=== PATIENT | female | born 1955 | race Caucasian/White ===

== ENCOUNTER 2019-06-06 12:33 | Inpatient (IN) | payer MEDICARE, MEDICAID, SELFPAY ==
[2019-06-06] VITALS (9 sets, daily range): BP systolic 119–153; BP diastolic 56–79; PULSE 73–96; RESP 14–20; TEMP 36.9; O2SAT 97–100; BMI 25.0
--- NOTE | ~2019-06-06 | XR_ITS ---
EXAMINATION: XR chest 2V EXAM DATE: 06/06/2019 14:03 INDICATION: Fell this morning. COPD on oxygen. TECHNIQUE: Frontal and lateral projections of the chest obtained and reviewed. Comparison is made to prior examination from 11/06/2018. FINDINGS: Severe chronic hyperinflation. Again there are old bilateral rib fractures. No confluent c onsolidation, pneumothorax or pleural effusion suspected. Cardiomediastinal silhouette is normal. IMPRESSION: No acute cardiopulmonary findings. Reviewed, dictated and finalized at location B. GN INSERTER
--- NOTE | ~2019-06-06 | CT_ITS ---
EXAMINATION: CT shoulder LT wo con DATE: 06/06/2019 16:41 INDICATION: Left shoulder pain. TECHNIQUE: Computed tomography (CT) of the left shoulder was performed without intravenous contrast. Automated exposure control and iterative reconstruction technique were employed. The dose-length prod uct was 176.85 mGy-cm. COMPARISON: Left shoulder radiographs 06/06/2019 FINDINGS: There is mild scarring at left lung apex. There is mild emphysema. Bone alignment is normal . No fracture. There is mild osteoarthritis of glenohumeral joint and acromioclavicular joint. There are multiple old healed left rib fractures. IMPRESSION: 1. Mild polyarticular osteoarthritis. Reviewed, dictated and finalized at location A. EN PRINT OPERATOR
--- NOTE | ~2019-06-06 | CT_ITS ---
EXAMINATION: CT brain wo con, CT cervical spine wo con EXAM DATE: 06/06/2019 13:35 INDICATION: Fall, head injury. TECHNIQUE: Spiral CT of the head was performed without contrast. Axial, coronal and sagittal images were reviewed. Spiral CT of the cervical spine was performed without contrast. Axial images were rev iewed. Coronal and sagittal reformatted images were also reviewed. The dose-length product (DLP) fo r this examination was 605.33 (accession [id number]), 165.06 (accession [id number]) mGy-cm. The exposure was tailored according to patient size, and iterative reconstruction (ASIR) was used as additional dose reduction technique. There is no prior study for comparison. FINDINGS: HEAD CT: There is no acute intraparenchymal hemorrhage. No evidence of intraparenchymal brain mass l esion. No evidence of acute infarction. There is mild periventricular and subcortical hypodensity, n onspecific but probably related to small vessel ischemic disease. There is intracranial carotid art eriosclerosis. There is no mass effect or midline shift. There is no obstructive hydrocephalus susp ected. There are no extra-axial collections. There are no acute calvarial fractures. The orbits ar e unremarkable. There is left frontal scalp contusion. The visualized sinuses and mastoid air cells are well aerated. Maxillary sinus wall thickening indicating a history of chronic sinus opacity. CERVICAL CT: There is no evidence of acute cervical fracture. The odontoid process is intact. Pre- dens space is normal. Prevertebral soft tissue is normal. There are no soft tissue abnormalities id entified. There is no disc space widening or traumatic vertebral body subluxation suspected. Severe multilevel cervical facet arthropathy. Degenerative subluxations. A detailed level by level evaluat ion of spondylosis can be added as addendum if requested. Biapical scarring. IMPRESSION: 1. No acute intracranial or cervical findings. 2. Left frontal scalp contusion. 3. Advanced cervical arthritis. Reviewed, dictated and finalized at location B. ING ENFORCER IMPRESSION: 1. No acute intracranial or cervical findings. 2. Left frontal scalp contusion. 3. Advanced cervical arthritis.
--- NOTE | ~2019-06-06 | CT_ITS ---
EXAMINATION: CT knee RT wo con DATE: 06/06/2019 14:50 INDICATION: Proximal right tibia fracture. TECHNIQUE: Computed tomography (CT) of the right knee was performed without intravenous contrast. Aut omated exposure control and iterative reconstruction technique were employed. The dose-length product was 464.28 mGy-cm. COMPARISON: Right knee radiographs 06/06/2019 FINDINGS: There is a comminuted fracture of proximal right tibia including a nondisplaced impaction f racture of the tibial tubercle and a nondisplaced split fracture of lateral tibial plateau. There is a nondisplaced stellate fracture of patella. There is mild osteoarthritis of medial and lateral ashvin rtments. There is a large lipohemarthrosis. IMPRESSION: 1. Nondisplaced comminuted fracture of proximal tibia. 2. Nondisplaced stellate fracture of patella. 3. Mild right knee osteoarthritis. 4. Large lipohemarthrosis. Reviewed, dictated and finalized at location A. RVISOR ALUMINUM BOAT ASSEMBLY
--- NOTE | ~2019-06-06 | XR_ITS ---
EXAMINATION: XR shoulder LT min 2V EXAM DATE: 06/06/2019 14:05 INDICATION: Left shoulder pain. Fall. Initial encounter. TECHNIQUE: The following left shoulder projections obtained: frontal projection with internal rotatio n, frontal projection with external rotation, Grashey, and scapular Y view (4+ views). There is no p rior study for comparison. FINDINGS: Left rib fractures which appear to be old. No evidence of left shoulder rotator cuff calcif ic tendinosis. There is mild to moderate acromioclavicular joint primary osteoarthritis. There are n o acute fractures or dislocations identified. There is no subcutaneous gas. The soft tissue is unre markable. There are no radiopaque foreign bodies. IMPRESSION: Left rib fractures which appear to be old. Reviewed, dictated and finalized at location B. R HELPER
--- NOTE | ~2019-06-06 | XR_ITS ---
EXAMINATION: XR knee RT min 4V EXAM DATE: 06/06/2019 14:06 INDICATION: Initial encounter following injury, with pain of the right knee. TECHNIQUE: Right knee frontal, crosstable lateral, orthogonal oblique projections for interpretation . Comparison is made to prior examination from 11/01/2012. FINDINGS: There is acute right tibial fracture involving the metaphysis anterolaterally, and extendin g vertically into the lateral tibial plateau. There is a laceration anterior to the tibial tuberosity , fracture site, uncertain whether or not this extends to the bone potentially making it an open post traumatic fracture, clinical correlation. There is large lipohemarthrosis. IMPRESSION: 1. Right tibial metaphyseal fracture extending into lateral tibial plateau. 2. Large lipohemarthrosis. Reviewed, dictated and finalized at location B. APPLIANCE SERVICER
--- NOTE | 2019-06-06 13:15 | ED.GENADULT ---
HPI - General Adult General Chief complaint: Fall Stated complaint: FALL Time Seen by Provider: 06/06/19 12:40 Source: patient Mode of arrival: ambulatory Limitations: no limitations History of Present Illness HPI narrative: Patient is a 63-year-old female who presents to emergency department for evaluation of injuries related to tripping over her oxygen tubing this morning injuring the left shoulder elbow and knee also striking the head where she has a hematoma patient denies syncope or loss of consciousness. Patient notes moderate aching pain to the injured areas worse with any activity or movement. Patient has not taken anything for her symptoms and presents per private vehicle in acute pain. Related Data Allergies Allergy/AdvReac Type Severity Reaction Status Date / Time cephalexin Allergy Mild Verified 06/06/19 13:11 levofloxacin Allergy Mild FEET Verified 11/06/18 16:30 SWELLING Sulfa (Sulfonamide Allergy Unknown Verified 11/06/18 16:30 Antibiotics) Review of Systems Review of Systems: Narrative: CONSTITUTIONAL: Denies fever, chills, or sweats. EYES: Denies visual changes, redness, or discharge. ENT: Denies rhinorrhea, congestion, sore throat, or otalgia. CARDIOVASCULAR: Denies chest pain, or edema. RESPIRATORY: Patient notes chronic cough attributed to COPD denies any dyspnea GASTROINTESTINAL: Denies abdominal pain, nausea, vomiting, or diarrhea. GENITOURINARY: Denies dysuria or hematuria. SKIN: Contusions and skin tears MUSCULOSKELETAL: Patient with tenderness of the left shoulder and anterior right knee. No cervical thoracic or lumbar tenderness NEUROLOGIC: Denies headache, numbness, dizziness, or weakness. PMFSH Past Medical History Medical History COPD (chronic obstructive pulmonary disease) Surgical History Surgical History (Updated 06/06/19 @ 13:23 by Ba Mendoza PA-C) History of orthopedic surgery Family History Family History Other Cerebrovascular accident Diabetes mellitus Family history of arthritis Family history of cardiovascular disease Family history of mental disorder Hypertension Social History Social History Smoking status: Former smoker Alcohol intake: current Exam Narrative: Exam Narrative: GENERAL: Well-appearing, well-nourished, and in no acute distress. HEAD: Normocephalic, hematoma to the left forehead EYES: PERRLA and EOMI. ENT: Nares clear, no rhinorrhea or epistaxis. Mucous membranes moist. Oropharynx without tonsillar hypertrophy exudate or other lesions. CHEST: Clear to auscultation. No respiratory distress. Coarse breath sounds throughout HEART: Regular rate and rhythm. No murmur heard. Normal peripheral pulses. ABDOMEN: Soft, nontender, distended EXTREMITIES: . Tenderness of the left shoulder and anterior right knee. Small abrasion of the anterior right knee with contusion. Skin tear of the left lateral forearm proximally. No cervical thoracic or lumbar tenderness SKIN: Warm, dry, no rash. NEURO: No focal deficits. Alert and oriented x3. Cranial nerves II through XII grossly intact PSYCH: Normal mood and affect. Course Course Emergency Course: Patient in the room in no distress aware of case findings treatment plan and diagnosis will be placed in hospital for placement Consultations Consultation #1: Spoke with Dr. Veliz who will consult on patient in hospital while awaiting placement would like the patient in a knee immobilizer and sling and has reviewed the case Vital Signs Vital signs: Vital Signs Pulse Rate 96 06/06/19 12:41 Respiratory Rate 18 06/06/19 12:41 Blood Pressure 140/56 L 06/06/19 12:41 Pulse Oximetry 99 06/06/19 12:41 Pulse Rate 96 06/06/19 12:41 Respiratory Rate 18 06/06/19 12:41 Blood Pressure 140/56 L 06/06/19 12:41 Pulse
[2019-06-06] MEDS: SODIUM CHLORIDE 0.9% IV 1,000 ML 999 ML IV CONT (14:10)
[2019-06-06 14:24] LABS: Basophils Absolute Auto 0.1 K/mm3 (0.0-0.1); Basophils Percent Auto 0.5 % (0.2-1.2); Eosinophils Percent Auto 0.1 % (0-4.4); Hematocrit 45.3 % (37.0-47.0); Hemoglobin 13.4 g/dL (12.0-15.0); Immature Granulocyte Absolute 0.18 K/mm3 (0.00-0.031); Immature Granulocyte Percent A 1.2 % (0-0.5); Lymphocytes Percent Auto 3.4 % (18.3-44.2); Mean Corpuscular HGB Conc 29.6 g/dl (32-36); Mean Corpuscular Hemoglobin 25.3 pg (26-34); Mean Corpuscular Volume 85.5 fl (80-100); Monocytes Absolute Auto 0.3 K/mm3 (0.1-0.6); Neutrophils Absolute Auto 13.6 K/mm3 (1.3-6.7); Neutrophils Percent Auto 92.8 % (45.5-73.1); Platelet Count Result 266 k/mm3 (150-375); Red Cell Distribution Width 13.7 % (11.5-14.5); White Blood Count 14.7 K/mm3 (4.5-10.0)
[2019-06-06 14:39] LABS: Blood Urea Nitrogen 18 mg/dL (7-17); Calcium 9.5 mg/dL (8.4-10.2); Carbon Dioxide 31 mmol/L (22-30); Chloride 94 mmol/L (98-107); Estimated Glomerular Filt Rate > 60; Glucose 149 mg/dL (65-105); Potassium 4.4 mmol/L (3.4-5.0); Sodium 136 mmol/L (137-145)
[2019-06-06] MEDS: MORPHINE SULFATE 4 MG/ML INJ IV PUSH (16:03)
--- NOTE | 2019-06-06 16:54 | PCCCNOTE ---
Spoke with patient and discussed rehab placement options. List of NH and SNF facilities given to pt. Pt also stated that she has been in [facility] in the past. Pt preferred [facility] or [facility].
--- NOTE | 2019-06-06 17:56 | PCCCNOTE ---
Called [facility] at [phone] left message c/o [facility] eval on Amber Teran.
--- NOTE | 2019-06-06 18:55 | ADMGEN ---
This patient, Amber Teran, was admitted to [facility] Surg Room 332-01. Patient/family oriented to hospital policies and general routines including ID bracelet, bed and alarms, visiting hours, pain management, procedures, bathroom and other care routines, personal items, smoking policy, room service/diet, and visiting hours. Valuables list has been completed. Information on how to activate the Rapid Response Team has been discussed. Patient/Family are encouraged to report perceived risks to care and to ask questions if they do not understand what they are told or what they should do.
[2019-06-06] MEDS: LACTATED RINGERS 1,000 ML 125 ML IV CONT (19:39)
[2019-06-06] MEDS: FAMOTIDINE 20 MG/2 ML VIAL IV PUSH (21:02)
[2019-06-06] MEDS: IPRATROPIUM BR 0.02% INH SOLN 0.5 MG/2.5 ML VIAL INHALATION (21:37)
[2019-06-06] MEDS: ALBUTEROL SULFATE NEB 2.5 MG/0.5 ML INH 5 MG INHALATION (21:37)
[2019-06-07] VITALS (11 sets, daily range): BP systolic 134–139; BP diastolic 71–74; PULSE 72–100; RESP 16–20; TEMP 36.7; O2SAT 96–100
[2019-06-07] MEDS: IPRATROPIUM BR 0.02% INH SOLN 0.5 MG/2.5 ML VIAL INHALATION ×4 (02:19→20:43)
[2019-06-07] MEDS: ALBUTEROL SULFATE NEB 2.5 MG/0.5 ML INH 5 MG INHALATION ×4 (02:19→20:42)
[2019-06-07] MEDS: LACTATED RINGERS 1,000 ML 125 ML IV CONT ×2 (03:33→11:57)
[2019-06-07 06:11] LABS: Basophils Absolute Auto 0.1 K/mm3 (0.0-0.1); Basophils Percent Auto 0.8 % (0.2-1.2); Eosinophils Absolute Auto 0.1 K/mm3 (0-0.3); Eosinophils Percent Auto 1.3 % (0-4.4); Hematocrit 37.3 % (37.0-47.0); Hemoglobin 10.7 g/dL (12.0-15.0); Immature Granulocyte Absolute 0.12 K/mm3 (0.00-0.031); Immature Granulocyte Percent A 1.3 % (0-0.5); Lymphocytes Percent Auto 15.6 % (18.3-44.2); Mean Corpuscular HGB Conc 28.7 g/dl (32-36); Mean Corpuscular Hemoglobin 25.2 pg (26-34); Mean Corpuscular Volume 87.8 fl (80-100); Mean Platelet Volume 10.9 fl (7.4-10.4); Monocytes Absolute Auto 0.6 K/mm3 (0.1-0.6); Monocytes Percent Auto 7.2 % (2.6-8.5); Neutrophils Absolute Auto 6.6 K/mm3 (1.3-6.7); Neutrophils Percent Auto 73.8 % (45.5-73.1); Platelet Count Result 194 k/mm3 (150-375); Red Blood Count 4.25 M/mm3 (4.2-5.4); Red Cell Distribution Width 13.8 % (11.5-14.5)
[2019-06-07 06:31] LABS: Blood Urea Nitrogen 13 mg/dL (7-17); Calcium 8.6 mg/dL (8.4-10.2); Carbon Dioxide 28 mmol/L (22-30); Chloride 101 mmol/L (98-107); Estimated CRCL calculation 117 ml/min; Estimated Glomerular Filt Rate > 60; Glucose 134 mg/dL (65-105); Potassium 3.7 mmol/L (3.4-5.0); Sodium 135 mmol/L (137-145)
--- NOTE | 2019-06-07 06:46 | PM.PNORT ---
Progress Note: A&P Additional Plan Ortho consult dictated pt left shoulder will be treated symptomatically, sling for comfort and may ween off as tolerated. Right knee -fractures will be treated non-surg. at this point, pt is high risk for surg complications and alignment is acceptable. Will work on getting brace from [employer] Machine Operator today, pt will need rehab, will be 6-8 weeks before any WB on right leg. Will start eliquis today for DVT proph. Subjective Subjective Date/Time Seen: 06/07/19 06:46 Objective Data Vital Signs Vital Signs: Vital Signs - 24 hr 06/06/19 12:41 06/06/19 15:00 06/06/19 17:10 Temperature Pulse Rate 96 95 75 Respiratory Rate 18 18 16 Blood Pressure 140/56 L 119/66 136/79 Pulse Oximetry 99 100 100 06/06/19 18:15 06/06/19 19:00 06/06/19 21:38 Temperature Pulse Rate 75 94 73 Respiratory Rate 14 20 16 Blood Pressure 143/68 H 153/73 H Pulse Oximetry 100 99 06/06/19 21:40 06/06/19 21:48 06/06/19 22:00 Temperature 36.9 C Pulse Rate 76 83 Respiratory Rate 16 18 Blood Pressure 153/77 H Pulse Oximetry 97 98 06/07/19 02:21 06/07/19 02:31 06/07/19 06:00 Temperature 36.7 C Pulse Rate 72 77 82 Respiratory Rate 16 16 18 Blood Pressure 134/71 Pulse Oximetry 100 Intake/Output Intake/Output: Intake & Output 06/04/19 06/05/19 06/06/19 06/07/19 23:59 23:59 23:59 23:59 Intake Total 1150 2000 Output Total 400 Balance 1150 1600 Meds/Results Medications: Active Medications Generic Name Dose Route Start Last Admin Trade Name Freq PRN Reason Stop Dose Admin Hydrocodone Bitart/Acetaminophen 1 tab 06/06/19 17:30 06/07/19 03:32 Whitfield 5-325 Mg PO 1 tab Q4H PRN Administration Pain Rated 4-6 Albuterol 5 mg 06/06/19 20:00 06/07/19 02:19 Albuterol Sulf Neb 2.5mg/0.5ml INHALATION 5 mg Q6HRT CAROL Administration Albuterol 2.5 mg 06/07/19 04:59 Albuterol Sulf Neb 2.5mg/0.5ml INHALATION Q4H PRN SHORTNESS OF BREATH Baclofen 5 mg 06/07/19 09:00 Lioresal Po PO DAILY [facility] Diazepam 2 mg 06/07/19 04:47 Valium Po PO DAILY PRN Anxiety Famotidine 20 mg 06/06/19 21:00 06/06/19 21:02 Pepcid Iv IV PUSH 20 mg Q12HR CAROL Administration Hydralazine HCl 10 mg 06/07/19 09:00 Apresoline Tablet PO TID [facility] Lactated Ringer's 1,000 mls @ 125 mls/hr 06/06/19 17:30 06/07/19 03:33 Lr - Lactated Ringers Iv IV CONT 125 mls/hr .Q8H [facility] Administration Ipratropium [place]hall 0.5 mg 06/06/19 20:00 06/07/19 02:19 Atrovent Neb INHALATION 0.5 mg Q6HRT [facility] Administration Metformin HCl 500 mg 06/07/19 09:00 Glucophage PO BID [facility] Montelukast Sodium 10 mg 06/07/19 09:00 Singulair PO DAILY [facility] Ondansetron HCl 4 mg 06/06/19 17:30 Zofran Inj IV PUSH Q4H PRN Nausea Pantoprazole Sodium 40 mg 06/07/19 09:00 Protonix PO BID [facility] Pravastatin Sodium 20 mg 06/07/19 09:00 Pravastatin Sodium PO DAILY [facility] Prednisone 10 mg 06/07/19 09:00 Prednisone PO DAILY [facility] Fluticasone/Salmeterol 2 puff 06/07/19 08:00 Advair Hfa 230-21 Mcg (*Sp) Inhaler INHALATION Q12HRT [facility] Sucralfate 1 gm 06/07/19 09:00 Carafate PO BID [facility] Theophylline 300 mg 06/07/19 09:00 Kimo-Dur 12 Hr PO Q12H [facility] Tiotropium [place]hall 1 cap 06/07/19 09:00 Spiriva INHALATION DAILY [facility] Radiology Results: ITS Impressions Cervical Spine CT 06/06/19 13:39 IMPRESSION: 1. No acute intracranial or cervical findings. 2. Left frontal scalp contusion. 3. Advanced cervical arthritis. Head CT 06/06/19 13:39 IMPRESSION: 1. No acute intracranial or cervical findings. 2. Left frontal scalp contusion. 3. Advanced cervical arthritis. Chest X-Ray 06/06/19 14:07 IMPRESSION: No acute cardiopulmonary findings. Shoulder X-Ray 06/06/19 14:09 IMPRESSION: Left rib fractures which appear t
[2019-06-07 07:37] LABS: Glucose Point of Care 136 (65-105)
[2019-06-07 07:45] LABS: Vitamin D 25 Hydroxy 28.8 ng/mL
[2019-06-07] MEDS: FAMOTIDINE 20 MG/2 ML VIAL IV PUSH ×2 (09:06→20:29)
[2019-06-07] MEDS: hydrALAZINE 10 MG TABLET PO ×3 (09:07→16:36)
[2019-06-07] MEDS: PANTOPRAZOLE 40 MG TABLET PO ×2 (09:07→16:36)
[2019-06-07] MEDS: MONTELUKAST SODIUM 10 MG TABLET PO (09:07)
[2019-06-07] MEDS: metFORMIN HCL 500 MG TABLET PO (09:07)
[2019-06-07] MEDS: predniSONE 10 MG TABLET PO (09:08)
[2019-06-07] MEDS: SUCRALFATE 1 GM TABLET PO ×2 (09:08→16:37)
[2019-06-07] MEDS: APIXABAN 2.5 MG TABLET PO ×2 (10:23→20:28)
--- NOTE | 2019-06-07 12:54 | PM.IMHP ---
H&P: HPI History of Present Illness Chief complaint: closed right knee fracture left shoulder injury Narrative: Date of service is 06/07/2019 Supervising physician for this history and physical is Dr. Ardon. Amber Teran is a 63 year old female with history of COPD, chronic respiratory failure on 3L supplemental O2 at home, non insulin-dependent type 2 diabetes mellitus, hypertension, and chronic back pain who presented to the ED for evaluation after a mechanical fall at home. She reports she had been out shopping and ambulating without issues and once she returned home, she accidentally tripped over her oxygen tubing. She did strike her face on the floor when she fell. She reports her pain is worst at her right knee today. Imaging showed a right proximal tibia fracture and right patella fracture. Orthopedics has been consulted and their plan for nonsurgical management is noted. Given the fact she will be nonweightbearing on the right side for several weeks, she will need placement. She denies any chest pain, shortness of breath at rest, or calf tenderness. She explains that her wheezing and productive cough are at her baseline. She recently completed a course of steroids and antibiotics from her sander wooden pencils. She denies any nausea, vomiting, or abdominal pain. She is being admitted for evaluation and management of multiple fractures after a fall. Review of Systems Review of Systems: Narrative: At time of my exam, she reports her pain is worst at her right knee but also has left shoulder discomfort and some pain to the left side of her face or the hematoma is. No chest pain, shortness of breath beyond her baseline. No nausea or vomiting. Twelve systems were reviewed with pertinent positives and negatives as per HPI. [facility] Past Medical History Medical History Anxiety Chronic back pain Chronic respiratory failure COPD (chronic obstructive pulmonary disease) GERD (gastroesophageal reflux disease) Hyperlipidemia Hypertension Osteoarthritis Type 2 diabetes mellitus Surgical History Surgical History H/O: hysterectomy 1986 History of lung biopsy In the late . She reports she had a lung biopsy which resulted in collapsed lung , what sounds like a pneumothorax for which she had chest tube. History of orthopedic surgery Family History Family History Father Acute myocardial infarction Sibling Acute myocardial infarction Other Cerebrovascular accident Diabetes mellitus Family history of arthritis Family history of cardiovascular disease Family history of mental disorder Hypertension Social History Social History Social History: Ms. Teran lives at home alone in [place]. She reports rare alcohol use, a couple drinks in the last 1 year. She quit smoking cigarettes 10 years ago and smoked 1ppd x 30 years. Denies other substance use. Her PCP is Adriana Thompson. She designates her son, Nolan Teran, as her surrogate decision maker. Smoking packs per day: 1 Smoking cigarettes per day: 20.0 Years smoked: 30 Smoking pack-years: 30.00 Smoking status: Former smoker Tobacco type: cigarettes Alcohol intake: never Substance use: never Living arrangements: alone Gender identity (if verbalized by the patient): Female Spiritual care concerns: No Agree to blood products: Yes Meds Home Medications and Allergies Home Medications Medication Instructions Recorded Confirmed Type albuterol sulfate 2.5 mg INHALATION Q4H PRN 06/06/19 06/06/19 History albuterol sulfate [Ventolin HFA] 2 inh INHALATION Q4H PRN 06/06/19 06/06/19 History baclofen 5 mg PO DAILY 06/06/19 06/06/19 History diazepam [Valium] 2 mg PO DAILY PRN 06/06/19 06/06/19 History famotidine 20 mg P
--- NOTE | 2019-06-07 13:37 | CONS_ITS ---
DATE OF CONSULTATION: 06/07/2019 REASON FOR CONSULT: Right tibial plateau and right patellar fracture. HISTORY OF PRESENT ILLNESS: The patient is a 63-year-old female who was admitted to the ER at [facility] yesterday following a fall at home. She tripped over her oxygen tubing, fell hard right on the anterior aspect of the right knee. She also struck her left shoulder and hit her head as well. She was evaluated in the ER for the head injury. X-rays of the shoulder showed no evidence of fracture or arthritic changes in the left shoulder. CT was done of the knee, which show a nondisplaced inferior pole patellar fracture as well as a comminuted fracture of the proximal tibia. The alignment is acceptable on the CT scan of the proximal tibia fracture, this can be treated nonsurgically. The patient was recently diagnosed with osteoporosis. She has been on alendronate since she was diagnosed a month or 2 ago. She states she is also on chronic narcotics, [place] 10. She states she takes 6 a day for chronic low back pain and has done this for over 10 years. She has a COPD. She is on chronic prednisone as well as oxygen. She has also been on diclofenac, which we will stop at this point. PHYSICAL EXAMINATION: GENERAL: 63-year-old female. She is alert, pleasant. EXTREMITIES: Her left arm is in a sling. She has pain with range of motion to left shoulder. I am able to get her to active-assisted elevate it to 125. External rotation is to 80. There is no swelling or bruising noted about the shoulder. She does have relatively good strength with external rotation as well as abduction testing, but moderate pain with testing. Skin is all intact around the shoulder. She does have a skin tear at the proximal dorsal forearm, which has been bandaged. Her right leg, she is in a knee immobilizer at this point. She has [id number] swelling to the knee. She had a skin tear in the anterior aspect of the tibial eminence, which is superficial. She is able to wiggle her toes, she complains no numbness or tingling in her toes. She has a very faint dorsalis pedis pulse in her foot. There is no swelling in the foot. She complains of no symptoms of pain elsewhere in the right upper extremity and left lower extremity. Again, x-rays and CT as noted above. IMPRESSION: The patient has most likely a contusion to the left shoulder. She has relatively good strength so I think her rotator cuff is intact. There does not appear to be any fracture noted. This will be treated for comfort measures with a sling and she will gradually wean out of the sling as her comfort allows and use the arm as tolerated. With regard to her right knee, at this point she is in a knee immobilizer. We are going to work on getting [employer] to come in and fit her with a hinged knee brace locked out in extension. We will use this while the fracture is healing. The patient will be strict nonweightbearing on the right lower extremity. She will be transfers only from bed to chair with support of the foot and leg while this is going on. The patient was advised she is not to be lifting the leg up and moving it around on her own and can only be moving the leg with the foot being supported. We will start her on Eliquis twice a day for DVT prophylaxis as she is going to be immobilized and she has at increased risk of DVT due to her COPD. It is going to take about 6-8 weeks for this fracture to heal, possibly longer because of her osteoporosis before we are going to allow her to put on any weight on it. She is going to need geriatric social work professor to find a rehab facility for extended care. We will work on this process today. We will also work on getting another brace today. We will continue to follow the patient while she is here.
[2019-06-07 17:22] LABS: Glucose Point of Care 121 (65-105)
[2019-06-07] MEDS: PRAVASTATIN SODIUM 20 MG TABLET PO (20:29)
[2019-06-07] MEDS: BACLOFEN 5 MG TABLET PO (20:29)
[2019-06-07 22:09] LABS: Glucose Point of Care 199 (65-105)
[2019-06-08] VITALS (8 sets, daily range): BP systolic 124–135; BP diastolic 74–81; PULSE 92–112; RESP 16–20; TEMP 36.5–37.2; O2SAT 98–99
[2019-06-08] MEDS: IPRATROPIUM BR 0.02% INH SOLN 0.5 MG/2.5 ML VIAL INHALATION ×3 (02:24→15:19)
[2019-06-08] MEDS: ALBUTEROL SULFATE NEB 2.5 MG/0.5 ML INH 5 MG INHALATION ×3 (02:24→15:19)
[2019-06-08 07:09] LABS: Hemoglobin A1C 6.8 % (<5.7)
[2019-06-08 07:46] LABS: Glucose Point of Care 150 (65-105)
[2019-06-08] MEDS: FAMOTIDINE 20 MG/2 ML VIAL IV PUSH (08:23)
[2019-06-08] MEDS: predniSONE 10 MG TABLET PO (08:24)
[2019-06-08] MEDS: metFORMIN HCL 500 MG TABLET PO (08:24)
[2019-06-08] MEDS: SUCRALFATE 1 GM TABLET PO ×2 (08:24→17:48)
[2019-06-08] MEDS: APIXABAN 2.5 MG TABLET PO (08:24)
[2019-06-08] MEDS: MONTELUKAST SODIUM 10 MG TABLET PO (08:24)
[2019-06-08] MEDS: PANTOPRAZOLE 40 MG TABLET PO ×2 (08:24→17:48)
[2019-06-08] MEDS: hydrALAZINE 10 MG TABLET PO ×3 (08:24→17:49)
[2019-06-08] MEDS: DIAZEPAM 2 MG TABLET PO (08:31)
[2019-06-08 11:56] LABS: Glucose Point of Care 166 (65-105)
--- NOTE | 2019-06-08 16:00 | PM.PNORT ---
Progress Note: A&P Additional Plan Patient is doing well today. She has not had satisfactory pain control relative to her left leg. She has been on 5 mg [place] as. It takes 10 mg an Nessa every 4 hr. I think she should be allowed to take her home medication. Chest about increasing the dose but I would be afraid she might stops breathing. She is in no distress at this time is tearful. She has a locked hinged knee brace which fits her well. I have adjusted the bed. A purple elongated the bit for better support them remove the compression dressing she had over the proximal anterior aspect of her saba. She has about a 8 mm skin tear over the tibial tubercle and had apparently it was bleeding quite a bit and there was a lot of dried blood on the stack a 4x4s but this completely dry at this time we displaced the Band-Aid on. I reapplied the brace and she is comfortable. The CT scanner left shoulder showed no evidence of fracture which may have a rotator cuff tear. She is able to lift it up to 90? but it seems to drop down she feels is weaker she may have some tearing of the rotator cuff. She may have an occult fracture is notch well on the CT scan also I think that using the sling and moving around as her comfort allows gently would be appropriate with no weight-bearing. She has been able to transfer from bed to chair with nonweightbearing in the left leg and it without using her left arm just a standing on her right leg and the use of assistance with a gait belt. She will continue with that regimen. I will see her back and for 2 weeks in the office for x-rays of the left shoulder and left knee that time. She is going to the correction today on Eliquis 2.5 mg twice daily for DVT prophylaxis she is at somewhat higher risk because of her lung disease and immobility at this time. I Subjective Subjective Date/Time Seen: 06/08/19 16:00 Objective Data Vital Signs Vital Signs: Vital Signs - 24 hr 06/07/19 20:44 06/07/19 20:48 06/07/19 21:01 Temperature Pulse Rate 95 93 Respiratory Rate 20 20 Blood Pressure Pulse Oximetry 97 06/07/19 22:00 06/08/19 02:24 06/08/19 02:35 Temperature 36.7 C Pulse Rate 100 100 97 Respiratory Rate 20 20 20 Blood Pressure 139/74 Pulse Oximetry 97 06/08/19 06:00 06/08/19 08:49 06/08/19 08:52 Temperature 37.2 C Pulse Rate 100 98 Respiratory Rate 20 20 Blood Pressure 135/81 Pulse Oximetry 99 98 06/08/19 08:56 06/08/19 15:20 Temperature Pulse Rate 96 92 Respiratory Rate 20 20 Blood Pressure Pulse Oximetry Intake/Output Intake/Output: Intake & Output 06/05/19 06/06/19 06/07/19 06/08/19 23:59 23:59 23:59 23:59 Intake Total 1150 4440 250 Output Total 1600 Balance 1150 2840 250 Meds/Results Medications: Active Medications Generic Name Dose Route Start Last Admin Trade Name Freq PRN Reason Stop Dose Admin Hydrocodone Bitart/Acetaminophen 1 tab 06/08/19 14:52 06/08/19 15:28 [place] 10-325 Mg PO 1 tab Q6H PRN Administration Pain Rated 7-10 Albuterol 5 mg 06/06/19 20:00 06/08/19 15:19 Albuterol Sulf Neb 2.5mg/0.5ml INHALATION 5 mg Q6HRT CAROL Administration Albuterol 2.5 mg 06/07/19 04:59 Albuterol Sulf Neb 2.5mg/0.5ml INHALATION Q4H PRN SHORTNESS OF BREATH Apixaban 2.5 mg 06/07/19 09:00 06/08/19 08:24 Eliquis PO 07/19/19 09:01 2.5 mg Q12HR CAROL Administration Baclofen 5 mg 06/07/19 21:00 06/07/19 20:29 Lioresal Po PO 5 mg HS CAROL Administration Dextrose 12.5 gm 06/07/19 13:23 Dextrose 50% Syringe IV PUSH PRN PRN Hypoglycemia Protocol Diazepam 2 mg 06/07/19 04:47 06/08/19 08:31 Valium Po PO 2 mg DAILY PRN Administration Anxiety Famotidine 20 mg 06/06/19 21:00 06/08/19 08:23 Pepcid Iv IV PUSH 20 mg Q12HR CAROL Administration Glucagon 1 mg 06/07/19 13:23 Glucagon For Inj IM PRN PRN Hypoglycemia Protocol Gluco
[2019-06-08 16:47] LABS: Glucose Point of Care 165 (65-105)
--- NOTE | 2019-06-08 21:38 | PM.DS ---
DS: Diagnosis Admitting Diagnosis Admitting Diagnosis: Unspecified fracture of upper end of right tibia, initial encounter for closed fracture Discharge Diagnosis (1) Fracture of proximal end of tibia: Qualifiers: Encounter type: initial encounter Fracture type: closed Fracture morphology: unspecified fracture morphology Laterality: right Qualified Code(s): S82.101A - Unspecified fracture of upper end of right tibia, initial encounter for closed fracture Code(s): S82.109A - Unspecified fracture of upper end of unspecified tibia, initial encounter for closed fracture Status: Acute Assessment and Plan: Date of Service 06/08/19: Ms. Teran is a 63yo F with history of COPD, on 3 L supplemental O2 at home, non insulin-dependent type 2 diabetes mellitus, hypertension, and chronic back pain who presented to the ED for evaluation after a mechanical fall at home. Imaging showed a nondisplaced comminuted fracture of the right proximal tibia, nondisplaced stellate fracture of the right patella. She also complains of left shoulder pain and CT showed mild polyarticular osteoarthritis. Orthopedic surgery was consulted and she was seen and evaluated by Dr. Morocho, who opted for nonsurgical management of the fractures. She was fitted for a custom right knee brace from [facility] and instructed strict nonweightbearing on the right leg. Left arm was placed in a sling and she was also instructed nonweightbearing with the left arm. She was started on Eliquis for DVT prophylaxis and will be maintained on her home [place] for pain control. She will follow-up with Dr. Morocho's office in 2 weeks for repeat imaging at that time. She was hemodynamically stable for discharge to SNF 06/08 with plans to be seen by the facility doctor and follow-up with Dr. Morocho. (2) Head injury: Qualifiers: Encounter type: initial encounter Qualified Code(s): S09.90XA - Unspecified injury of head, initial encounter Code(s): S09.90XA - Unspecified injury of head, initial encounter Status: Acute Assessment and Plan: No open laceration. Periorbital ecchymosis. (3) Injury of left shoulder: Qualifiers: Encounter type: initial encounter Qualified Code(s): S49.92XA - Unspecified injury of left shoulder and upper arm, initial encounter Code(s): S49.92XA - Unspecified injury of left shoulder and upper arm, initial encounter Status: Acute Assessment and Plan: In a sling, see above. (4) COPD (chronic obstructive pulmonary disease): Qualifiers: COPD type: unspecified COPD Qualified Code(s): J44.9 - Chronic obstructive pulmonary disease, unspecified Code(s): J44.9 - Chronic obstructive pulmonary disease, unspecified Status: Acute Assessment and Plan: Tolerating her home oxygen requirement. Continue home respiratory regimen. No acute respiratory distress. (5) Type 2 diabetes mellitus: Qualifiers: Diabetes mellitus terminal operations manager insulin use: without terminal operations manager use Diabetes mellitus complication status: without complication Qualified Code(s): E11.9 - Type 2 diabetes mellitus without complications Code(s): E11.9 - Type 2 diabetes mellitus without complications Status: Acute Assessment and Plan: Continue home metformin. (6) Hypertension: Qualifiers: Hypertension type: essential hypertension Qualified Code(s): I10 - Essential (primary) hypertension Code(s): I10 - Essential (primary) hypertension Status: Acute Assessment and Plan: Stable maintained on her home hydralazine. (7) Chronic back pain: Qualifiers: Back pain location: low back pain Back pain laterality: unspecified Sciatica presence: unspecified w
== END 2019-06-08 19:40 | DRG 563 ==
LOC: ANHED 17:29 → ANH3MEDSUR 18:32
PROVIDERS: Emergency Medicine Emergency Medical Services; Physician Assistant; Physician Assistant Surgical; Admitting Provider Internal Medicine; Emergency Provider Emergency Medicine; PCP Physician Assistant; Visit Provider Family Medicine
DX: S82.101A Unspecified fracture of upper end of right tibia, initial encounter for closed fracture (principal); J96.10 Chronic respiratory failure, unspecified whether with hypoxia or hypercapnia; J44.9 Chronic obstructive pulmonary disease, unspecified; E11.9 Type 2 diabetes mellitus without complications; I10 Essential (primary) hypertension; M54.9 Dorsalgia, unspecified; G89.29 Other chronic pain; F41.9 Anxiety disorder, unspecified; K21.9 Gastro-esophageal reflux disease without esophagitis; E78.5 Hyperlipidemia, unspecified; M19.90 Unspecified osteoarthritis, unspecified site; S09.90XA Unspecified injury of head, initial encounter; S40.012A Contusion of left shoulder, initial encounter; W01.198A Fall on same level from slipping, tripping and stumbling with subsequent striking against other object, initial encounter; M81.0 Age-related osteoporosis without current pathological fracture; Z99.81 Dependence on supplemental oxygen; Z87.891 Personal history of nicotine dependence; Z90.710 Acquired absence of both cervix and uterus
CPT/HCPCS: 36415; 70450; 71046; 72125; 73030; 73200; 73564; 73700; 80048; 82306; 83036; 85025; 87081; 94640; 96361; 96365; 96375; 96376; 97110; 97161; 97166; 97530; 97535; 99285; A4565; A9270; G0378; J0131; J2270; J7030; J7120; J7512

== ENCOUNTER → 2020-05-09 10:33 | Outpatient (CLI) | payer MEDICARE, MEDICAID, SELFPAY ==
--- NOTE | ~2020-05-09 | XR_ITS ---
XR thoracic spine 2V DATE: 05/09/2020 10:56 INDICATION: Chronic back pain TECHNIQUE: AP, lateral, swimmer views COMPARISON: None FINDINGS: There is approximately 6 mm anterolisthesis at C3-4. There is moderate loss of interspace h eight at the C3-4 interspace. There is approximately 2.5 mm anterolisthesis and severe degenerative disc disease at C5-6. Diffuse osteopenia. There is mild biconcavity of T6 and mild cupping of the superior vertebral endplate T11. Otherwise no fracture or bone destruction is evident. No bone destruction is evident. The thoracic pedicles are intact. No paraspinal soft tissue thickenin g is evident. IMPRESSION: Diffuse osteopenia Mild compression deformities of undetermined age of T6 and T11 6 mm anterolisthesis and moderate degenerative disc disease at C3-4 2.5 mm anterolisthesis and severe degenerative disc disease at C5-6 Reviewed, dictated and finalized at location A. S PERSON
--- NOTE | ~2020-05-09 | XR_ITS ---
XR lumbar spine 2-3V DATE: 05/09/2020 10:56 INDICATION: Chronic back pain TECHNIQUE: AP, lateral, coned lateral lumbosacral views COMPARISON: 03/09/2009 lumbar spine FINDINGS: There is diffuse osteopenia. There is minimal dextroscoliosis of the lumbar spine. No fracture or bone destruction or spondylolisthesis is detected. The lumbar pedicles are intact. Lumbar and lumbosacral interspaces are relatively preserved. The sacroiliac joints are normal. There is a prominent amount of fecal material in the colon and rectum suggesting constipation. IMPRESSION: Osteopenia Reviewed, dictated and finalized at location A. KDOWN WORKER IMPRESSION: Osteopenia
== END ==
PROVIDERS: PCP Family Medicine; Visit Provider Family Medicine
DX: M85.88 Other specified disorders of bone density and structure, other site (principal); M50.322 Other cervical disc degeneration at C5-C6 level
CPT/HCPCS: 72070; 72100

== ENCOUNTER 2021-02-12 05:40 | Emergency (ER) | payer MEDICARE, MEDICAID, SELFPAY ==
--- NOTE | ~2021-02-12 | CT_ITS ---
EXAMINATION: CT brain wo con DATE: 02/12/2021 06:13 INDICATION: Head trauma. Nasal bone fracture. TECHNIQUE: Computed tomography (CT) of the head was performed without intravenous contrast. The mA wa s adjusted according to patient size. Iterative reconstruction technique was employed. Exam dose: 60 5.33 mGy-cm total exam DLP. COMPARISON: 06/06/2019 CT brain FINDINGS: There is motion artifact, mildly limiting the examination. No intracranial mass lesion or hemorrhage, midline shift or mass effect. Normal ventricular size. There is mildly diminished attenuation of the cerebral white matter, likely due to chronic small vess el ischemic changes. Mild internal carotid artery calcifications are noted. No subdural or epidural hematoma. No fracture or bone destruction of the cranial vault. The mastoid air cells and included paranasal sinuses are normally developed and aerated. IMPRESSION: Mild cerebral atherosclerosis and chronic small vessel ischemic changes of cerebral whit e matter No skull fracture or acute intracranial abnormality Reviewed, dictated and finalized at Location [facility]. Reviewed, dictated and finalized at location A. IMPRESSION: Mild cerebral atherosclerosis and chronic small vessel ischemic ch anges of cerebral white matter No skull fracture or acute intracranial abnormality
--- NOTE | ~2021-02-12 | CT_ITS ---
EXAMINATION: CT facial & cervical spine wo DATE: 02/12/2021 06:13 INDICATION: Head trauma. Nasal bone fracture. TECHNIQUE: Computed tomography (CT) of the facial bones and maxillofacial region an cervical spine wa s performed without intravenous contrast. Automated exposure control and iterative reconstruction ayah hnique were employed. Exam dose: 214.10 mGy-cm total exam DLP. COMPARISON: 06/06/2019 CT cervical spine FINDINGS: The orbital rims and calvillo, frontozygomatic sutures, zygomatic bones and remainder of the f acial bones are intact. Degenerative changes at the temporomandibular joints. No dislocation at the temporal mandibular joint s were mandibular fracture. The nasal bones are intact. There is 7 mm anterolisthesis at C3-4, compared to 5.6 mm on 06/06/2019. There is approximately 2 mm anterolisthesis at C4-5 and C5-6. There is moderately severe degenerative disc disease at C3-4, moderate degenerative disc disease at C 4-5, severe degenerative disc disease at C5-6. There is severe bilateral hypertrophic osteoarthritic change at the apophyseal joints. There is promi nent spurring at the right C5-6 uncovertebral joint. C1 and C2 are normally aligned and the odontoid process is intact. No fracture or dislocation, locked facet or prevertebral soft tissue swelling is detected. IMPRESSION: No facial fracture 7 mm anterolisthesis at C3-4, increased from 5.6 mm on 06/06/2019 2 mm anterolisthesis at C4-5 and C5-6 Multilevel degenerative disc disease, most pronounced at C5-6 Severe hypertrophic osteoarthritic change at the apophyseal joints Prominent hypertrophic degenerative spurring at the right C5-6 uncovertebral joint Reviewed, dictated and finalized at [facility]. Reviewed, dictated and finalized at location A. IMPRESSION: No facial fracture 7 mm anterolisthesis at C3-4, increased from 5.6 mm on 06/06/2019 2 mm anterolisthesis at C4-5 and C5-6 Multilevel degenerative disc disease, most pronounced at C5-6 Severe hypertrophic osteoarthritic change at the apophyseal joints Prominent hypertrophic degenerative spurring at the right C5-6 uncovertebral negrita int
--- NOTE | 2021-02-12 05:49 | ED.FALL ---
HPI - Fall General Chief Complaint: Fall Stated Complaint: Fall, hit head Time Seen by Provider: 02/12/21 05:48 Source: patient and family Mode of arrival: ambulatory Limitations: no limitations History of Present Illness HPI Narrative: Patient is a 65-year-old female with a history of chronic respiratory failure, hypertension, COPD who presents for evaluation following a ground-level fall. Patient states that she woke up to go to the bathroom when she tripped, landing into the back of her couch. Patient reports full face trauma. She denies loss of consciousness. She reports mild neck pain. She reports swelling of the nasal bridge and mild bleeding from the left nostril. She denies severe headache pain. No nausea, vomiting or vision changes. No chest pain or shortness of breath. No hip pain. No extremity weakness. She does report some bruising and right-sided knee pain. No difficulty with movement. She is ambulatory in room. Patient takes a daily aspirin, denies other anticoagulation. Related Data Home Medications Medication Instructions Recorded Confirmed Spiriva with HandiHaler 1 cap INHALATION DAILY 06/06/19 06/06/19 albuterol sulfate 2.5 mg INHALATION Q4H PRN 06/06/19 06/06/19 albuterol sulfate [Ventolin HFA] 2 inh INHALATION Q4H PRN 06/06/19 06/06/19 baclofen 5 mg PO DAILY 06/06/19 06/06/19 diazepam [Valium] 2 mg PO DAILY PRN 06/06/19 06/06/19 famotidine 20 mg PO BID 06/06/19 06/06/19 fluticasone propion-salmeterol 1 inh INHALATION BID 06/06/19 06/06/19 [Advair Diskus] hydralazine 10 mg PO TID 06/06/19 06/06/19 montelukast 10 mg PO DAILY 06/06/19 06/06/19 omeprazole magnesium [Acid Network Announcer 20 mg PO BID 06/06/19 06/06/19 (omeprazole)] pravastatin 20 mg PO DAILY 06/06/19 06/06/19 prednisone 10 mg PO DAILY 06/06/19 06/06/19 sucralfate 1 g PO BID 06/06/19 06/06/19 Allergies Allergy/AdvReac Type Severity Reaction Status Date / Time cephalexin Allergy Mild Hives Verified 02/12/21 05:57 levofloxacin Allergy Mild FEET Verified 11/06/18 16:30 SWELLING Sulfa (Sulfonamide Allergy Unknown Hives Verified 02/12/21 05:57 Antibiotics) Review of Systems Review of Systems: CONSTITUTIONAL: Denies fever HEENT: Bruising of the nasal bridge, denies vision changes, bleeding from the left naris CARDIOVASCULAR: Denies chest pain RESPIRATORY: Denies cough or dyspnea. GASTROINTESTINAL: Denies abdominal pain SKIN: Denies rash, bruising of the right knee MUSCULOSKELETAL: Denies back pain NEUROLOGIC: Denies headache [facility] Past Medical History Medical History (Updated 02/12/21 @ 07:22 by Bonita Grissom MD) Anxiety Chronic back pain Chronic respiratory failure COPD (chronic obstructive pulmonary disease) GERD (gastroesophageal reflux disease) Hyperlipidemia Hypertension Osteoarthritis Type 2 diabetes mellitus Surgical History Surgical History H/O: hysterectomy 1985 History of lung biopsy In the late . She reports she had a lung biopsy which resulted in collapsed lung , what sounds like a pneumothorax for which she had chest tube. History of orthopedic surgery Family History Family History Father Acute myocardial infarction Sibling Acute myocardial infarction Other Cerebrovascular accident Diabetes mellitus Family history of arthritis Family history of cardiovascular disease Family history of mental disorder Hypertension Social History Social History Social History: Ms. Teran lives at home alone in [place]. She reports rare alcohol use, a couple drinks in the last 1 year. She quit smoking cigarettes 10 years ago and smoked 1ppd x 30 years. Denies other substance use. Her PCP is Adriana Thompson. She designates her son, Nolan Teran, as her surrogate decision maker. Smoking packs per day: 1 Smoking cigarettes p
[2021-02-12 05:52] VITALS: BP 177/74; PULSE 89; RESP 16; TEMP 36.7; O2SAT 99
[2021-02-12] MEDS: oxyCODONE/ACETAMINOPHEN (*CRX) 5-325 MG TABLET 1 TABLET PO (06:31)
[2021-02-12 06:32] VITALS: BP 167/92; PULSE 67; RESP 18; O2SAT 100
[2021-02-12 07:33] VITALS: BP 149/75; PULSE 78; RESP 18; O2SAT 100
== END 2021-02-12 07:35 | disposition home or self-care (01) ==
PROVIDERS: Emergency Provider Emergency Medicine; PCP Physician Assistant
DX: S09.90XA Unspecified injury of head, initial encounter (principal); S00.33XA Contusion of nose, initial encounter; I12.9 Hypertensive chronic kidney disease with stage 1 through stage 4 chronic kidney disease, or unspecified chronic kidney disease; E11.22 Type 2 diabetes mellitus with diabetic chronic kidney disease; N18.9 Chronic kidney disease, unspecified; Z87.891 Personal history of nicotine dependence; W18.30XA Fall on same level, unspecified, initial encounter
CPT/HCPCS: 70450; 70486; 72125; 99284; A9270

== ENCOUNTER 2021-04-08 10:09 | Inpatient (IN) | payer MEDICARE, MEDICAID, SELFPAY ==
[2021-04-08] VITALS (7 sets, daily range): BP systolic 134–160; BP diastolic 73–95; PULSE 80–115; RESP 19–29; TEMP 36.6–36.9; O2SAT 95–100; BMI 21.7
--- NOTE | ~2021-04-08 | US_ITS ---
EXAMINATION: US renal BI EXAM DATE: 04/10/2021 14:37 INDICATION: Pyelonephritis. TECHNIQUE: Multiple grayscale and Doppler images of the kidneys were obtained (by a technologist who performed the scan) and subsequently reviewed. There is no prior study for comparison. FINDINGS: Right kidney: There is normal contour and echogenicity. It measures 11.0 x 4.6 x 5.9 centimeters. T here are no focal renal lesions identified. There is no hydronephrosis. Left kidney: There is normal contour and echogenicity. It measures 10.1 x 5.1 x 5.0 centimeters. Th ere are no focal renal lesions identified. There is no hydronephrosis. Bladder unremarkable. IMPRESSION: No renal abscess or hydronephrosis. Reviewed, dictated and finalized at location A. CUTTER
--- NOTE | ~2021-04-08 | XR_ITS ---
EXAMINATION: XR chest 1V portable EXAM DATE: 04/08/2021 14:10 INDICATION: Left lower ribs pain. TECHNIQUE: Frontal of the chest obtained and reviewed. Comparison is made to prior examination from . FINDINGS: The lungs are hyperinflated which can be seen with chronic obstructive pulmonary disease ( a clinical diagnosis of functional impairment), but is not diagnostic of it. Biapical scarring unchan ged. No confluent consolidation, pneumothorax or pleural effusion suspected. Cardiomediastinal silhou ette is normal. The bones are osteopenic. There are bony degenerative changes. There are old bilater al rib fractures. IMPRESSION: 1. Hyperinflation. 2. Biapical scarring. 3. Multiple old rib fractures. Reviewed, dictated and finalized at location A. ICES TECH
--- NOTE | ~2021-04-08 | CT_ITS ---
EXAMINATION: CT abdomen pelvis w con EXAM DATE: 04/08/2021 14:32 INDICATION: Left upper quadrant pain. TECHNIQUE: Spiral CT of the abdomen and pelvis was performed following intravenous injection of 100 m L Omnipaque 350. Axial, coronal and sagittal images of the abdomen and pelvis were reviewed. The do se-length product (DLP) for this examination was 450.68 mGy-cm. The exposure was tailored according to patient size (auto mA exposure control), and iterative reconstruction (ASIR) was used as additiona l dose reduction technique. Comparison is made to prior examination from 07/30/2011. FINDINGS: The liver, spleen, adrenal glands and pancreas are unremarkable. The gallbladder is disten ded but otherwise unremarkable. There is no biliary duct dilation. Portal and splenic veins are pat ent. Small regions of bilateral renal cortical scarring. There are some subtle regions of left great er than right heterogeneous renal cortical enhancement which could be acute pyelonephritis. Please co rrelate with urinalysis. This is new compared to previous examination. No hydronephrosis. The uterus is not identified and has likely been surgically resected. The bladder is unremarkable. There is no retroperitoneal or pelvic lymphadenopathy. There is mild to moderate scattered arteriosclerotic di sease. The appendix is normal. There is small sliding gastroesophageal hiatal hernia. There is mild to mode rate colonic diverticulosis. There is no adjacent inflammatory change to suggest diverticulitis. N o free intraperitoneal gas. The heart is normal in size. There are no pericardial or pleural effus ions. The lung bases are unremarkable. There are no osteoblastic or osteolytic lesions identified. IMPRESSION: Regions of bilateral renal cortical subtle heterogeneous enhancement, suspicious for pyel onephritis. Correlate with urinalysis. Reviewed, dictated and finalized at location A. OPERATIONS TECHNICAL DIRECTOR IMPRESSION: Regions of bilateral renal cortical subtle heterogeneous enhancemen t, suspicious for pyelonephritis. Correlate with urinalysis.
--- NOTE | 2021-04-08 10:21 | ECG_ITS ---
Measurements Intervals [place] Rate: 101 P: 78 NH: 150 QRS: 82 QRSD: 89 T: 67 QT: 336 QTc: 435 Interpretive Statements SINUS TACHYCARDIA BASELINE WANDER- V1-V3, V6 BORDERLINE ECG Electronically Signed On 04-08-2021 10:42:30 HYDROMETER TESTER by Jere Lee D.O.
--- NOTE | 2021-04-08 13:36 | ED.FEMALEGU ---
HPI - Female Genitourinary General Chief complaint: Urogenital-Female Stated complaint: SOB, left flank pain. Time Seen by Provider: 04/08/21 13:34 Source: patient and family Mode of arrival: ambulatory Limitations: no limitations History of Present Illness HPI Narrative: Patient presented to the ED complaining of intermittent left flank pain for the last 2 days associated with intermittent shaking and hot feeling. Patient also noted that she have to push hard to urinate lately but denies any fever or dysuria. Patient denies having similar history. Patient had a grandchild 5 months old requires a lot of lifting and the plane. Patient on 3 L oxygen all the time Related Data Home Medications Medication Instructions Recorded Confirmed Spiriva with HandiHaler 1 cap INHALATION DAILY 06/06/19 06/06/19 albuterol sulfate 2.5 mg INHALATION Q4H PRN 06/06/19 06/06/19 albuterol sulfate [Ventolin HFA] 2 inh INHALATION Q4H PRN 06/06/19 06/06/19 baclofen 5 mg PO DAILY 06/06/19 06/06/19 diazepam [Valium] 2 mg PO DAILY PRN 06/06/19 06/06/19 famotidine 20 mg PO BID 06/06/19 06/06/19 fluticasone propion-salmeterol 1 inh INHALATION BID 06/06/19 06/06/19 [Advair Diskus] hydralazine 10 mg PO TID 06/06/19 06/06/19 montelukast 10 mg PO DAILY 06/06/19 06/06/19 omeprazole magnesium [Acid Contact Lens Inspector 20 mg PO BID 06/06/19 06/06/19 (omeprazole)] pravastatin 20 mg PO DAILY 06/06/19 06/06/19 prednisone 10 mg PO DAILY 06/06/19 06/06/19 sucralfate 1 g PO BID 06/06/19 06/06/19 Allergies Allergy/AdvReac Type Severity Reaction Status Date / Time cephalexin Allergy Mild Hives Verified 02/12/21 05:57 levofloxacin Allergy Mild FEET Verified 11/06/18 16:30 SWELLING Sulfa (Sulfonamide Allergy Unknown Hives Verified 02/12/21 05:57 Antibiotics) Review of Systems Review of Systems: CONSTITUTIONAL: Denies fever, chills, or sweats. EYES: Denies visual changes, redness, or discharge. ENT: Denies rhinorrhea, congestion, sore throat, or otalgia. CARDIOVASCULAR: Denies chest pain, palpitations, or edema. RESPIRATORY: Denies cough or dyspnea. GASTROINTESTINAL: Denies abdominal pain, nausea, vomiting, or diarrhea. GENITOURINARY: Denies dysuria or hematuria. SKIN: Denies rash or itching. MUSCULOSKELETAL: Denies back pain, joint pain, or myalgia. NEUROLOGIC: Denies headache, numbness, or weakness. PSYCHIATRIC: Denies anxiety or depression. [facility] Past Medical History Medical History (Updated 04/08/21 @ 15:41 by Yonny Harper MD) Anxiety Chronic back pain Chronic respiratory failure COPD (chronic obstructive pulmonary disease) GERD (gastroesophageal reflux disease) Hyperlipidemia Hypertension Osteoarthritis Type 2 diabetes mellitus Surgical History Surgical History H/O: hysterectomy 1986 History of lung biopsy In the late . She reports she had a lung biopsy which resulted in collapsed lung , what sounds like a pneumothorax for which she had chest tube. History of orthopedic surgery Family History Family History Father Acute myocardial infarction Sibling Acute myocardial infarction Other Cerebrovascular accident Diabetes mellitus Family history of arthritis Family history of cardiovascular disease Family history of mental disorder Hypertension Social History Social History Social History: Ms. Teran lives at home alone in [place]. She reports rare alcohol use, a couple drinks in the last 1 year. She quit smoking cigarettes 10 years ago and smoked 1ppd x 30 years. Denies other substance use. Her PCP is Adriana Thompson. She designates her son, Nolan Teran, as her surrogate decision maker. Smoking packs per day: 1 Smoking cigarettes per day: 20.0 Years smoked: 30 Smoking pack-years: 30.00 Smoking status: Former smoker Tobacco type: cigarettes Alcohol intak
[2021-04-08 13:47] LABS: Basophils Absolute Auto 0.1 K/mm3 (0.0-0.1); Basophils Percent Auto 0.4 % (0.2-1.2); Eosinophils Percent Auto 0.2 % (0-4.4); Hematocrit 43.2 % (37.0-47.0); Hemoglobin 12.7 g/dL (12.0-15.0); Immature Granulocyte Absolute 0.23 K/mm3 (0.00-0.031); Lymphocytes Absolute Auto 0.67 K/mm3 (0.9-3.2); Lymphocytes Percent Auto 2.8 % (18.3-44.2); Mean Corpuscular HGB Conc 29.4 g/dl (32-36); Mean Platelet Volume 10.8 fl (7.4-10.4); Monocytes Absolute Auto 0.9 K/mm3 (0.1-0.6); Monocytes Percent Auto 3.7 % (2.6-8.5); Neutrophils Percent Auto 91.9 % (45.5-73.1); Platelet Count Result 227 k/mm3 (150-375); Red Blood Count 5.08 M/mm3 (4.2-5.4); White Blood Count 23.9 K/mm3 (4.5-10.0)
[2021-04-08 14:02] LABS: Alanine Aminotransferase 14 U/L (4-35); Albumin Level 4.2 g/dL (3.5-5.1); Alkaline Phosphatase 64 U/L (38-126); Anion Gap 7 mmol/L (8-16); Aspartate Amino Transferase 18 U/L (14-36); Bilirubin,Total 0.4 mg/dL (0.2-1.3); Blood Urea Nitrogen 21 mg/dL (7-17); Calcium 9.6 mg/dL (8.4-10.2); Carbon Dioxide 28 mmol/L (22-30); Chloride 98 mmol/L (98-107); Estimated CRCL calculation 69 ml/min; Estimated Glomerular Filt Rate > 60; Glucose 217 mg/dL (65-110); Potassium 4.5 mmol/L (3.4-5.0); Sodium 133 mmol/L (137-145)
[2021-04-08 14:14] LABS: Add Urine Microscopic? YES; Appearance Urine Cloudy (Clear); Bacteria Urine 4+ /hpf; Bilirubin Urine Negative (Negative); Blood Urine 1+ (Negative); Color Urine Yellow (Yellow); Glucose Urine UA Negative (Negative); Ketones Urine Negative (Negative); Leukocyte Esterase Ur 2+ LEU/UL (Negative); Mucus Urine Rare /lpf; Nitrate Urine Positive (Negative); Protein Urine Negative (Negative); Specific Grav Ur 1.013 (1.001-1.035); Squamous Epithelial Cell Urine Rare /hpf (Few); Urobilinogen Urine Negative mg/dL (<2.0); WBC Clumps Urine Present /HPF; WBC Urine >75 /hpf
[2021-04-08] MEDS: SODIUM CHLORIDE 0.9% IV 1,000 ML 999 ML IV CONT (14:15)
[2021-04-08] MEDS: ONDANSETRON INJ 4 MG/2 ML VIAL IV PUSH (14:16)
[2021-04-08] MEDS: MORPHINE SULFATE (*CRX) 4 MG/ML INJ IV PUSH ×2 (14:16→18:33)
[2021-04-08 14:36] LABS: Hypochromasia 1+ (NORMAL); Platelet Estimate Adequate (Adequate)
[2021-04-08] MEDS: ERTAPENEM 1 GM/NS 50 ML 1 GM/50 ML BAG IVPB (15:16)
[2021-04-08 16:34] LABS: Lactic Acid Reflex 1.3 mmol/L (0.7-2.1)
--- NOTE | 2021-04-08 16:45 | PM.IMHP ---
H&P: HPI History of Present Illness Date/Time: 04/08/21 16:45 Chief Complaint: Left flank pain. Narrative: This is a 65-year-old female with chronic respiratory failure on home oxygen, steroid dependent COPD, diabetes, hypertension, and hyperlipidemia who presented to the emergency department earlier today from home for evaluation of left flank pain. Two days ago she noticed an aching discomfort in the left mid back/flank region which she initially attributed to possible pulled muscle. Later that evening however the aching became more severe and she felt as though she had a fever with intermittent chills and sweats. She has also had nausea and within the last day she has developed urinary urgency and hesitancy. Urinalysis was positive for urinary tract infection and a CT of the abdomen and pelvis showed findings suspicious for pyelonephritis and she is being admitted in this setting. She has not had a documented fever. She denies overt dysuria and hematuria. No vomiting. Review of Systems Review of Systems: Twelve systems were reviewed. She denies sinus congestion, rhinorrhea, otalgia, or odynophagia. She has chronic dyspnea on minimal exertion and that is unchanged. She is at her baseline oxygen requirement and reports being prednisone dependent. No blurry vision, polydipsia, or polyuria. She has not had chest pain. Except as documented, all other systems were reviewed and are negative. FOR[facility]LY [facility] Past Medical History Medical History (Updated 04/08/21 @ 21:53 by Alix Blake PA-C) Anxiety Chronic back pain Chronic respiratory failure with hypoxia, on home oxygen therapy Gastric ulcer Gastroesophageal reflux disease History of MRSA infection Hyperlipidemia Hypertension Osteoarthritis Steroid-dependent chronic obstructive pulmonary disease Type 2 diabetes mellitus Surgical History Surgical History (Updated 04/08/21 @ 21:50 by Alix Blake PA-C) History of arthroscopy of right knee History of hysterectomy (1985) Total abdominal hysterectomy with unilateral salpingo-oophorectomy for benign reasons. History of lung biopsy In the late . She reports she had a lung biopsy which resulted in collapsed lung , what sounds like a pneumothorax for which she had chest tube. History of orthopedic surgery Family History Family History Father Acute myocardial infarction Sibling Acute myocardial infarction Other Cerebrovascular accident Diabetes mellitus Family history of arthritis Family history of cardiovascular disease Family history of mental disorder Hypertension Social History Social History (Updated 04/08/21 @ 21:51 by Alix Blake PA-C) Social History: Surrogate decision maker: Ajay Gomes, significant other. Code status: Full code. Smoking packs per day: 1 Smoking cigarettes per day: 20.0 Years smoked: 30 Smoking pack-years: 30.00 Smoking status: Former smoker Tobacco type: cigarettes Alcohol intake: never Substance use: never Additional living arrangements comments: The patient lives in [place] with her significant other. Additional occupation/education comments: Disabled. Meds Home Medications and Allergies Home Medications Medication Instructions Recorded Confirmed Type albuterol sulfate 0.63 mg CONTINUOUS NEBULIZATION 04/08/21 04/08/21 History TID PRN albuterol sulfate [Ventolin HFA] 2 puff INHALATION Q4-5H PRN 04/08/21 04/08/21 History alendronate 70 mg PO WEEKLY 04/08/21 04/08/21 History aspirin [Adult Low Dose Aspirin] 81 mg PO HS 04/08/21 04/08/21 History baclofen 5 mg PO HS 04/08/21 04/08/21 History diazepam 2 mg PO HS PRN 04/08/21 04/08/21 History diclofenac sodium 100 mg PO DAILY 04/08/21 04/08/21 History fluticasone propion-salmeterol 1 inh INHALATION BID 04/08/21 04/08/21 History [Advair Diskus] hydralazine 10 mg PO TID 04/08/21 04/08/21 History hydrocodone-acetaminoph
--- NOTE | 2021-04-08 20:15 | ADMGEN ---
This patient, Amber Teran, was admitted to Medical Room 346-01. Patient/family oriented to hospital policies and general routines including ID bracelet, bed and alarms, visiting hours, pain management, procedures, bathroom and other care routines, personal items, smoking policy, room service/diet, and visiting hours. Information on how to activate the Rapid Response Team has been discussed. Patient/Family are encouraged to report perceived risks to care and to ask questions if they do not understand what they are told or what they should do.
[2021-04-08 20:27] LABS: Glucose Point of Care 107 mg/dl (65-105)
[2021-04-08] MEDS: SODIUM CHLORIDE 0.9% IV 1,000 ML 125 ML IV CONT (20:29)
[2021-04-08 22:20] LABS: Hemoglobin A1C 6.5 % (<5.7)
[2021-04-08] MEDS: BACLOFEN 5 MG TABLET PO (23:30)
[2021-04-08] MEDS: ASPIRIN 81 MG ENTERIC TABLET PO (23:31)
[2021-04-08] MEDS: HYDROcodone/acetaminophen (*CRX) 10-325 MG TABLET 1 TAB PO (23:31)
[2021-04-08] MEDS: PRAVASTATIN SODIUM 20 MG TABLET 40 MG PO (23:31)
[2021-04-09] VITALS (7 sets, daily range): BP systolic 112–134; BP diastolic 45–56; PULSE 79–120; RESP 17–20; TEMP 36.4–36.7; O2SAT 94–100
[2021-04-09] MEDS: HYDROcodone/acetaminophen (*CRX) 10-325 MG TABLET 1 TAB PO ×5 (03:31→22:29)
[2021-04-09] MEDS: ALBUTEROL SULFATE (*SP) AEROSOL 1 PUFF 2 PUFF INHALATION (06:10)
[2021-04-09 06:17] LABS: Hematocrit 37.3 % (37.0-47.0); Hemoglobin 10.7 g/dL (12.0-15.0); Mean Corpuscular HGB Conc 28.7 g/dl (32-36); Mean Corpuscular Hemoglobin 24.9 pg (26-34); Mean Corpuscular Volume 86.7 fl (80-100); Mean Platelet Volume 10.9 fl (7.4-10.4); Platelet Count Result 197 k/mm3 (150-375); Red Cell Distribution Width 14.1 % (11.5-14.5); White Blood Count 12.7 K/mm3 (4.5-10.0)
[2021-04-09 06:38] LABS: Anion Gap 8 mmol/L (8-16); Blood Urea Nitrogen 12 mg/dL (7-17); Calcium 8.4 mg/dL (8.4-10.2); Carbon Dioxide 27 mmol/L (22-30); Chloride 102 mmol/L (98-107); Estimated CRCL calculation 79 ml/min; Estimated Glomerular Filt Rate > 60; Glucose 108 mg/dL (65-110); Magnesium 1.7 mg/dL (1.6-2.3); Potassium 3.5 mmol/L (3.4-5.0); Sodium 137 mmol/L (137-145)
[2021-04-09 07:48] LABS: Glucose Point of Care 87 mg/dl (65-105)
[2021-04-09] MEDS: ENOXAPARIN 40 MG/0.4 ML SYRINGE SUB-Q (08:11)
[2021-04-09] MEDS: METOPROLOL SUCCINATE EXT REL 12.5 MG TABCR PO (08:11)
[2021-04-09] MEDS: DICLOFENAC SOD 25 MG TABLET.EC 100 MG PO (08:11)
[2021-04-09] MEDS: hydrALAZINE 10 MG TABLET PO ×3 (08:12→18:04)
[2021-04-09] MEDS: predniSONE 10 MG TABLET PO (08:12)
[2021-04-09] MEDS: MONTELUKAST SODIUM 10 MG TABLET PO (08:12)
[2021-04-09] MEDS: PANTOPRAZOLE 40 MG TABLET PO ×2 (08:12→18:04)
[2021-04-09] MEDS: UMECLIDINIUM BROMIDE 62.5 MCG ELLIPTA 1 PUFF INHALATION (11:28)
[2021-04-09] MEDS: FLUTICASONE/SALMETEROL 115-21 MCG INHALER 1 PUFF 2 PUFF INHALATION ×2 (11:28→20:27)
[2021-04-09] MEDS: SUCRALFATE 1 GM TABLET PO (11:34)
[2021-04-09 11:39] LABS: Glucose Point of Care 152 mg/dl (65-105)
--- NOTE | 2021-04-09 14:31 | PM.IMPN ---
Progress Note: A&P Assessment and Plan (1) Sepsis: Code(s): A41.9 - Sepsis, unspecified organism Status: Acute Assessment and Plan: Present on admission with tachycardia, tachypnea, and leukocytosis in the setting of UTI and pyelonephritis. Lactic acid level is within normal limits. Blood pressures have been stable. Preliminary blood cultures negative to date. Leukocytosis and tachycardia improving. Tachypnea resolved. Remains afebrile. (2) Urinary tract infection: Code(s): N39.0 - Urinary tract infection, site not specified Status: Acute Assessment and Plan: Continue IV ertapenem. Urine cultures are pending. (3) Pyelonephritis of left kidney: Code(s): N12 - Tubulo-interstitial nephritis, not specified as acute or chronic Status: Acute Assessment and Plan: CT abdomen/pelvis showed finding suspicious for pyelonephritis. She is symptomatic with left flank pain and CVA tenderness. Plan is as detailed above. (4) Type 2 diabetes mellitus: Qualifiers: Diabetes mellitus skilled nursing insulin use: without skilled nursing use Diabetes mellitus complication status: without complication Qualified Code(s): E11.9 - Type 2 diabetes mellitus without complications Code(s): E11.9 - Type 2 diabetes mellitus without complications Status: Acute Assessment and Plan: A1c is 6.5. Blood sugars have been well controlled. Continue Accu-Cheks, sliding scale insulin, hypoglycemic protocol. Metformin is on hold as she did receive IV contrast. (5) Hypertension: Qualifiers: Hypertension type: essential hypertension Qualified Code(s): I10 - Essential (primary) hypertension Code(s): I10 - Essential (primary) hypertension Status: Acute Assessment and Plan: Blood pressures were reviewed and they have been stable. Continue antihypertensives and monitor BP trends closely. (6) Chronic respiratory failure with hypoxia, on home oxygen therapy: Code(s): J96.11 - Chronic respiratory failure with hypoxia; Z99.81 - Dependence on supplemental oxygen Status: Acute Assessment and Plan: She is maintaining adequate oxygen saturations on her baseline O2 requirement, 3 L per nasal cannula (7) Steroid-dependent chronic obstructive pulmonary disease: Code(s): J44.9 - Chronic obstructive pulmonary disease, unspecified Status: Acute Assessment and Plan: No acute issues. Continue home respiratory regimen including 10 mg prednisone daily. Albuterol rescue inhaler as needed. Subjective Date/time seen: 04/09/21 14:31 Interval history: Date of service: 04/09/2021 Amber Teran is a 65-year-old female with a history of chronic respiratory failure secondary to steroid dependent COPD on 3 L supplemental O2 hypertension, hyperlipidemia, type 2 diabetes mellitus, GERD, and anxiety who is seen in follow-up for pyelonephritis. She is doing a little bit better today but still having quite a bit of pain. She endorses 8/10 pain in her left flank spreading around to her back. She has been having persistent chills but denies fever. This morning she had some nausea but has not had any episodes of vomiting. Denies dizziness or lightheadedness. She is able to keep down food and is tolerating her diet. She endorses a right side headache but notes that this is improving. She endorses chronic dyspnea on exertion and orthopnea, as well as chronic wheezing. States this is no worse than normal today. She denies burning with urination or blood in her urine. She has no additional concerns at this time. Review of Systems Review of Systems: All systems reviewed & are unremarkable except as noted in HPI and below Exam Narrative: Ms. Teran is a well-nourished, chronically ill-appearing 65-year-old female who is lying supine in bed. She appears comfortable and is in NARD. Neuro: awake, alert and oriented x4, speech
[2021-04-09] MEDS: ERTAPENEM 1 GM/NS 50 ML 1 GM/50 ML BAG IVPB (15:56)
[2021-04-09 17:00] LABS: Glucose Point of Care 180 mg/dl (65-105)
[2021-04-09 20:00] LABS: Glucose Point of Care 157 mg/dl (65-105)
[2021-04-09] MEDS: BACLOFEN 5 MG TABLET PO (20:37)
[2021-04-09] MEDS: PRAVASTATIN SODIUM 20 MG TABLET 40 MG PO (20:37)
[2021-04-09] MEDS: ASPIRIN 81 MG ENTERIC TABLET PO (20:37)
[2021-04-10] VITALS (8 sets, daily range): BP systolic 125–139; BP diastolic 66–73; PULSE 47–98; RESP 18–20; TEMP 36.4–37.1; O2SAT 96–100
[2021-04-10] MEDS: HYDROcodone/acetaminophen (*CRX) 10-325 MG TABLET 1 TAB PO ×5 (05:23→22:15)
[2021-04-10] MEDS: SUCRALFATE 1 GM TABLET PO (05:33)
[2021-04-10 05:59] LABS: Hematocrit 37.4 % (37.0-47.0); Hemoglobin 10.7 g/dL (12.0-15.0); Mean Corpuscular HGB Conc 28.6 g/dl (32-36); Mean Corpuscular Hemoglobin 24.7 pg (26-34); Mean Corpuscular Volume 86.2 fl (80-100); Platelet Count Result 213 k/mm3 (150-375); Red Blood Count 4.34 M/mm3 (4.2-5.4); Red Cell Distribution Width 13.8 % (11.5-14.5); White Blood Count 8.6 K/mm3 (4.5-10.0)
[2021-04-10 06:13] LABS: Anion Gap 6 mmol/L (8-16); Blood Urea Nitrogen 15 mg/dL (7-17); Calcium 8.1 mg/dL (8.4-10.2); Carbon Dioxide 30 mmol/L (22-30); Chloride 101 mmol/L (98-107); Estimated CRCL calculation 93 ml/min; Estimated Glomerular Filt Rate > 60; Glucose 121 mg/dL (65-110); Potassium 3.6 mmol/L (3.4-5.0); Sodium 137 mmol/L (137-145)
[2021-04-10 07:56] LABS: Glucose Point of Care 139 mg/dl (65-105)
[2021-04-10] MEDS: FLUTICASONE/SALMETEROL 115-21 MCG INHALER 1 PUFF 2 PUFF INHALATION ×2 (08:07→20:30)
[2021-04-10] MEDS: UMECLIDINIUM BROMIDE 62.5 MCG ELLIPTA 1 PUFF INHALATION (08:07)
[2021-04-10] MEDS: hydrALAZINE 10 MG TABLET PO ×3 (09:35→18:10)
[2021-04-10] MEDS: PANTOPRAZOLE 40 MG TABLET PO ×2 (09:35→18:09)
[2021-04-10] MEDS: MONTELUKAST SODIUM 10 MG TABLET PO (09:35)
[2021-04-10] MEDS: DICLOFENAC SOD 25 MG TABLET.EC 100 MG PO (09:35)
[2021-04-10] MEDS: METOPROLOL SUCCINATE EXT REL 12.5 MG TABCR PO (09:35)
[2021-04-10] MEDS: predniSONE 10 MG TABLET PO (09:36)
[2021-04-10] MEDS: ENOXAPARIN 40 MG/0.4 ML SYRINGE SUB-Q (09:36)
--- NOTE | 2021-04-10 11:40 | PM.IMPN ---
Progress Note: A&P Assessment and Plan (1) Urinary tract infection: Code(s): N39.0 - Urinary tract infection, site not specified Status: Acute Assessment and Plan: Continue IV ertapenem Urine cultures grew E.Coli Susceptibilities show ertapenem Will probably need IV antibiotics as oral antibiotics are not appropriate (2) Sepsis: Code(s): A41.9 - Sepsis, unspecified organism Status: Acute Assessment and Plan: Present on admission with tachycardia, tachypnea, and leukocytosis in the setting of UTI and pyelonephritis Lactic acid level is within normal limits Blood pressures have been stable Preliminary blood cultures negative to date Leukocytosis and tachycardia improving Tachypnea resolved Remains afebrile started on Ertapenem 1L of NS in ed NS at 125ml/hr changed to D5 at 100ml/hr, probably be DC'd at this time (3) Pyelonephritis of left kidney: Code(s): N12 - Tubulo-interstitial nephritis, not specified as acute or chronic Status: Acute Assessment and Plan: CT abdomen/pelvis showed finding suspicious for pyelonephritis symptomatic with left flank pain and CVA tenderness Plan is as detailed above (4) Type 2 diabetes mellitus: Qualifiers: Diabetes mellitus complication status: without complication Diabetes mellitus termite exterminator helper insulin use: without termite exterminator helper use Qualified Code(s): E11.9 - Type 2 diabetes mellitus without complications Code(s): E11.9 - Type 2 diabetes mellitus without complications Status: Acute Assessment and Plan: Current glucose 121 A1c is 6.5 Blood sugars have been well controlled Continue Accu-Cheks sliding scale insulin hypoglycemic protocol Metformin is on hold as she did receive IV contrast. (5) Hypertension: Qualifiers: Hypertension type: essential hypertension Qualified Code(s): I10 - Essential (primary) hypertension Code(s): I10 - Essential (primary) hypertension Status: Acute Assessment and Plan: Current BP is 139/67 Blood pressures have been stable Continue antihypertensives hydralazine, metoprolol monitor BP trends closely Adjust therapy as needed (6) Chronic respiratory failure with hypoxia, on home oxygen therapy: Code(s): J96.11 - Chronic respiratory failure with hypoxia; Z99.81 - Dependence on supplemental oxygen Status: Acute Assessment and Plan: Maintaining adequate oxygen saturations on her baseline O2 requirement 3 L per nasal cannula at home Seems to be stable at this time (7) Steroid-dependent chronic obstructive pulmonary disease: Code(s): J44.9 - Chronic obstructive pulmonary disease, unspecified Status: Acute Assessment and Plan: No acute issues Continue home respiratory regimen including 10 mg prednisone daily Albuterol rescue inhaler as needed. Time Spent With Patient Time with patient: 25 - 35 minutes Subjective Date/time seen: 04/10/21 11:40 Interval history: Date/Time: 04/08/21 16:45 Narrative: This is a 65-year-old female with chronic respiratory failure on home oxygen, steroid dependent COPD, diabetes, hypertension, and hyperlipidemia who presented to the emergency department earlier today from home for evaluation of left flank pain. Two days ago she noticed an aching discomfort in the left mid back/flank region which she initially attributed to possible pulled muscle. Later that evening however the aching became more severe and she felt as though she had a fever with intermittent chills and sweats. She has also had nausea and within the last day she has developed urinary urgency and hesitancy. Urinalysis was positive for urinary tract infection and a CT of the abdomen and pelvis showed findings suspicious for pyelonephritis and she is being admitted in this setting. She has not had a documented fever. She denies overt dysuria and hematuria. N
--- NOTE | 2021-04-10 11:40 | P.PNIM_ITS ---
Progress Note: A&P Assessment and Plan (1) Urinary tract infection: Code(s): N39.0 - Urinary tract infection, site not specified Status: Acute Assessment and Plan: * Continue IV ertapenem * Urine cultures grew E.Coli * Susceptibilities show ertapenem * Will probably need IV antibiotics as oral antibiotics are not appropriate (2) Sepsis: Code(s): A41.9 - Sepsis, unspecified organism Status: Acute Assessment and Plan: * Present on admission with tachycardia, tachypnea, and leukocytosis in the setting of UTI and pyelonephritis * Lactic acid level is within normal limits * Blood pressures have been stable * Preliminary blood cultures negative to date * Leukocytosis and tachycardia improving * Tachypnea resolved * Remains afebrile * started on Ertapenem * 1L of NS in ed * NS at 125ml/hr changed to D5 at 100ml/hr, probably be DC'd at this time (3) Pyelonephritis of left kidney: Code(s): N12 - Tubulo-interstitial nephritis, not specified as acute or chronic Status: Acute Assessment and Plan: * CT abdomen/pelvis showed finding suspicious for pyelonephritis * symptomatic with left flank pain and CVA tenderness * Plan is as detailed above (4) Type 2 diabetes mellitus: Qualifiers: Diabetes mellitus complication status: without complication Diabetes mellitus [facility] insulin use: without [facility] use Qualified Code(s): E11.9 - Type 2 diabetes mellitus without complications Code(s): E11.9 - Type 2 diabetes mellitus without complications Status: Acute Assessment and Plan: * Current glucose 121 * A1c is 6.5 * Blood sugars have been well controlled * Continue Accu-Cheks * sliding scale insulin * hypoglycemic protocol * Metformin is on hold as she did receive IV contrast. (5) Hypertension: Qualifiers: Hypertension type: essential hypertension Qualified Code(s): I10 - Essential (primary) hypertension Code(s): I10 - Essential (primary) hypertension Status: Acute Assessment and Plan: * Current BP is 139/67 * Blood pressures have been stable * Continue antihypertensives hydralazine, metoprolol * monitor BP trends closely * Adjust therapy as needed (6) Chronic respiratory failure with hypoxia, on home oxygen therapy: Code(s): J96.11 - Chronic respiratory failure with hypoxia; Z99.81 - Dependence on supplemental oxygen Status: Acute Assessment and Plan: * Maintaining adequate oxygen saturations on her baseline O2 requirement * 3 L per nasal cannula at home * Seems to be stable at this time (7) Steroid-dependent chronic obstructive pulmonary disease: Code(s): J44.9 - Chronic obstructive pulmonary disease, unspecified Status: Acute Assessment and Plan: * No acute issues * Continue home respiratory regimen including 10 mg prednisone daily * Albuterol rescue inhaler as needed. Time Spent With Patient Time with patient: 25 - 35 minutes Subjective Date/time seen: 04/10/21 11:40 Interval history: Date/Time: 04/08/21 16:45 Narrative: This is a 65-year-old female with chronic respiratory failure on home oxygen, steroid dependent COPD, diabetes, hypertension, and hyperlipidemia who presented to the emergency department earlier today from home for evaluation of left flank pain. Two days ago she noticed an aching discomfort in the left mid back/flank region which she initially attributed to possible pulled muscle. L
[2021-04-10 11:41] LABS: Glucose Point of Care 201 mg/dl (65-105)
[2021-04-10] MEDS: INSULIN ASPART (*BKC) 100 UNITS/ML SUB-Q (13:41)
[2021-04-10] MEDS: ERTAPENEM 1 GM/NS 50 ML 1 GM/50 ML BAG IVPB (18:08)
[2021-04-10 18:31] LABS: Glucose Point of Care 193 mg/dl (65-105)
[2021-04-10] MEDS: BACLOFEN 5 MG TABLET PO (20:47)
[2021-04-10] MEDS: PRAVASTATIN SODIUM 20 MG TABLET 40 MG PO (20:47)
[2021-04-10] MEDS: ASPIRIN 81 MG ENTERIC TABLET PO (20:47)
[2021-04-10 20:52] LABS: Glucose Point of Care 143 mg/dl (65-105)
[2021-04-11] MEDS: HYDROcodone/acetaminophen (*CRX) 10-325 MG TABLET 1 TAB PO ×4 (02:52→15:09)
[2021-04-11 05:07] VITALS: BP 114/50; PULSE 57; RESP 16; TEMP 35.9; O2SAT 100
[2021-04-11] MEDS: SUCRALFATE 1 GM TABLET PO (06:07)
[2021-04-11 06:28] LABS: Basophils Absolute Auto 0.1 K/mm3 (0.0-0.1); Basophils Percent Auto 0.8 % (0.2-1.2); Eosinophils Absolute Auto 0.1 K/mm3 (0-0.3); Eosinophils Percent Auto 1.2 % (0-4.4); Hematocrit 35.2 % (37.0-47.0); Hemoglobin 10.1 g/dL (12.0-15.0); Immature Granulocyte Percent A 1.4 % (0-0.5); Lymphocytes Absolute Auto 0.95 K/mm3 (0.9-3.2); Lymphocytes Percent Auto 13.2 % (18.3-44.2); Mean Corpuscular HGB Conc 28.7 g/dl (32-36); Mean Corpuscular Hemoglobin 24.5 pg (26-34); Mean Corpuscular Volume 85.2 fl (80-100); Monocytes Absolute Auto 0.7 K/mm3 (0.1-0.6); Neutrophils Absolute Auto 5.4 K/mm3 (1.3-6.7); Neutrophils Percent Auto 74.4 % (45.5-73.1); Platelet Count Result 238 k/mm3 (150-375); Red Blood Count 4.13 M/mm3 (4.2-5.4); Red Cell Distribution Width 13.8 % (11.5-14.5); White Blood Count 7.2 K/mm3 (4.5-10.0)
[2021-04-11 06:54] LABS: Alanine Aminotransferase 10 U/L (4-35); Albumin Level 3.5 g/dL (3.5-5.1); Alkaline Phosphatase 50 U/L (38-126); Anion Gap 5 mmol/L (8-16); Aspartate Amino Transferase 13 U/L (14-36); Bilirubin,Total 0.2 mg/dL (0.2-1.3); Blood Urea Nitrogen 11 mg/dL (7-17); Calcium 8.4 mg/dL (8.4-10.2); Carbon Dioxide 29 mmol/L (22-30); Chloride 102 mmol/L (98-107); Estimated CRCL calculation 79 ml/min; Estimated Glomerular Filt Rate > 60; Glucose 153 mg/dL (65-110); Potassium 3.5 mmol/L (3.4-5.0); Sodium 136 mmol/L (137-145)
[2021-04-11 07:37] LABS: Glucose Point of Care 133 mg/dl (65-105)
[2021-04-11] MEDS: DICLOFENAC SOD 25 MG TABLET.EC 100 MG PO (09:10)
[2021-04-11] MEDS: predniSONE 10 MG TABLET PO (09:10)
[2021-04-11 09:11] VITALS: PULSE 78
[2021-04-11] MEDS: hydrALAZINE 10 MG TABLET PO ×2 (09:11→13:55)
[2021-04-11] MEDS: METOPROLOL SUCCINATE EXT REL 12.5 MG TABCR PO (09:11)
[2021-04-11] MEDS: ENOXAPARIN 40 MG/0.4 ML SYRINGE SUB-Q (09:12)
[2021-04-11] MEDS: PANTOPRAZOLE 40 MG TABLET PO (09:12)
[2021-04-11] MEDS: MONTELUKAST SODIUM 10 MG TABLET PO (09:13)
[2021-04-11] MEDS: UMECLIDINIUM BROMIDE 62.5 MCG ELLIPTA 1 PUFF INHALATION (10:43)
[2021-04-11] MEDS: FLUTICASONE/SALMETEROL 115-21 MCG INHALER 1 PUFF 2 PUFF INHALATION (10:43)
[2021-04-11 10:44] VITALS: O2SAT 93
[2021-04-11] MEDS: LIDOCAINE HCL 1% LOCAL INJ 2 ML AMPUL 5 ML INFILTRATE (11:15)
[2021-04-11 12:02] LABS: Glucose Point of Care 178 mg/dl (65-105)
--- NOTE | 2021-04-11 12:53 | PM.DS ---
DS: Admitting Diagnosis Discharge Date 04/11/2021 Admitting Diagnosis Pyelonephritis DS: Discharge Diagnosis Discharge Diagnosis (1) Sepsis: Code(s): A41.9 - Sepsis, unspecified organism Status: Acute Assessment and Plan: Resolved. Present on admission with tachycardia, tachypnea, and leukocytosis in the setting of UTI and pyelonephritis. Lactic acid level within normal limits. Blood pressures remained stable. Blood cultures negative to date. Leukocytosis resolved. She remained afebrile. Treated with IV antibiotics as described below. (2) Urinary tract infection: Code(s): N39.0 - Urinary tract infection, site not specified Status: Acute Assessment and Plan: UA abnormal on presentation and she was started on ertapenem given her antibiotic allergies. Urine culture with growth of >100k E coli susceptible to ertapenem but with multiple antibiotics resistant. No appropriate oral options available given her allergies, therefore she was discharged with IV ertapenem. She will continue with 10 days of ertapenem as an outpatient. Home infusions were arranged. She will follow-up with her primary care provider, whom I called and spoke with to provide updates on the patient's course. (3) Pyelonephritis of left kidney: Code(s): N12 - Tubulo-interstitial nephritis, not specified as acute or chronic Status: Acute Assessment and Plan: CT abdomen/pelvis showed finding suspicious for pyelonephritis. She was symptomatic with left flank pain and CVA tenderness which resolved. Continue IV ertapenem times 10 days as described above. (4) Type 2 diabetes mellitus: Qualifiers: Diabetes mellitus intermediate card tender insulin use: without intermediate card tender use Diabetes mellitus complication status: without complication Qualified Code(s): E11.9 - Type 2 diabetes mellitus without complications Code(s): E11.9 - Type 2 diabetes mellitus without complications Status: Acute Assessment and Plan: A1c is 6.5. Blood sugars well controlled during admission with Accu-Cheks, sliding scale insulin, hypoglycemic protocol. Home metformin was held as she received IV contrast on admission. Metformin resumed on discharge. (5) Hypertension: Qualifiers: Hypertension type: essential hypertension Qualified Code(s): I10 - Essential (primary) hypertension Code(s): I10 - Essential (primary) hypertension Status: Acute Assessment and Plan: Blood pressures reviewed and remained stable. Continue home antihypertensive regimen including hydralazine and metoprolol (6) Chronic respiratory failure with hypoxia, on home oxygen therapy: Code(s): J96.11 - Chronic respiratory failure with hypoxia; Z99.81 - Dependence on supplemental oxygen Status: Acute Assessment and Plan: She maintained adequate oxygen saturations on her baseline O2 requirement, 3 L per nasal cannula. No acute issues. (7) Steroid-dependent chronic obstructive pulmonary disease: Code(s): J44.9 - Chronic obstructive pulmonary disease, unspecified Status: Acute Assessment and Plan: No acute issues, not in acute exacerbation. Continue home respiratory regimen including 10 mg prednisone daily. Albuterol rescue inhaler as needed DS: Summary Hospital Course Hospital Course: Date of admission: 04/08/2021 Date of discharge: 04/11/2021 Amber Teran is a 65-year-old female with a history of chronic respiratory failure secondary to steroid dependent COPD on 3 L supplemental O2 hypertension, hyperlipidemia, type 2 diabetes mellitus, GERD, and anxiety who presented to the emergency department on 04/08/2021 with complaints of left flank pain ongoing for 2 days with fevers and chills. On presentation to the emergency department, her vital signs were stable, she was afebrile, white blood cell count [id number], additional CBC and BMP unremarkable, lactic acid 1.3, CXR sh
[2021-04-11] MEDS: SALINE LOCK FLUSH 10 ML IV PUSH (13:55)
[2021-04-11 14:00] VITALS: BP 130/75; PULSE 69; RESP 18; TEMP 36.6; O2SAT 97
[2021-04-11] MEDS: ERTAPENEM 1 GM/NS 50 ML 1 GM/50 ML BAG IVPB (14:32)
== END 2021-04-11 15:20 | disposition home health service (06) | DRG 872 ==
LOC: ANHED 15:41 → ANH3MED 19:44
PROVIDERS: Nurse Practitioner; Physician Assistant; Admitting Provider Family Medicine; Emergency Provider Emergency Medicine; PCP Physician Assistant; Visit Provider Internal Medicine
DX: A41.9 Sepsis, unspecified organism (principal); N39.0 Urinary tract infection, site not specified; N12 Tubulo-interstitial nephritis, not specified as acute or chronic; J96.11 Chronic respiratory failure with hypoxia; B96.20 Unspecified Escherichia coli [E. coli] as the cause of diseases classified elsewhere; J44.9 Chronic obstructive pulmonary disease, unspecified; E11.9 Type 2 diabetes mellitus without complications; K21.9 Gastro-esophageal reflux disease without esophagitis; I10 Essential (primary) hypertension; E78.5 Hyperlipidemia, unspecified; Z79.51 Long term (current) use of inhaled steroids; Z79.52 Long term (current) use of systemic steroids; Z79.82 Long term (current) use of aspirin; Z79.84 Long term (current) use of oral hypoglycemic drugs; Z79.899 Other long term (current) drug therapy; Z87.891 Personal history of nicotine dependence; Z99.81 Dependence on supplemental oxygen
CPT/HCPCS: 36415; 36569; 71045; 74177; 76775; 80048; 80053; 81001; 82948; 83036; 83605; 83735; 85025; 85027; 85055; 87040; 87077; 87086; 87088; 87186; 93005; 94640; 96361; 96365; 96372; 96375; 96376; 99285; A9270; C1751; G0378; J0131; J1335; J1650; J1815; J2270; J2405; J7030; J7512; Q9967

== ENCOUNTER 2021-05-19 08:48 | Inpatient (IN) | payer MEDICARE, MEDICAID, SELFPAY ==
[2021-05-19] VITALS (33 sets, daily range): BP systolic 139–167; BP diastolic 68–98; PULSE 89–159; RESP 22–36; TEMP 36.2–37.2; O2SAT 92–100
--- NOTE | ~2021-05-19 | XR_ITS ---
XR chest 1V portable 05/19/2021 09:07 Indication: Dyspnea. Shortness of breath. COPD. Patient on oxygen. Procedure: AP portable chest Comparison: Comparison to multiple prior studies sequentially, with oldest reviewed study dated 09/24. Findings: Heart size normal. There are bilateral interstitial infiltrates with more focal areas of co nsolidation in the lower lungs, compatible with pneumonia versus edema. No pneumothorax. There is api sly pleural thickening/scarring. Possible small effusions versus pleural thickening. Impression: 1: Bilateral mixed interstitial and airspace infiltrates which may represent edema or pneumonia. Reviewed, dictated and finalized at location A. PERSON Impression: 1: Bilateral mixed interstitial and airspace infiltrates which may represent ed regino or pneumonia.
--- NOTE | ~2021-05-19 | XR_ITS ---
EXAMINATION: XR chest 1V portable EXAM DATE: 05/25/2021 05:49 INDICATION: COVID TECHNIQUE: Portable AP frontal chest x-ray was obtained. Comparison is made to prior examination from 05/22/2021, 05/19. FINDINGS: The lungs are hyperinflated which can be seen with chronic obstructive pulmonary disease (a clinical diagnosis of functional impairment), but is not diagnostic of it. Small to moderate amount of ill-defined bilateral airspace disease probably pneumonia and atelectasis, does not appear signifi cantly changed compared to 05/22, but with some improvement compared to 05/19. Biapical scarring unchang ed. The bones are osteopenic. There are bony degenerative changes. No pneumothorax or pleural effusion. Cardiomediastinal silhouette is normal. Old rib fractures. Left-sided venous line, tip in the axilla. IMPRESSION: 1. Small to moderate bilateral pneumonia and atelectasis unchanged. 2. Left venous line tip in the axilla, probably intentional mid line. 3. Chronic hyperinflation. Reviewed, dictated and finalized at location G. OR MECHANICAL PROJECT ENGINEER
--- NOTE | ~2021-05-19 | XR_ITS ---
EXAMINATION: XR chest 1V portable DATE: 05/22/2021 08:48 INDICATION: Follow-up COVID pneumonia TECHNIQUE: frontal view of the chest was obtained. COMPARISON: Chest radiograph and CT dated 05/19/2021 FINDINGS: Emphysema with biapical pleural-parenchymal scarring. There is been interval decrease in the no pleur al effusion or pneumothorax. Prior bronchial wall thickening and airspace opacities in the bilateral lower lung zones consistent with improving pneumonia. The cardiomediastinal silhouette is normal. Sev eral old bilateral rib fractures. IMPRESSION: 1. Decreasing bronchial wall thickening and opacities in the lower lung zones consistent with improvi ng pneumonia. 2. Emphysema with biapical pleural-parenchymal scarring. Reviewed, dictated and finalized at location A. TOR TECHNICIAN IMPRESSION: 1. Decreasing bronchial wall thickening and opacities in the lower lung zones c onsistent with improving pneumonia. 2. Emphysema with biapical pleural-parenchymal scarring.
--- NOTE | ~2021-05-19 | CT_ITS ---
EXAMINATION: CTA chest PE protocol DATE: 05/19/2021 13:41 ELECTRONICS PROCESSOR INDICATION: Shortness of breath. Covid. TECHNIQUE: Computed tomographic angiography (CTA) of the chest was performed with 100 mL Omnipaque-35 0 intravenous contrast. The dose-length product was 326.01 mGy-cm. Maximum intensity projection 3D-re constructions of the aorta and other arteries were constructed by the technologist on a separate work station. Automated exposure control and iterative reconstruction technique were employed. COMPARISON: CT dated 11/06/2018. FINDINGS: Heart size is normal. No significant pleural or pericardial effusion. Study is technically adequate without evidence for pulmonary embolism. Moderate size hiatal hernia. Mediastinal lymphadeno melquiades, likely reactive. There is emphysema. There is patchy bilateral airspace consolidation, groundg lass opacities and focal reticular nodularity, consistent with pneumonia. Findings most advanced in t he right lower lobe. There is a 9 mm pleural-based left lower lobe nodule posteriorly which is likely related to bilateral airspace consolidation/inflammation, although attention to this on follow-up CT at 2-3 months recommended. Mild chronic superior endplate compression deformity of T11. No acute oss eous abnormality. IMPRESSION: 1. Patchy bilateral airspace disease, compatible with pneumonia. Nodular density in the left lower lo be measures 9 mm. Follow-up CT chest in 2-3 months recommended to assess for resolution. 2: Emphysema. Reviewed, dictated and finalized at location A. TRONICS PROCESSOR IMPRESSION: 1. Patchy bilateral airspace disease, compatible with pneumonia. Nodular densit y in the left lower lobe measures 9 mm. Follow-up CT chest in 2-3 months recomm ended to assess for resolution. 2: Emphysema.
--- NOTE | 2021-05-19 08:52 | ED.SOB ---
HPI - SOB/Dyspnea General Chief Complaint: Shortness of Breath/Dyspnea Stated Complaint: SOB,COUGH Time Seen by Provider: 05/19/21 08:52 Source: patient Mode of arrival: EMS Limitations: no limitations History of Present Illness HPI Narrative: The patient is a 65-year-old female with a history of COPD, chronic respiratory failure on L home O2, hyperlipidemia, type 2 diabetes mellitus, GERD, presenting via EMS for evaluation of shortness of breath. Patient states she has felt increasingly unwell over the past 24 hours with increased work of breathing, cough and shortness of breath despite using her 3 L of home oxygen. Patient states she has tried inhaled DuoNeb therapies without any improvement in her symptoms. She denies fever, she does report productive cough. She denies any chest or abdominal pain. No lower extremity swelling. Patient denies recent sick contacts. Patient called an ambulance this morning due to her increasing shortness of breath. Patient was given 2 DuoNeb treatments in route without any improvement in her symptoms. Patient presents in acute respiratory distress with abdominal retractions, mildly diaphoretic. She is awake, alert and oriented, her is present at bedside. Related Data Home Medications Medication Instructions Recorded Confirmed Spiriva with HandiHaler 18 cap INHALATION DAILY 04/08/21 04/08/21 albuterol sulfate 0.63 mg CONTINUOUS NEBULIZATION 04/08/21 04/08/21 TID PRN albuterol sulfate [Ventolin HFA] 2 puff INHALATION Q4-5H PRN 04/08/21 04/08/21 alendronate 70 mg PO WEEKLY 04/08/21 04/08/21 aspirin 81 mg PO HS 04/08/21 04/08/21 baclofen 5 mg PO HS 04/08/21 04/08/21 diazepam 2 mg PO HS PRN 04/08/21 04/08/21 diclofenac sodium 100 mg PO DAILY 04/08/21 04/08/21 fluticasone propion-salmeterol 1 inh INHALATION BID 04/08/21 04/08/21 [Advair Diskus] hydralazine 10 mg PO TID 04/08/21 04/08/21 hydrocodone-acetaminophen 1 tablet PO Q4-5H PRN 04/08/21 04/08/21 metformin 500 mg PO BID 04/08/21 04/08/21 metoprolol succinate 12.5 mg PO DAILY 04/08/21 04/08/21 montelukast 10 mg PO DAILY 04/08/21 04/08/21 omeprazole 20 mg PO BID 04/08/21 04/08/21 pravastatin 40 mg PO HS 04/08/21 04/08/21 prednisone 10 mg PO DAILY 04/08/21 04/08/21 sucralfate 1 g PO DAILY 04/08/21 04/08/21 theophylline 300 mg PO DAILY 04/08/21 04/08/21 Allergies Allergy/AdvReac Type Severity Reaction Status Date / Time cephalexin Allergy Mild Hives Verified 04/08/21 20:47 levofloxacin Allergy Mild FEET Verified 04/08/21 20:47 SWELLING Sulfa (Sulfonamide Allergy Unknown Hives Verified 04/08/21 20:47 Antibiotics) Review of Systems Review of Systems: CONSTITUTIONAL: Denies fever CARDIOVASCULAR: Denies chest pain RESPIRATORY: Reports cough, shortness of breath GASTROINTESTINAL: Denies abdominal pain SKIN: Denies rash MUSCULOSKELETAL: Denies back pain NEUROLOGIC: Denies headache PMFSH Past Medical History Medical History Anxiety Chronic back pain Chronic respiratory failure with hypoxia, on home oxygen therapy Gastric ulcer Gastroesophageal reflux disease History of MRSA infection Hyperlipidemia Hypertension Osteoarthritis Steroid-dependent chronic obstructive pulmonary disease Type 2 diabetes mellitus Surgical History Surgical History History of arthroscopy of right knee History of hysterectomy (1985) Total abdominal hysterectomy with unilateral salpingo-oophorectomy for benign reasons. History of lung biopsy In the late . She reports she had a lung biopsy which resulted in collapsed lung , what sounds like a pneumothorax for which she had chest tube. History of orthopedic surgery Family History Family History Father Acute myocardial infarction Sibling Acute myocardial infarction Other Cerebrovascular accident Diabetes mellitus
--- NOTE | 2021-05-19 08:53 | ECG_ITS ---
Measurements Intervals [place] Rate: 155 P: 78 CT: 114 QRS: 82 QRSD: 78 T: 79 QT: 309 QTc: 496 Interpretive Statements SINUS TACHYCARDIA WITH SHORT CT INTERVAL ATRIAL COUPLET AND ATRIAL AND VENTRICULAR PREMATURE COMPLEXES BORDERLINE ST-T WAVE ABNORMALITY- INF/LAT LEADS BASELINE ARTIFACT- I, II, III, AVR, AVL, AVF, V1-V6 ABNORMAL ECG Electronically Signed On 05-19-2021 15:59:28 STORE STOCK ASSOCIATE by Jere Lee D.O.
[2021-05-19] MEDS: methylPREDNISolone SOD SUCC 125 MG VIAL IV PUSH (09:14)
[2021-05-19] MEDS: MAGNESIUM SULF 2 GM/WATER 50ML 2 GM/50 ML BAG IVPB (09:14)
[2021-05-19] MEDS: SODIUM CHLORIDE 0.9% IV 500 ML 999 ML IV CONT (09:16)
[2021-05-19] MEDS: ALBUTEROL SULFATE NEB 2.5 MG/0.5 ML INH 20 MG INHALATION (09:20)
[2021-05-19] MEDS: IPRATROPIUM BR 0.02% INH SOLN 0.5 MG/2.5 ML VIAL 2 MG INHALATION (09:20)
[2021-05-19 09:27] LABS: Alveolar/Arterial O2 Gradient 107.7 mmHg; Base Excess ABG -0.9 mEq/l (+/-2.0); Carboxyhemoglobin 0.7 % THb (0-2.0); Fractional Inspired Oxygen 32 %; HCO3 ABG 23.6 mEq/l (22.0-26.0); Methemoglobin ABG 0.3 %THb (0-1.5); Oxygen Content ABG 17.1 %vol (16.0-22.0); Oxygen Saturation ABG 95.3 % (95.0-100.0); Oxyhemoglobin 93.3 % THb (90.0-100.0); PCO2 ABG 38.3 mmHg (35.0-45.0); PO2 ABG 75.7 mmHg (80.0-100.0); PO2 FiO2 Ratio Arterial Blood 2.37 %; Reduced Hemoglobin 5.7 %THb (0-5.0); pH ABG 7.407 (7.350-7.450)
[2021-05-19 09:28] LABS: Device NASAL CANNULA; Modified Allen's Test Pass; Site Drawn RIGHT RADIAL
[2021-05-19 10:00] LABS: Basophils Absolute Auto 0.1 K/mm3 (0.0-0.1); Basophils Percent Auto 0.7 % (0.2-1.2); Eosinophils Percent Auto 0.1 % (0-4.4); Hematocrit 41.9 % (37.0-47.0); Hemoglobin 12.3 g/dL (12.0-15.0); Immature Granulocyte Absolute 0.59 K/mm3 (0.00-0.031); Immature Granulocyte Percent A 3.7 % (0-0.5); Lymphocytes Absolute Auto 1.09 K/mm3 (0.9-3.2); Lymphocytes Percent Auto 6.9 % (18.3-44.2); Mean Corpuscular HGB Conc 29.4 g/dl (32-36); Mean Corpuscular Hemoglobin 24.6 pg (26-34); Mean Corpuscular Volume 83.6 fl (80-100); Mean Platelet Volume 10.1 fl (7.4-10.4); Monocytes Absolute Auto 0.6 K/mm3 (0.1-0.6); Monocytes Percent Auto 3.5 % (2.6-8.5); Neutrophils Absolute Auto 13.4 K/mm3 (1.3-6.7); Neutrophils Percent Auto 85.1 % (45.5-73.1); Platelet Count Result 290 k/mm3 (150-375); Red Blood Count 5.01 M/mm3 (4.2-5.4); Red Cell Distribution Width 14.9 % (11.5-14.5); White Blood Count 15.8 K/mm3 (4.5-10.0)
[2021-05-19 10:11] LABS: Lactic Acid Reflex 1.3 mmol/L (0.7-2.1)
[2021-05-19 10:12] LABS: Alanine Aminotransferase 11 U/L (4-35); Albumin Level 3.6 g/dL (3.5-5.1); Alkaline Phosphatase 80 U/L (38-126); Anion Gap 14 mmol/L (8-16); Aspartate Amino Transferase 20 U/L (14-36); Bilirubin,Total 0.5 mg/dL (0.2-1.3); Blood Urea Nitrogen 18 mg/dL (7-17); Calcium 8.8 mg/dL (8.4-10.2); Carbon Dioxide 25 mmol/L (22-30); Chloride 99 mmol/L (98-107); Estimated CRCL calculation 61 ml/min; Estimated Glomerular Filt Rate > 60; Glucose 138 mg/dL (65-110); INR 1.1; Potassium 3.4 mmol/L (3.4-5.0); Sodium 138 mmol/L (137-145)
[2021-05-19 10:14] LABS: Partial Thromboplastin Time 42.1 SECONDS (22.3-36.8)
[2021-05-19 10:16] LABS: SARS-CoV-2 RNA PCR Positive
--- NOTE | 2021-05-19 10:22 | PC.NURSE ---
Patient stuck multiple times by different RNs for IV and blood draw. Ultrasound was used for IV placement and was able to draw blood cultures with ultrasound guidance at separate sites.
[2021-05-19 10:24] LABS: NT Pro B Type Natriuretic Pept 310 pg/mL (5-100); Troponin I < 0.012 ng/mL (0.000-0.034)
--- NOTE | 2021-05-19 13:00 | PM.IMHP ---
H&P: HPI History of Present Illness Date/Time: 05/19/21 13:00 <Alix Blake PA-C - Last Filed: 05/20/21 00:34> Chief Complaint: Shortness of breath. <Alix Blake PA-C - Last Filed: 05/20/21 00:34> Narrative: This is a 65-year-old female with chronic respiratory failure on home oxygen, steroid dependent COPD, diabetes, hypertension, and hyperlipidemia who presented to the emergency department earlier today from home for evaluation of shortness of breath. She has been feeling unwell for several days with sweats, sore throat, and generalized malaise. She endorses chronic dyspnea on exertion related to her COPD however she has felt increasingly short of breath on lesser and lesser exertion over the past 24 hours or so. Unfortunately her DuoNebs have not provided her with much benefit and today she was using accessory muscles to help her breathe and thus she came in for evaluation. She was tachycardic and tachypneic on arrival and was placed on BiPAP with some improvement in her symptoms. CTA of the chest showed no evidence of pulmonary embolism but did note bilateral pneumonia and she subsequently tested positive for SARS-CoV-2 by PCR. Event show lay patient was noted to be retaining a large amount of urine and after she was catheterized, her work of breathing and tachycardia improved drastically. She is now back on her home oxygen requirement and she is feeling better. She has not had a fever to her knowledge and she denies significant sinus congestion, headache, neck ache, vomiting, and diarrhea. She also denies chest pain and pleuritic pain. <Alix Blake PA-C - Last Filed: 05/20/21 00:34> Review of Systems Review of Systems: Twelve systems were reviewed and are negative except for as per HPI. <Alix Blake PA-C - Last Filed: 05/20/21 00:34> [facility] Past Medical History Medical History: Medical History Anxiety Chronic back pain Chronic respiratory failure with hypoxia, on home oxygen therapy E. coli urinary tract infection (03/2021) Multi-drug resistant, not ESBL. Gastric ulcer Gastroesophageal reflux disease History of MRSA infection Hyperlipidemia Hypertension Osteoarthritis Steroid-dependent chronic obstructive pulmonary disease Type 2 diabetes mellitus <Alix Blake PA-C - Last Filed: 05/20/21 00:34> Surgical History Surgical History: Surgical History History of arthroscopy of right knee History of hysterectomy (1985) Total abdominal hysterectomy with unilateral salpingo-oophorectomy for benign reasons. History of lung biopsy In the late . She reports she had a lung biopsy which resulted in collapsed lung , what sounds like a pneumothorax for which she had chest tube. History of orthopedic surgery <Alix Blake PA-C - Last Filed: 05/20/21 00:34> Family History Family History: Family History Father Acute myocardial infarction Sibling Acute myocardial infarction Other Cerebrovascular accident Diabetes mellitus Family history of arthritis Family history of cardiovascular disease Family history of mental disorder Hypertension <Alix Blake PA-C - Last Filed: 05/20/21 00:34> Social History Social History: Social History Social History: Surrogate decision maker: Ajay Gomes, significant other. Code status: Full code. Smoking packs per day: 1 Smoking cigarettes per day: 20.0 Years smoked: 30 Smoking pack-years: 30.00 Smoking status: Former smoker Tobacco type: cigarettes Alcohol intake: never Substance use: never Additional living arrangements comments: The patient lives in [place] with her significant other. Additional occupation/education comments: Disable
--- NOTE | 2021-05-19 13:22 | ADMGEN ---
This patient, Amber Teran, was admitted to IMU Room 202-. Patient/family oriented to hospital policies and general routines including ID bracelet, bed and alarms, visiting hours, pain management, procedures, bathroom and other care routines, personal items, smoking policy, room service/diet, and visiting hours. Information on how to activate the Rapid Response Team has been discussed. Patient/Family are encouraged to report perceived risks to care and to ask questions if they do not understand what they are told or what they should do.
[2021-05-19] MEDS: methylPREDNISolone SOD SUCC 125 MG VIAL 60 MG IV PUSH ×2 (13:52→17:14)
[2021-05-19] MEDS: hydrALAZINE 10 MG TABLET PO (17:14)
[2021-05-19] MEDS: HYDROcodone/acetaminophen (*CRX) 10-325 MG TABLET 1 TAB PO ×2 (17:14→22:14)
[2021-05-19] MEDS: INSULIN ASPART (*BKC) 100 UNITS/ML SUB-Q (17:33)
[2021-05-19 17:36] LABS: Glucose Point of Care 265 mg/dl (65-105)
[2021-05-19] MEDS: PANTOPRAZOLE 40 MG TABLET PO (20:34)
[2021-05-19] MEDS: ASPIRIN 81 MG CHEWABLE TABLET PO (20:34)
[2021-05-19] MEDS: PRAVASTATIN SODIUM 20 MG TABLET 40 MG PO (20:34)
[2021-05-19 21:05] LABS: Glucose Point of Care 204 mg/dl (65-105)
[2021-05-19] MEDS: ALBUTEROL SULFATE NEB 2.5 MG/0.5 ML INH 5 MG INHALATION (21:20)
[2021-05-19] MEDS: IPRATROPIUM BR 0.02% INH SOLN 0.5 MG/2.5 ML VIAL INHALATION (21:21)
[2021-05-19] MEDS: FLUTICASONE/SALMETEROL 115-21 MCG INHALER 1 PUFF 2 PUFF INHALATION (21:21)
[2021-05-20] VITALS (16 sets, daily range): BP systolic 107–146; BP diastolic 49–88; PULSE 75–98; RESP 18–22; TEMP 36.4–36.7; O2SAT 94–100
[2021-05-20] MEDS: methylPREDNISolone SOD SUCC 125 MG VIAL 60 MG IV PUSH ×4 (00:06→18:44)
[2021-05-20] MEDS: IPRATROPIUM BR 0.02% INH SOLN 0.5 MG/2.5 ML VIAL INHALATION ×2 (02:34→09:27)
[2021-05-20] MEDS: ALBUTEROL SULFATE NEB 2.5 MG/0.5 ML INH 5 MG INHALATION ×2 (02:34→09:26)
[2021-05-20] MEDS: HYDROcodone/acetaminophen (*CRX) 10-325 MG TABLET 1 TAB PO ×3 (03:00→21:14)
[2021-05-20 05:18] LABS: Hematocrit 36.8 % (37.0-47.0); Hemoglobin 11.1 g/dL (12.0-15.0); Mean Corpuscular HGB Conc 30.2 g/dl (32-36); Mean Corpuscular Volume 79.7 fl (80-100); Mean Platelet Volume 9.9 fl (7.4-10.4); Platelet Count Result 292 k/mm3 (150-375); Red Blood Count 4.62 M/mm3 (4.2-5.4); Red Cell Distribution Width 14.6 % (11.5-14.5); White Blood Count 15.9 K/mm3 (4.5-10.0)
[2021-05-20 06:22] LABS: Alanine Aminotransferase 10 U/L (4-35); Albumin Level 3.6 g/dL (3.5-5.1); Alkaline Phosphatase 71 U/L (38-126); Anion Gap 13 mmol/L (8-16); Aspartate Amino Transferase 17 U/L (14-36); Bilirubin,Total 0.3 mg/dL (0.2-1.3); Blood Urea Nitrogen 15 mg/dL (7-17); CRP 33.5 mg/dL (<1.0); Calcium 8.5 mg/dL (8.4-10.2); Carbon Dioxide 24 mmol/L (22-30); Chloride 101 mmol/L (98-107); Estimated CRCL calculation 93 ml/min; Estimated Glomerular Filt Rate > 60; Glucose 273 mg/dL (65-110); Lactate Dehydrogenase 449 U/L (313-618); Magnesium 2.2 mg/dL (1.6-2.3); Potassium 4.2 mmol/L (3.4-5.0); Sodium 138 mmol/L (137-145)
[2021-05-20 08:57] LABS: Glucose Point of Care 214 mg/dl (65-105)
[2021-05-20] MEDS: SUCRALFATE 1 GM TABLET PO (09:01)
[2021-05-20] MEDS: THEOPHYLLINE ANHYDROUS 100 MG CAP.ER.24H 300 MG PO (09:01)
[2021-05-20] MEDS: PANTOPRAZOLE 40 MG TABLET PO ×2 (09:02→21:14)
[2021-05-20] MEDS: MONTELUKAST SODIUM 10 MG TABLET PO (09:02)
[2021-05-20] MEDS: METOPROLOL SUCCINATE EXT REL 12.5 MG TABCR PO (09:02)
[2021-05-20] MEDS: hydrALAZINE 10 MG TABLET PO ×3 (09:02→18:43)
[2021-05-20] MEDS: INSULIN ASPART (*BKC) 100 UNITS/ML SUB-Q ×3 (09:18→18:43)
[2021-05-20] MEDS: FLUTICASONE/SALMETEROL 115-21 MCG INHALER 1 PUFF 2 PUFF INHALATION ×2 (09:26→20:49)
[2021-05-20] MEDS: UMECLIDINIUM BROMIDE 62.5 MCG ELLIPTA 1 PUFF INHALATION (09:27)
[2021-05-20] MEDS: ENOXAPARIN 40 MG/0.4 ML SYRINGE SUB-Q ×2 (11:53→21:16)
[2021-05-20] MEDS: ASCORBIC ACID 500 MG TABLET PO (11:53)
[2021-05-20] MEDS: REMDESIVIR 200 MG/NS 250 ML 200 MG/250 ML BAG 250 MG IVPB (11:53)
[2021-05-20] MEDS: ZINC SULFATE 220 MG CAPSULE PO (11:54)
[2021-05-20] MEDS: CHOLECALCIFEROL 1,000 UNITS TABLET 1000 UNITS PO (11:54)
[2021-05-20 13:05] LABS: Glucose Point of Care 251 mg/dl (65-105)
[2021-05-20] MEDS: MORPHINE SULFATE (*CRX) 4 MG/ML INJ IV PUSH ×2 (13:21→18:42)
[2021-05-20] MEDS: ALBUTEROL SULFATE (*SP) AEROSOL 1 PUFF 2 PUFF INHALATION ×2 (14:04→20:49)
[2021-05-20] MEDS: ALBUTEROL SULFATE (*SP) INHALER 1 PUFF (14:04)
[2021-05-20] MEDS: LIDOCAINE HCL 1% LOCAL INJ 2 ML AMPUL 5 ML INFILTRATE (14:30)
--- NOTE | 2021-05-20 17:07 | PM.IMPN ---
Progress Note: A&P Assessment and Plan (1) Sepsis: Code(s): A41.9 - Sepsis, unspecified organism Status: Acute Assessment and Plan: Present on admission and supported by tachycardia, tachypnea, and leukocytosis in the setting of infection. Lactic acid level was within normal limits. Blood cultures have been obtained and are pending. 05/20/2021 Interval history: patient with history of COPD presented with shortness of breath most likely exacerbation and been positive COVID-19, patient is being treated with methylprednisone, albuterol inhaler, and remdesivir, chest x-ray is suspicious pneumonia patient being treated with Zosyn, sputum culture and procalcitonin pending, patient states feeling little better compared to when she arrived not a short of breath denies fever or chills (2) COVID-19: Code(s): U07.1 - COVID-19 Status: Acute Assessment and Plan: She was started on Solu-Medrol in the emergency department and we will continue with that. She has also been started on remdesivir per protocol. Trend inflammatory markers. (3) Pneumonia: Code(s): J18.9 - Pneumonia, unspecified organism Status: Acute Assessment and Plan: She received a dose of Zosyn in the emergency department. Pneumonia is most likely related to COVID-19 though given elevated white blood cell count will check sputum culture as well as a procalcitonin level. Continue azithromycin for now. (4) Lung nodule: Code(s): R91.1 - Solitary pulmonary nodule Status: Acute Assessment and Plan: Radiologist recommends follow-up chest CT in 2 to 3 months. (5) Steroid-dependent chronic obstructive pulmonary disease: Code(s): J44.9 - Chronic obstructive pulmonary disease, unspecified Status: Acute Assessment and Plan: Prednisone on hold as she is currently on Solu-Medrol as detailed above. (6) Type 2 diabetes mellitus: Qualifiers: Diabetes mellitus director long term care insulin use: without director long term care use Diabetes mellitus complication status: without complication Qualified Code(s): E11.9 - Type 2 diabetes mellitus without complications Code(s): E11.9 - Type 2 diabetes mellitus without complications Status: Acute Assessment and Plan: Hold metformin as she received IV contrast. Initiate sliding scale insulin, Accu-Cheks, and hypoglycemic protocol. (7) Hypertension: Qualifiers: Hypertension type: essential hypertension Qualified Code(s): I10 - Essential (primary) hypertension Code(s): I10 - Essential (primary) hypertension Status: Acute Assessment and Plan: Blood pressures were reviewed and they are reasonable. Her antihypertensives will be reviewed and resumed as appropriate. (8) Chronic respiratory failure with hypoxia, on home oxygen therapy: Code(s): J96.11 - Chronic respiratory failure with hypoxia; Z99.81 - Dependence on supplemental oxygen Status: Acute Assessment and Plan: She is currently at her baseline oxygen requirement. (9) Acute urinary retention: Code(s): R33.8 - Other retention of urine Status: Acute Assessment and Plan: Continue Bowen catheter. She will need a voiding trial prior to discharge. Baclofen on hold. Subjective Date/time seen: 05/20/21 17:07 HPI This is a 65-year-old female with chronic respiratory failure on home oxygen, steroid dependent COPD, diabetes, hypertension, and hyperlipidemia who presented to the emergency department earlier today from home for evaluation of shortness of breath. She has been feeling unwell for several days with sweats, sore throat, and generalized malaise. She endorses chronic dyspnea on exertion related to her COPD however she has felt increasingly short of breath on lesser and lesser exertion over the past 24 hours or so. Unfortunately her DuoNebs have not provided her with much benefit and today she was using acces
[2021-05-20 17:25] LABS: Glucose Point of Care 207 mg/dl (65-105)
[2021-05-20] MEDS: metFORMIN HCL 500 MG TABLET PO (18:44)
[2021-05-20 20:31] LABS: Glucose Point of Care 181 mg/dl (65-105)
[2021-05-20] MEDS: PRAVASTATIN SODIUM 20 MG TABLET 40 MG PO (21:14)
[2021-05-20] MEDS: ASPIRIN 81 MG CHEWABLE TABLET PO (21:14)
[2021-05-20] MEDS: SALINE LOCK FLUSH 10 ML IV PUSH (21:16)
[2021-05-21] VITALS (9 sets, daily range): BP systolic 132–159; BP diastolic 65–86; PULSE 66–118; RESP 20–30; TEMP 36–36.5; O2SAT 91–100
[2021-05-21] MEDS: methylPREDNISolone SOD SUCC 125 MG VIAL 60 MG IV PUSH ×2 (01:29→05:47)
[2021-05-21] MEDS: HYDROcodone/acetaminophen (*CRX) 10-325 MG TABLET 1 TAB PO ×5 (01:29→18:32)
[2021-05-21] MEDS: ALBUTEROL SULFATE (*SP) AEROSOL 1 PUFF 2 PUFF INHALATION ×2 (02:29→08:10)
[2021-05-21] MEDS: SALINE LOCK FLUSH 10 ML IV PUSH ×2 (05:47→14:57)
[2021-05-21 06:22] LABS: Basophils Percent Auto 0.2 % (0.2-1.2); Hematocrit 34.9 % (37.0-47.0); Hemoglobin 10.7 g/dL (12.0-15.0); Immature Granulocyte Absolute 0.24 K/mm3 (0.00-0.031); Immature Granulocyte Percent A 1.9 % (0-0.5); Lymphocytes Absolute Auto 0.24 K/mm3 (0.9-3.2); Lymphocytes Percent Auto 1.9 % (18.3-44.2); Mean Corpuscular HGB Conc 30.7 g/dl (32-36); Mean Corpuscular Hemoglobin 24.5 pg (26-34); Mean Platelet Volume 9.7 fl (7.4-10.4); Monocytes Absolute Auto 0.2 K/mm3 (0.1-0.6); Monocytes Percent Auto 1.8 % (2.6-8.5); Neutrophils Percent Auto 94.2 % (45.5-73.1); Platelet Count Result 293 k/mm3 (150-375); Red Blood Count 4.36 M/mm3 (4.2-5.4); Red Cell Distribution Width 14.3 % (11.5-14.5); White Blood Count 12.8 K/mm3 (4.5-10.0)
[2021-05-21 06:40] LABS: Alanine Aminotransferase 13 U/L (4-35); Albumin Level 3.3 g/dL (3.5-5.1); Alkaline Phosphatase 66 U/L (38-126); Anion Gap 9 mmol/L (8-16); Aspartate Amino Transferase 19 U/L (14-36); Bilirubin,Total 0.3 mg/dL (0.2-1.3); Blood Urea Nitrogen 20 mg/dL (7-17); Calcium 7.9 mg/dL (8.4-10.2); Carbon Dioxide 27 mmol/L (22-30); Chloride 100 mmol/L (98-107); Estimated CRCL calculation 69 ml/min; Estimated Glomerular Filt Rate > 60; Glucose 213 mg/dL (65-110); Sodium 136 mmol/L (137-145)
[2021-05-21 06:48] LABS: CRP 12.6 mg/dL (<1.0)
[2021-05-21 06:55] LABS: INR 1.1; Prothrombin Time 14.3 Seconds (11.1-14.7)
[2021-05-21] MEDS: FLUTICASONE/SALMETEROL 115-21 MCG INHALER 1 PUFF 2 PUFF INHALATION (08:10)
[2021-05-21] MEDS: UMECLIDINIUM BROMIDE 62.5 MCG ELLIPTA 1 PUFF INHALATION (08:11)
[2021-05-21 08:36] LABS: Glucose Point of Care 248 mg/dl (65-105)
--- NOTE | 2021-05-21 09:30 | PM.IMPN ---
Progress Note: A&P Assessment and Plan (1) Sepsis: Code(s): A41.9 - Sepsis, unspecified organism Status: Acute (2) COVID-19: Code(s): U07.1 - COVID-19 Status: Acute (3) Pneumonia: Code(s): J18.9 - Pneumonia, unspecified organism Status: Acute (4) Lung nodule: Code(s): R91.1 - Solitary pulmonary nodule Status: Acute (5) Steroid-dependent chronic obstructive pulmonary disease: Code(s): J44.9 - Chronic obstructive pulmonary disease, unspecified Status: Acute (6) Type 2 diabetes mellitus: Qualifiers: Diabetes mellitus skilled nursing insulin use: without skilled nursing use Diabetes mellitus complication status: without complication Qualified Code(s): E11.9 - Type 2 diabetes mellitus without complications Code(s): E11.9 - Type 2 diabetes mellitus without complications Status: Acute (7) Hypertension: Qualifiers: Hypertension type: essential hypertension Qualified Code(s): I10 - Essential (primary) hypertension Code(s): I10 - Essential (primary) hypertension Status: Acute (8) Chronic respiratory failure with hypoxia, on home oxygen therapy: Code(s): J96.11 - Chronic respiratory failure with hypoxia; Z99.81 - Dependence on supplemental oxygen Status: Acute (9) Acute urinary retention: Code(s): R33.8 - Other retention of urine Status: Acute Additional Plan 05/20/2021 Interval history: patient with history of COPD presented with shortness of breath most likely exacerbation and been positive COVID-19, patient is being treated with methylprednisone, albuterol inhaler, and remdesivir, chest x-ray is suspicious pneumonia patient being treated with Zosyn, sputum culture and procalcitonin pending, patient states feeling little better compared to when she arrived not a short of breath denies fever or chills Radiologist recommends follow-up chest CT in 2 to 3 months. for lung nodule steroid dependent COPD Prednisone on hold as she is currently on Solu-Medrol as detailed above. 05/21/21 She is currently at her baseline oxygen requirement. but pt w increased work of breathing ABG lasix on COPD exacerbation tx and receiving remdesivir Rocephin for copd azithro for covid inflammatory markers are reassuring but still high risk for decompensation d/t underlying lung disease c/s pulm Continue Bowen catheter. She will need a voiding trial prior to discharge. Baclofen on hold. adjust insulin PRN Subjective Date/time seen: 05/21/21 09:30 pt on her home 3L O2 but is notably working hard to breathe. Normally feels like this only if exerting herself. She states that she must sit straight up because becomes breathless lying down. unvaccinated. denies h/o CHF Exam Narrative: GEN increased work of breathing HEENT: eyes are clear and none icteric EOMI LUNGS: increased respiratory effort, wheezing and crackles diffuse ABD: not distended, soft Lower extremities: no edema normal inspection SKIN: nonjaundiced Neuro: no focal motor deficits, CN intact AAOx3 Objective Data Vital Signs Vital Signs: Vital Signs - 24 hr 05/20/21 09:40 05/20/21 10:00 05/20/21 12:00 Temperature 97.5 F L Pulse Rate 94 96 Respiratory Rate 18 Blood Pressure 136/49 L Pulse Oximetry 95 96 05/20/21 16:00 05/20/21 20:00 05/20/21 23:43 Temperature 97.6 F 97.7 F Pulse Rate 96 86 75 Respiratory Rate 20 20 Blood Pressure 107/77 142/88 H Pulse Oximetry 94 95 05/20/21 23:56 05/21/21 04:00 05/21/21 08:00 Temperature 98.0 F 97.4 F L 96.8 F L Pulse Rate 89 73 98 Respiratory Rate 20 20 24 H Blood Pressure 137/55 L 137/65 145/69 H Pulse Oximetry 96 97 100 05/21/21 08:11 Temperature Pulse Rate Respiratory Rate Blood Pressure Pulse Oximetry 95 Intake/Output Intake/Output: Intake & Output 05/18/21 05/19/21 05/20/21 05/21/21 23:59 23:59 23:59 23:59 Intake Total 1340 2020 250 Output Total 1400 650
[2021-05-21] MEDS: SUCRALFATE 1 GM TABLET PO (09:34)
[2021-05-21] MEDS: ENOXAPARIN 40 MG/0.4 ML SYRINGE SUB-Q ×2 (09:36→20:40)
[2021-05-21] MEDS: THEOPHYLLINE ANHYDROUS 100 MG CAP.ER.24H 300 MG PO (09:37)
[2021-05-21] MEDS: METOPROLOL SUCCINATE EXT REL 12.5 MG TABCR PO (09:37)
[2021-05-21] MEDS: ZINC SULFATE 220 MG CAPSULE PO (09:37)
[2021-05-21] MEDS: metFORMIN HCL 500 MG TABLET PO ×2 (09:37→18:28)
[2021-05-21] MEDS: ASCORBIC ACID 500 MG TABLET PO (09:37)
[2021-05-21] MEDS: CHOLECALCIFEROL 1,000 UNITS TABLET 1000 UNITS PO (09:37)
[2021-05-21] MEDS: hydrALAZINE 10 MG TABLET PO ×3 (09:37→18:28)
[2021-05-21] MEDS: MONTELUKAST SODIUM 10 MG TABLET PO (09:37)
[2021-05-21] MEDS: PANTOPRAZOLE 40 MG TABLET PO ×2 (09:38→20:41)
[2021-05-21 09:40] LABS: Alveolar/Arterial O2 Gradient 129.4 mmHg; Base Excess ABG 1.6 mEq/l (+/-2.0); Device NASAL CANNULA; Fractional Inspired Oxygen 32 %; HCO3 ABG 25.4 mEq/l (22.0-26.0); Modified Allen's Test Pass; Oxygen Content ABG 15.3 %vol (16.0-22.0); Oxygen Saturation ABG 90.4 % (95.0-100.0); Oxyhemoglobin 89.1 % THb (90.0-100.0); PCO2 ABG 37.1 mmHg (35.0-45.0); PO2 ABG 55.4 mmHg (80.0-100.0); PO2 FiO2 Ratio Arterial Blood 1.73 %; Site Drawn LEFT RADIAL; Total Hemoglobin 12.2 g/dL (12.0-18.0); pH ABG 7.453 (7.350-7.450)
[2021-05-21] MEDS: FUROSEMIDE INJ 40 MG/4 ML VIAL IV PUSH (09:44)
[2021-05-21] MEDS: INSULIN ASPART (*BKC) 100 UNITS/ML SUB-Q ×2 (09:44→12:40)
[2021-05-21 09:56] LABS: NT Pro B Type Natriuretic Pept 639 pg/mL (5-100)
--- NOTE | 2021-05-21 10:12 | PM.CNPUL ---
Assessment and Plan Assessment and plan (1) Pneumonia due to COVID-19 virus: Code(s): U07.1 - COVID-19; J12.82 - Pneumonia due to coronavirus disease 2019 Status: Acute Assessment and Plan: Patient tested positive for COVID-19 on 05/19 and started on remdesivi 05/20, solumedrol on 05/19. Emperically started on vancomycin, azithromycin and Zosyn on 05/19 for possible healthcare associated pneumonia she has recently been hospitalized with pyelonephritis. She was on BiPAP earlier during the hospitalization but is now off and currently is on 3 L nasal cannula which is her baseline with saturations 98%. - Remdesivir for 5 days as she is currently on her home dose of oxygen. If her oxygen requirements increased she may require 10 days of treatment. - She is currently on Solu-Medrol 60 mg IV Q 6 hours for COPD exacerbation and I will decrease this to 40 mg q.6 hours today, she will need 10 days of steroids - Continuous pulse oximetry - Prone positioning as tolerated. - Avoid any fluid overload. - I will continue Advair 115/21 at 2 puffs b.i.d. and Umeclidinium 62.5 at 1 puff qD for now. - Will check influenza swab. Keep saturations are 90-94% with nasal cannula up to 15 L, if fails then Airvo high flow nasal cannula, if fails then BiPAP. I discussed code status with patient and she does not wish to be intubated and does wish for noninvasive ventilation and CPR up until the point of intubation if needed. discussed with Day Whalen will follow with you (2) Respiratory failure with hypoxia: Code(s): J96.91 - Respiratory failure, unspecified with hypoxia Status: Acute Assessment and Plan: Etiology of hypoxic respiratory failure is likely COVID pneumonia. Also may have a COPD exacerbation at the same time. At baseline she is on 3 L nasal cannula 24-7. Patient states she checks her pulse oximetry at home and it normally runs 97-98% at rest on 3 L nasal cannula 05/19 20:00 3 L NC sats 95% 05/20 08:00 3 L NC sats 95% 05/20 20:00 3 L NC sats 95% 05/21 08:00 3 L NC sats 95% Keep saturations are 90-94% with nasal cannula up to 15 L, if fails then Airvo high flow nasal cannula and add tocilizumab or baricitinib, if fails then BiPAP. I discussed code status with patient and she does not wish to be intubated. (3) COPD (chronic obstructive pulmonary disease): Qualifiers: COPD type: unspecified COPD Qualified Code(s): J44.9 - Chronic obstructive pulmonary disease, unspecified Code(s): J44.9 - Chronic obstructive pulmonary disease, unspecified Status: Acute Assessment and Plan: Patient with a history of COPD for 10 years on 3 L nasal cannula at home, her CT angiogram of the chest shows apical predominant mild to moderate centrilobular emphysema. I have no PFTs but the patient tells me her pulmonary doctor has told her her lung function is at 27% predicted. She had an ABG on admission 7.41/38/76 on 5 L nasal cannula and 7.45/37/55 today on 3 L so there is no evidence of hypercarbic respiratory failure. She has no wheezing currently and I will continue Solu-Medrol 40 mg IV q.6, Advair and incruse for now. she is also on broad-spectrum antibiotics for possible pneumonia. History of Present Illness History of Present Illness Consult date: 05/21/21 Chief complaint: Respiratory failure, COVID+, Sepsis Narrative: 05/21/2021: This is a new pulmonary consult for COPD with hypoxic respiratory failure and COVID pneumonia. 65-year-old woman with a history of COPD on 3 L nasal cannula 24-7, prednisone 10 mg a day, and her erecting crane operator, Dr. Stephens, has told her that her lung function as a 27% predicted few years ago by PFTsdiabetes, hypertension, hyperlipidemia who presented to the emergency department on 05/19/2021 with 1 week of fatigue, shortness of breath and 3-4 days of cough with increased phlegm production. Patient denies fever or hemoptysis. In the emergency department patient had
[2021-05-21 12:25] LABS: Glucose Point of Care 393 mg/dl (65-105)
[2021-05-21] MEDS: MORPHINE SULFATE (*CRX) 4 MG/ML INJ IV PUSH (12:40)
[2021-05-21] MEDS: REMDESIVIR 100 MG/NS 250 ML 100 MG/250 ML BAG 250 MG IVPB (12:41)
[2021-05-21] MEDS: methylPREDNISolone SOD SUCC 40 MG VIAL IV PUSH ×2 (12:43→18:28)
[2021-05-21 16:25] LABS: Glucose Point of Care 145 mg/dl (65-105)
[2021-05-21 19:45] LABS: Vancomycin Trough 12.7 ug/mL (10.0-20.0)
[2021-05-21 20:29] LABS: Glucose Point of Care 271 mg/dl (65-105)
[2021-05-21] MEDS: PRAVASTATIN SODIUM 20 MG TABLET 40 MG PO (20:40)
[2021-05-21] MEDS: ASPIRIN 81 MG CHEWABLE TABLET PO (20:41)
[2021-05-21] MEDS: FLUTICASONE/SALMETEROL 115-21 MCG (*SP) INHALER 2 PUFF INHALATION (22:48)
[2021-05-22] VITALS (8 sets, daily range): BP systolic 131–138; BP diastolic 73–85; PULSE 78–103; RESP 20–24; TEMP 36.4–37.1; O2SAT 92–97
[2021-05-22] MEDS: HYDROcodone/acetaminophen (*CRX) 10-325 MG TABLET 1 TAB PO ×4 (00:31→17:43)
[2021-05-22] MEDS: SALINE LOCK FLUSH 10 ML IV PUSH ×4 (00:31→20:27)
[2021-05-22] MEDS: methylPREDNISolone SOD SUCC 40 MG VIAL IV PUSH ×2 (00:31→06:25)
[2021-05-22 05:39] LABS: Basophils Percent Auto 0.2 % (0.2-1.2); Hematocrit 38.1 % (37.0-47.0); Hemoglobin 11.5 g/dL (12.0-15.0); Immature Granulocyte Absolute 0.16 K/mm3 (0.00-0.031); Immature Granulocyte Percent A 1.3 % (0-0.5); Lymphocytes Absolute Auto 0.26 K/mm3 (0.9-3.2); Lymphocytes Percent Auto 2.1 % (18.3-44.2); Mean Corpuscular HGB Conc 30.2 g/dl (32-36); Mean Corpuscular Hemoglobin 24.3 pg (26-34); Mean Corpuscular Volume 80.4 fl (80-100); Mean Platelet Volume 10.3 fl (7.4-10.4); Monocytes Absolute Auto 0.3 K/mm3 (0.1-0.6); Monocytes Percent Auto 2.6 % (2.6-8.5); Neutrophils Absolute Auto 11.7 K/mm3 (1.3-6.7); Neutrophils Percent Auto 93.8 % (45.5-73.1); Platelet Count Result 335 k/mm3 (150-375); Red Blood Count 4.74 M/mm3 (4.2-5.4); Red Cell Distribution Width 14.3 % (11.5-14.5); White Blood Count 12.5 K/mm3 (4.5-10.0)
[2021-05-22 05:48] LABS: Alanine Aminotransferase 10 U/L (4-35); Albumin Level 3.5 g/dL (3.5-5.1); Alkaline Phosphatase 64 U/L (38-126); Anion Gap 9 mmol/L (8-16); Aspartate Amino Transferase 15 U/L (14-36); Bilirubin,Total 0.4 mg/dL (0.2-1.3); Blood Urea Nitrogen 24 mg/dL (7-17); CRP 4.7 mg/dL (<1.0); Calcium 7.7 mg/dL (8.4-10.2); Carbon Dioxide 28 mmol/L (22-30); Chloride 100 mmol/L (98-107); Estimated CRCL calculation 79 ml/min; Estimated Glomerular Filt Rate > 60; Glucose 226 mg/dL (65-110); Potassium 3.5 mmol/L (3.4-5.0); Sodium 137 mmol/L (137-145)
[2021-05-22 05:52] LABS: INR 1.2; Prothrombin Time 15.1 Seconds (11.1-14.7)
--- NOTE | 2021-05-22 08:19 | PM.PNPUL ---
Progress Note: A&P Assessment and Plan (1) Pneumonia due to COVID-19 virus: Code(s): U07.1 - COVID-19; J12.82 - Pneumonia due to coronavirus disease 2019 Status: Acute Assessment and Plan: 05/21 Patient tested positive for COVID-19 on 05/19 and started on remdesivir 05/20, solumedrol on 05/19. Emperically started on vancomycin, azithromycin and Zosyn on 05/19 for possible healthcare associated pneumonia she has recently been hospitalized with pyelonephritis. She was on BiPAP earlier during the hospitalization but is now off and currently is on 3 L nasal cannula which is her baseline with saturations 98%. - Remdesivir for 5 days as she is currently on her home dose of oxygen. If her oxygen requirements increased she may require 10 days of treatment. - She is currently on Solu-Medrol 60 mg IV Q 6 hours for COPD exacerbation and I will decrease this to 40 mg q.6 hours today, she will need 10 days of steroids - Continuous pulse oximetry - Prone positioning as tolerated. - Avoid any fluid overload. - I will continue Advair 115/21 at 2 puffs b.i.d. and Umeclidinium 62.5 at 1 puff qD for now. - Will check influenza swab. Keep saturations are 90-94% with nasal cannula up to 15 L, if fails then Airvo high flow nasal cannula, if fails then BiPAP. I discussed code status with patient and she does not wish to be intubated and does wish for noninvasive ventilation and CPR up until the point of intubation if needed. 05/22 patient tells me that she has a little bit better than yesterday. She still has a cough and is now able to expectorate more clear yellow sputum. She is afebrile. WBC 12.8. She is on 3 L nasal cannula saturations 95%. Coarse expiratory crackles but no wheezes heard. will decrease to Solu-Medrol 20 mg IV q.6 will follow with you (2) Respiratory failure with hypoxia: Code(s): J96.91 - Respiratory failure, unspecified with hypoxia Status: Acute Assessment and Plan: Etiology of hypoxic respiratory failure is likely COVID pneumonia. Also may have a COPD exacerbation at the same time. At baseline she is on 3 L nasal cannula 01/12. Patient states she checks her pulse oximetry at home and it normally runs 97-98% at rest on 3 L nasal cannula 05/19 20:00 3 L NC sats 95% 05/20 08:00 3 L NC sats 95% 05/20 20:00 3 L NC sats 95% 05/21 08:00 3 L NC sats 95% 05/22 07:30 3 L NC sats 95% Keep saturations are 90-94% with nasal cannula up to 15 L, if fails then Airvo high flow nasal cannula and add tocilizumab or baricitinib, if fails then BiPAP. I discussed code status with patient and she does not wish to be intubated. (3) COPD (chronic obstructive pulmonary disease): Qualifiers: COPD type: unspecified COPD Qualified Code(s): J44.9 - Chronic obstructive pulmonary disease, unspecified Code(s): J44.9 - Chronic obstructive pulmonary disease, unspecified Status: Acute Assessment and Plan: 05/21 Patient with a history of COPD for 10 years on 3 L nasal cannula at home, her CT angiogram of the chest shows apical predominant mild to moderate centrilobular emphysema. I have no PFTs but the patient tells me her pulmonary doctor has told her her lung function is at 27% predicted. She had an ABG on admission 7.41/38/76 on 5 L nasal cannula and 7.45/37/55 today on 3 L so there is no evidence of hypercarbic respiratory failure. She has no wheezing currently and I will continue Solu-Medrol 40 mg IV q.6, Advair and incruse for now. she is also on broad-spectrum antibiotics for possible pneumonia. 05/22 Will change to Solu-Medrol 20 mg IV q.6, continue Advair and incruse. continue the awful in, montelukast. I will check a theophylline level. Blood cultures from 05/19 are negative and will discontinue vancomycin today. We will continue azithromycin. Subjective Date/time seen: 05/22/21 08:19 Interval history: 05/21/2021: This is a new pulmonary consult for COPD with hypoxic respir
[2021-05-22] MEDS: FLUTICASONE/SALMETEROL 115-21 MCG (*SP) INHALER 2 PUFF INHALATION ×2 (08:53→21:20)
[2021-05-22] MEDS: UMECLIDINIUM BROMIDE 62.5 MCG ELLIPTA 1 PUFF INHALATION (08:53)
[2021-05-22 09:16] LABS: Glucose Point of Care 254 mg/dl (65-105)
[2021-05-22] MEDS: INSULIN ASPART (*BKC) 100 UNITS/ML SUB-Q ×2 (10:13→12:15)
[2021-05-22] MEDS: REMDESIVIR 100 MG/NS 250 ML 100 MG/250 ML BAG 250 MG IVPB (10:14)
[2021-05-22] MEDS: ENOXAPARIN 40 MG/0.4 ML SYRINGE SUB-Q ×2 (10:21→20:27)
[2021-05-22] MEDS: MONTELUKAST SODIUM 10 MG TABLET PO (10:22)
[2021-05-22] MEDS: SUCRALFATE 1 GM TABLET PO (10:22)
[2021-05-22] MEDS: metFORMIN HCL 500 MG TABLET PO ×2 (10:22→17:43)
[2021-05-22] MEDS: THEOPHYLLINE ANHYDROUS 100 MG CAP.ER.24H 300 MG PO (10:22)
[2021-05-22] MEDS: ASCORBIC ACID 500 MG TABLET PO (10:23)
[2021-05-22] MEDS: CHOLECALCIFEROL 1,000 UNITS TABLET 1000 UNITS PO (10:23)
[2021-05-22] MEDS: ZINC SULFATE 220 MG CAPSULE PO (10:23)
[2021-05-22] MEDS: METOPROLOL SUCCINATE EXT REL 12.5 MG TABCR PO (10:23)
[2021-05-22] MEDS: hydrALAZINE 10 MG TABLET PO ×3 (10:23→17:43)
[2021-05-22] MEDS: PANTOPRAZOLE 40 MG TABLET PO ×2 (10:23→20:27)
[2021-05-22] MEDS: MORPHINE SULFATE (*CRX) 4 MG/ML INJ IV PUSH ×2 (10:55→15:34)
[2021-05-22 11:02] LABS: Influenza Control Positive
--- NOTE | 2021-05-22 12:00 | PM.IMPN ---
Progress Note: A&P Assessment and Plan (1) Sepsis: Code(s): A41.9 - Sepsis, unspecified organism Status: Acute Assessment and Plan: Present on admission and supported by tachycardia, tachypnea, and leukocytosis in the setting of infection. Lactic acid level was within normal limits. Blood cultures have been obtained and are pending. 05/20/2021 Interval history: patient with history of COPD presented with shortness of breath most likely exacerbation and been positive COVID-19, patient is being treated with methylprednisone, albuterol inhaler, and remdesivir, chest x-ray is suspicious pneumonia patient being treated with Zosyn, sputum culture and procalcitonin pending, patient states feeling little better compared to when she arrived not a short of breath denies fever or chills (2) COVID-19: Code(s): U07.1 - COVID-19 Status: Acute Assessment and Plan: She was started on Solu-Medrol in the emergency department and we will continue with that. She has also been started on remdesivir per protocol. Trend inflammatory markers. (3) Pneumonia: Code(s): J18.9 - Pneumonia, unspecified organism Status: Acute Assessment and Plan: She received a dose of Zosyn in the emergency department. Pneumonia is most likely related to COVID-19 though given elevated white blood cell count will check sputum culture as well as a procalcitonin level. Continue azithromycin for now. (4) Lung nodule: Code(s): R91.1 - Solitary pulmonary nodule Status: Acute Assessment and Plan: Radiologist recommends follow-up chest CT in 2 to 3 months. (5) Steroid-dependent chronic obstructive pulmonary disease: Code(s): J44.9 - Chronic obstructive pulmonary disease, unspecified Status: Acute Assessment and Plan: Prednisone on hold as she is currently on Solu-Medrol as detailed above. (6) Type 2 diabetes mellitus: Qualifiers: Diabetes mellitus intermediate manager insulin use: without intermediate manager use Diabetes mellitus complication status: without complication Qualified Code(s): E11.9 - Type 2 diabetes mellitus without complications Code(s): E11.9 - Type 2 diabetes mellitus without complications Status: Acute Assessment and Plan: Hold metformin as she received IV contrast. Initiate sliding scale insulin, Accu-Cheks, and hypoglycemic protocol. (7) Hypertension: Qualifiers: Hypertension type: essential hypertension Qualified Code(s): I10 - Essential (primary) hypertension Code(s): I10 - Essential (primary) hypertension Status: Acute Assessment and Plan: Blood pressures were reviewed and they are reasonable. Her antihypertensives will be reviewed and resumed as appropriate. (8) Chronic respiratory failure with hypoxia, on home oxygen therapy: Code(s): J96.11 - Chronic respiratory failure with hypoxia; Z99.81 - Dependence on supplemental oxygen Status: Acute Assessment and Plan: She is currently at her baseline oxygen requirement. (9) Acute urinary retention: Code(s): R33.8 - Other retention of urine Status: Acute Assessment and Plan: Continue Bowen catheter. She will need a voiding trial prior to discharge. Baclofen on hold. Additional Plan 05/20/2021 Interval history: patient with history of COPD presented with shortness of breath most likely exacerbation and been positive COVID-19, patient is being treated with methylprednisone, albuterol inhaler, and remdesivir, chest x-ray is suspicious pneumonia patient being treated with Zosyn, sputum culture and procalcitonin pending, patient states feeling little better compared to when she arrived not a short of breath denies fever or chills Radiologist recommends follow-up chest CT in 2 to 3 months. for lung nodule steroid dependent COPD Prednisone on hold as she is currently on Solu-Medrol as detailed above. 05/21/21 She
[2021-05-22 13:05] LABS: Glucose Point of Care 344 mg/dl (65-105)
[2021-05-22] MEDS: methylPREDNISolone SOD SUCC 40 MG VIAL 20 MG IV PUSH ×2 (14:14→17:43)
[2021-05-22 16:35] LABS: Glucose Point of Care 174 mg/dl (65-105)
[2021-05-22 20:18] LABS: Glucose Point of Care 267 mg/dl (65-105)
[2021-05-22] MEDS: PRAVASTATIN SODIUM 20 MG TABLET 40 MG PO (20:26)
[2021-05-22] MEDS: ASPIRIN 81 MG CHEWABLE TABLET PO (20:26)
[2021-05-23] VITALS (9 sets, daily range): BP systolic 139–164; BP diastolic 68–79; PULSE 76–101; RESP 14–26; TEMP 36.6–36.8; O2SAT 93–99
[2021-05-23] MEDS: HYDROcodone/acetaminophen (*CRX) 10-325 MG TABLET 1 TAB PO ×4 (00:32→18:37)
[2021-05-23] MEDS: methylPREDNISolone SOD SUCC 40 MG VIAL 20 MG IV PUSH ×2 (00:32→06:12)
[2021-05-23 05:10] LABS: Basophils Percent Auto 0.3 % (0.2-1.2); Hematocrit 38.8 % (37.0-47.0); Hemoglobin 11.7 g/dL (12.0-15.0); Immature Granulocyte Absolute 0.14 K/mm3 (0.00-0.031); Immature Granulocyte Percent A 1.4 % (0-0.5); Lymphocytes Absolute Auto 0.26 K/mm3 (0.9-3.2); Lymphocytes Percent Auto 2.7 % (18.3-44.2); Mean Corpuscular HGB Conc 30.2 g/dl (32-36); Mean Corpuscular Volume 79.5 fl (80-100); Mean Platelet Volume 10.4 fl (7.4-10.4); Monocytes Absolute Auto 0.3 K/mm3 (0.1-0.6); Monocytes Percent Auto 2.9 % (2.6-8.5); Neutrophils Percent Auto 92.7 % (45.5-73.1); Platelet Count Result 340 k/mm3 (150-375); Red Blood Count 4.88 M/mm3 (4.2-5.4); White Blood Count 9.7 K/mm3 (4.5-10.0)
[2021-05-23 05:17] LABS: INR 1.2; Prothrombin Time 14.8 Seconds (11.1-14.7)
[2021-05-23 05:31] LABS: Alanine Aminotransferase 11 U/L (4-35); Albumin Level 3.3 g/dL (3.5-5.1); Alkaline Phosphatase 57 U/L (38-126); Anion Gap 10 mmol/L (8-16); Aspartate Amino Transferase 16 U/L (14-36); Bilirubin,Total 0.4 mg/dL (0.2-1.3); Blood Urea Nitrogen 26 mg/dL (7-17); CRP 3.1 mg/dL (<1.0); Calcium 7.6 mg/dL (8.4-10.2); Carbon Dioxide 27 mmol/L (22-30); Chloride 101 mmol/L (98-107); Estimated CRCL calculation 93 ml/min; Estimated Glomerular Filt Rate > 60; Glucose 251 mg/dL (65-110); Potassium 4.2 mmol/L (3.4-5.0); Sodium 138 mmol/L (137-145)
[2021-05-23] MEDS: SALINE LOCK FLUSH 10 ML IV PUSH ×3 (06:13→20:57)
[2021-05-23 08:46] LABS: Glucose Point of Care 269 mg/dl (65-105)
[2021-05-23] MEDS: FLUTICASONE/SALMETEROL 115-21 MCG (*SP) INHALER 2 PUFF INHALATION ×2 (09:16→21:36)
[2021-05-23] MEDS: UMECLIDINIUM BROMIDE 62.5 MCG ELLIPTA 1 PUFF INHALATION (09:17)
[2021-05-23] MEDS: REMDESIVIR 100 MG/NS 250 ML 100 MG/250 ML BAG 250 MG IVPB (09:19)
[2021-05-23] MEDS: INSULIN ASPART (*BKC) 100 UNITS/ML SUB-Q ×3 (09:21→17:48)
[2021-05-23] MEDS: ENOXAPARIN 40 MG/0.4 ML SYRINGE SUB-Q ×2 (09:24→20:56)
[2021-05-23] MEDS: THEOPHYLLINE ANHYDROUS 100 MG CAP.ER.24H 300 MG PO (09:24)
[2021-05-23] MEDS: MONTELUKAST SODIUM 10 MG TABLET PO (09:25)
[2021-05-23] MEDS: SUCRALFATE 1 GM TABLET PO (09:25)
[2021-05-23] MEDS: PANTOPRAZOLE 40 MG TABLET PO ×2 (09:25→20:56)
[2021-05-23] MEDS: CHOLECALCIFEROL 1,000 UNITS TABLET 1000 UNITS PO (09:25)
[2021-05-23] MEDS: METOPROLOL SUCCINATE EXT REL 12.5 MG TABCR PO (09:25)
[2021-05-23] MEDS: ASCORBIC ACID 500 MG TABLET PO (09:26)
[2021-05-23] MEDS: hydrALAZINE 10 MG TABLET PO ×3 (09:26→17:45)
[2021-05-23] MEDS: metFORMIN HCL 500 MG TABLET PO ×2 (09:26→17:45)
[2021-05-23] MEDS: ZINC SULFATE 220 MG CAPSULE PO (09:26)
--- NOTE | 2021-05-23 09:48 | PM.PNPUL ---
Progress Note: A&P Assessment and Plan (1) Pneumonia due to COVID-19 virus: Code(s): U07.1 - COVID-19; J12.82 - Pneumonia due to coronavirus disease 2019 Status: Acute Assessment and Plan: 05/21 Patient tested positive for COVID-19 on 05/19 and started on remdesivir 05/20, solumedrol on 05/19. Emperically started on vancomycin, azithromycin and Zosyn on 05/19 for possible healthcare associated pneumonia she has recently been hospitalized with pyelonephritis. She was on BiPAP earlier during the hospitalization but is now off and currently is on 3 L nasal cannula which is her baseline with saturations 98%. - Remdesivir for 5 days as she is currently on her home dose of oxygen. If her oxygen requirements increased she may require 10 days of treatment. - She is currently on Solu-Medrol 60 mg IV Q 6 hours for COPD exacerbation and I will decrease this to 40 mg q.6 hours today, she will need 10 days of steroids - Continuous pulse oximetry - Prone positioning as tolerated. - Avoid any fluid overload. - I will continue Advair 115/21 at 2 puffs b.i.d. and Umeclidinium 62.5 at 1 puff qD for now. - Will check influenza swab. Keep saturations are 90-94% with nasal cannula up to 15 L, if fails then Airvo high flow nasal cannula, if fails then BiPAP. I discussed code status with patient and she does not wish to be intubated and does wish for noninvasive ventilation and CPR up until the point of intubation if needed. 05/22 patient tells me that she has a little bit better than yesterday. She still has a cough and is now able to expectorate more clear yellow sputum. She is afebrile. WBC 12.8. She is on 3 L nasal cannula saturations 95%. Coarse expiratory crackles but no wheezes heard. will decrease to Solu-Medrol 20 mg IV q.6. 05/23 Patient continues to slowly improve and says she is a little bit better again today. She still has a cough and is still producing clear to yellow phlegm. She is afebrile. She is on 3 L nasal cannula with saturations 93%. Patient is slowly improving but is high risk for progression to severe disease and I would continue IV Remdesivir for maximum of 10 days while she remains in the hospital. Change to dexamethasone 6 mg IV q.day for total [address] Whalen, will sign off, call with questions. (2) Respiratory failure with hypoxia: Code(s): J96.91 - Respiratory failure, unspecified with hypoxia Status: Acute Assessment and Plan: Etiology of hypoxic respiratory failure is likely COVID pneumonia. Also may have a COPD exacerbation at the same time. At baseline she is on 3 L nasal cannula 01/12. Patient states she checks her pulse oximetry at home and it normally runs 97-98% at rest on 3 L nasal cannula 05/19 20:00 3 L NC sats 95% 05/20 08:00 3 L NC sats 95% 05/20 20:00 3 L NC sats 95% 05/21 08:00 3 L NC sats 95% 05/22 07:30 3 L NC sats 95% 05/23 09:15 3 L NC sats 93% Keep saturations are 90-94% with nasal cannula up to 15 L, if fails then Airvo high flow nasal cannula and add tocilizumab or baricitinib, if fails then BiPAP. I discussed code status with patient and she does not wish to be intubated. Prior to discharge patient should have a home O2 assessment and an overnight oximetry on 3 L to assess oxygenation. (3) COPD (chronic obstructive pulmonary disease): Qualifiers: COPD type: unspecified COPD Qualified Code(s): J44.9 - Chronic obstructive pulmonary disease, unspecified Code(s): J44.9 - Chronic obstructive pulmonary disease, unspecified Status: Acute Assessment and Plan: 05/21 Patient with a history of COPD for 10 years on 3 L nasal cannula at home, her CT angiogram of the chest shows apical predominant mild to moderate centrilobular emphysema. I have no PFTs but the patient tells me her pulmonary doctor has told her her lung function is at 27% predicted. She had an ABG on admission 7.41/38/76 on 5 L nasal cannula and 7.45/37
[2021-05-23 12:44] LABS: Glucose Point of Care 281 mg/dl (65-105)
--- NOTE | 2021-05-23 17:05 | PM.IMPN ---
Progress Note: A&P Assessment and Plan (1) Sepsis: Code(s): A41.9 - Sepsis, unspecified organism Status: Acute Assessment and Plan: Present on admission and supported by tachycardia, tachypnea, and leukocytosis in the setting of infection. Lactic acid level was within normal limits. Blood cultures have been obtained and are pending. 05/20/2021 Interval history: patient with history of COPD presented with shortness of breath most likely exacerbation and been positive COVID-19, patient is being treated with methylprednisone, albuterol inhaler, and remdesivir, chest x-ray is suspicious pneumonia patient being treated with Zosyn, sputum culture and procalcitonin pending, patient states feeling little better compared to when she arrived not a short of breath denies fever or chills (2) COVID-19: Code(s): U07.1 - COVID-19 Status: Acute Assessment and Plan: She was started on Solu-Medrol in the emergency department and we will continue with that. She has also been started on remdesivir per protocol. Trend inflammatory markers. (3) Pneumonia: Code(s): J18.9 - Pneumonia, unspecified organism Status: Acute Assessment and Plan: She received a dose of Zosyn in the emergency department. Pneumonia is most likely related to COVID-19 though given elevated white blood cell count will check sputum culture as well as a procalcitonin level. Continue azithromycin for now. (4) Lung nodule: Code(s): R91.1 - Solitary pulmonary nodule Status: Acute Assessment and Plan: Radiologist recommends follow-up chest CT in 2 to 3 months. (5) Steroid-dependent chronic obstructive pulmonary disease: Code(s): J44.9 - Chronic obstructive pulmonary disease, unspecified Status: Acute Assessment and Plan: Prednisone on hold as she is currently on Solu-Medrol as detailed above. (6) Type 2 diabetes mellitus: Qualifiers: Diabetes mellitus complication status: without complication Diabetes mellitus exterminator helper insulin use: without halfway use Qualified Code(s): E11.9 - Type 2 diabetes mellitus without complications Code(s): E11.9 - Type 2 diabetes mellitus without complications Status: Acute Assessment and Plan: Hold metformin as she received IV contrast. Initiate sliding scale insulin, Accu-Cheks, and hypoglycemic protocol. (7) Hypertension: Qualifiers: Hypertension type: essential hypertension Qualified Code(s): I10 - Essential (primary) hypertension Code(s): I10 - Essential (primary) hypertension Status: Acute Assessment and Plan: Blood pressures were reviewed and they are reasonable. Her antihypertensives will be reviewed and resumed as appropriate. (8) Chronic respiratory failure with hypoxia, on home oxygen therapy: Code(s): J96.11 - Chronic respiratory failure with hypoxia; Z99.81 - Dependence on supplemental oxygen Status: Acute Assessment and Plan: She is currently at her baseline oxygen requirement. (9) Acute urinary retention: Code(s): R33.8 - Other retention of urine Status: Acute Assessment and Plan: Continue Bowen catheter. She will need a voiding trial prior to discharge. Baclofen on hold. Additional Plan 05/20/2021 Interval history: patient with history of COPD presented with shortness of breath most likely exacerbation and been positive COVID-19, patient is being treated with methylprednisone, albuterol inhaler, and remdesivir, chest x-ray is suspicious pneumonia patient being treated with Zosyn, sputum culture and procalcitonin pending, patient states feeling little better compared to when she arrived not a short of breath denies fever or chills Radiologist recommends follow-up chest CT in 2 to 3 months. for lung nodule steroid dependent COPD Prednisone on hold as she is currently on Solu-Medrol as detailed above. 05/21/21 She
[2021-05-23 18:00] LABS: Glucose Point of Care 248 mg/dl (65-105)
--- NOTE | 2021-05-23 18:20 | PC.NURSE ---
This patient, Amber Teran, was transferred to [facility] on 05/23/21 at 1815. Personal belongings sent with patient. Report given to Nette VÁSQUEZ. Appropriate documentation sent with patient.
--- NOTE | 2021-05-23 18:21 | PC.NURSE ---
This patient, Amber Teran, was received from IMU on 05/23/21 at 1820. Report received from FAHAD Bingham. Patient/family oriented to unit policies and routines
[2021-05-23 19:47] LABS: D Dimer 0.46 ug/mL (<0.48)
[2021-05-23] MEDS: PRAVASTATIN SODIUM 20 MG TABLET 40 MG PO (20:56)
[2021-05-23] MEDS: ASPIRIN 81 MG CHEWABLE TABLET PO (20:56)
[2021-05-23] MEDS: BACLOFEN 5 MG TABLET PO (20:56)
[2021-05-23 21:22] LABS: Glucose Point of Care 139 mg/dl (65-105)
[2021-05-24] VITALS (14 sets, daily range): BP systolic 133–155; BP diastolic 64–88; PULSE 52–111; RESP 16–21; TEMP 35.7–36.5; O2SAT 93–99
[2021-05-24] MEDS: HYDROcodone/acetaminophen (*CRX) 10-325 MG TABLET 1 TAB PO ×4 (01:20→22:26)
[2021-05-24] MEDS: ALBUTEROL SULFATE (*SP) INHALER 2 PUFF INHALATION (04:50)
[2021-05-24] MEDS: SALINE LOCK FLUSH 10 ML IV PUSH ×3 (04:51→21:13)
[2021-05-24 05:03] LABS: Basophils Absolute Auto 0.1 K/mm3 (0.0-0.1); Basophils Percent Auto 0.3 % (0.2-1.2); Eosinophils Percent Auto 0.1 % (0-4.4); Hematocrit 37.9 % (37.0-47.0); Hemoglobin 11.5 g/dL (12.0-15.0); Immature Granulocyte Absolute 0.31 K/mm3 (0.00-0.031); Immature Granulocyte Percent A 1.8 % (0-0.5); Lymphocytes Absolute Auto 0.94 K/mm3 (0.9-3.2); Lymphocytes Percent Auto 5.6 % (18.3-44.2); Mean Corpuscular HGB Conc 30.3 g/dl (32-36); Mean Corpuscular Hemoglobin 23.9 pg (26-34); Mean Corpuscular Volume 78.8 fl (80-100); Mean Platelet Volume 10.3 fl (7.4-10.4); Monocytes Absolute Auto 1.2 K/mm3 (0.1-0.6); Neutrophils Absolute Auto 14.4 K/mm3 (1.3-6.7); Neutrophils Percent Auto 85.2 % (45.5-73.1); Platelet Count Result 390 k/mm3 (150-375); Red Blood Count 4.81 M/mm3 (4.2-5.4); White Blood Count 16.9 K/mm3 (4.5-10.0)
[2021-05-24 05:16] LABS: Alanine Aminotransferase 13 U/L (4-35); Albumin Level 3.3 g/dL (3.5-5.1); Alkaline Phosphatase 56 U/L (38-126); Anion Gap 5 mmol/L (8-16); Aspartate Amino Transferase 20 U/L (14-36); Bilirubin,Total 0.3 mg/dL (0.2-1.3); Blood Urea Nitrogen 23 mg/dL (7-17); CRP 1.9 mg/dL (<1.0); Calcium 8.2 mg/dL (8.4-10.2); Carbon Dioxide 30 mmol/L (22-30); Chloride 104 mmol/L (98-107); Estimated CRCL calculation 79 ml/min; Estimated Glomerular Filt Rate > 60; Glucose 134 mg/dL (65-110); Potassium 3.1 mmol/L (3.4-5.0); Sodium 139 mmol/L (137-145)
[2021-05-24 05:17] LABS: Prothrombin Time 13.2 Seconds (11.1-14.7)
[2021-05-24] MEDS: UMECLIDINIUM BROMIDE 62.5 MCG ELLIPTA 1 PUFF INHALATION (08:00)
[2021-05-24] MEDS: FLUTICASONE/SALMETEROL 115-21 MCG (*SP) INHALER 2 PUFF INHALATION ×2 (08:00→20:34)
[2021-05-24] MEDS: ENOXAPARIN 40 MG/0.4 ML SYRINGE SUB-Q ×2 (08:17→21:13)
[2021-05-24] MEDS: THEOPHYLLINE ANHYDROUS 100 MG CAP.ER.24H 300 MG PO (08:17)
[2021-05-24] MEDS: hydrALAZINE 10 MG TABLET PO ×3 (08:18→16:16)
[2021-05-24] MEDS: ASCORBIC ACID 500 MG TABLET PO (08:18)
[2021-05-24] MEDS: MONTELUKAST SODIUM 10 MG TABLET PO (08:18)
[2021-05-24] MEDS: METOPROLOL SUCCINATE EXT REL 12.5 MG TABCR PO (08:18)
[2021-05-24] MEDS: SUCRALFATE 1 GM TABLET PO (08:18)
[2021-05-24] MEDS: ZINC SULFATE 220 MG CAPSULE PO (08:18)
[2021-05-24] MEDS: CHOLECALCIFEROL 1,000 UNITS TABLET 1000 UNITS PO (08:18)
[2021-05-24] MEDS: metFORMIN HCL 500 MG TABLET PO ×2 (08:18→16:16)
[2021-05-24] MEDS: PANTOPRAZOLE 40 MG TABLET PO ×2 (08:18→21:13)
[2021-05-24 08:48] LABS: Glucose Point of Care 174 mg/dl (65-105)
[2021-05-24] MEDS: REMDESIVIR 100 MG/NS 250 ML 100 MG/250 ML BAG 250 MG IVPB (11:06)
[2021-05-24 12:04] LABS: Glucose Point of Care 313 mg/dl (65-105)
[2021-05-24] MEDS: INSULIN ASPART (*BKC) 100 UNITS/ML SUB-Q ×2 (12:14→16:34)
[2021-05-24 15:30] LABS: Alveolar/Arterial O2 Gradient 126.1 mmHg; Base Excess ABG 1.8 mEq/l (+/-2.0); Fractional Inspired Oxygen 36 %; HCO3 ABG 25.1 mEq/l (22.0-26.0); Oxygen Saturation ABG 97.3 % (95.0-100.0); PCO2 ABG 35.3 mmHg (35.0-45.0); PO2 ABG 89.6 mmHg (80.0-100.0); PO2 FiO2 Ratio Arterial Blood 2.49 %; Site Drawn RIGHT RADIAL; pH ABG 7.469 (7.350-7.450)
[2021-05-24 15:31] LABS: Device NASAL CANNULA; Modified Allen's Test Pass
--- NOTE | 2021-05-24 16:08 | P.PNIM_ITS ---
Progress Note: A&P Assessment and Plan (1) Sepsis: Code(s): A41.9 - Sepsis, unspecified organism Status: Acute Assessment and Plan: Present on admission and supported by tachycardia, tachypnea, and leukocytosis in the setting of infection. Lactic acid level was within normal limits. Blood cultures have been obtained and are pending. 05/20/2021 Interval history: patient with history of COPD presented with shortness of breath most likely exacerbation and been positive COVID-19, patient is being treated with methylprednisone, albuterol inhaler, and remdesivir, chest x-ray is suspicious pneumonia patient being treated with Zosyn, sputum culture and procalcitonin pending, patient states feeling little better compared to when she arrived not a short of breath denies fever or chills (2) COVID-19: Code(s): U07.1 - COVID-19 Status: Acute Assessment and Plan: She was started on Solu-Medrol in the emergency department and we will continue with that. She has also been started on remdesivir per protocol. Trend inflammatory markers. (3) Pneumonia: Code(s): J18.9 - Pneumonia, unspecified organism Status: Acute Assessment and Plan: She received a dose of Zosyn in the emergency department. Pneumonia is most likely related to COVID-19 though given elevated white blood cell count will check sputum culture as well as a procalcitonin level. Continue azithromycin for now. (4) Lung nodule: Code(s): R91.1 - Solitary pulmonary nodule Status: Acute Assessment and Plan: Radiologist recommends follow-up chest CT in 2 to 3 months. (5) Steroid-dependent chronic obstructive pulmonary disease: Code(s): J44.9 - Chronic obstructive pulmonary disease, unspecified Status: Acute Assessment and Plan: Prednisone on hold as she is currently on Solu-Medrol as detailed above. (6) Type 2 diabetes mellitus: Qualifiers: Diabetes mellitus complication status: without complication Diabetes mellitus watermelon inspector insulin use: without penitentiary use Qualified Code(s): E11.9 - Type 2 diabetes mellitus without complications Code(s): E11.9 - Type 2 diabetes mellitus without complications Status: Acute Assessment and Plan: Hold metformin as she received IV contrast. Initiate sliding scale insulin, Accu-Cheks, and hypoglycemic protocol. (7) Hypertension: Qualifiers: Hypertension type: essential hypertension Qualified Code(s): I10 - Essential (primary) hypertension Code(s): I10 - Essential (primary) hypertension Status: Acute Assessment and Plan: Blood pressures were reviewed and they are reasonable. Her antihypertensives will be reviewed and resumed as appropriate. (8) Chronic respiratory failure with hypoxia, on home oxygen therapy: Code(s): J96.11 - Chronic respiratory failure with hypoxia; Z99.81 - Dependence on supplemental oxygen Status: Acute Assessment and Plan: She is currently at her baseline oxygen requirement. (9) Acute urinary retention: Code(s): R33.8 - Other retention of urine Status: Acute Assessment and Plan: Continue Bowen catheter. She will need a voiding trial prior to discharge. Baclofen on hold. Additional Plan 05/20/2021 Interval history: patient with history of COPD presented with shortness of breath most likely exacerbation and been positive COVID-19, patient is being treated with methylprednisone, albuterol inhaler, and remdesivir, ches
[2021-05-24 16:25] LABS: Glucose Point of Care 224 mg/dl (65-105)
[2021-05-24 17:37] LABS: D Dimer 0.46 ug/mL (<0.48)
[2021-05-24] MEDS: IPRATROPIUM BR 0.02% INH SOLN 0.5 MG/2.5 ML VIAL INHALATION (20:33)
[2021-05-24] MEDS: ALBUTEROL SULFATE NEB 2.5 MG/0.5 ML INH 5 MG INHALATION (20:34)
[2021-05-24] MEDS: ASPIRIN 81 MG CHEWABLE TABLET PO (21:13)
[2021-05-24] MEDS: PRAVASTATIN SODIUM 20 MG TABLET 40 MG PO (21:13)
[2021-05-24] MEDS: BACLOFEN 5 MG TABLET PO (21:13)
[2021-05-24 22:36] LABS: Glucose Point of Care 136 mg/dl (65-105)
[2021-05-25] VITALS (18 sets, daily range): BP systolic 117–147; BP diastolic 64–84; PULSE 81–113; RESP 17–22; TEMP 36.4–36.9; O2SAT 94–100
[2021-05-25] MEDS: IPRATROPIUM BR 0.02% INH SOLN 0.5 MG/2.5 ML VIAL INHALATION ×6 (01:55→19:56)
[2021-05-25] MEDS: ALBUTEROL SULFATE NEB 2.5 MG/0.5 ML INH 5 MG INHALATION ×4 (01:55→19:56)
[2021-05-25] MEDS: SALINE LOCK FLUSH 10 ML IV PUSH ×3 (05:18→20:28)
[2021-05-25 05:35] LABS: Lactic Acid Reflex 0.6 mmol/L (0.7-2.1)
[2021-05-25 05:35] LABS: Basophils Percent Auto 0.2 % (0.2-1.2); Eosinophils Absolute Auto 0.1 K/mm3 (0-0.3); Eosinophils Percent Auto 0.5 % (0-4.4); Hematocrit 36.5 % (37.0-47.0); Hemoglobin 10.9 g/dL (12.0-15.0); Immature Granulocyte Absolute 0.31 K/mm3 (0.00-0.031); Immature Granulocyte Percent A 2.5 % (0-0.5); Lymphocytes Absolute Auto 0.87 K/mm3 (0.9-3.2); Lymphocytes Percent Auto 6.9 % (18.3-44.2); Mean Corpuscular HGB Conc 29.9 g/dl (32-36); Mean Corpuscular Hemoglobin 24.2 pg (26-34); Mean Corpuscular Volume 80.9 fl (80-100); Mean Platelet Volume 10.9 fl (7.4-10.4); Monocytes Absolute Auto 0.9 K/mm3 (0.1-0.6); Monocytes Percent Auto 6.7 % (2.6-8.5); Neutrophils Absolute Auto 10.5 K/mm3 (1.3-6.7); Neutrophils Percent Auto 83.2 % (45.5-73.1); Platelet Count Result 322 k/mm3 (150-375); Red Blood Count 4.51 M/mm3 (4.2-5.4); Red Cell Distribution Width 14.2 % (11.5-14.5); White Blood Count 12.6 K/mm3 (4.5-10.0)
[2021-05-25 05:37] LABS: Alanine Aminotransferase 13 U/L (4-35); Albumin Level 3.1 g/dL (3.5-5.1); Alkaline Phosphatase 49 U/L (38-126); Anion Gap 7 mmol/L (8-16); Aspartate Amino Transferase 19 U/L (14-36); Bilirubin,Total 0.3 mg/dL (0.2-1.3); Blood Urea Nitrogen 16 mg/dL (7-17); CRP 2.3 mg/dL (<1.0); Calcium 7.9 mg/dL (8.4-10.2); Carbon Dioxide 28 mmol/L (22-30); Chloride 103 mmol/L (98-107); Estimated CRCL calculation 75 ml/min; Estimated Glomerular Filt Rate > 60; Glucose 122 mg/dL (65-110); Magnesium 2.1 mg/dL (1.6-2.3); Phosphorus 2.6 mg/dL (2.5-4.5); Sodium 138 mmol/L (137-145)
[2021-05-25] MEDS: HYDROcodone/acetaminophen (*CRX) 10-325 MG TABLET 1 TAB PO ×4 (05:37→22:00)
[2021-05-25 05:44] LABS: Alveolar/Arterial O2 Gradient 102.9 mmHg; Base Excess ABG 1.2 mEq/l (+/-2.0); Carboxyhemoglobin 0.5 % THb (0-2.0); Device NASAL CANNULA; Fractional Inspired Oxygen 36 %; HCO3 ABG 26.9 mEq/l (22.0-26.0); Methemoglobin ABG 0.3 %THb (0-1.5); Modified Allen's Test Pass; Oxygen Content ABG 20.4 %vol (16.0-22.0); Oxygen Saturation ABG 97.4 % (95.0-100.0); Oxyhemoglobin 96.2 % THb (90.0-100.0); PCO2 ABG 46.8 mmHg (35.0-45.0); PO2 ABG 99.5 mmHg (80.0-100.0); PO2 FiO2 Ratio Arterial Blood 2.76 %; Site Drawn RIGHT RADIAL; pH ABG 7.378 (7.350-7.450)
[2021-05-25 06:29] LABS: Vancomycin Trough < 5.0 ug/mL (10.0-20.0)
[2021-05-25 08:15] LABS: Glucose Point of Care 147 mg/dl (65-105)
[2021-05-25] MEDS: FLUTICASONE/SALMETEROL 115-21 MCG (*SP) INHALER 2 PUFF INHALATION ×2 (08:18→19:56)
[2021-05-25] MEDS: UMECLIDINIUM BROMIDE 62.5 MCG ELLIPTA 1 PUFF INHALATION (08:18)
[2021-05-25] MEDS: ENOXAPARIN 40 MG/0.4 ML SYRINGE SUB-Q ×2 (08:36→20:27)
[2021-05-25] MEDS: ASCORBIC ACID 500 MG TABLET PO (08:36)
[2021-05-25] MEDS: PANTOPRAZOLE 40 MG TABLET PO ×2 (08:36→20:28)
[2021-05-25] MEDS: ZINC SULFATE 220 MG CAPSULE PO (08:36)
[2021-05-25] MEDS: CHOLECALCIFEROL 1,000 UNITS TABLET 1000 UNITS PO (08:36)
[2021-05-25] MEDS: SUCRALFATE 1 GM TABLET PO (08:37)
[2021-05-25] MEDS: THEOPHYLLINE ANHYDROUS 100 MG CAP.ER.24H 300 MG PO (08:37)
[2021-05-25] MEDS: metFORMIN HCL 500 MG TABLET PO ×2 (08:37→17:03)
[2021-05-25] MEDS: hydrALAZINE 10 MG TABLET PO ×3 (08:37→17:03)
[2021-05-25] MEDS: METOPROLOL SUCCINATE EXT REL 12.5 MG TABCR PO (08:37)
[2021-05-25] MEDS: MONTELUKAST SODIUM 10 MG TABLET PO (08:37)
[2021-05-25] MEDS: REMDESIVIR 100 MG/NS 250 ML 100 MG/250 ML BAG 250 MG IVPB (09:39)
[2021-05-25] MEDS: POTASSIUM CHLORIDE 20 MEQ TABLET 40 MEQ PO (09:39)
[2021-05-25 11:44] LABS: Glucose Point of Care 343 mg/dl (65-105)
[2021-05-25] MEDS: INSULIN ASPART (*BKC) 100 UNITS/ML SUB-Q ×2 (11:49→17:07)
[2021-05-25 12:26] LABS: Theophylline 3.9 mg/L (10.0-20.0)
[2021-05-25] MEDS: hydrOXYzine HCL 25 MG TABLET PO (17:02)
[2021-05-25 17:28] LABS: D Dimer 0.63 ug/mL (<0.48)
[2021-05-25 17:50] LABS: Glucose Point of Care 216 mg/dl (65-105)
[2021-05-25] MEDS: PRAVASTATIN SODIUM 20 MG TABLET 40 MG PO (20:27)
[2021-05-25] MEDS: ASPIRIN 81 MG CHEWABLE TABLET PO (20:27)
[2021-05-25] MEDS: BACLOFEN 5 MG TABLET PO (20:28)
[2021-05-25 22:05] LABS: Glucose Point of Care 134 mg/dl (65-105)
[2021-05-26] VITALS (15 sets, daily range): BP systolic 118–145; BP diastolic 69–84; PULSE 74–109; RESP 12–18; TEMP 36.3–36.6; O2SAT 95–100
[2021-05-26] MEDS: ALBUTEROL SULFATE NEB 2.5 MG/0.5 ML INH 5 MG INHALATION ×4 (02:40→20:28)
[2021-05-26] MEDS: IPRATROPIUM BR 0.02% INH SOLN 0.5 MG/2.5 ML VIAL INHALATION ×4 (02:40→20:28)
[2021-05-26] MEDS: HYDROcodone/acetaminophen (*CRX) 10-325 MG TABLET 1 TAB PO ×4 (04:00→22:22)
[2021-05-26] MEDS: SALINE LOCK FLUSH 10 ML IV PUSH ×3 (06:04→20:07)
[2021-05-26 08:19] LABS: Glucose Point of Care 141 mg/dl (65-105)
[2021-05-26] MEDS: MONTELUKAST SODIUM 10 MG TABLET PO (08:42)
[2021-05-26] MEDS: ASCORBIC ACID 500 MG TABLET PO (08:42)
[2021-05-26] MEDS: THEOPHYLLINE ANHYDROUS 100 MG CAP.ER.24H 300 MG PO (08:42)
[2021-05-26] MEDS: SUCRALFATE 1 GM TABLET PO (08:42)
[2021-05-26] MEDS: hydrALAZINE 10 MG TABLET PO ×3 (08:42→16:39)
[2021-05-26] MEDS: PANTOPRAZOLE 40 MG TABLET PO ×2 (08:42→20:07)
[2021-05-26] MEDS: METOPROLOL SUCCINATE EXT REL 12.5 MG TABCR PO (08:43)
[2021-05-26] MEDS: ENOXAPARIN 40 MG/0.4 ML SYRINGE SUB-Q ×2 (08:43→20:06)
[2021-05-26] MEDS: ZINC SULFATE 220 MG CAPSULE PO (08:43)
[2021-05-26] MEDS: metFORMIN HCL 500 MG TABLET PO ×2 (08:43→16:40)
[2021-05-26] MEDS: CHOLECALCIFEROL 1,000 UNITS TABLET 1000 UNITS PO (08:43)
[2021-05-26] MEDS: UMECLIDINIUM BROMIDE 62.5 MCG ELLIPTA 1 PUFF INHALATION (09:00)
[2021-05-26] MEDS: FLUTICASONE/SALMETEROL 115-21 MCG (*SP) INHALER 2 PUFF INHALATION ×2 (09:00→20:28)
[2021-05-26 09:33] LABS: Basophils Absolute Auto 0.1 K/mm3 (0.0-0.1); Basophils Percent Auto 0.4 % (0.2-1.2); Eosinophils Absolute Auto 0.2 K/mm3 (0-0.3); Eosinophils Percent Auto 1.2 % (0-4.4); Hematocrit 36.9 % (37.0-47.0); Hemoglobin 11.1 g/dL (12.0-15.0); Immature Granulocyte Percent A 2.9 % (0-0.5); Lymphocytes Absolute Auto 1.08 K/mm3 (0.9-3.2); Lymphocytes Percent Auto 7.8 % (18.3-44.2); Mean Corpuscular HGB Conc 30.1 g/dl (32-36); Mean Corpuscular Volume 79.7 fl (80-100); Mean Platelet Volume 11.3 fl (7.4-10.4); Monocytes Absolute Auto 0.9 K/mm3 (0.1-0.6); Monocytes Percent Auto 6.3 % (2.6-8.5); Neutrophils Absolute Auto 11.3 K/mm3 (1.3-6.7); Neutrophils Percent Auto 81.4 % (45.5-73.1); Platelet Count Result 346 k/mm3 (150-375); Red Blood Count 4.63 M/mm3 (4.2-5.4); Red Cell Distribution Width 14.4 % (11.5-14.5); White Blood Count 13.9 K/mm3 (4.5-10.0)
[2021-05-26 09:43] LABS: Prothrombin Time 13.4 Seconds (11.1-14.7)
[2021-05-26 09:49] LABS: Alanine Aminotransferase 14 U/L (4-35); Alkaline Phosphatase 52 U/L (38-126); Anion Gap 6 mmol/L (8-16); Aspartate Amino Transferase 17 U/L (14-36); Bilirubin,Total 0.3 mg/dL (0.2-1.3); Blood Urea Nitrogen 16 mg/dL (7-17); CRP 2.3 mg/dL (<1.0); Calcium 8.5 mg/dL (8.4-10.2); Carbon Dioxide 26 mmol/L (22-30); Chloride 102 mmol/L (98-107); Estimated CRCL calculation 75 ml/min; Estimated Glomerular Filt Rate > 60; Glucose 259 mg/dL (65-110); Potassium 3.5 mmol/L (3.4-5.0); Sodium 134 mmol/L (137-145)
[2021-05-26] MEDS: REMDESIVIR 100 MG/NS 250 ML 100 MG/250 ML BAG 250 MG IVPB (10:51)
[2021-05-26] MEDS: INSULIN ASPART (*BKC) 100 UNITS/ML SUB-Q ×2 (11:59→16:40)
[2021-05-26 12:01] LABS: Glucose Point of Care 289 mg/dl (65-105)
[2021-05-26 16:37] LABS: Glucose Point of Care 263 mg/dl (65-105)
[2021-05-26] MEDS: BACLOFEN 5 MG TABLET PO (20:06)
[2021-05-26] MEDS: PRAVASTATIN SODIUM 20 MG TABLET 40 MG PO (20:06)
[2021-05-26] MEDS: ASPIRIN 81 MG CHEWABLE TABLET PO (20:06)
[2021-05-26 21:34] LABS: Glucose Point of Care 146 mg/dl (65-105)
[2021-05-27] VITALS (19 sets, daily range): BP systolic 100–140; BP diastolic 58–83; PULSE 54–112; RESP 18–20; TEMP 36.3–36.8; O2SAT 94–98
[2021-05-27] MEDS: ALBUTEROL SULFATE NEB 2.5 MG/0.5 ML INH 5 MG INHALATION ×4 (02:01→20:59)
[2021-05-27] MEDS: IPRATROPIUM BR 0.02% INH SOLN 0.5 MG/2.5 ML VIAL INHALATION ×4 (02:02→20:59)
[2021-05-27] MEDS: HYDROcodone/acetaminophen (*CRX) 10-325 MG TABLET 1 TAB PO ×4 (04:07→21:28)
[2021-05-27] MEDS: SALINE LOCK FLUSH 10 ML IV PUSH ×3 (04:07→20:15)
[2021-05-27 06:59] LABS: Basophils Absolute Auto 0.1 K/mm3 (0.0-0.1); Basophils Percent Auto 0.4 % (0.2-1.2); Eosinophils Absolute Auto 0.2 K/mm3 (0-0.3); Eosinophils Percent Auto 1.1 % (0-4.4); Hematocrit 37.1 % (37.0-47.0); Hemoglobin 11.5 g/dL (12.0-15.0); Immature Granulocyte Absolute 0.48 K/mm3 (0.00-0.031); Immature Granulocyte Percent A 3.5 % (0-0.5); Lymphocytes Absolute Auto 1.17 K/mm3 (0.9-3.2); Lymphocytes Percent Auto 8.5 % (18.3-44.2); Mean Corpuscular Hemoglobin 24.6 pg (26-34); Mean Corpuscular Volume 79.4 fl (80-100); Monocytes Percent Auto 7.2 % (2.6-8.5); Neutrophils Absolute Auto 10.9 K/mm3 (1.3-6.7); Neutrophils Percent Auto 79.3 % (45.5-73.1); Platelet Count Result 321 k/mm3 (150-375); Red Blood Count 4.67 M/mm3 (4.2-5.4); Red Cell Distribution Width 14.5 % (11.5-14.5); White Blood Count 13.7 K/mm3 (4.5-10.0)
[2021-05-27 07:08] LABS: Alanine Aminotransferase 14 U/L (4-35); Alkaline Phosphatase 39 U/L (38-126); Anion Gap 9 mmol/L (8-16); Aspartate Amino Transferase 16 U/L (14-36); Bilirubin,Total 0.4 mg/dL (0.2-1.3); Blood Urea Nitrogen 14 mg/dL (7-17); CRP 2.4 mg/dL (<1.0); Calcium 8.4 mg/dL (8.4-10.2); Carbon Dioxide 22 mmol/L (22-30); Chloride 104 mmol/L (98-107); Estimated CRCL calculation 89 ml/min; Estimated Glomerular Filt Rate > 60; Glucose 206 mg/dL (65-110); Potassium 3.5 mmol/L (3.4-5.0); Sodium 135 mmol/L (137-145)
[2021-05-27 07:20] LABS: INR 1.1; Prothrombin Time 13.6 Seconds (11.1-14.7)
[2021-05-27 07:24] LABS: D Dimer 1.45 ug/mL (<0.48)
[2021-05-27] MEDS: FLUTICASONE/SALMETEROL 115-21 MCG (*SP) INHALER 2 PUFF INHALATION ×2 (08:11→20:59)
[2021-05-27 08:18] LABS: Glucose Point of Care 156 mg/dl (65-105)
[2021-05-27] MEDS: ENOXAPARIN 40 MG/0.4 ML SYRINGE SUB-Q ×2 (10:01→20:14)
[2021-05-27] MEDS: ZINC SULFATE 220 MG CAPSULE PO (10:03)
[2021-05-27] MEDS: SUCRALFATE 1 GM TABLET PO (10:03)
[2021-05-27] MEDS: CHOLECALCIFEROL 1,000 UNITS TABLET 1000 UNITS PO (10:04)
[2021-05-27] MEDS: METOPROLOL SUCCINATE EXT REL 12.5 MG TABCR PO (10:04)
[2021-05-27] MEDS: MONTELUKAST SODIUM 10 MG TABLET PO (10:04)
[2021-05-27] MEDS: ASCORBIC ACID 500 MG TABLET PO (10:04)
[2021-05-27] MEDS: hydrALAZINE 10 MG TABLET PO ×3 (10:04→16:06)
[2021-05-27] MEDS: metFORMIN HCL 500 MG TABLET PO ×2 (10:04→16:06)
[2021-05-27] MEDS: PANTOPRAZOLE 40 MG TABLET PO ×2 (10:04→20:14)
--- NOTE | 2021-05-27 11:06 | PCNWS ---
Weekly nutritional screen. Patient screened in for 7 day length of stay. Patient is tolerating current diet with adequate intake. No weight loss reported. No nutritional needs at this time.
[2021-05-27] MEDS: THEOPHYLLINE ANHYDROUS 100 MG CAP.ER.24H 300 MG PO (11:33)
[2021-05-27] MEDS: REMDESIVIR 100 MG/NS 250 ML 100 MG/250 ML BAG 250 MG IVPB (11:33)
[2021-05-27 11:41] LABS: Glucose Point of Care 277 mg/dl (65-105)
[2021-05-27] MEDS: INSULIN ASPART (*BKC) 100 UNITS/ML SUB-Q ×2 (12:21→17:50)
[2021-05-27 16:22] LABS: Glucose Point of Care 215 mg/dl (65-105)
--- NOTE | 2021-05-27 17:47 | P.PNIM_ITS ---
Progress Note: A&P Assessment and Plan (1) Sepsis: Code(s): A41.9 - Sepsis, unspecified organism Status: Acute Assessment and Plan: Present on admission and supported by tachycardia, tachypnea, and leukocytosis in the setting of infection. Lactic acid level was within normal limits. Blood cultures have been obtained and are pending. 05/20/2021 Interval history: patient with history of COPD presented with shortness of breath most likely exacerbation and been positive COVID-19, patient is being treated with methylprednisone, albuterol inhaler, and remdesivir, chest x-ray is suspicious pneumonia patient being treated with Zosyn, sputum culture and procalcitonin pending, patient states feeling little better compared to when she arrived not a short of breath denies fever or chills (2) COVID-19: Code(s): U07.1 - COVID-19 Status: Acute Assessment and Plan: She was started on Solu-Medrol in the emergency department and we will continue with that. She has also been started on remdesivir per protocol. Trend inflammatory markers. (3) Pneumonia: Code(s): J18.9 - Pneumonia, unspecified organism Status: Acute Assessment and Plan: She received a dose of Zosyn in the emergency department. Pneumonia is most likely related to COVID-19 though given elevated white blood cell count will check sputum culture as well as a procalcitonin level. Continue azithromycin for now. (4) Lung nodule: Code(s): R91.1 - Solitary pulmonary nodule Status: Acute Assessment and Plan: Radiologist recommends follow-up chest CT in 2 to 3 months. (5) Steroid-dependent chronic obstructive pulmonary disease: Code(s): J44.9 - Chronic obstructive pulmonary disease, unspecified Status: Acute Assessment and Plan: Prednisone on hold as she is currently on Solu-Medrol as detailed above. 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 Initiate sliding scale insulin, Accu-Cheks, and hypoglycemic protocol. (7) Hypertension: Qualifiers: Hypertension type: essential hypertension Qualified Code(s): I10 - Essential (primary) hypertension Code(s): I10 - Essential (primary) hypertension Status: Acute Assessment and Plan: Blood pressures were reviewed and they are reasonable. Her antihypertensives will be reviewed and resumed as appropriate. (8) Chronic respiratory failure with hypoxia, on home oxygen therapy: Code(s): J96.11 - Chronic respiratory failure with hypoxia; Z99.81 - Dependence on supplemental oxygen Status: Acute Assessment and Plan: She is currently at her baseline oxygen requirement. (9) Acute urinary retention: Code(s): R33.8 - Other retention of urine Status: Acute Assessment and Plan: Continue Bowen catheter. She will need a voiding trial prior to discharge. Baclofen on hold. Additional Plan 05/20/2021 Interval history: patient with history of COPD presented with shortness of breath most likely exacerbation and been positive COVID-19, patient is being treated with methylprednisone, albuterol inhaler, and remdesivir, chest
[2021-05-27] MEDS: ASPIRIN 81 MG CHEWABLE TABLET PO (20:15)
[2021-05-27] MEDS: PRAVASTATIN SODIUM 20 MG TABLET 40 MG PO (20:15)
[2021-05-27] MEDS: BACLOFEN 5 MG TABLET PO (20:15)
[2021-05-27 21:27] LABS: Glucose Point of Care 123 mg/dl (65-105)
[2021-05-28] VITALS (15 sets, daily range): BP systolic 126–142; BP diastolic 52–109; PULSE 52–130; RESP 17–19; TEMP 36.3–36.6; O2SAT 93–98
[2021-05-28] MEDS: IPRATROPIUM BR 0.02% INH SOLN 0.5 MG/2.5 ML VIAL INHALATION ×4 (01:28→20:54)
[2021-05-28] MEDS: ALBUTEROL SULFATE NEB 2.5 MG/0.5 ML INH 5 MG INHALATION ×4 (01:28→20:54)
[2021-05-28] MEDS: HYDROcodone/acetaminophen (*CRX) 10-325 MG TABLET 1 TAB PO ×4 (03:36→22:53)
[2021-05-28] MEDS: SALINE LOCK FLUSH 10 ML IV PUSH ×3 (05:47→21:53)
[2021-05-28 06:44] LABS: Basophils Absolute Auto 0.1 K/mm3 (0.0-0.1); Basophils Percent Auto 0.4 % (0.2-1.2); Eosinophils Absolute Auto 0.1 K/mm3 (0-0.3); Eosinophils Percent Auto 1.1 % (0-4.4); Hematocrit 36.8 % (37.0-47.0); Immature Granulocyte Absolute 0.35 K/mm3 (0.00-0.031); Lymphocytes Absolute Auto 1.02 K/mm3 (0.9-3.2); Lymphocytes Percent Auto 8.7 % (18.3-44.2); Mean Corpuscular HGB Conc 29.9 g/dl (32-36); Mean Corpuscular Volume 80.2 fl (80-100); Mean Platelet Volume 12.4 fl (7.4-10.4); Monocytes Percent Auto 8.3 % (2.6-8.5); Neutrophils Absolute Auto 9.3 K/mm3 (1.3-6.7); Neutrophils Percent Auto 78.5 % (45.5-73.1); Platelet Count Result 349 k/mm3 (150-375); Red Blood Count 4.59 M/mm3 (4.2-5.4); Red Cell Distribution Width 14.6 % (11.5-14.5); White Blood Count 11.8 K/mm3 (4.5-10.0)
[2021-05-28 06:52] LABS: INR 1.1; Prothrombin Time 13.6 Seconds (11.1-14.7)
[2021-05-28 06:57] LABS: Alanine Aminotransferase 14 U/L (4-35); Albumin Level 3.2 g/dL (3.5-5.1); Alkaline Phosphatase 45 U/L (38-126); Anion Gap 9 mmol/L (8-16); Aspartate Amino Transferase 15 U/L (14-36); Bilirubin,Total 0.3 mg/dL (0.2-1.3); Blood Urea Nitrogen 14 mg/dL (7-17); CRP 2.5 mg/dL (<1.0); Calcium 8.7 mg/dL (8.4-10.2); Carbon Dioxide 25 mmol/L (22-30); Chloride 102 mmol/L (98-107); Estimated CRCL calculation 89 ml/min; Estimated Glomerular Filt Rate > 60; Glucose 128 mg/dL (65-110); Potassium 3.5 mmol/L (3.4-5.0); Sodium 136 mmol/L (137-145)
[2021-05-28 07:10] LABS: D Dimer 0.64 ug/mL (<0.48)
[2021-05-28 08:16] LABS: Glucose Point of Care 151 mg/dl (65-105)
[2021-05-28] MEDS: FLUTICASONE/SALMETEROL 115-21 MCG (*SP) INHALER 2 PUFF INHALATION ×2 (08:23→20:55)
[2021-05-28] MEDS: UMECLIDINIUM BROMIDE 62.5 MCG ELLIPTA 1 PUFF INHALATION (08:24)
[2021-05-28] MEDS: ZINC SULFATE 220 MG CAPSULE PO (09:25)
[2021-05-28] MEDS: THEOPHYLLINE ANHYDROUS 100 MG CAP.ER.24H 300 MG PO (09:26)
[2021-05-28] MEDS: MONTELUKAST SODIUM 10 MG TABLET PO (09:26)
[2021-05-28] MEDS: METOPROLOL SUCCINATE EXT REL 12.5 MG TABCR PO (09:26)
[2021-05-28] MEDS: SUCRALFATE 1 GM TABLET PO (09:26)
[2021-05-28] MEDS: metFORMIN HCL 500 MG TABLET PO ×2 (09:27→16:08)
[2021-05-28] MEDS: CHOLECALCIFEROL 1,000 UNITS TABLET 1000 UNITS PO (09:27)
[2021-05-28] MEDS: hydrALAZINE 10 MG TABLET PO ×3 (09:27→16:08)
[2021-05-28] MEDS: PANTOPRAZOLE 40 MG TABLET PO ×2 (09:27→21:52)
[2021-05-28] MEDS: ASCORBIC ACID 500 MG TABLET PO (09:27)
[2021-05-28] MEDS: ENOXAPARIN 40 MG/0.4 ML SYRINGE SUB-Q ×2 (09:28→21:53)
[2021-05-28] MEDS: REMDESIVIR 100 MG/NS 250 ML 100 MG/250 ML BAG 250 MG IVPB (10:47)
[2021-05-28 11:56] LABS: Glucose Point of Care 268 mg/dl (65-105)
[2021-05-28] MEDS: INSULIN ASPART (*BKC) 100 UNITS/ML SUB-Q ×2 (12:05→16:08)
--- NOTE | 2021-05-28 14:44 | PCOTNOTE ---
Attempted to see patient this pm, however patient declined stating, No, I don't feel like it. I'm too tired. It's been a bad afternoon, but thank you.
[2021-05-28 16:07] LABS: Glucose Point of Care 281 mg/dl (65-105)
--- NOTE | 2021-05-28 16:22 | PM.IMPN ---
Progress Note: A&P Assessment and Plan (1) Sepsis: Code(s): A41.9 - Sepsis, unspecified organism Status: Acute Assessment and Plan: patient with history of COPD presented with shortness of breath most likely exacerbation and been positive COVID-19, patient is being treated with methylprednisone, albuterol inhaler, and remdesivir, chest x-ray is suspicious pneumonia patient being treated with Zosyn, sputum culture and procalcitonin pending, patient states feeling little better compared to when she arrived not a short of breath denies fever or chills. Blood cultures are remain at [facility] of sputum culture with Haemophilus influenzae. (2) COVID-19: Code(s): U07.1 - COVID-19 Status: Acute Assessment and Plan: She was started on Solu-Medrol in the emergency department and we will continue with that. She has also been started on remdesivir per protocol. Trend inflammatory markers. (3) Pneumonia: Code(s): J18.9 - Pneumonia, unspecified organism Status: Acute Assessment and Plan: She received a dose of Zosyn in the emergency department. Pneumonia is most likely related to COVID-19 though given elevated white blood cell count will check sputum culture as well as a procalcitonin level. Continue azithromycin for now. (4) Lung nodule: Code(s): R91.1 - Solitary pulmonary nodule Status: Acute Assessment and Plan: Radiologist recommends follow-up chest CT in 2 to 3 months. (5) Steroid-dependent chronic obstructive pulmonary disease: Code(s): J44.9 - Chronic obstructive pulmonary disease, unspecified Status: Acute Assessment and Plan: Prednisone on hold as she is currently on Solu-Medrol as detailed above. 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 Continue sliding scale insulin, Accu-Cheks, and hypoglycemic protocol. (7) Hypertension: Qualifiers: Hypertension type: essential hypertension Qualified Code(s): I10 - Essential (primary) hypertension Code(s): I10 - Essential (primary) hypertension Status: Acute Assessment and Plan: Blood pressures were reviewed some micro are in the 126/52 the of 142/62 range to the. Continue same antihypertensive regimen. (8) Chronic respiratory failure with hypoxia, on home oxygen therapy: Code(s): J96.11 - Chronic respiratory failure with hypoxia; Z99.81 - Dependence on supplemental oxygen Status: Acute Assessment and Plan: She is currently at her baseline oxygen requirement. (9) Acute urinary retention: Code(s): R33.8 - Other retention of urine Status: Acute Assessment and Plan: Continue Bowen catheter. She will need a voiding trial prior to discharge. Baclofen on hold. Additional Plan 05/20/2021 Interval history: patient with history of COPD presented with shortness of breath most likely exacerbation and been positive COVID-19, patient is being treated with methylprednisone, albuterol inhaler, and remdesivir, chest x-ray is suspicious pneumonia patient being treated with Zosyn, sputum culture and procalcitonin pending, patient states feeling little better compared to when she arrived not a short of breath denies fever or chills Radiologist recommends follow-up chest CT in 2 to 3 months. for lung nodule steroid dependent COPD Prednisone on hold as she is currently on Solu-Medrol as detailed above. 05/21/21 She is currently at her baseline oxygen requirement. but pt w increased work of breathing ABG lasix on COPD exacerbation tx and
[2021-05-28] MEDS: BENZONATATE 100 MG CAPSULE 200 MG PO (19:00)
[2021-05-28] MEDS: LIDOCAINE 5% PATCH 1 PATCH TRANSDERM (19:00)
[2021-05-28] MEDS: ASPIRIN 81 MG CHEWABLE TABLET PO (21:52)
[2021-05-28] MEDS: BACLOFEN 5 MG TABLET PO (21:52)
[2021-05-28] MEDS: PRAVASTATIN SODIUM 20 MG TABLET 40 MG PO (21:52)
[2021-05-28 22:25] LABS: Glucose Point of Care 144 mg/dl (65-105)
[2021-05-29] VITALS (12 sets, daily range): BP systolic 121–138; BP diastolic 51–60; PULSE 55–113; RESP 18–20; TEMP 36.5–37.1; O2SAT 93–99
[2021-05-29] MEDS: ALBUTEROL SULFATE NEB 2.5 MG/0.5 ML INH 5 MG INHALATION ×3 (03:00→14:51)
[2021-05-29] MEDS: IPRATROPIUM BR 0.02% INH SOLN 0.5 MG/2.5 ML VIAL INHALATION ×3 (03:01→14:51)
[2021-05-29] MEDS: HYDROcodone/acetaminophen (*CRX) 10-325 MG TABLET 1 TAB PO ×2 (05:20→11:18)
[2021-05-29] MEDS: SALINE LOCK FLUSH 10 ML IV PUSH (05:21)
[2021-05-29 07:33] LABS: Glucose Point of Care 131 mg/dl (65-105)
[2021-05-29] MEDS: BENZONATATE 100 MG CAPSULE 200 MG PO ×2 (08:06→12:29)
[2021-05-29] MEDS: ASCORBIC ACID 500 MG TABLET PO (08:07)
[2021-05-29] MEDS: THEOPHYLLINE ANHYDROUS 100 MG CAP.ER.24H 300 MG PO (08:07)
[2021-05-29] MEDS: SUCRALFATE 1 GM TABLET PO (08:08)
[2021-05-29] MEDS: hydrALAZINE 10 MG TABLET PO ×2 (08:08→12:29)
[2021-05-29] MEDS: CHOLECALCIFEROL 1,000 UNITS TABLET 1000 UNITS PO (08:08)
[2021-05-29] MEDS: ENOXAPARIN 40 MG/0.4 ML SYRINGE SUB-Q (08:09)
[2021-05-29] MEDS: metFORMIN HCL 500 MG TABLET PO (08:09)
[2021-05-29] MEDS: PANTOPRAZOLE 40 MG TABLET PO (08:09)
[2021-05-29] MEDS: ZINC SULFATE 220 MG CAPSULE PO (08:09)
[2021-05-29] MEDS: MONTELUKAST SODIUM 10 MG TABLET PO (08:10)
[2021-05-29] MEDS: LIDOCAINE 5% PATCH 1 PATCH TRANSDERM (08:10)
[2021-05-29] MEDS: UMECLIDINIUM BROMIDE 62.5 MCG ELLIPTA 1 PUFF INHALATION (09:10)
[2021-05-29] MEDS: FLUTICASONE/SALMETEROL 115-21 MCG (*SP) INHALER 2 PUFF INHALATION (09:24)
[2021-05-29] MEDS: METOPROLOL SUCCINATE EXT REL 12.5 MG TABCR PO (10:23)
[2021-05-29 10:40] LABS: Alanine Aminotransferase 16 U/L (4-35); Estimated CRCL calculation 75 ml/min; Estimated Glomerular Filt Rate > 60
[2021-05-29 11:01] LABS: Prothrombin Time 12.9 Seconds (11.1-14.7)
[2021-05-29] MEDS: REMDESIVIR 100 MG/NS 250 ML 100 MG/250 ML BAG 250 MG IVPB (11:18)
--- NOTE | 2021-05-29 11:24 | P.CDI_ITS ---
CDI Query Clarification Request -05/25 Sputum culture grew Haemophilus Influenzae -Pt is on Zithromax IV q 24 hrs. Please clarify if there is any clinical significance for above finding: * Colonization * Possible cause of pneumonia * Other * Unable to determine <Cecily Natarajan RN - Last Filed: 05/29/21 11:29> Clarified Diagnosis (1) Pneumonia: Code(s): J18.9 - Pneumonia, unspecified organism <Cecily Natarajan RN - Last Filed: 05/29/21 11:29> Status: Acute <Cecily Natarajan RN - Last Filed: 05/29/21 11:29> Assessment and Plan: Likely sedondary to COVID19, and hemophilus influenzae. <Debra Manuel MD - Last Filed: 05/31/21 13:30>
[2021-05-29 12:19] LABS: Glucose Point of Care 168 mg/dl (65-105)
--- NOTE | 2021-05-29 13:34 | PM.DS ---
DS: Admitting Diagnosis Discharge Date 05/29/2021 Admitting Diagnosis 1) Sepsis (2) COVID-19 (3) Pneumonia: (4) Lung nodule (5) Steroid-dependent chronic obstructive pulmonary disease: (6) Type 2 diabetes mellitus: (7) Hypertension: (8) Chronic respiratory failure with hypoxia, on home oxygen therapy: (9) Acute urinary retention: DS: Discharge Diagnosis Discharge Diagnosis (1) Sepsis: Code(s): A41.9 - Sepsis, unspecified organism Status: Acute Assessment and Plan: patient with history of COPD presented with shortness of breath most likely exacerbation and been positive COVID-19, patient is being treated with methylprednisone, albuterol inhaler, and remdesivir, chest x-ray is suspicious pneumonia patient being treated with Zosyn, sputum culture and procalcitonin pending, patient states feeling little better compared to when she arrived not a short of breath denies fever or chills. Blood cultures are remain at [facility] of sputum culture with Haemophilus influenzae. (2) COVID-19: Code(s): U07.1 - COVID-19 Status: Acute Assessment and Plan: She was started on Solu-Medrol in the emergency department and we will continue with that. She has also been started on remdesivir per protocol. Trend inflammatory markers. (3) Pneumonia: Code(s): J18.9 - Pneumonia, unspecified organism Status: Acute Assessment and Plan: She received a dose of Zosyn in the emergency department. Pneumonia is most likely related to COVID-19 though given elevated white blood cell count will check sputum culture as well as a procalcitonin level. Continue azithromycin for now. (4) Lung nodule: Code(s): R91.1 - Solitary pulmonary nodule Status: Acute Assessment and Plan: Radiologist recommends follow-up chest CT in 2 to 3 months. (5) Steroid-dependent chronic obstructive pulmonary disease: Code(s): J44.9 - Chronic obstructive pulmonary disease, unspecified Status: Acute Assessment and Plan: Prednisone on hold as she is currently on Solu-Medrol as detailed above. 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 Continue sliding scale insulin, Accu-Cheks, and hypoglycemic protocol. (7) Hypertension: Qualifiers: Hypertension type: essential hypertension Qualified Code(s): I10 - Essential (primary) hypertension Code(s): I10 - Essential (primary) hypertension Status: Acute Assessment and Plan: Blood pressures were reviewed some micro are in the 126/52 the of 142/62 range to the. Continue same antihypertensive regimen. (8) Chronic respiratory failure with hypoxia, on home oxygen therapy: Code(s): J96.11 - Chronic respiratory failure with hypoxia; Z99.81 - Dependence on supplemental oxygen Status: Acute Assessment and Plan: She is currently at her baseline oxygen requirement. (9) Acute urinary retention: Code(s): R33.8 - Other retention of urine Status: Acute Assessment and Plan: Continue Bowen catheter. She will need a voiding trial prior to discharge. Baclofen on hold. DS: Summary Hospital Course Reason for hospitalization: Shortness of breath. Hospital Course: Please refer to admission H& P. Briefly, this is a 65-year-old female with chronic respiratory failure on home oxygen, steroid dependent COPD, diabetes, hypertension, and hyperlipidemia who presented to the emergency department for evaluation of shortness of breath. She endorses chronic dyspnea on exertion related to her COPD however she martin
[2021-05-29] MEDS: NEOMYCIN/POLYMYXIN/BACITRACIN OINTMENT PACKET 1 PACKET (14:10)
== END 2021-05-29 16:04 | disposition home health service (06) | DRG 871 ==
LOC: ANHED 09:33 → ANHIMU 13:24 → ANH3MEDSUR 05-24 13:34 → ANHIMU 05-30 11:30
PROVIDERS: Internal Medicine Pulmonary Disease; Physician Assistant; Admitting Provider Family Medicine; Emergency Provider Emergency Medicine; PCP Physician Assistant; Visit Provider Hospitalist
DX: A41.89 Other specified sepsis (principal); U07.1 COVID-19; J12.82 Pneumonia due to coronavirus disease 2019; J14 Pneumonia due to Hemophilus influenzae; J96.21 Acute and chronic respiratory failure with hypoxia; J44.1 Chronic obstructive pulmonary disease with (acute) exacerbation; J44.0 Chronic obstructive pulmonary disease with (acute) lower respiratory infection; E78.5 Hyperlipidemia, unspecified; E11.9 Type 2 diabetes mellitus without complications; K21.9 Gastro-esophageal reflux disease without esophagitis; R91.1 Solitary pulmonary nodule; R33.8 Other retention of urine; I10 Essential (primary) hypertension; M19.90 Unspecified osteoarthritis, unspecified site; F41.9 Anxiety disorder, unspecified; Z99.81 Dependence on supplemental oxygen; Z90.710 Acquired absence of both cervix and uterus; Z87.891 Personal history of nicotine dependence; Z79.84 Long term (current) use of oral hypoglycemic drugs; Z79.82 Long term (current) use of aspirin; Z79.52 Long term (current) use of systemic steroids
CPT/HCPCS: 36415; 36569; 36600; 71045; 71275; 80053; 80198; 80202; 82375; 82565; 82728; 82805; 82948; 83050; 83605; 83615; 83735; 83880; 84100; 84145; 84460; 84484; 85025; 85027; 85380; 85610; 85730; 86140; 87040; 87070; 87077; 87185; 87205; 87804; 93005; 94640; 94660; 96361; 96365; 96367; 96375; 97110; 97116; 97161; 97165; 97530; 97535; 99285; A9270; C1751; C9803; J0456; J1100; J1650; J1815; J1940; J2270; J2543; J2920; J2930; J3370; J3475; J7040; Q9967; U0003; U0005

== ENCOUNTER 2021-06-13 04:57 | Inpatient (IN) | payer MEDICARE, MEDICAID, SELFPAY ==
[2021-06-13] VITALS (29 sets, daily range): BP systolic 102–136; BP diastolic 61–93; PULSE 66–192; RESP 18–36; TEMP 35.2–37.5; O2SAT 94–100
--- NOTE | 2021-06-13 | ECHO_ITS ---
Patient Info Name: Amber Teran Age: 65 years : 1955 Gender: Female Ht: 67 in Wt: 137 lbs BSA: 1.71 m2 HR: 114 bpm BP: 112 / 76 mmHg Heart Rhythm: Sinus Rhythm, Tachycardia Technical Quality: Good Exam Date: 06/13/2021 1:41 PM Exam Location: [facility] Pulmonary Exam Room: 209 Patient Status: Inpatient Admit Date: 06/13/2021 Staff Ordering Physician: Louise Haskins MD Corrugated Sheet Material Sheeter: Christina Abad RDCS Attending Provider: Vidal Lawler MD Referring Physician: Jozef CHAPARRO; Exam Type: CA echo doppler color flow Study Info Indications - elevated troponins sob crf Complete two-dimensional, color flow and Doppler transthoracic echocardiogram is performed. Summary 1. Complete two-dimensional, color flow and Doppler transthoracic echocardiogram is performed. 2. Mild left ventricular enlargement with normal wall thickness. Severe left ventricular dysfunction with a calculated ejection fraction of 17%, visual EF of 20-125%. The global longitudinal strain was severely diminished at -5%. There is preservation of the basal myocardial segments, but the mid and distal anterior, septal, inferior and lateral calvillo are severely hypokinetic to akinetic. Interestingly there appears to be some preservation of apical contractility. Consider reverse Takotsubo cardiomyopathy. 3. Left atrial chamber dimension is mildly enlarged. 4. There is mild mitral valve regurgitation. 5. Sinus tachycardia. Left Ventricle Left ventricular chamber dimension is mildly enlarged. Left ventricular systolic function is severely reduced, estimated at 20-25%. There is no increased left ventricular wall thickness. Left ventricular septal wall motion is normal. The left ventricular diastolic function is grade II diastolic dysfunction. Global longitudinal strain is severely elevated at -6 %. Right Ventricle Right ventricular chamber dimension is normal. Right ventricular systolic function is normal. Left Atria Left atrial chamber dimension is mildly enlarged. Right Atria Right atrial chamber dimension is normal. Aortic Valve The aortic valve is trileaflet. There is no aortic valve sclerosis. There is no aortic valve stenosis. There is no aortic valve regurgitation. Pulmonic Valve The pulmonic valve is normal. There is no pulmonic valve stenosis. There is no pulmonic regurgitation. Mitral Valve The mitral valve has normal leaflets. There is no mitral valve stenosis. There is mild mitral valve regurgitation. Tricuspid Valve The tricuspid valve leaflets are normal. There is no significant tricuspid valve stenosis. There is trace tricuspid valve regurgitation. No pulmonary hypertension, estimated pulmonary arterial systolic pressure is unmeasurable.. Pericardium/Pleural The pericardium appears normal. There is no pericardial effusion. Inferior Vena Cava Dilated inferior vena cava with <50% collapse upon inspiration consistent with Empty right atrial pressure, Empty. Aorta The aortic root size at the sinus of Valsalva is normal. The prox ascending aorta size is normal. Left Ventricular Outflow Tract Name Value Normal LVOT 2D LVOT Diameter 2.0 cm LVOT Doppler
--- NOTE | ~2021-06-13 | XR_ITS ---
EXAMINATION: XR chest 2V EXAM DATE: 06/15/2021 15:36 INDICATION: Pneumonia TECHNIQUE: Frontal and lateral projections of the chest obtained and reviewed. Comparison is made to prior examination from 06/13/2021. FINDINGS: Improvement in previously seen abnormal reticulation, pneumonia and/or edema. Still some p resent mostly in lower lung zones. Some chronic right upper lobe scarring. The lungs are hyperinflate d which can be seen with chronic obstructive pulmonary disease (a clinical diagnosis of functional im pairment), but is not diagnostic of it. Old rib fractures. Cardiomediastinal silhouette is normal. Th ere is no pneumothorax suspected. Chronic pleural blunting. There are no osseous abnormalities identi fied. IMPRESSION: Bibasilar edema or pneumonia with interval improvement. Chronic hyperinflation. Reviewed, dictated and finalized at location G. NSED VOCATIONAL NURSE IMPRESSION: Bibasilar edema or pneumonia with interval improvement. Chronic hy perinflation.
--- NOTE | ~2021-06-13 | XR_ITS ---
EXAMINATION: XR chest 1V portable DATE: 06/13/2021 06:16 INDICATION: Chest pain. Shortness of breath. TECHNIQUE: A single frontal view of the chest was obtained. COMPARISON: Chest single view 05/25/2021, chest CT 05/19/2021 FINDINGS: There is mild scarring at the lung apices. There is a diffuse reticulonodular pattern in th e lungs. There are mild airspace opacities in right midlung zone and at the lung bases. No pleural ef fusion or pneumothorax. The heart size is normal. There are old healed bilateral rib fractures. A cat heter tip overlies left axilla. There is an old healed fracture of proximal right humerus. IMPRESSION: 1. Stable diffuse lung disease, consistent with pneumonia. Reviewed, dictated and finalized at location E. EAR ENGINEER
--- NOTE | 2021-06-13 05:08 | ED.SOB ---
HPI - SOB/Dyspnea General Chief Complaint: Chest Pain Stated Complaint: chest pain Time Seen by Provider: 06/13/21 05:05 Source: patient Mode of arrival: EMS Limitations: no limitations History of Present Illness HPI Narrative: Patient is a 62-year-old female complain of shortness of breath accompanied by cough and chest tightness that started last night. Patient states that she has a history of COPD and on continuous 3 L of oxygen at home. Patient states that her cough is productive, clear yellowish sputum. Patient denies any abdominal pain, diaphoresis, fever or chills. Related Data Home Medications Medication Instructions Recorded Confirmed Spiriva with HandiHaler 18 cap INHALATION DAILY 04/08/21 05/19/21 albuterol sulfate 0.63 mg CONTINUOUS NEBULIZATION 04/08/21 05/19/21 TID PRN albuterol sulfate [Ventolin HFA] 2 puff INHALATION Q4-5H PRN 04/08/21 05/19/21 alendronate 70 mg PO WEEKLY 04/08/21 05/19/21 aspirin 81 mg PO HS 04/08/21 05/19/21 baclofen 5 mg PO HS 04/08/21 05/19/21 diazepam 2 mg PO HS PRN 04/08/21 05/19/21 diclofenac sodium 100 mg PO DAILY 04/08/21 05/19/21 fluticasone propion-salmeterol 1 inh INHALATION BID 04/08/21 05/19/21 [Advair Diskus] hydralazine 10 mg PO TID 04/08/21 05/19/21 hydrocodone-acetaminophen 1 tablet PO Q4-5H 04/08/21 05/19/21 metformin 500 mg PO BID 04/08/21 05/19/21 metoprolol succinate 12.5 mg PO DAILY 04/08/21 05/19/21 montelukast 10 mg PO DAILY 04/08/21 05/19/21 omeprazole 20 mg PO BID 04/08/21 05/19/21 pravastatin 40 mg PO HS 04/08/21 05/19/21 prednisone 10 mg PO DAILY 04/08/21 05/19/21 sucralfate 1 g PO DAILY 04/08/21 05/19/21 theophylline 300 mg PO DAILY 04/08/21 05/19/21 Allergies Allergy/AdvReac Type Severity Reaction Status Date / Time cephalexin Allergy Mild Hives Verified 04/08/21 20:47 levofloxacin Allergy Mild FEET Verified 04/08/21 20:47 SWELLING Sulfa (Sulfonamide Allergy Unknown Hives Verified 04/08/21 20:47 Antibiotics) Review of Systems Review of Systems: All systems reviewed & are unremarkable except as noted in HPI and below Constitutional: Constitutional: Denies body ache(s), Denies chills, Denies excessive sweating, Denies fatigue, Denies fever(s), Denies headache(s), Denies lethargy, Denies malaise, Denies weakness and Denies weight loss Eyes: Eyes: Denies blurry vision, Denies change in vision and Denies loss of vision ENT: Denies dizziness, Denies ear discharge, Denies headache(s), Denies lip swelling, Denies epistaxis, Denies nasal congestion, Denies neck pain, Denies throat swelling and Denies tongue swelling Cardiovascular: Cardiovascular: Denies diaphoresis, Denies rapid heart rate, Denies edema, Denies irregular heart rhythm, Denies lightheadedness and Denies palpitations Respiratory: Respiratory: Denies chest congestion and Denies hemoptysis Gastrointestinal: Gastrointestinal: Denies abdominal pain, Denies melena, Denies hematochezia, Denies diarrhea, Denies nausea, Denies vomiting and Denies hematemesis Musculoskeletal: Musculoskeletal: Denies abnormal gait, Denies deformity, Denies joint swelling, Denies limited range of motion, Denies neck pain and Denies numbness Neurologic: Denies Abnormal speech present, Denies abnormal gait, Denies confusion, Denies dizziness, Denies headache(s), Denies focal weakness, Denies loss of vision, Denies numbness, Denies Other visual disturbances, Denies Sensory deficit (Neuro) and Denies weakness Psychiatric: Psychiatric: Denies confusion, Denies depression, Denies auditory hallucinations, Denies homicidal ideation and Denies suicidal ideation Endocrine: Endocrine: Denies cold intolerance, Denies excessive sweating, Denies fatigue, Denies heat intolerance and Denies palpitations Hematologic/Lymphatic: Hematologic/Lymphatic: Denies easy bleeding and Denies easy bruising Allergic/Immunologic: Allergic/Immunologic: Denies lip swelling, Denies throat swelling and Denies tongue swelling PMFSH Past Medical Hi
--- NOTE | 2021-06-13 05:23 | ECG_ITS ---
Measurements Intervals [place] Rate: 147 P: [place]: 0 QRS: 11 QRSD: 82 T: 103 QT: 285 QTc: 446 Interpretive Statements SINUS OR ECTOPIC ATRIAL TACHYCARDIA ANTEROSEPTAL INFARCT, AGE INDETERMINATE ST-T WAVE ABNORMALITY IN LATERAL LEADS- CONSIDER ISCHEMIA BASELINE WANDER- I, II, AVR, AVL, AVF, V2, V6 ABNORMAL ECG Electronically Signed On 06-13-2021 9:33:23 PATIENT TRANSPORTER by Jere Lee D.O.
[2021-06-13] MEDS: methylPREDNISolone SOD SUCC 125 MG VIAL IV PUSH (05:26)
[2021-06-13 05:31] LABS: Basophils Absolute Auto 0.2 K/mm3 (0.0-0.1); Basophils Percent Auto 0.7 % (0.2-1.2); Eosinophils Absolute Auto 0.1 K/mm3 (0-0.3); Eosinophils Percent Auto 0.3 % (0-4.4); Hematocrit 37.3 % (37.0-47.0); Hemoglobin 10.9 g/dL (12.0-15.0); Immature Granulocyte Absolute 0.47 K/mm3 (0.00-0.031); Immature Granulocyte Percent A 1.8 % (0-0.5); Lymphocytes Percent Auto 4.5 % (18.3-44.2); Mean Corpuscular HGB Conc 29.2 g/dl (32-36); Mean Corpuscular Hemoglobin 24.8 pg (26-34); Mean Corpuscular Volume 84.8 fl (80-100); Mean Platelet Volume 11.8 fl (7.4-10.4); Monocytes Absolute Auto 1.2 K/mm3 (0.1-0.6); Monocytes Percent Auto 4.5 % (2.6-8.5); Neutrophils Absolute Auto 23.5 K/mm3 (1.3-6.7); Neutrophils Percent Auto 88.2 % (45.5-73.1); Platelet Count Result 322 k/mm3 (150-375); Red Cell Distribution Width 14.9 % (11.5-14.5); White Blood Count 26.6 K/mm3 (4.5-10.0)
[2021-06-13 05:31] LABS: Alveolar/Arterial O2 Gradient 13.9 mmHg; Base Excess ABG 1.1 mEq/l (+/-2.0); Carboxyhemoglobin 0.2 % THb (0-2.0); Fractional Inspired Oxygen 40 %; Methemoglobin ABG 0.1 %THb (0-1.5); Oxygen Content ABG 16.6 %vol (16.0-22.0); Oxygen Saturation ABG 99.5 % (95.0-100.0); Oxyhemoglobin 98.4 % THb (90.0-100.0); PCO2 ABG 42.9 mmHg (35.0-45.0); PO2 FiO2 Ratio Arterial Blood 5.55 %; Reduced Hemoglobin 1.3 %THb (0-5.0); Total Hemoglobin 11.6 g/dL (12.0-18.0); pH ABG 7.401 (7.350-7.450)
[2021-06-13 05:32] LABS: Device NASAL CANNULA; Modified Allen's Test Pass; Site Drawn RIGHT RADIAL
[2021-06-13] MEDS: IPRATROPIUM BR 0.02% INH SOLN 0.5 MG/2.5 ML VIAL INHALATION ×3 (05:37→20:47)
[2021-06-13] MEDS: ALBUTEROL SULFATE NEB 2.5 MG/0.5 ML INH 5 MG INHALATION ×2 (05:37→14:07)
[2021-06-13 05:40] LABS: Lactic Acid Reflex 1.6 mmol/L (0.7-2.1)
[2021-06-13 05:41] LABS: INR 0.9
[2021-06-13 05:42] LABS: Partial Thromboplastin Time 31.9 SECONDS (22.3-36.8)
[2021-06-13 05:43] LABS: Alanine Aminotransferase 11 U/L (4-35); Albumin Level 3.6 g/dL (3.5-5.1); Alkaline Phosphatase 62 U/L (38-126); Anion Gap 4 mmol/L (8-16); Aspartate Amino Transferase 27 U/L (14-36); Bilirubin,Total 0.6 mg/dL (0.2-1.3); Blood Urea Nitrogen 19 mg/dL (7-17); Carbon Dioxide 27 mmol/L (22-30); Chloride 104 mmol/L (98-107); Estimated CRCL calculation 79 ml/min; Estimated Glomerular Filt Rate > 60; Glucose 231 mg/dL (65-110); Potassium 3.8 mmol/L (3.4-5.0); Sodium 135 mmol/L (137-145)
[2021-06-13 05:50] LABS: NT Pro B Type Natriuretic Pept 498 pg/mL (5-100)
[2021-06-13] MEDS: HYDROcodone/acetaminophen (*CRX) 10-325 MG TABLET 1 TAB PO ×4 (06:37→23:24)
[2021-06-13] MEDS: dilTIAZem HCl INJ 25 MG/5 ML VIAL 10 MG IV PUSH (07:09)
[2021-06-13] MEDS: ENOXAPARIN 1 MG/KG 65 MG SUB-Q (07:09)
[2021-06-13] MEDS: LACTATED RINGERS 1,000 ML 125 ML IV CONT (07:23)
[2021-06-13 07:52] LABS: Lactic Acid Reflex 1.1 mmol/L (0.7-2.1)
[2021-06-13 07:54] LABS: SARS-CoV-2 RNA PCR Negative
--- NOTE | 2021-06-13 08:02 | PC.NURSE ---
This nurse was instructed that the nurse had not reviewed the SBAR and would call back in approx 10 minutes. This nurse will call back at that time if no call is received.
--- NOTE | 2021-06-13 08:17 | PC.NURSE ---
This nurse attempted to call to give report to IMU, was notified by medical assistant secretary that the nurse was not available for report. This nurse then asked to speak to the hot metal charger for report, was transfered to Otilia VÁSQUEZ and was told she would not take report because she had her own team in ICU. This nurse notified Mandie RN, charge nurse in ED, and was notified to call back in 5 minutes to IMU for report and transfer pt upstairs.
--- NOTE | 2021-06-13 08:46 | PM.CNCAR ---
Assessment and Plan Additional Plan - elevated troponins. - possible pneumonia. - chronic respiratory failure on home O2, COPD. on chronic steroids - recent COVID infection in May 2021 - urinary tract infection - this 65-year-old female with chronic respiratory failure on home O2 and steroids with recent COVID infection May 2021 who presents to the hospital with chills, increasing urinary frequency, dysuria, increasing shortness of breath along with central chest tightness. EKG shows sinus tachycardia at heart rate 150 beats per minute on admission with some ST depression in V4 and V5. troponin was 3.79. and 2nd troponin was 3.86 workup shows white cell count 26 K. she is on chronic steroids however when she was discharged from the hospital on May 28 the white cell count was 11.8. urinalysis suggestive of UTI and chest x-ray suggestive of diffuse pneumonia. patient states that she has been sleeping on the chair for the last 10 years and cannot lay flat because of worsening shortness of breath. Obviously that is very limiting. We cannot do cardiac catheterization if she cannot lay flat on the bed. respiratory status is very fragile and administering heavier dosage of anesthetics or sedation might require her to get intubated and mechanical ventilation. at this time and had long discussion with the patient and we agree at this time to obtain echocardiogram to assess cardiac structure and function. will administer aspirin and Lovenox for now. she is pain-free at this time and no chest tightness. Will administer diltiazem 30 mg b.i.d. to slow down the heart rate a little bit. no beta-roel due to underlying severe COPD. History of Present Illness History of Present Illness Consult date/time: 06/13/21 08:46 Requesting physician: Ajay Avalos MD Consult reason: Other ( elevated troponins) Reason For Visit: ACUTE RESPIRATORY FAILURE ON CHRONIC,NON-STEMI Narrative: this 65-year-old female with past medical history of chronic respiratory failure, COPD on 3 L nasal cannula at home and on chronic steroids,hypertension, diabetes. patient was COVID positive on May 19, 2021 however Was retested during this admission was negative. she states that she comes to the hospital because of increasing urine frequency, feeling chills, fever, increasing shortness of breath, and central chest tightness. She states the tightness in her chest is something new. Denies any limb edema, palpitations dizziness or syncope. She states that she thought that she is having recurrent urinary tract infection. She sleeps on the chair upright for the last 10 years. She states that she cannot lay flat in the bed due to shortness of breath. She was recently admitted from May 19, 2021 through May 29 2021 for acute respiratory failure was secondary to COVID-19 pneumonia. He was discharged home on her baseline oxygen at 3 L per minute. White cell count 26.6 K. troponins 3.8 chest x-ray reviewed and analyzed myself shows COPD, diffuse lung disease consistent with pneumonia. EKG reviewed and analyzed muscle shows sinus tachycardia At heart rate 150 beats per minute, septal Q-waves, some ST depression the 5 and V6. Review of Systems Constitutional: Constitutional: Reports chills, Reports fatigue, Denies fever(s), Reports lethargy, Denies poor appetite and Reports weakness Eyes: Eyes: Denies eye discharge, Denies loss of vision, Denies eye pain and Denies photophobia ENT: Denies dizziness, Denies epistaxis, Denies nasal congestion and Denies sore throat Cardiovascular: Cardiovascular: Reports chest pain, Denies syncope, Denies pedal edema, Denies leg edema, Denies palpitations, Denies dyspnea, Denies dyspnea on exertion and Denies orthopnea Comments: chest tightness Respiratory: Respiratory: Denies cough, Reports dyspnea, Reports dyspnea on exertion and Denies wheezing Gastrointestinal: Gastrointestinal: Denies abdominal pain, Denies diarrhea
--- NOTE | 2021-06-13 09:37 | PM.IMHP ---
H&P: HPI History of Present Illness Date/Time: 06/13/21 09:37 cc: Shortness of breath. History of present illness: Please refer to admission H& P. Briefly, this is a 65-year-old female with chronic respiratory failure on home oxygen, steroid dependent COPD, diabetes, hypertension, and hyperlipidemia who presented to the emergency department for evaluation of shortness of breath. She was recently admitted from May 19, 2021 through May 29 2021 for acute respiratory failure was secondary to COVID-19 pneumonia. He was discharged home on her baseline oxygen at 3 L per minute. At that time she was also diagnosed with a pulmonary nodule. Last night she presented with complaints of shortness of breath accompanied by cough and chest tightness that started last night. Patient states that she has a history of COPD and on continuous 3 L of oxygen at home. Patient states that her cough is productive, clear yellowish sputum. Patient denies any abdominal pain, diaphoresis, fever or chills. On arrival to the emergency department patient was unstable with a temperature of 37.5?, pulse rate 120-153, respiration 20 3-36, blood pressure 127/84 and a pulse ox of 99% on 3 L. She was placed on BiPAP upon arrival and improved. Basic labs were drawn. The patient troponin was noted to be elevated at 3.7 and she was started on high-dose aspirin 324 mg and a therapeutic dose of Lovenox. EKG did not show any ST elevation; there was sinus tachycardia. Her CBC showed a WBC of 26.6, hemoglobin 10.9, hematocrit 37.3, and a platelet count of 3 to 2. Her chemistry shows a sodium of 135, potassium 3.8, chloride 104, bicarb 27, BUN 19 and creatinine of 0.6. Blood glucose was 231. Chest x-ray shows stable diffuse lung disease, consistent with pneumonia. COVID PCR was negative. Patient was started on IV antibiotic and steroids. Due to elevated troponin a cardiology consult was requested. Patient is admitted under inpatient service. Chief Complaint: Chest pain, shortness of breath, dysuria Review of Systems Review of Systems: All systems reviewed & are unremarkable except as noted in HPI and below Constitutional: Constitutional: Denies body ache(s), Reports chills, Denies excessive sweating, Reports fatigue, Denies fever(s), Denies headache(s), Reports lethargy, Denies malaise, Denies poor appetite, Reports weakness and Denies weight loss Eyes: Eyes: Denies blurry vision, Denies change in vision, Denies eye discharge, Denies loss of vision, Denies eye pain and Denies photophobia ENT: Denies dizziness, Denies ear discharge, Denies headache(s), Denies lip swelling, Denies epistaxis, Denies nasal congestion, Denies neck pain, Denies sore throat, Denies throat swelling and Denies tongue swelling Cardiovascular: Cardiovascular: Reports chest pain, Denies diaphoresis, Denies syncope, Denies rapid heart rate, Denies pedal edema, Denies edema, Denies irregular heart rhythm, Denies leg edema, Denies lightheadedness, Denies palpitations, Reports dyspnea, Reports dyspnea on exertion and Denies orthopnea Respiratory: Respiratory: Denies chest congestion, Denies cough, Denies hemoptysis, Reports dyspnea, Reports dyspnea on exertion and Denies wheezing Gastrointestinal: Gastrointestinal: Denies abdominal pain, Denies melena, Denies hematochezia, Denies diarrhea, Denies nausea, Denies vomiting and Denies hematemesis Genitourinary: Genitourinary: Denies hematuria, Reports nocturia, Denies genital lesions and Reports dysuria Musculoskeletal: Musculoskeletal: Denies abnormal gait, Denies deformity, Denies arthralgias, Denies joint swelling, Denies limited range of motion, Denies neck pain and Denies numbness Integumentary/Breasts: Skin/Breast: Denies pruritus and Denies rash Neurologic: Denies Abnormal speech present, Denies abnormal gait, Denies confusion, Denies dizziness, Denies syncope, Denies headache(s), Denies focal weakness, Denies loss of vision, Denies numbness, Denies Other visual distu
--- NOTE | 2021-06-13 10:29 | ADMGEN ---
This patient, Amber Teran, was admitted to IMU Room 209-01 at 0845. Patient/family oriented to hospital policies and general routines including ID bracelet, bed and alarms, visiting hours, pain management, procedures, bathroom and other care routines, personal items, smoking policy, room service/diet, and visiting hours. Information on how to activate the Rapid Response Team has been discussed. Patient/Family are encouraged to report perceived risks to care and to ask questions if they do not understand what they are told or what they should do.
[2021-06-13] MEDS: ALPRAZolam (*CRX) 0.5 MG TABLET PO (15:51)
[2021-06-13] MEDS: dilTIAZem HCL 30 MG TABLET PO (15:52)
[2021-06-13] MEDS: NITROGLYCERIN SL 0.4 MG TABLET SUBLINGUAL (16:09)
[2021-06-13] MEDS: MORPHINE SULFATE (*CRX) 2 MG/ML INJ 1 MG IV PUSH (16:18)
--- NOTE | 2021-06-13 16:39 | ECG_ITS ---
Measurements Intervals [place] Rate: 109 P: 71 VA: 162 QRS: 73 QRSD: 92 T: 86 QT: 353 QTc: 476 Interpretive Statements SINUS TACHYCARDIA VENTRICULAR PREMATURE COMPLEX BORDERLINE T WAVE ABNORMALITY- HIGH LATERAL LEADS BASELINE ARTIFACT- V4-V6 ABNORMAL ECG Electronically Signed On 06-13-2021 20:23:28 TRUCK JUMPER by Jere Lee D.O.
[2021-06-13] MEDS: hydrALAZINE 10 MG TABLET PO (17:41)
[2021-06-13] MEDS: metFORMIN HCL 500 MG TABLET PO (17:42)
[2021-06-13] MEDS: ENOXAPARIN 60 MG/0.6 ML SYRINGE SUB-Q (17:43)
[2021-06-13] MEDS: PANTOPRAZOLE 40 MG TABLET PO (17:43)
[2021-06-13] MEDS: ASPIRIN 81 MG ENTERIC TABLET PO (17:44)
--- NOTE | 2021-06-13 19:11 | ECG_ITS ---
Measurements Intervals [place] Rate: 182 P: [place]: 0 QRS: 81 QRSD: 178 T: 0 QT: 261 QTc: 455 Interpretive Statements SUPRAVENTRICULAR TACHYCARDIA ANTEROSEPTAL INFARCT, AGE INDETERMINATE ST-T WAVE ABNORMALITY IN INFERIOR LEADS- CONSIDER ISCHEMIA OR RATE RELATED BASELINE ARTIFACT- I, II, AVL, AVF, V1-V6 ABNORMAL ECG Electronically Signed On 06-14-2021 9:42:04 TESTING AND REGULATING TECHNICIAN by Jere Lee D.O.
[2021-06-13] MEDS: AMIODARONE 150 MG/D5W 100 ML 150 MG/100 ML BAG 600 MG IV CONT (19:19)
[2021-06-13] MEDS: AMIODARONE 360 MG/D5W 200 ML 360 MG/200 ML BAG 33.33 MG IV CONT (19:20)
[2021-06-13] MEDS: BACLOFEN 5 MG TABLET PO (20:01)
[2021-06-13] MEDS: PRAVASTATIN SODIUM 20 MG TABLET 40 MG PO (20:01)
[2021-06-13] MEDS: ASPIRIN 81 MG CHEWABLE TABLET PO ×2 (20:01→21:05)
[2021-06-13] MEDS: LEVALBUTEROL NEB 1.25 MG/3 ML 0.63 MG INHALATION (20:47)
--- NOTE | 2021-06-13 21:01 | PCRCNOTE ---
pt. on 3 L NC and refused BIPAP for the night
[2021-06-13] MEDS: FLUTICASONE/SALMETEROL 115-21 MCG INHALER 1 PUFF 2 PUFF INHALATION (22:43)
[2021-06-14] VITALS (28 sets, daily range): BP systolic 90–109; BP diastolic 49–68; PULSE 89–109; RESP 18–26; TEMP 36.4–37.2; O2SAT 99–100
[2021-06-14] MEDS: AMIODARONE 360 MG/D5W 200 ML 360 MG/200 ML BAG 16.67 MG IV CONT (00:58)
[2021-06-14] MEDS: SALINE 0.65% NAS SOLN 44 ML BTL 1 SPRAY NASAL (01:06)
[2021-06-14] MEDS: IPRATROPIUM BR 0.02% INH SOLN 0.5 MG/2.5 ML VIAL INHALATION ×4 (01:42→21:40)
[2021-06-14] MEDS: LEVALBUTEROL NEB 1.25 MG/3 ML 0.63 MG INHALATION ×4 (01:43→21:40)
[2021-06-14] MEDS: HYDROcodone/acetaminophen (*CRX) 10-325 MG TABLET 1 TAB PO ×5 (04:24→20:46)
[2021-06-14] MEDS: ENOXAPARIN 60 MG/0.6 ML SYRINGE SUB-Q ×2 (06:09→17:06)
[2021-06-14] MEDS: LACTATED RINGERS 1,000 ML 125 ML IV CONT (08:10)
[2021-06-14] MEDS: hydrALAZINE 10 MG TABLET PO ×2 (08:11→13:52)
[2021-06-14] MEDS: METOPROLOL SUCCINATE EXT REL 12.5 MG TABCR PO (08:12)
--- NOTE | 2021-06-14 08:28 | PM.IMPN ---
Progress Note: A&P Assessment and Plan (1) Non-ST elevated myocardial infarction (non-STEMI): Code(s): I21.4 - Non-ST elevation (NSTEMI) myocardial infarction Status: Acute Assessment and Plan: Patient was symptomatic with chest pain; troponin elevated at presentation. Due to her poor respiratory status, she is not a candidate for any intervention. given her complicated history of chronic respiratory failure, recent COVID infection in May 2021, new onset chest pain, associated with frequency and dysuria, she was started on broad-spectrum antibiotic with Zosyn. Due to persistent tachycardia overnight with heart rate in the 150s, cardiology recommended starting amiodarone drip per with improvement of the heart rate in the 90s. Troponin was elevated at 3.79-> 3.86. Continue therapeutic dose of Lovenox and aspirin. At the time of initial evaluation she was chest pain-free. Later during the day she developed intermittent chest pain, treated with nitroglycerin without improvement. She was given morphine. Was tachycardic on admission with heart rate of 150s. EKG reveals atrial tracking cardia, ST depression in V4 V5. (2) Acute on chronic respiratory failure with hypoxia: Code(s): J96.21 - Acute and chronic respiratory failure with hypoxia Status: Acute Assessment and Plan: At baseline patient is on chronic home oxygen 3 L due to COPD. Recently tested COVID positive on May 19, 2021, status post full treatment she was discharged home on her baseline oxygen requirement. Patient present with shortness of breath chest tightness. The chest x-ray suggests diffuse pneumonia. She was started on Zosyn. (3) Sepsis: Code(s): A41.9 - Sepsis, unspecified organism Status: Acute Assessment and Plan: Patient met sepsis criteria with tachycardia elevated white count. Leukocytosis may be related to steroid chronic steroid use. However given urinalysis suggestive of UTI and chest x-ray suggestive of diffuse pneumonia she was started appropriately on Zosyn. (4) GERD (gastroesophageal reflux disease): Code(s): K21.9 - Gastro-esophageal reflux disease without esophagitis Status: Acute Assessment and Plan: Continue Carafate and pantoprazole. (5) Anxiety: Code(s): F41.9 - Anxiety disorder, unspecified Status: Acute Assessment and Plan: Give alprazolam p.r.n.. (6) Chronic back pain: Qualifiers: Back pain location: low back pain Back pain laterality: unspecified Sciatica presence: unspecified whether sciatica present Qualified Code(s): M54.5 - Low back pain; G89.29 - Other chronic pain Code(s): M54.9 - Dorsalgia, unspecified; G89.29 - Other chronic pain Status: Acute Assessment and Plan: Pain management as needed. (7) Hyperlipidemia: Code(s): E78.5 - Hyperlipidemia, unspecified Status: Acute Assessment and Plan: Resume home medication. Previously on pravastatin. (8) Hypertension: Qualifiers: Hypertension type: essential hypertension Qualified Code(s): I10 - Essential (primary) hypertension Code(s): I10 - Essential (primary) hypertension Status: Acute Assessment and Plan: Currently on hydralazine 10 mg p.o. t.i.d. (9) COVID-19: Code(s): U07.1 - COVID-19 Status: Acute Assessment and Plan: Recently treated for COVID; currently tested negative. Subjective Date/time seen: 06/14/21 08:28 S: Patient was seen examined at the bedside. He she is chest pain-free. Shortness of breath is improved. Review of Systems Review of Systems: All systems reviewed & are unremarkable except as noted in HPI and below Constitutional: Constitutional: Denies body ache(s), Reports chills, Denies excessive sweating, Reports fatigue, Denies fever(s), Denies headache(s), Reports lethargy, Denies malaise, Denies poor appetite, Reports weakness and Denies weight loss Eyes:
--- NOTE | 2021-06-14 08:57 | PM.PNCARD ---
Progress Note: A&P Additional Plan 65-year-old lady with newly diagnosed severe dilated cardiomyopathy. Will start medical therapy today with low doses of carvedilol, Entresto and spironolactone. Will convert her amiodarone to oral. Patient needs a Life Vest referral in this setting. When her symptoms are improved and she is on a reasonable heart failure regimen she should undergo coronary angiography also. I do not consider this to be an urgent matter that needs to happen today. Leroy Jean MD [facility] Subjective Date/time seen: Date of service: 06/14/21 08:57 Interval history: Follow-up visit in this 65-year-old lady with: Severe dilated cardiomyopathy, newly diagnosed. In this setting 1 would have to presume this is most likely postviral given recent infection with coronavirus. Patient had no cardiac problems prior to this. Has a severe global dilated cardiomyopathy by echo. This was discussed with the patient in detail this morning. Troponin levels were elevated on admission yesterday but flat. Certainly has risk factors for coronary disease as outlined in the consultation. No further chest pain this morning. Last evening the patient had a very rapid narrow QRS tachycardia heart rate was over 180. She says she was asymptomatic at the time. She was placed on intravenous amiodarone back in sinus rhythm following that. Echocardiogram yesterday once again showed severe global LV systolic dysfunction. Exam Const: General: comfortable and no acute distress Other: Thin chronically ill-appearing lady appears a bit older than her stated age HENMT: Mouth: Yes moist mucous membranes Eyes: Sclera: sclerae normal Pupils: Equal, round and reactive pupils present Neck: Neck: supple and no JVD Resp: Effort & Inspection: normal respiratory effort Auscultation: diminished lung sounds Other: Breath sounds diminished bilaterally with some very mild central expiratory rhonchi. Cardio: Rate: regular rate Rhythm: regular rhythm Other: PMI is enlarged and laterally displaced. No audible cardiac murmur at this time GI: GI Palp: Yes Soft to palpation Auscultation: normal bowel sounds Skin: General skin exam: normal color Neuro: Cognition (Neuro): normal cognition Extrem: General: normal to inspection Objective Data Vital Signs Vital Signs: Vital Signs - 24 hr 06/13/21 09:01 06/13/21 09:05 06/13/21 09:14 Temperature 35.2 C L Pulse Rate 123 H 123 H Respiratory Rate 32 H 24 H Blood Pressure 112/76 Pulse Oximetry 100 98 99 06/13/21 09:38 06/13/21 10:00 06/13/21 12:00 Temperature 36.2 C L Pulse Rate 123 H 115 H 116 H Respiratory Rate 22 H Blood Pressure 119/72 Pulse Oximetry 100 06/13/21 14:00 06/13/21 14:07 06/13/21 14:20 Temperature Pulse Rate 112 H 112 H 119 H Respiratory Rate 22 H 22 H Blood Pressure Pulse Oximetry 06/13/21 15:20 06/13/21 16:00 06/13/21 19:19 Temperature 36.8 C Pulse Rate 66 118 H 190 H Respiratory Rate 18 20 Blood Pressure 131/85 126/83 136/93 H Pulse Oximetry 94 100 06/13/21 19:20 06/13/21 19:45 06/13/21 20:00 Temperature 36.8 C Pulse Rate 192 H 101 H 108 H Respiratory Rate 20 Blood Pressure 136/93 H 125/79 Pulse Oximetry 100 06/13/21 20:47 06/13/21 20:48 06/13/21 20:59 Temperature Pulse Rate 112 H 112 H Respiratory Rate 21 H 22 H Blood Pressure Pulse Oximetry 100 06/13/21 22:00 06/14/21 00:00 06/14/21 00:05 Temperature 36.6 C Pulse Rate 98 89 99 Respiratory Rate 20 Blood Pressure 90/58 L Pulse Oximetry 99 06/14/21 00:58 06/14/21 01:43 06/14/21 01:52 Temperature Pulse Rate 95 107 H 92 Respiratory Rate 22 H 22 H Blood Pressure 92/58 L Pulse Oximetry 06/14/21 04:00 06/14/21 08:12 Temperature 37.2 C Pulse Rate 99 103 H Respiratory Rate 20 Blood Pressure 99/68 L Pulse Oximetry 100 Intake/Output Intake/Output: Intake & Output 06/11/21 06/12/21 06/13/21
[2021-06-14] MEDS: FLUTICASONE/SALMETEROL 115-21 MCG INHALER 1 PUFF 2 PUFF INHALATION ×2 (09:00→21:41)
[2021-06-14] MEDS: AMIODARONE HCL 200 MG TABLET PO ×2 (10:11→17:03)
[2021-06-14] MEDS: carvediloL 3.125 MG TABLET PO ×2 (10:12→20:47)
[2021-06-14] MEDS: SPIRONOLACTONE 25 MG TABLET PO (10:12)
[2021-06-14] MEDS: SACUBITRIL/VALSARTAN 24-26 MG TABLET 1 TAB PO ×2 (10:13→20:48)
[2021-06-14] MEDS: SUCRALFATE 1 GM TABLET PO (10:15)
[2021-06-14] MEDS: MONTELUKAST SODIUM 10 MG TABLET PO (13:50)
[2021-06-14] MEDS: THEOPHYLLINE 300 MG ER 12 HR TABLET PO (13:51)
[2021-06-14] MEDS: PANTOPRAZOLE 40 MG TABLET PO ×2 (13:51→17:06)
[2021-06-14] MEDS: predniSONE 10 MG TABLET PO (13:51)
[2021-06-14 16:26] LABS: Glucose Point of Care 162 mg/dl (65-105)
[2021-06-14] MEDS: metFORMIN HCL 500 MG TABLET PO (17:04)
[2021-06-14] MEDS: BACLOFEN 5 MG TABLET PO (20:47)
[2021-06-14] MEDS: ASPIRIN 81 MG CHEWABLE TABLET PO (20:47)
[2021-06-14] MEDS: PRAVASTATIN SODIUM 20 MG TABLET 40 MG PO (20:48)
[2021-06-14 21:27] LABS: Glucose Point of Care 178 mg/dl (65-105)
[2021-06-14] MEDS: INSULIN GLARGINE (*BKC) 100 UNITS/ML 12 UNITS SUB-Q (21:43)
[2021-06-15] VITALS (25 sets, daily range): BP systolic 90–111; BP diastolic 50–66; PULSE 75–109; RESP 16–20; TEMP 36.2–36.6; O2SAT 96–100
[2021-06-15] MEDS: HYDROcodone/acetaminophen (*CRX) 10-325 MG TABLET 1 TAB PO ×6 (00:22→21:03)
[2021-06-15] MEDS: IPRATROPIUM BR 0.02% INH SOLN 0.5 MG/2.5 ML VIAL INHALATION ×3 (02:54→21:01)
[2021-06-15] MEDS: LEVALBUTEROL NEB 1.25 MG/3 ML 0.63 MG INHALATION ×3 (02:54→21:00)
[2021-06-15] MEDS: ENOXAPARIN 60 MG/0.6 ML SYRINGE SUB-Q ×2 (05:44→18:32)
[2021-06-15] MEDS: carvediloL 3.125 MG TABLET PO ×2 (08:20→21:04)
[2021-06-15] MEDS: AMIODARONE HCL 200 MG TABLET PO ×2 (08:20→17:26)
[2021-06-15] MEDS: MONTELUKAST SODIUM 10 MG TABLET PO (08:21)
[2021-06-15] MEDS: hydrALAZINE 10 MG TABLET PO (08:21)
[2021-06-15] MEDS: metFORMIN HCL 500 MG TABLET PO ×2 (08:21→17:26)
[2021-06-15] MEDS: PANTOPRAZOLE 40 MG TABLET PO ×2 (08:22→17:26)
[2021-06-15] MEDS: predniSONE 10 MG TABLET PO (08:22)
[2021-06-15] MEDS: SPIRONOLACTONE 25 MG TABLET PO (08:23)
[2021-06-15] MEDS: THEOPHYLLINE 300 MG ER 12 HR TABLET PO (08:24)
[2021-06-15] MEDS: SACUBITRIL/VALSARTAN 24-26 MG TABLET 1 TAB PO ×2 (08:24→21:05)
[2021-06-15] MEDS: SUCRALFATE 1 GM TABLET PO (08:24)
[2021-06-15 08:42] LABS: Glucose Point of Care 181 mg/dl (65-105)
[2021-06-15] MEDS: ONDANSETRON HCL ODT 4 MG TABLET PO (09:39)
--- NOTE | 2021-06-15 11:05 | PCRCNOTE ---
Window of time for administration has passed. See next scheduled administration.
--- NOTE | 2021-06-15 12:16 | PM.PNCARD ---
Progress Note: A&P Assessment and Plan (1) Acute systolic CHF (congestive heart failure): Code(s): I50.21 - Acute systolic (congestive) heart failure Status: Acute Assessment and Plan: Patient with newly diagnosed CHF with severely reduced ejection fraction with dilated LV. Volume status has improved. Optimal, tolerable medical treatment for CHF with reduced ejection fraction. Continue carvedilol, sacubitril/valsartan, spironolactone. Consider adding SGLT2 as an outpatient. Patient's blood pressure is on the lower side. Will discontinue hydralazine to leave room to optimize other standard CHF medications. Add low-dose furosemide 20 mg p.o. daily, which she will need as maintenance diuresis as an outpatient. Patient is being fitted with LifeVest. Patient will go ischemic evaluation as an outpatient. She will follow-up with Dr Haskins in the cardiology clinic. Anticipated discharge tomorrow. Subjective Date/time seen: 06/15/21 12:16 Interval history: Severe dilated cardiomyopathy, newly diagnosed. In this setting 1 would have to presume this is most likely postviral given recent infection with coronavirus. Patient had no cardiac problems prior to this. Has a severe global dilated cardiomyopathy by echo. This was discussed with the patient in detail this morning. Troponin levels were elevated on admission yesterday but flat. Certainly has risk factors for coronary disease as outlined in the consultation. No further chest pain this morning. Last evening the patient had a very rapid narrow QRS tachycardia heart rate was over 180. She says she was asymptomatic at the time. She was placed on intravenous amiodarone back in sinus rhythm following that. Echocardiogram yesterday once again showed severe global LV systolic dysfunction. Date of service 06/15/2021-patient reported improvement in shortness of breath she denied any chest pain. No palpitation no dizziness or syncope. On telemetry, she has been in sinus rhythm. She was being fitted with LifeVest at the time of evaluation. Exam Narrative: PHYSICAL EXAMINATION: GENERAL: Alert, oriented, no acute distress MENTAL STATUS: affect appropriate to mood EYES: Extraocular movements intact, no pallor EARS: External ears appear normal, hearing grossly normal NOSE: Normal and patent, no discharge MOUTH: Mucous membranes moist, tongue normal NECK: Supple, no JVD CHEST: Decreased breath sounds HEART: Normal rate, regular rhythm ABDOMEN: Soft, nontender NEUROLOGICAL: Alert, oriented, normal speech, no gross motor deficits MUSCULOSKELETAL: No major deformity, no amputation EXTREMITIES: No pedal edema, no clubbing, no cyanosis SKIN: no rash on the exposed area, no cyanosis PSYCHIATRIC: Normal mood, appropriate affect Objective Data Vital Signs Vital Signs: Vital Signs - 24 hr 06/14/21 14:00 06/14/21 14:56 06/14/21 15:08 Temperature Pulse Rate 92 93 96 Respiratory Rate 22 H 22 H Blood Pressure Pulse Oximetry 06/14/21 16:00 06/14/21 17:03 06/14/21 18:00 Temperature 36.7 C Pulse Rate 94 107 H 108 H Respiratory Rate 22 H Blood Pressure 95/55 L Pulse Oximetry 99 06/14/21 20:00 06/14/21 20:47 06/14/21 21:42 Temperature 36.4 C Pulse Rate 105 H 104 H 99 Respiratory Rate 18 20 Blood Pressure 109/66 Pulse Oximetry 99 06/14/21 21:43 06/14/21 21:54 06/14/21 22:00 Temperature Pulse Rate 100 100 Respiratory Rate 20 Blood Pressure Pulse Oximetry 99 06/15/21 00:00 06/15/21 02:00 06/15/21 02:56 Temperature 36.6 C Pulse Rate 92 80 82 Respiratory Rate 16 18 Blood Pressure 104/61 Pulse Oximetry 100 06/15/21 03:05 06/15/21 04:00 06/15/21 06:00 Temperature 36.5 C Pulse Rate 85 80 89 Respiratory Rate 18 16 Blood Pressure 97/55 L Pulse Oximetry 98 06/15/21 08:00 06/15/21 08:20 06/15/21 10:00 Temperature 36.4 C Pulse Rate 93 93 101 H Respiratory Rate 16 Blood Pr
[2021-06-15 12:36] LABS: Glucose Point of Care 147 mg/dl (65-105)
--- NOTE | 2021-06-15 15:10 | PM.IMPN ---
Progress Note: A&P Assessment and Plan (1) Non-ST elevated myocardial infarction (non-STEMI): Code(s): I21.4 - Non-ST elevation (NSTEMI) myocardial infarction Status: Acute Assessment and Plan: Patient was symptomatic with chest pain; troponin elevated at presentation. Due to her poor respiratory status, she is not a candidate for any intervention. given her complicated history of chronic respiratory failure, recent COVID infection in May 2021, new onset chest pain, associated with frequency and dysuria, she was started on broad-spectrum antibiotic with Zosyn. Due to persistent tachycardia overnight with heart rate in the 150s, cardiology recommended starting amiodarone drip per with improvement of the heart rate in the 90s. Troponin was elevated at 3.79-> 3.86. Continue therapeutic dose of Lovenox and aspirin. At the time of initial evaluation she was chest pain-free. Later during the day she developed intermittent chest pain, treated with nitroglycerin without improvement. She was given morphine. Was tachycardic on admission with heart rate of 150s. EKG reveals atrial tracking cardia, ST depression in V4 V5. (2) Acute on chronic respiratory failure with hypoxia: Code(s): J96.21 - Acute and chronic respiratory failure with hypoxia Status: Acute Assessment and Plan: At baseline patient is on chronic home oxygen 3 L due to COPD. Recently tested COVID positive on May 19, 2021, status post full treatment she was discharged home on her baseline oxygen requirement. Patient present with shortness of breath chest tightness. The chest x-ray suggests diffuse pneumonia. She was started on Zosyn. (3) Sepsis: Code(s): A41.9 - Sepsis, unspecified organism Status: Acute Assessment and Plan: Patient met sepsis criteria with tachycardia elevated white count. Leukocytosis may be related to steroid chronic steroid use. However given urinalysis suggestive of UTI and chest x-ray suggestive of diffuse pneumonia she was started appropriately on Zosyn. (4) GERD (gastroesophageal reflux disease): Code(s): K21.9 - Gastro-esophageal reflux disease without esophagitis Status: Acute Assessment and Plan: Continue Carafate and pantoprazole. (5) Anxiety: Code(s): F41.9 - Anxiety disorder, unspecified Status: Acute Assessment and Plan: Give alprazolam p.r.n.. (6) Chronic back pain: Qualifiers: Back pain location: low back pain Back pain laterality: unspecified Sciatica presence: unspecified whether sciatica present Qualified Code(s): M54.5 - Low back pain; G89.29 - Other chronic pain Code(s): M54.9 - Dorsalgia, unspecified; G89.29 - Other chronic pain Status: Acute Assessment and Plan: Pain management as needed. (7) Hyperlipidemia: Code(s): E78.5 - Hyperlipidemia, unspecified Status: Acute Assessment and Plan: Resume home medication. Previously on pravastatin. (8) Hypertension: Qualifiers: Hypertension type: essential hypertension Qualified Code(s): I10 - Essential (primary) hypertension Code(s): I10 - Essential (primary) hypertension Status: Acute Assessment and Plan: Currently on hydralazine 10 mg p.o. t.i.d. (9) COVID-19: Code(s): U07.1 - COVID-19 Status: Acute Assessment and Plan: Recently treated for COVID; currently tested negative. Additional Plan 06/15/2021 Patient WBC count is high most likely secondary to steroids. Will continue with IV antibiotics. Repeat CBC in the morning. Repeat chest x-ray to see resolution of pneumonia. Patient is in the process of getting life vest. Possible discharge in next couple of days. Subjective Date/time seen: 06/15/21 15:10 Patient was seen during the morning rounds today. Mild shortness of breath, no chest pain. Mood stable. Review of Systems Review of Systems: All systems reviewed & are unr
[2021-06-15 17:14] LABS: Glucose Point of Care 151 mg/dl (65-105)
[2021-06-15 20:36] LABS: Glucose Point of Care 136 mg/dl (65-105)
[2021-06-15] MEDS: FLUTICASONE/SALMETEROL 115-21 MCG INHALER 1 PUFF 2 PUFF INHALATION (21:02)
[2021-06-15] MEDS: ASPIRIN 81 MG CHEWABLE TABLET PO (21:03)
[2021-06-15] MEDS: BACLOFEN 5 MG TABLET PO (21:04)
[2021-06-15] MEDS: INSULIN GLARGINE (*BKC) 100 UNITS/ML 12 UNITS SUB-Q (21:04)
[2021-06-15] MEDS: PRAVASTATIN SODIUM 20 MG TABLET 40 MG PO (21:05)
[2021-06-16] VITALS (26 sets, daily range): BP systolic 95–143; BP diastolic 50–99; PULSE 62–106; RESP 14–20; TEMP 36.1–36.6; O2SAT 95–100
[2021-06-16] MEDS: HYDROcodone/acetaminophen (*CRX) 10-325 MG TABLET 1 TAB PO ×6 (00:32→21:54)
[2021-06-16] MEDS: IPRATROPIUM BR 0.02% INH SOLN 0.5 MG/2.5 ML VIAL INHALATION ×4 (02:56→22:22)
[2021-06-16] MEDS: LEVALBUTEROL NEB 1.25 MG/3 ML 0.63 MG INHALATION ×4 (02:57→22:22)
[2021-06-16 04:53] LABS: Hematocrit 37.9 % (37.0-47.0); Hemoglobin 10.8 g/dL (12.0-15.0); Mean Corpuscular HGB Conc 28.5 g/dl (32-36); Mean Corpuscular Hemoglobin 24.3 pg (26-34); Mean Corpuscular Volume 85.4 fl (80-100); Mean Platelet Volume 11.3 fl (7.4-10.4); Platelet Count Result 324 k/mm3 (150-375); Red Blood Count 4.44 M/mm3 (4.2-5.4); Red Cell Distribution Width 14.6 % (11.5-14.5); White Blood Count 8.3 K/mm3 (4.5-10.0)
[2021-06-16] MEDS: ENOXAPARIN 60 MG/0.6 ML SYRINGE SUB-Q ×2 (05:52→18:42)
[2021-06-16] MEDS: ONDANSETRON HCL ODT 4 MG TABLET PO ×3 (05:59→23:13)
[2021-06-16] MEDS: FUROSEMIDE 20 MG TABLET PO (08:42)
[2021-06-16] MEDS: SUCRALFATE 1 GM TABLET PO (08:42)
[2021-06-16] MEDS: SACUBITRIL/VALSARTAN 24-26 MG TABLET 1 TAB PO ×2 (08:42→21:55)
[2021-06-16] MEDS: AMIODARONE HCL 200 MG TABLET PO ×2 (08:43→17:27)
[2021-06-16] MEDS: MONTELUKAST SODIUM 10 MG TABLET PO (08:43)
[2021-06-16] MEDS: THEOPHYLLINE 300 MG ER 12 HR TABLET PO (08:43)
[2021-06-16] MEDS: SPIRONOLACTONE 25 MG TABLET PO (08:44)
[2021-06-16] MEDS: carvediloL 3.125 MG TABLET PO ×2 (08:44→21:55)
[2021-06-16] MEDS: predniSONE 10 MG TABLET PO (08:44)
[2021-06-16] MEDS: PANTOPRAZOLE 40 MG TABLET PO ×2 (08:44→17:28)
[2021-06-16] MEDS: metFORMIN HCL 500 MG TABLET PO ×2 (08:44→17:27)
[2021-06-16] MEDS: FLUTICASONE/SALMETEROL 115-21 MCG INHALER 1 PUFF 2 PUFF INHALATION ×2 (09:20→22:22)
--- NOTE | 2021-06-16 10:20 | PM.IMPN ---
Progress Note: A&P Assessment and Plan (1) Non-ST elevated myocardial infarction (non-STEMI): Code(s): I21.4 - Non-ST elevation (NSTEMI) myocardial infarction Status: Acute Assessment and Plan: Patient was symptomatic with chest pain; troponin elevated at presentation. Due to her poor respiratory status, she is not a candidate for any intervention. given her complicated history of chronic respiratory failure, recent COVID infection in May 2021, new onset chest pain, associated with frequency and dysuria, she was started on broad-spectrum antibiotic with Zosyn. Due to persistent tachycardia overnight with heart rate in the 150s, cardiology recommended starting amiodarone drip per with improvement of the heart rate in the 90s. Troponin was elevated at 3.79-> 3.86. Continue therapeutic dose of Lovenox and aspirin. At the time of initial evaluation she was chest pain-free. Later during the day she developed intermittent chest pain, treated with nitroglycerin without improvement. She was given morphine. Was tachycardic on admission with heart rate of 150s. EKG reveals atrial tracking cardia, ST depression in V4 V5. (2) Acute on chronic respiratory failure with hypoxia: Code(s): J96.21 - Acute and chronic respiratory failure with hypoxia Status: Acute Assessment and Plan: At baseline patient is on chronic home oxygen 3 L due to COPD. Recently tested COVID positive on May 19, 2021, status post full treatment she was discharged home on her baseline oxygen requirement. Patient present with shortness of breath chest tightness. The chest x-ray suggests diffuse pneumonia. She was started on Zosyn. (3) Sepsis: Code(s): A41.9 - Sepsis, unspecified organism Status: Acute Assessment and Plan: Patient met sepsis criteria with tachycardia elevated white count. Leukocytosis may be related to steroid chronic steroid use. However given urinalysis suggestive of UTI and chest x-ray suggestive of diffuse pneumonia she was started appropriately on Zosyn. (4) GERD (gastroesophageal reflux disease): Code(s): K21.9 - Gastro-esophageal reflux disease without esophagitis Status: Acute Assessment and Plan: Continue Carafate and pantoprazole. (5) Anxiety: Code(s): F41.9 - Anxiety disorder, unspecified Status: Acute Assessment and Plan: Give alprazolam p.r.n.. (6) Chronic back pain: Qualifiers: Back pain location: low back pain Back pain laterality: unspecified Sciatica presence: unspecified whether sciatica present Qualified Code(s): M54.5 - Low back pain; G89.29 - Other chronic pain Code(s): M54.9 - Dorsalgia, unspecified; G89.29 - Other chronic pain Status: Acute Assessment and Plan: Pain management as needed. (7) Hyperlipidemia: Code(s): E78.5 - Hyperlipidemia, unspecified Status: Acute Assessment and Plan: Resume home medication. Previously on pravastatin. (8) Hypertension: Qualifiers: Hypertension type: essential hypertension Qualified Code(s): I10 - Essential (primary) hypertension Code(s): I10 - Essential (primary) hypertension Status: Acute Assessment and Plan: Currently on hydralazine 10 mg p.o. t.i.d. (9) COVID-19: Code(s): U07.1 - COVID-19 Status: Acute Assessment and Plan: Recently treated for COVID; currently tested negative. Additional Plan 06/15/2021 Patient WBC count is high most likely secondary to steroids. Will continue with IV antibiotics. Repeat CBC in the morning. Repeat chest x-ray to see resolution of pneumonia. Patient is in the process of getting life vest. Possible discharge in next couple of days. 06/16/2021 Plan is to continue current treatment. Chest x-ray shows Improvement in pneumonia. If stays okay to discharge home in the morning. Subjective Date/time seen: 06/16/21 10:20 Patient was seen during the [facility]
[2021-06-16 10:40] LABS: Glucose Point of Care 94 mg/dl (65-105)
--- NOTE | 2021-06-16 11:19 | PM.PNCARD ---
Progress Note: A&P Assessment and Plan (1) Acute systolic CHF (congestive heart failure): Code(s): I50.21 - Acute systolic (congestive) heart failure Status: Acute Assessment and Plan: Patient with newly diagnosed CHF with severely reduced ejection fraction with dilated LV. Volume status has improved. Chest x-ray from 06/15/2021 which I personally evaluated showed bibasilar infiltrates with interval improvement, hyperinflated lung vasquez. Optimal, tolerable medical treatment for CHF with reduced ejection fraction. Continue carvedilol, sacubitril/valsartan, spironolactone. Consider adding SGLT2 as an outpatient. Patient's blood pressure has been on the lower side. Hydralazine was discontinued yesterday to leave room to optimize other standard CHF medications. Continue low-dose furosemide 20 mg p.o. daily, which she will need as maintenance diuresis as an outpatient. Patient has been fitted with LifeVest. Patient will go ischemic evaluation as an outpatient. She will follow-up with Dr Haskins in the cardiology clinic. Other management as per primary team. Anticipated discharge tomorrow. Subjective Date/time seen: 06/16/21 11:19 Interval history: Severe dilated cardiomyopathy, newly diagnosed. In this setting 1 would have to presume this is most likely postviral given recent infection with coronavirus. Patient had no cardiac problems prior to this. Has a severe global dilated cardiomyopathy by echo. This was discussed with the patient in detail this morning. Troponin levels were elevated on admission yesterday but flat. Certainly has risk factors for coronary disease as outlined in the consultation. No further chest pain this morning. Last evening the patient had a very rapid narrow QRS tachycardia heart rate was over 180. She says she was asymptomatic at the time. She was placed on intravenous amiodarone back in sinus rhythm following that. Echocardiogram yesterday once again showed severe global LV systolic dysfunction. Date of service 06/15/2021-patient reported improvement in shortness of breath she denied any chest pain. No palpitation no dizziness or syncope. On telemetry, she has been in sinus rhythm. She was being fitted with LifeVest at the time of evaluation. 06/16/2021-patient continues to have dyspnea on mild exertion. Denies chest pain. No palpitation, dizziness or syncope. She was fitted with LifeVest yesterday. Exam Narrative: PHYSICAL EXAMINATION: GENERAL: Alert, oriented, no acute distress MENTAL STATUS: affect appropriate to mood EYES: Extraocular movements intact, no pallor EARS: External ears appear normal, hearing grossly normal NOSE: Normal and patent, no discharge MOUTH: Mucous membranes moist, tongue normal NECK: Supple, no JVD CHEST: Diffuse rhonchi; LifeVest is in place HEART: Normal rate, regular rhythm ABDOMEN: Soft, nontender NEUROLOGICAL: Alert, oriented, normal speech, no gross motor deficits MUSCULOSKELETAL: No major deformity, no amputation EXTREMITIES: No pedal edema, no clubbing, no cyanosis SKIN: Ecchymosis in the arms PSYCHIATRIC: Normal mood, appropriate affect Objective Data Vital Signs Vital Signs: Vital Signs - 24 hr 06/15/21 12:00 06/15/21 14:00 06/15/21 14:08 Temperature 36.4 C Pulse Rate 97 96 75 Respiratory Rate 16 18 Blood Pressure 111/66 Pulse Oximetry 97 06/15/21 14:19 06/15/21 14:20 06/15/21 16:00 Temperature 36.6 C Pulse Rate 99 103 H Respiratory Rate 20 18 Blood Pressure 98/61 L Pulse Oximetry 96 97 06/15/21 17:26 06/15/21 18:00 06/15/21 19:17 Temperature 36.6 C Pulse Rate 104 H 109 H 108 H Respiratory Rate 18 Blood Pressure 106/62 Pulse Oximetry 99 06/15/21 20:00 06/15/21 21:02 06/15/21 21:03 Temperature Pulse Rate 93 96 Respiratory Rate 20 Blood Pressure Pulse Oximetry 99 96 06/15/21 21:04 06/15/21 21:15 06/15/21 22:00 Temperature Pulse Rate 94 92 76
[2021-06-16 13:05] LABS: Glucose Point of Care 150 mg/dl (65-105)
[2021-06-16 17:38] LABS: Glucose Point of Care 156 mg/dl (65-105)
[2021-06-16 20:22] LABS: Glucose Point of Care 158 mg/dl (65-105)
[2021-06-16] MEDS: ASPIRIN 81 MG CHEWABLE TABLET PO (21:55)
[2021-06-16] MEDS: BACLOFEN 5 MG TABLET PO (21:55)
[2021-06-16] MEDS: PRAVASTATIN SODIUM 20 MG TABLET 40 MG PO (21:55)
[2021-06-16] MEDS: INSULIN GLARGINE (*BKC) 100 UNITS/ML 12 UNITS SUB-Q (21:57)
[2021-06-17] VITALS (13 sets, daily range): BP systolic 100–112; BP diastolic 52–58; PULSE 67–98; RESP 18–24; TEMP 36.2–36.7; O2SAT 96–100
[2021-06-17] MEDS: HYDROcodone/acetaminophen (*CRX) 10-325 MG TABLET 1 TAB PO ×3 (01:45→10:30)
[2021-06-17] MEDS: IPRATROPIUM BR 0.02% INH SOLN 0.5 MG/2.5 ML VIAL INHALATION ×2 (03:01→10:22)
[2021-06-17] MEDS: LEVALBUTEROL NEB 1.25 MG/3 ML 0.63 MG INHALATION ×2 (03:01→10:23)
[2021-06-17] MEDS: ENOXAPARIN 60 MG/0.6 ML SYRINGE SUB-Q (06:02)
[2021-06-17] MEDS: ONDANSETRON HCL ODT 4 MG TABLET PO (06:05)
[2021-06-17] MEDS: SACUBITRIL/VALSARTAN 24-26 MG TABLET 1 TAB PO (08:22)
[2021-06-17] MEDS: predniSONE 10 MG TABLET PO (08:22)
[2021-06-17] MEDS: MONTELUKAST SODIUM 10 MG TABLET PO (08:22)
[2021-06-17] MEDS: THEOPHYLLINE 300 MG ER 12 HR TABLET PO (08:22)
[2021-06-17] MEDS: metFORMIN HCL 500 MG TABLET PO (08:22)
[2021-06-17] MEDS: SPIRONOLACTONE 25 MG TABLET PO (08:23)
[2021-06-17] MEDS: carvediloL 3.125 MG TABLET PO (08:23)
[2021-06-17] MEDS: FUROSEMIDE 20 MG TABLET PO (08:23)
[2021-06-17] MEDS: PANTOPRAZOLE 40 MG TABLET PO (08:23)
[2021-06-17] MEDS: AMIODARONE HCL 200 MG TABLET PO (08:24)
[2021-06-17] MEDS: SUCRALFATE 1 GM TABLET PO (08:24)
[2021-06-17 08:27] LABS: Glucose Point of Care 72 mg/dl (65-105)
[2021-06-17] MEDS: FLUTICASONE/SALMETEROL 115-21 MCG INHALER 1 PUFF 2 PUFF INHALATION (10:24)
--- NOTE | 2021-06-17 11:23 | PM.IMPN ---
Progress Note: A&P Assessment and Plan (1) Non-ST elevated myocardial infarction (non-STEMI): Code(s): I21.4 - Non-ST elevation (NSTEMI) myocardial infarction Status: Acute Assessment and Plan: Patient was symptomatic with chest pain; troponin elevated at presentation. Due to her poor respiratory status, she is not a candidate for any intervention. given her complicated history of chronic respiratory failure, recent COVID infection in May 2021, new onset chest pain, associated with frequency and dysuria, she was started on broad-spectrum antibiotic with Zosyn. Due to persistent tachycardia overnight with heart rate in the 150s, cardiology recommended starting amiodarone drip per with improvement of the heart rate in the 90s. Troponin was elevated at 3.79-> 3.86. Continue therapeutic dose of Lovenox and aspirin. At the time of initial evaluation she was chest pain-free. Later during the day she developed intermittent chest pain, treated with nitroglycerin without improvement. She was given morphine. Was tachycardic on admission with heart rate of 150s. EKG reveals atrial tracking cardia, ST depression in V4 V5. Echo 06/13/2021 with ejection fraction 20-25% severely hypokinetic to akinetic mid and distal anterior, septal, inferior and lateral calvillo. Preservation of apical contractility. (2) Acute on chronic respiratory failure with hypoxia: Code(s): J96.21 - Acute and chronic respiratory failure with hypoxia Status: Acute Assessment and Plan: At baseline patient is on chronic home oxygen 3 L due to COPD. Recently tested COVID positive on May 19, 2021, status post full treatment she was discharged home on her baseline oxygen requirement. Patient present with shortness of breath chest tightness. The chest x-ray suggests diffuse pneumonia. She was started on Zosyn. (3) Sepsis: Code(s): A41.9 - Sepsis, unspecified organism Status: Acute Assessment and Plan: Patient met sepsis criteria with tachycardia elevated white count. Leukocytosis may be related to steroid chronic steroid use. However given urinalysis suggestive of UTI and chest x-ray suggestive of diffuse pneumonia she was started appropriately on Zosyn. WBC count has normalized Will switch to Augmentin at discharge effective day 4 (4) GERD (gastroesophageal reflux disease): Code(s): K21.9 - Gastro-esophageal reflux disease without esophagitis Status: Acute Assessment and Plan: Continue Carafate and pantoprazole. (5) Anxiety: Code(s): F41.9 - Anxiety disorder, unspecified Status: Acute Assessment and Plan: Give alprazolam p.r.n.. (6) Chronic back pain: Qualifiers: Back pain laterality: unspecified Back pain location: low back pain Sciatica presence: unspecified whether sciatica present Qualified Code(s): M54.5 - Low back pain; G89.29 - Other chronic pain Code(s): M54.9 - Dorsalgia, unspecified; G89.29 - Other chronic pain Status: Acute Assessment and Plan: Pain management as needed. (7) Hyperlipidemia: Code(s): E78.5 - Hyperlipidemia, unspecified Status: Acute Assessment and Plan: Resume home medication. Previously on pravastatin. (8) Hypertension: Qualifiers: Hypertension type: essential hypertension Qualified Code(s): I10 - Essential (primary) hypertension Code(s): I10 - Essential (primary) hypertension Status: Acute Assessment and Plan: Currently on hydralazine 10 mg p.o. t.i.d. (9) COVID-19: Code(s): U07.1 - COVID-19 Status: Acute Assessment and Plan: Recently treated for COVID in May of 2021; currently tested negative. (10) Acute systolic CHF (congestive heart failure): Code(s): I50.21 - Acute systolic (congestive) heart failure Status: Acute Assessment and Plan: Newly diagnosed with severely reduced ejection fraction. EF 20-25%. On Lasi
--- NOTE | 2021-06-17 11:37 | PM.PNCARD ---
Progress Note: A&P Assessment and Plan (1) Acute systolic CHF (congestive heart failure): Code(s): I50.21 - Acute systolic (congestive) heart failure Status: Acute Assessment and Plan: Patient with newly diagnosed CHF with severely reduced ejection fraction with dilated LV. Volume status has improved. Chest x-ray from 06/15/2021 which I personally evaluated showed bibasilar infiltrates with interval improvement, hyperinflated lung vasquez. Optimal, tolerable medical treatment for CHF with reduced ejection fraction. Continue carvedilol, sacubitril/valsartan, spironolactone. Consider adding SGLT2 as an outpatient. Patient's blood pressure has been on the lower side. Hydralazine was discontinued yesterday to leave room to optimize other standard CHF medications. Continue low-dose furosemide 20 mg p.o. daily, which she will need as maintenance diuresis as an outpatient. Life vest is on Patient will go ischemic evaluation as an outpatient. She will follow-up with Dr Haskins in the cardiology clinic. Other management as per primary team. Subjective Date/time seen: 06/17/21 11:37 Interval history: Severe dilated cardiomyopathy, newly diagnosed. In this setting 1 would have to presume this is most likely postviral given recent infection with coronavirus. Patient had no cardiac problems prior to this. Has a severe global dilated cardiomyopathy by echo. This was discussed with the patient in detail this morning. Troponin levels were elevated on admission yesterday but flat. Certainly has risk factors for coronary disease as outlined in the consultation. No further chest pain this morning. Last evening the patient had a very rapid narrow QRS tachycardia heart rate was over 180. She says she was asymptomatic at the time. She was placed on intravenous amiodarone back in sinus rhythm following that. Echocardiogram yesterday once again showed severe global LV systolic dysfunction. Date of service 06/15/2021-patient reported improvement in shortness of breath she denied any chest pain. No palpitation no dizziness or syncope. On telemetry, she has been in sinus rhythm. She was being fitted with LifeVest at the time of evaluation. 06/16/2021-patient continues to have dyspnea on mild exertion. Denies chest pain. No palpitation, dizziness or syncope. She was fitted with LifeVest yesterday. Date of service 06/17/2021: Has some baseline shortness of breath but not worse than usual. No chest pain. LifeVest is on. Supposed to go home yesterday and Anxious to go home. Review of Systems Constitutional: Constitutional: Reports chills, Reports fatigue, Denies fever(s), Reports lethargy, Denies poor appetite and Reports weakness Eyes: Eyes: Denies eye discharge, Denies loss of vision, Denies eye pain and Denies photophobia ENT: Denies dizziness, Denies epistaxis, Denies nasal congestion and Denies sore throat Cardiovascular: Cardiovascular: Reports chest pain, Denies syncope, Denies pedal edema, Denies leg edema, Denies palpitations, Reports dyspnea, Reports dyspnea on exertion and Denies orthopnea Respiratory: Respiratory: Denies cough, Reports dyspnea, Reports dyspnea on exertion and Denies wheezing Gastrointestinal: Gastrointestinal: Denies abdominal pain, Denies diarrhea, Denies nausea and Denies vomiting Genitourinary: Genitourinary: Denies hematuria, Reports nocturia, Denies genital lesions and Reports dysuria Musculoskeletal: Musculoskeletal: Denies arthralgias, Denies joint swelling and Denies numbness Integumentary/Breasts: Skin/Breast: Denies pruritus and Denies rash Neurologic: Denies dizziness, Denies syncope, Denies loss of vision, Denies numbness and Reports weakness Psychiatric: Psychiatric: Denies anxiety and Denies depression Endocrine: Endocrine: Denies cold intolerance, Reports fatigue, Denies heat intolerance and Denies palpitations Hematologic/Lymphatic: Hematologic/Lymphatic: Reports easy bruising
--- NOTE | 2021-06-17 12:01 | PM.DS ---
DS: Admitting Diagnosis Discharge Date 06/17/2021 Admitting Diagnosis chest pain, sob DS: Discharge Diagnosis Discharge Diagnosis (1) Non-ST elevated myocardial infarction (non-STEMI): Code(s): I21.4 - Non-ST elevation (NSTEMI) myocardial infarction Status: Acute Assessment and Plan: Patient was symptomatic with chest pain; troponin elevated at presentation. Due to her poor respiratory status, she is not a candidate for any intervention. given her complicated history of chronic respiratory failure, recent COVID infection in May 2021, new onset chest pain, associated with frequency and dysuria, she was started on broad-spectrum antibiotic with Zosyn. Due to persistent tachycardia overnight with heart rate in the 150s, cardiology recommended starting amiodarone drip per with improvement of the heart rate in the 90s. Troponin was elevated at 3.79-> 3.86. Continue therapeutic dose of Lovenox and aspirin. At the time of initial evaluation she was chest pain-free. Later during the day she developed intermittent chest pain, treated with nitroglycerin without improvement. She was given morphine. Was tachycardic on admission with heart rate of 150s. EKG reveals atrial tracking cardia, ST depression in V4 V5. Echo 06/13/2021 with ejection fraction 20-25% severely hypokinetic to akinetic mid and distal anterior, septal, inferior and lateral calvillo. Preservation of apical contractility. life vest fitted. ischemic evaluation planned as op basis. (2) Acute on chronic respiratory failure with hypoxia: Code(s): J96.21 - Acute and chronic respiratory failure with hypoxia Status: Acute Assessment and Plan: At baseline patient is on chronic home oxygen 3 L due to COPD. Recently tested COVID positive on May 19, 2021, status post full treatment she was discharged home on her baseline oxygen requirement. Patient present with shortness of breath chest tightness. The chest x-ray suggests diffuse pneumonia. She was started on Zosyn. switch to augmentin at discahrge to complete the course. cxr repeated with improveement in her pneumonia (3) Sepsis: Code(s): A41.9 - Sepsis, unspecified organism Status: Acute Assessment and Plan: Patient met sepsis criteria with tachycardia elevated white count. Leukocytosis may be related to steroid chronic steroid use. However given urinalysis suggestive of UTI and chest x-ray suggestive of diffuse pneumonia she was started appropriately on Zosyn. WBC count has normalized Will switch to Augmentin at discharge effective day 4 at the day of discharge. (4) GERD (gastroesophageal reflux disease): Code(s): K21.9 - Gastro-esophageal reflux disease without esophagitis Status: Acute Assessment and Plan: Continue Carafate and pantoprazole. (5) Anxiety: Code(s): F41.9 - Anxiety disorder, unspecified Status: Acute Assessment and Plan: Give alprazolam p.r.n.. (6) Chronic back pain: Qualifiers: Back pain location: low back pain Back pain laterality: unspecified Sciatica presence: unspecified whether sciatica present Qualified Code(s): M54.5 - Low back pain; G89.29 - Other chronic pain Code(s): M54.9 - Dorsalgia, unspecified; G89.29 - Other chronic pain Status: Acute Assessment and Plan: Pain management as needed. (7) Hyperlipidemia: Code(s): E78.5 - Hyperlipidemia, unspecified Status: Acute Assessment and Plan: Resume home medication. Previously on pravastatin. (8) Hypertension: Qualifiers: Hypertension type: essential hypertension Qualified Code(s): I10 - Essential (primary) hypertension Code(s): I10 - Essential (primary) hypertension Status: Acute Assessment and Plan: Currently on hydralazine 10 mg p.o. t.i.d. (9) COVID-19: Code(s): U07.1 - COVID-19 Status: Acute Assessment and Plan: Recently treated for COVID in
== END 2021-06-17 13:20 | disposition home health service (06) | DRG 871 ==
LOC: ANHED 06:34 → ANHIMU 06-14 13:40
PROVIDERS: Internal Medicine; Admitting Provider Internal Medicine; Emergency Provider Emergency Medicine; PCP Physician Assistant; Visit Provider Internal Medicine
DX: A41.9 Sepsis, unspecified organism (principal); J96.21 Acute and chronic respiratory failure with hypoxia; J18.9 Pneumonia, unspecified organism; I50.21 Acute systolic (congestive) heart failure; I21.4 Non-ST elevation (NSTEMI) myocardial infarction; N39.0 Urinary tract infection, site not specified; I42.0 Dilated cardiomyopathy; U09.9 Post COVID-19 condition, unspecified; Z20.822 Contact with and (suspected) exposure to COVID-19; J44.9 Chronic obstructive pulmonary disease, unspecified; K21.9 Gastro-esophageal reflux disease without esophagitis; F41.9 Anxiety disorder, unspecified; M54.50 Low back pain, unspecified; G89.29 Other chronic pain; Z99.81 Dependence on supplemental oxygen; E78.5 Hyperlipidemia, unspecified; I10 Essential (primary) hypertension; M19.90 Unspecified osteoarthritis, unspecified site; E11.9 Type 2 diabetes mellitus without complications; Z90.710 Acquired absence of both cervix and uterus; Z87.891 Personal history of nicotine dependence
CPT/HCPCS: 36415; 36600; 71045; 71046; 80053; 82375; 82805; 82948; 83050; 83605; 83880; 84484; 85025; 85027; 85610; 85730; 87040; 93005; 93306; 94002; 94640; 96365; 96374; 97161; A9270; C9803; J0282; J1650; J1815; J2270; J2543; J2930; J7120; J7512; U0003; U0005

== ENCOUNTER 2021-06-26 16:01 | Outpatient (CLI) | payer MEDICARE, MEDICAID, SELFPAY ==
[2021-06-26 16:40] LABS: Basophils Absolute Auto 0.2 K/mm3 (0.0-0.1); Basophils Percent Auto 0.8 % (0.2-1.2); Eosinophils Percent Auto 0.1 % (0-4.4); Hematocrit 43.3 % (37.0-47.0); Hemoglobin 12.5 g/dL (12.0-15.0); Immature Granulocyte Absolute 0.43 K/mm3 (0.00-0.031); Immature Granulocyte Percent A 2.3 % (0-0.5); Lymphocytes Absolute Auto 1.18 K/mm3 (0.9-3.2); Lymphocytes Percent Auto 6.3 % (18.3-44.2); Mean Corpuscular HGB Conc 28.9 g/dl (32-36); Mean Corpuscular Hemoglobin 24.5 pg (26-34); Mean Corpuscular Volume 84.9 fl (80-100); Mean Platelet Volume 11.7 fl (7.4-10.4); Monocytes Absolute Auto 0.5 K/mm3 (0.1-0.6); Monocytes Percent Auto 2.5 % (2.6-8.5); Neutrophils Absolute Auto 16.6 K/mm3 (1.3-6.7); Platelet Count Result 481 k/mm3 (150-375); Red Cell Distribution Width 14.7 % (11.5-14.5); White Blood Count 18.9 K/mm3 (4.5-10.0)
[2021-06-26 17:04] LABS: Free T4 Free Thyroxine 1.99 ng/mL (0.78-2.19)
[2021-06-26 17:18] LABS: Hypochromasia 1+ (NORMAL); Platelet Estimate Increased (Adequate)
[2021-06-26 17:19] LABS: Ovalocytes 1+ (NORMAL)
== END 2021-06-26 16:02 | disposition home or self-care (01) ==
LOC: ANHLAB 16:05
PROVIDERS: PCP Physician Assistant; Visit Provider Nurse Practitioner
DX: I42.0 Dilated cardiomyopathy (principal); R63.4 Abnormal weight loss
CPT/HCPCS: 36415; 84439; 84443; 85025

== ENCOUNTER 2022-07-20 09:43 | Inpatient (IN) | payer MEDICARE, MEDICAID, SELFPAY ==
[2022-07-20] VITALS (24 sets, daily range): BP systolic 75–103; BP diastolic 44–67; PULSE 78–104; RESP 16–32; TEMP 36.4–36.7; O2SAT 95–100
--- NOTE | ~2022-07-20 | XR_ITS ---
EXAMINATION: XR chest PICC line Exam Date/Time: 07/22/2022 20:40 CDT HISTORY: picc line placement Comparison: 06/15/2021. RESULT: Lines, tubes, and devices: Right upper extremity PICC terminating in the mid SVC. Lungs and pleura: Emphysematous and senescent changes. Cardiomediastinal silhouette: Stable. Other: No acute osseous or upper abdominal finding. IMPRESSION: Right upper extremity PICC, in good position. Reviewed, dictated and finalized at location K.
--- NOTE | ~2022-07-20 | XR_ITS ---
EXAMINATION: XR chest 1V portable DATE: 07/24/2022 09:33 INDICATION: Pneumonia. TECHNIQUE: A single frontal view of the chest was obtained. COMPARISON: Chest single view 07/22/2022, chest CT 07/20/2022 FINDINGS: The lungs are hyperexpanded with lucencies, consistent with emphysema. There is mild scarri ng at the lung apices. There is mild atelectasis versus scarring in the lower lung zones. No pleural effusion or pneumothorax. The heart size is normal. There are old healed bilateral rib fractures. A r ight upper extremity peripherally inserted central venous catheter (PICC) is seen with tip in the sup erior margin of the radiograph in the right neck. IMPRESSION: 1. Emphysema. 2. Mild scarring at the lung apices and mild atelectasis versus scarring in the lower lung zones. 3. PICC tip in the right neck. Reviewed, dictated and finalized at location A.
--- NOTE | ~2022-07-20 | CT_ITS ---
EXAMINATION: CTA chest PE protocol DATE: 07/20/2022 11:18 INDICATION: Shortness of breath and fever. Chest pain, back pain. Rib fracture. TECHNIQUE: Computed tomography (CT) pulmonary angiogram of the chest was performed with 100 mL Omnipa que-350 intravenous contrast. Additional 3D reconstructions utilizing coronal maximum intensity proje ction (MIP) were performed. Automated exposure control and iterative reconstruction technique were em ployed. The dose-length product was 223.90 mGy-cm. COMPARISON: 05/29/2021 FINDINGS: Excellent contrast opacification of the pulmonary arteries. There is mild streak artifact from dense contrast in the superior vena cava and right atrium. Mild scattered respiratory motion artifact most prominent in the left lower lung zone where it decreases sensitivity in some of the smaller subsegmen viv pulmonary arteries. No pulmonary embolism. Mild emphysema. Postoperative changes likely prior pul monary wedge resection at the superior segment right lower lobe where there is a suture line and some linear scarring. Diffuse mild bronchial wall thickening with mild mucous plugging the bilateral lowe r lobes. There are scattered regions of tree-in-bud opacity with small centrilobular nodules consiste nt with endobronchial spread of disease/pneumonia in the right upper and bilateral lower lobes. There are a few scattered calcified pulmonary nodules along with calcified right hilar lymph nodes consist ent with old granulomatous disease. No pleural effusion. Heart size is normal. Atherosclerotic [place] artery calcification. No pericardial effusion. Thoracic aorta is normal in caliber with no dissect ion. No pathologically enlarged thoracic lymphadenopathy. Small sliding-type hiatal hernia. Small reg ion of cortical scarring at the upper poles of both kidneys likely sequela of prior infection or infa rction. Chronic superior endplate compression fracture at T11. IMPRESSION: 1. No pulmonary embolism. 2. Bronchitis and scattered regions of tree-in-bud opacity consistent with endobronchial spread of di sease/pneumonia. 3. Mild emphysema. 4. Small sliding-type hiatal hernia. Reviewed, dictated and finalized at location A. IMPRESSION: 1. No pulmonary embolism. 2. Bronchitis and scattered regions of tree-in-bud opacity consistent with endo bronchial spread of disease/pneumonia. 3. Mild emphysema. 4. Small sliding-type hiatal hernia.
--- NOTE | 2022-07-20 09:57 | ECG_ITS ---
Measurements Intervals [place] Rate: 99 P: 82 ID: [id number] QRS: 91 QRSD: 90 T: 68 QT: 335 QTc: 432 Interpretive Statements SINUS RHYTHM RIGHT AXIS DEVIATION BASELINE ARTIFACT- I, II, III, AVR, AVL, AVF, V1-V2, V4-V6 BORDERLINE ECG COMPARED TO ECG 06/13/2021 19:17:36 SINUS RHYTHM NOW PRESENT Electronically Signed On 07-20-2022 13:18:44 CDT by Jere Lee D.O.
--- NOTE | 2022-07-20 09:57 | ED.GENADULT ---
HPI - General Adult General Chief complaint: Shortness of Breath/Dyspnea Stated complaint: dyspnea Time Seen by Provider: 07/20/22 09:47 History of Present Illness HPI narrative: 67-year-old female with history of COPD normally on 3 liters of oxygen by nasal cannula at all times presented the emergency department for evaluation of fever at home and increased shortness of breath and back pain. Patient reports approximate 4 weeks ago she had a ground-level fall resulting in 6 broken ribs on the right. Patient states that her rib pain is unchanged but that this morning when she woke up she had onset of stabbing back pain. Patient does have a prior history of CT and states this felt similar to her previous CT. Patient denies any associated chest pain or shortness of breath at this time. Patient was having some shortness of breath and was treated with a DuoNeb in route and states that this helped with her symptoms. Patient states that she did have some fever prior to arrival. Patient was afebrile upon arrival to the emergency department. Related Data Home Medications Medication Instructions Recorded Confirmed alendronate 70 mg tablet 70 mg PO WEEKLY 04/08/21 07/20/22 aspirin 81 mg tablet 81 mg PO HS 04/08/21 07/20/22 baclofen 10 mg tablet 10 mg PO HS 04/08/21 07/20/22 diazepam 2 mg tablet 2 mg PO HS PRN Anxiety 04/08/21 07/20/22 fluticasone 250 mcg-salmeterol 50 1 inh inhalation BID 04/08/21 07/20/22 mcg/dose blistr powdr for inhalation (Advair Diskus) hydrocodone 10 mg-acetaminophen 1 tablet PO Q6H PRN Pain 04/08/21 07/20/22 325 mg tablet metformin 500 mg tablet 500 mg PO BID 04/08/21 07/20/22 montelukast 10 mg tablet 10 mg PO HS 04/08/21 07/20/22 omeprazole 20 mg capsule,delayed 20 mg PO BID 04/08/21 07/20/22 release pravastatin 40 mg tablet 40 mg PO HS 04/08/21 07/20/22 prednisone 10 mg tablet 10 mg PO DAILY 04/08/21 07/20/22 sucralfate 1 gram tablet 1 g PO DAILY 04/08/21 07/20/22 theophylline 300 mg 300 mg PO DAILY 04/08/21 07/20/22 tablet,extended release,12 hr tiotropium bromide 18 mcg capsule 18 cap inhalation DAILY 04/08/21 07/20/22 with inhalation device (Spiriva with HandiHaler) albuterol sulfate 90 mcg/actuation 2 puff inhalation Q4H PRN 07/20/22 07/20/22 aerosol inhaler (Ventolin HFA) Shortness Of Breath ferrous sulfate 325 mg (65 mg 325 mg PO DAILY 07/20/22 07/20/22 iron) tablet,delayed release mirtazapine 15 mg tablet 15 mg PO DAILY 07/20/22 07/20/22 ondansetron 4 mg disintegrating 4 mg PO TID PRN Nausea And Vomiting 07/20/22 07/20/22 tablet spironolactone 25 mg tablet 12.5 mg PO QAM 07/20/22 07/20/22 Allergies Allergy/AdvReac Type Severity Reaction Status Date / Time cephalexin Allergy Mild Hives Verified 07/20/22 09:57 levofloxacin Allergy Mild FEET Verified 07/20/22 09:57 SWELLING Sulfa (Sulfonamide Allergy Unknown Hives Verified 07/20/22 09:57 Antibiotics) Review of Systems Review of Systems: All systems reviewed & are unremarkable except as noted in HPI and below PMFSH Past Medical History Medical History (Updated 07/20/22 @ 18:09 by Cristobal Whitten MD) Anxiety Chronic back pain Chronic respiratory failure with hypoxia, on home oxygen therapy E. coli urinary tract infection (03/2021) Multi-drug resistant, not ESBL. Gastric ulcer Gastroesophageal reflux disease History of MRSA infection Hyperlipidemia Hypertension Osteoarthritis Osteoporosis Rib fractures Sciatica Steroid-dependent chronic obstructive pulmonary disease Type 2 diabetes mellitus Surgical History Surgical History (Updated 07/20/22 @ 15:31 by Odessa Schaefer NP) H/O tubal ligation History of appendectomy History of arthroscopy of right knee History of hysterectomy (1985) Total abdominal hysterectomy with unilateral salpingo-oophorectomy for benign reasons. History of lung biopsy In the late . She reports she had a lung biopsy which resulted in collapsed lung , what sounds like a p
[2022-07-20 10:11] LABS: Basophils Absolute Auto 0.1 K/mm3 (0.0-0.1); Eosinophils Absolute Auto 0.1 K/mm3 (0-0.3); Eosinophils Percent Auto 0.9 % (0-4.4); Hematocrit 38.6 % (37.0-47.0); Hemoglobin 11.5 g/dL (12.0-15.0); Immature Granulocyte Absolute 0.25 K/mm3 (0.00-0.031); Immature Granulocyte Percent A 1.9 % (0-0.5); Lymphocytes Absolute Auto 2.47 K/mm3 (0.9-3.2); Lymphocytes Percent Auto 18.3 % (18.3-44.2); Mean Corpuscular HGB Conc 29.8 g/dl (32-36); Mean Corpuscular Hemoglobin 24.3 pg (26-34); Mean Corpuscular Volume 81.4 fl (80-100); Mean Platelet Volume 10.8 fl (7.4-10.4); Monocytes Absolute Auto 0.9 K/mm3 (0.1-0.6); Monocytes Percent Auto 6.9 % (2.6-8.5); Neutrophils Absolute Auto 9.6 K/mm3 (1.3-6.7); Platelet Count Result 256 k/mm3 (150-375); Red Blood Count 4.74 M/mm3 (4.2-5.4); Red Cell Distribution Width 14.1 % (11.5-14.5); White Blood Count 13.5 K/mm3 (4.5-10.0)
[2022-07-20 10:22] LABS: Alanine Aminotransferase 15 U/L (6-35); Alkaline Phosphatase 112 U/L (38-126); Anion Gap 5 mmol/L (8-16); Aspartate Amino Transferase 20 U/L (14-36); Bilirubin,Total 0.6 mg/dL (0.2-1.3); Blood Urea Nitrogen 17 mg/dL (7-17); Calcium 9.1 mg/dL (8.4-10.2); Carbon Dioxide 32 mmol/L (22-30); Chloride 94 mmol/L (98-107); Estimated CRCL calculation 69 ml/min; Estimated Glomerular Filt Rate > 60; Glucose 139 mg/dL (65-110); Potassium 4.2 mmol/L (3.4-5.0); Sodium 131 mmol/L (137-145)
[2022-07-20 10:23] LABS: Partial Thromboplastin Time 31.6 SECONDS (22.3-36.8)
[2022-07-20 10:32] LABS: Troponin I < 0.012 ng/mL (0.000-0.034)
--- NOTE | 2022-07-20 13:19 | PM.IMHP ---
H&P: HPI History of Present Illness Date/Time: 07/20/22 13:19 Chief Complaint: Shortness of breath Narrative: This is a 67-year-old female patient who has a history of COPD and is chronically on oxygen at 3 L per nasal cannula. The patient has had multiple falls due to her oxygen tubing. The patient has a hematoma to her right side of her face and right lower and left lower extremities. The patient has been having multiple falls. The patient reported that she has been having pain to the right side of her chest for approximately 4 weeks since she had a ground level fall resulting in 6 broken ribs on the right side. The patient stated she still continues to have discomfort and today when she woke up she had stabbing back pain. As per the patient she stated she has had a previous [facility] however she has not had any procedures performed. The patient stated that this pain felt like a previous [facility]. the patient has been using inhalers and DuoNebs without any relief. The patient stated that she is chronically on steroids. Her white count is 13.5. Her sodium is 131. Troponins are nonreactive x2. Chest CTA was read as the following1. No pulmonary embolism. 2. Bronchitis and scattered regions of tree-in-bud opacity consistent with endobronchial spread of disease/pneumonia. 3. Mild emphysema. 4. Small sliding-type hiatal hernia. The patient was given morphine, IV Tylenol, Dilaudid, azithromycin, vancomycin and albuterol in the emergency room. The patient is being admitted to inpatient status on the date of service of 07/20/2022 Review of Systems Review of Systems: See HPI All systems reviewed & are unremarkable except as noted in HPI and below Constitutional: Constitutional: Reports as per HPI and Reports no additional constitutional complaints Eyes: Eyes: Reports as per HPI and Reports no additional eye complaints ENT: Reports system reviewed and no additional complaints, except as documented and Reports Normal hearing present Cardiovascular: Cardiovascular: Reports no additional cardiovascular complaints Respiratory: Respiratory: Reports no additional respiratory complaints and Reports no additional respiratory complaints Gastrointestinal: Gastrointestinal: Reports as per HPI and Reports no additional gastrointestinal complaints Musculoskeletal: Musculoskeletal: Reports no additional musculoskeletal complaints Integumentary/Breasts: Skin/Breast: Reports system reviewed and no additional complaints, except as docu and Reports as per HPI Neurologic: Reports system reviewed and no additional complaints, except as documented, Reports as per HPI and Reports Normal hearing present Psychiatric: Psychiatric: Reports no additional psychiatric complaints and Reports as per HPI Endocrine: Endocrine: Reports no additional endocrine complaints Hematologic/Lymphatic: Hematologic/Lymphatic: Reports no additional hematologic/lymphatic complaints Allergic/Immunologic: Allergic/Immunologic: Reports no additional allergic/immunologic complaints FOR[facility]LY [facility] Past Medical History Medical History Anxiety Chronic back pain Chronic respiratory failure with hypoxia, on home oxygen therapy E. coli urinary tract infection (03/2021) Multi-drug resistant, not ESBL. Gastric ulcer Gastroesophageal reflux disease History of MRSA infection Hyperlipidemia Hypertension Osteoarthritis Osteoporosis Rib fractures Sciatica Steroid-dependent chronic obstructive pulmonary disease Type 2 diabetes mellitus Surgical History Surgical History (Updated 07/20/22 @ 15:31 by Odessa Schaefer NP) H/O tubal ligation History of appendectomy History of arthroscopy of right knee History of hysterectomy (1985) Total abdominal hysterectomy with unilateral salpingo-oophorectomy for benign reasons. History of lung biopsy In the late . She reports she had a lung biopsy which resulted in collapsed lung , what sounds like a pne
[2022-07-20] MEDS: HYDROmorphone HCL INJ (*CRX) 1 MG/ML SYR 0.5 MG IV PUSH (13:28)
[2022-07-20] MEDS: ALBUTEROL SULFATE NEB 2.5 MG/3 ML INH INHALATION ×2 (13:33→21:20)
[2022-07-20 13:36] LABS: Troponin I < 0.012 ng/mL (0.000-0.034)
--- NOTE | 2022-07-20 14:57 | ADMGEN ---
This patient, Amber Teran, was admitted to IMU Room 204-01 at 1456. Patient/family oriented to hospital policies and general routines including ID bracelet, bed and alarms, visiting hours, pain management, procedures, bathroom and other care routines, personal items, smoking policy, room service/diet, and visiting hours. Information on how to activate the Rapid Response Team has been discussed. Patient/Family are encouraged to report perceived risks to care and to ask questions if they do not understand what they are told or what they should do.
--- NOTE | 2022-07-20 15:17 | PC.NURSE ---
This patient, Amber Teran, was admitted to IMU Room 204-01. Patient/family oriented to hospital policies and general routines including ID bracelet, bed and alarms, visiting hours, pain management, procedures, bathroom and other care routines, personal items, smoking policy, room service/diet, and visiting hours. Information on how to activate the Rapid Response Team has been discussed. Patient/Family are encouraged to report perceived risks to care and to ask questions if they do not understand what they are told or what they should do.
[2022-07-20 17:30] LABS: Glucose Point of Care 222 mg/dl (65-105)
[2022-07-20] MEDS: HYDROcodone/acetaminophen (*CRX) 10-325 MG TABLET 1 TAB PO (17:43)
[2022-07-20] MEDS: PANTOPRAZOLE 40 MG TABLET PO (17:43)
[2022-07-20] MEDS: INSULIN ASPART (*BKC) 100 UNITS/ML SUB-Q (17:44)
[2022-07-20 18:41] LABS: Influenza A QL RT-PCR Negative (Negative); Influenza B QL RT-PCR Negative (Negative); RSV RNA, RT-PCR Negative (Negative); SARS-CoV-2 RNA PCR Negative
[2022-07-20 19:56] LABS: Glucose Point of Care 85 mg/dl (65-105)
[2022-07-20] MEDS: ASPIRIN 81 MG CHEWABLE TABLET PO (20:09)
[2022-07-20] MEDS: PRAVASTATIN SODIUM 20 MG TABLET 40 MG PO (20:09)
[2022-07-20] MEDS: carvediloL 3.125 MG TABLET PO (20:09)
[2022-07-20] MEDS: SACUBITRIL/VALSARTAN 24-26 MG TABLET 1 TAB PO (20:09)
[2022-07-20] MEDS: MONTELUKAST SODIUM 10 MG TABLET PO (20:09)
[2022-07-20] MEDS: BACLOFEN 10 MG TABLET PO (20:09)
[2022-07-20] MEDS: FLUTICASONE/SALMETEROL 115-21 MCG INHALER 1 PUFF 2 PUFF INHALATION (21:21)
[2022-07-21] VITALS (24 sets, daily range): BP systolic 90–96; BP diastolic 40–68; PULSE 68–116; RESP 16–416; TEMP 36.5–36.9; O2SAT 95–100
[2022-07-21] MEDS: HYDROcodone/acetaminophen (*CRX) 10-325 MG TABLET 1 TAB PO ×4 (01:52→23:43)
[2022-07-21] MEDS: ALBUTEROL SULFATE NEB 2.5 MG/3 ML INH INHALATION ×4 (03:00→19:35)
[2022-07-21 05:00] LABS: Basophils Absolute Auto 0.1 K/mm3 (0.0-0.1); Eosinophils Absolute Auto 0.1 K/mm3 (0-0.3); Eosinophils Percent Auto 1.3 % (0-4.4); Hematocrit 37.4 % (37.0-47.0); Hemoglobin 11.1 g/dL (12.0-15.0); Immature Granulocyte Absolute 0.24 K/mm3 (0.00-0.031); Immature Granulocyte Percent A 2.3 % (0-0.5); Lymphocytes Absolute Auto 1.17 K/mm3 (0.9-3.2); Lymphocytes Percent Auto 11.4 % (18.3-44.2); Mean Corpuscular HGB Conc 29.7 g/dl (32-36); Mean Corpuscular Hemoglobin 24.4 pg (26-34); Mean Corpuscular Volume 82.4 fl (80-100); Mean Platelet Volume 10.9 fl (7.4-10.4); Monocytes Absolute Auto 0.6 K/mm3 (0.1-0.6); Monocytes Percent Auto 6.2 % (2.6-8.5); Neutrophils Percent Auto 77.8 % (45.5-73.1); Platelet Count Result 226 k/mm3 (150-375); Red Blood Count 4.54 M/mm3 (4.2-5.4); Red Cell Distribution Width 14.4 % (11.5-14.5); White Blood Count 10.3 K/mm3 (4.5-10.0)
[2022-07-21 05:10] LABS: Alanine Aminotransferase 13 U/L (6-35); Albumin Level 3.6 g/dL (3.5-5.1); Alkaline Phosphatase 99 U/L (38-126); Anion Gap 3 mmol/L (8-16); Aspartate Amino Transferase 16 U/L (14-36); Bilirubin,Total 0.6 mg/dL (0.2-1.3); Blood Urea Nitrogen 16 mg/dL (7-17); Calcium 8.7 mg/dL (8.4-10.2); Carbon Dioxide 34 mmol/L (22-30); Chloride 96 mmol/L (98-107); Estimated CRCL calculation 73 ml/min; Estimated Glomerular Filt Rate > 60; Glucose 147 mg/dL (65-110); Magnesium 1.9 mg/dL (1.6-2.3); Potassium 3.6 mmol/L (3.4-5.0); Sodium 133 mmol/L (137-145)
[2022-07-21 05:11] LABS: Lactic Acid Reflex 0.6 mmol/L (0.7-2.0)
[2022-07-21 05:41] LABS: Hemoglobin A1C 7.3 % (<5.7)
[2022-07-21 07:48] LABS: Glucose Point of Care 180 mg/dl (65-105)
[2022-07-21] MEDS: PANTOPRAZOLE 40 MG TABLET PO ×2 (08:34→17:32)
[2022-07-21] MEDS: FUROSEMIDE 20 MG TABLET PO (08:34)
[2022-07-21] MEDS: carvediloL 3.125 MG TABLET PO ×2 (08:34→20:19)
[2022-07-21] MEDS: MIRTAZAPINE 15 MG TABLET PO (08:34)
[2022-07-21] MEDS: SUCRALFATE 1 GM TABLET PO (08:35)
[2022-07-21] MEDS: SACUBITRIL/VALSARTAN 24-26 MG TABLET 1 TAB PO ×2 (08:35→20:20)
[2022-07-21] MEDS: predniSONE 10 MG TABLET PO (08:35)
[2022-07-21] MEDS: SPIRONOLACTONE 12.5 MG TABLET PO (08:35)
[2022-07-21] MEDS: FERROUS SULFATE 324 MG TABLET PO (08:36)
[2022-07-21] MEDS: THEOPHYLLINE 300 MG ER 12 HR TABLET PO (08:37)
[2022-07-21] MEDS: FLUTICASONE/SALMETEROL 115-21 MCG INHALER 1 PUFF 2 PUFF INHALATION ×2 (09:31→19:36)
[2022-07-21 12:06] LABS: Glucose Point of Care 262 mg/dl (65-105)
[2022-07-21] MEDS: INSULIN ASPART (*BKC) 100 UNITS/ML SUB-Q (12:40)
[2022-07-21 16:23] LABS: Glucose Point of Care 161 mg/dl (65-105)
--- NOTE | 2022-07-21 17:21 | PM.IMPN ---
Progress Note: A&P Assessment and Plan (1) Pneumonia: Qualifiers: Pneumonia type: due to unspecified organism Code(s): J18.9 - Pneumonia, unspecified organism Status: Acute Assessment and Plan: The patient has several antibiotic allergies therefore the patient was placed on azithromycin and vancomycin. Sputum and blood cultures are pending Tailor antibiotics to cultures and sensitivities Continue with her home oxygen at 3 L per nasal cannula Continue with nebulizer treatments 07/21/2022 interval history: patient with pneumonia patient stats pain b/l ribs continue but not as short of breath, did offer lidoderm patches, patient refused it, will continue iv abx, will monitor, (2) Rib fractures: Code(s): S22.49XA - Multiple fractures of ribs, unspecified side, initial encounter for closed fracture Status: Acute Assessment and Plan: Continue with analgesics Incentive spirometer (3) Acute on chronic respiratory failure with hypoxia: Code(s): J96.21 - Acute and chronic respiratory failure with hypoxia Status: Acute Assessment and Plan: The patient chronically wears oxygen 3 L at home (4) Steroid-dependent chronic obstructive pulmonary disease: Code(s): J44.9 - Chronic obstructive pulmonary disease, unspecified Status: Acute Assessment and Plan: Continue with patient's home prednisone Continue with nebulizer treatments Continue with Singulair Continue with theophylline (5) GERD (gastroesophageal reflux disease): Code(s): K21.9 - Gastro-esophageal reflux disease without esophagitis Status: Acute Assessment and Plan: Continue with omeprazole (6) Anxiety: Code(s): F41.9 - Anxiety disorder, unspecified Status: Acute Assessment and Plan: Continue with Valium home dose (7) Hyperlipidemia: Code(s): E78.5 - Hyperlipidemia, unspecified Status: Acute Assessment and Plan: Continue with pravastatin (8) Hypertension: Qualifiers: Hypertension type: essential hypertension Qualified Code(s): I10 - Essential (primary) hypertension Code(s): I10 - Essential (primary) hypertension Status: Acute Assessment and Plan: Continue with Coreg Continue with Aldactone (9) Type 2 diabetes mellitus: Qualifiers: Diabetes mellitus ambulance mechanic insulin use: without half-way use Diabetes mellitus complication status: without complication Qualified Code(s): E11.9 - Type 2 diabetes mellitus without complications Code(s): E11.9 - Type 2 diabetes mellitus without complications Status: Acute Assessment and Plan: Accu-Cheks AC and HS with sliding scale insulin and hypoglycemic protocol Holding metformin Subjective Date/time seen: 07/21/22 17:21 Shortness of breath HPI-Narrative: This is a 67-year-old female patient who has a history of COPD and is chronically on oxygen at 3 L per nasal cannula.? The patient has had multiple falls due to her oxygen tubing.? The patient has a hematoma to her right side of her face and right lower and left lower extremities.? The patient has been having multiple falls.? The patient reported that she has been having pain to the right side of her chest for approximately 4 weeks since she had a ground level fall resulting in 6 broken ribs on the right side.? The patient stated she still continues to have discomfort and today when she woke up she had stabbing back pain.? As per the patient she stated she has had a previous [place] however she has not had any procedures performed.? The patient stated that this pain felt like a previous [place]. the patient has been using inhalers and DuoNebs without any relief.? The patient stated that she is chronically on steroids.? Her white count is 13.5.? Her sodium is 131.? Troponins are nonreactive x2.? Chest CTA was read as the following1. No pulmonary embolism. 2. Bronchitis and scattered regions of tree
[2022-07-21 20:04] LABS: Glucose Point of Care 293 mg/dl (65-105)
[2022-07-21] MEDS: MONTELUKAST SODIUM 10 MG TABLET PO (20:19)
[2022-07-21] MEDS: ASPIRIN 81 MG CHEWABLE TABLET PO (20:19)
[2022-07-21] MEDS: PRAVASTATIN SODIUM 20 MG TABLET 40 MG PO (20:19)
[2022-07-21] MEDS: BACLOFEN 10 MG TABLET PO (20:20)
[2022-07-22] VITALS (24 sets, daily range): BP systolic 88–123; BP diastolic 44–69; PULSE 70–110; RESP 16–20; TEMP 36.1–36.7; O2SAT 97–100
[2022-07-22 01:55] LABS: Vancomycin Trough 9.4 ug/mL (10.0-20.0)
[2022-07-22] MEDS: ALBUTEROL SULFATE NEB 2.5 MG/3 ML INH INHALATION ×4 (02:08→21:14)
[2022-07-22 05:41] LABS: Hematocrit 33.9 % (37.0-47.0); Hemoglobin 10.3 g/dL (12.0-15.0); Mean Corpuscular HGB Conc 30.4 g/dl (32-36); Mean Corpuscular Hemoglobin 24.8 pg (26-34); Mean Corpuscular Volume 81.5 fl (80-100); Mean Platelet Volume 10.7 fl (7.4-10.4); Platelet Count Result 216 k/mm3 (150-375); Red Blood Count 4.16 M/mm3 (4.2-5.4); Red Cell Distribution Width 14.2 % (11.5-14.5); White Blood Count 5.8 K/mm3 (4.5-10.0)
[2022-07-22] MEDS: HYDROcodone/acetaminophen (*CRX) 10-325 MG TABLET 1 TAB PO ×3 (06:06→18:32)
[2022-07-22] MEDS: ALENDRONATE SODIUM 70 MG TABLET PO (06:06)
[2022-07-22 06:07] LABS: Anion Gap 2 mmol/L (8-16); Blood Urea Nitrogen 15 mg/dL (7-17); Calcium 8.4 mg/dL (8.4-10.2); Carbon Dioxide 36 mmol/L (22-30); Chloride 91 mmol/L (98-107); Estimated CRCL calculation 73 ml/min; Estimated Glomerular Filt Rate > 60; Glucose 184 mg/dL (65-110); Magnesium 1.9 mg/dL (1.6-2.3); Potassium 3.6 mmol/L (3.4-5.0); Sodium 129 mmol/L (137-145)
[2022-07-22 07:51] LABS: Glucose Point of Care 149 mg/dl (65-105)
--- NOTE | 2022-07-22 08:45 | PC.NURSE ---
Addendum entered by Kailey Diallo RN 07/22/22 08:46: Advised to hold am BP medication and diuretics. Will reassess at noon. Original Note: BP 88/52. Asymptomatic. Dr. Agudelo aware. Advised to hold BP medications and diuretics.
--- NOTE | 2022-07-22 09:41 | WPDNEURCNPN ---
Assessment and Plan Assessment and plan (1) Tremulousness: Code(s): R25.1 - Tremor, unspecified Status: Acute Plan Ambre Teran is a 67 year old female with a history of anxiety, hyperlipidemia, diabetes, hypertension presenting due to fall. Patient has expressed concern regarding tremulousness of her body, especially with activity for the past few months. I think this is more due to deconditioning rather than an organic neurologic process. She was able to drink and eat while I evaluated her today, without any difficulty. I do not think any medication is indicated at this time. Consult date: 07/22/22 Reason for consult: Tremor HPI: Amber Teran is a 67 year old female with a history of anxiety, hyperlipidemia, diabetes, hypertension presenting due to fall. Patient at baseline is on O2 of 3L via nasal cannula. She has had multiple falls due to her oxygen tubing. Patient presented with hematoma to the right face and both lower extremities. She presented due to pain on the right chest for the past month after a fall resulted in broken ribs on the right side.She is currently being treated for pneumonia. Neurology was consulted due to tremor. Patient had TSH checked last year that was normal, but none checked recently. Patient reports a history of full body tremulousness that started a few months ago. She reports symmetric involvement in both arms and legs. Her hands shake when she tries to eat or drink. She denies head tremor. She does not drink alcohol. Mother had Parkinson's disease. Patient is pretty sedentary and uses a walker/cane to get around. Review of Systems Constitutional: Constitutional: Reports no additional constitutional complaints Eyes: Eyes: Reports no additional eye complaints ENT: Reports system reviewed and no additional complaints, except as documented Cardiovascular: Cardiovascular: Reports chest pain Respiratory: Respiratory: Reports dyspnea Gastrointestinal: Gastrointestinal: Reports nausea Genitourinary: Genitourinary: Reports no additional female genitourinary complaints Musculoskeletal: Musculoskeletal: Reports arthralgias Integumentary/Breasts: Skin/Breast: Reports system reviewed and no additional complaints, except as docu Neurologic: Reports as per HPI Psychiatric: Psychiatric: Reports anxiety PMFSH Past Medical History Medical History Anxiety Chronic back pain Chronic respiratory failure with hypoxia, on home oxygen therapy E. coli urinary tract infection (03/2021) Multi-drug resistant, not ESBL. Gastric ulcer Gastroesophageal reflux disease History of MRSA infection Hyperlipidemia Hypertension Osteoarthritis Osteoporosis Rib fractures Sciatica Steroid-dependent chronic obstructive pulmonary disease Type 2 diabetes mellitus Surgical History Surgical History H/O tubal ligation History of appendectomy History of arthroscopy of right knee History of hysterectomy (1985) Total abdominal hysterectomy with unilateral salpingo-oophorectomy for benign reasons. History of lung biopsy In the late . She reports she had a lung biopsy which resulted in collapsed lung , what sounds like a pneumothorax for which she had chest tube. History of orthopedic surgery knee Family History Family History Father Acute myocardial infarction Family history of cardiovascular disease Hypertension Sibling Acute myocardial infarction Diabetes mellitus Family history of cardiovascular disease Breast cancer Mother Cerebrovascular accident Hypertension Social History Social History Social History: Surrogate decision maker: Ajay Gomes, significant other and has 3 children . She is disabled. She chronically wears o2 at 3 liters/per nasal cannula Code status:
[2022-07-22] MEDS: THEOPHYLLINE 300 MG ER 12 HR TABLET PO (09:48)
[2022-07-22] MEDS: SUCRALFATE 1 GM TABLET PO (09:49)
[2022-07-22] MEDS: FERROUS SULFATE 324 MG TABLET PO (09:50)
[2022-07-22] MEDS: PANTOPRAZOLE 40 MG TABLET PO ×2 (09:50→17:08)
[2022-07-22] MEDS: FLUTICASONE/SALMETEROL 115-21 MCG INHALER 1 PUFF 2 PUFF INHALATION ×2 (09:50→21:14)
[2022-07-22] MEDS: MIRTAZAPINE 15 MG TABLET PO (09:50)
[2022-07-22] MEDS: predniSONE 10 MG TABLET PO (09:50)
[2022-07-22 12:05] LABS: Glucose Point of Care 171 mg/dl (65-105)
[2022-07-22 16:51] LABS: Glucose Point of Care 266 mg/dl (65-105)
[2022-07-22] MEDS: INSULIN ASPART (*BKC) 100 UNITS/ML SUB-Q (17:03)
--- NOTE | 2022-07-22 17:19 | PM.IMPN ---
Progress Note: A&P Assessment and Plan (1) Pneumonia: Qualifiers: Pneumonia type: due to unspecified organism Code(s): J18.9 - Pneumonia, unspecified organism Status: Acute Assessment and Plan: The patient has several antibiotic allergies therefore the patient was placed on azithromycin and vancomycin. Sputum and blood cultures are pending Tailor antibiotics to cultures and sensitivities Continue with her home oxygen at 3 L per nasal cannula Continue with nebulizer treatments 07/22/2022 interval history: patient with pneumonia patient stats pain b/l ribs continue but not as short of breath, did offer lidoderm patches, patient refused it, blood culture and nasal swab appendix, will continue iv abx, repeat chest x-ray in the morning, will monitor to monitor and further recommendation to follow (2) Rib fractures: Code(s): S22.49XA - Multiple fractures of ribs, unspecified side, initial encounter for closed fracture Status: Acute Assessment and Plan: Continue with analgesics Incentive spirometer (3) Acute on chronic respiratory failure with hypoxia: Code(s): J96.21 - Acute and chronic respiratory failure with hypoxia Status: Acute Assessment and Plan: The patient chronically wears oxygen 3 L at home (4) Steroid-dependent chronic obstructive pulmonary disease: Code(s): J44.9 - Chronic obstructive pulmonary disease, unspecified Status: Acute Assessment and Plan: Continue with patient's home prednisone Continue with nebulizer treatments Continue with Singulair Continue with theophylline (5) GERD (gastroesophageal reflux disease): Code(s): K21.9 - Gastro-esophageal reflux disease without esophagitis Status: Acute Assessment and Plan: Continue with omeprazole (6) Anxiety: Code(s): F41.9 - Anxiety disorder, unspecified Status: Acute Assessment and Plan: Continue with Valium home dose (7) Hyperlipidemia: Code(s): E78.5 - Hyperlipidemia, unspecified Status: Acute Assessment and Plan: Continue with pravastatin (8) Hypertension: Qualifiers: Hypertension type: essential hypertension Qualified Code(s): I10 - Essential (primary) hypertension Code(s): I10 - Essential (primary) hypertension Status: Acute Assessment and Plan: Continue with Coreg Continue with Aldactone (9) Type 2 diabetes mellitus: Qualifiers: Diabetes mellitus mcfp insulin use: without computer terminal operator use Diabetes mellitus complication status: without complication Qualified Code(s): E11.9 - Type 2 diabetes mellitus without complications Code(s): E11.9 - Type 2 diabetes mellitus without complications Status: Acute Assessment and Plan: Accu-Cheks AC and HS with sliding scale insulin and hypoglycemic protocol Holding metformin Subjective Date/time seen: 07/22/22 17:19 07/22/2022 interval history: patient with pneumonia patient stats pain b/l ribs continue but not as short of breath, did offer lidoderm patches, patient refused it, blood culture and nasal swab appendix, will continue iv abx, repeat chest x-ray in the morning, will monitor to monitor and further recommendation to follow Review of Systems Review of Systems: All systems reviewed & are unremarkable except as noted in HPI and below Exam Narrative: Patient is comfortable, NAD HEENT: eyes are clear and none icteric LUNGS: normal respiratory effort HEART: RR S1S2 ABD: BS+, Soft and nontender Lower extremities: no edema SKIN: nonjaundiced Neuro: grossly intact. Objective Data Vital Signs Vital Signs: Vital Signs - 24 hr 07/21/22 18:00 07/21/22 19:36 07/21/22 19:44 Temperature Pulse Rate 112 H 105 H 102 H Respiratory Rate 18 18 Blood Pressure Pulse Oximetry Oxygen Delivery Oxygen Flow Rate 07/21/22 20:00 07/21/22 20:19 07/21/22 23:53 Temperatur
[2022-07-22 20:05] LABS: Glucose Point of Care 152 mg/dl (65-105)
[2022-07-22] MEDS: ASPIRIN 81 MG CHEWABLE TABLET PO (20:59)
[2022-07-22] MEDS: PRAVASTATIN SODIUM 20 MG TABLET 40 MG PO (21:00)
[2022-07-22] MEDS: carvediloL 3.125 MG TABLET PO (21:00)
[2022-07-22] MEDS: SACUBITRIL/VALSARTAN 24-26 MG TABLET 1 TAB PO (21:00)
[2022-07-22] MEDS: MONTELUKAST SODIUM 10 MG TABLET PO (21:01)
[2022-07-22] MEDS: BACLOFEN 10 MG TABLET PO (21:02)
[2022-07-23] VITALS (23 sets, daily range): BP systolic 83–119; BP diastolic 43–53; PULSE 68–105; RESP 16–22; TEMP 36.4–37.2; O2SAT 96–100
[2022-07-23] MEDS: HYDROcodone/acetaminophen (*CRX) 10-325 MG TABLET 1 TAB PO ×4 (01:01→21:19)
[2022-07-23] MEDS: SALINE LOCK FLUSH 2 ML IV PUSH (02:58)
[2022-07-23] MEDS: ALBUTEROL SULFATE NEB 2.5 MG/3 ML INH INHALATION ×4 (03:00→20:15)
[2022-07-23 05:00] LABS: Hematocrit 30.9 % (37.0-47.0); Hemoglobin 9.4 g/dL (12.0-15.0); Mean Corpuscular HGB Conc 30.4 g/dl (32-36); Mean Corpuscular Hemoglobin 24.7 pg (26-34); Mean Corpuscular Volume 81.3 fl (80-100); Platelet Count Result 193 k/mm3 (150-375); Red Cell Distribution Width 14.1 % (11.5-14.5)
[2022-07-23 05:09] LABS: Anion Gap 0 mmol/L (8-16); Blood Urea Nitrogen 10 mg/dL (7-17); Calcium 7.7 mg/dL (8.4-10.2); Carbon Dioxide 33 mmol/L (22-30); Chloride 99 mmol/L (98-107); Estimated CRCL calculation 104 ml/min; Estimated Glomerular Filt Rate > 60; Glucose 176 mg/dL (65-110); Sodium 132 mmol/L (137-145)
[2022-07-23 08:21] LABS: Glucose Point of Care 142 mg/dl (65-105)
[2022-07-23] MEDS: FLUTICASONE/SALMETEROL 115-21 MCG INHALER 1 PUFF 2 PUFF INHALATION ×2 (08:29→20:15)
[2022-07-23] MEDS: SUCRALFATE 1 GM TABLET PO (08:53)
[2022-07-23] MEDS: THEOPHYLLINE 300 MG ER 12 HR TABLET PO (08:53)
[2022-07-23] MEDS: carvediloL 3.125 MG TABLET PO ×2 (08:53→21:19)
[2022-07-23] MEDS: FERROUS SULFATE 324 MG TABLET PO (08:53)
[2022-07-23] MEDS: FUROSEMIDE 20 MG TABLET PO (08:54)
[2022-07-23] MEDS: PANTOPRAZOLE 40 MG TABLET PO ×2 (08:54→18:08)
[2022-07-23] MEDS: SPIRONOLACTONE 12.5 MG TABLET PO (08:54)
[2022-07-23] MEDS: predniSONE 10 MG TABLET PO (08:54)
[2022-07-23] MEDS: SACUBITRIL/VALSARTAN 24-26 MG TABLET 1 TAB PO ×2 (08:54→21:19)
[2022-07-23] MEDS: MIRTAZAPINE 15 MG TABLET PO (08:54)
[2022-07-23] MEDS: MUPIROCIN 2% OINT 22 GM TUBE 1 APPLIC EACH NARE ×2 (08:55→21:20)
[2022-07-23 13:02] LABS: Glucose Point of Care 169 mg/dl (65-105)
[2022-07-23] MEDS: CENTRAL LINE FLUSH 10 ML IV PUSH ×2 (13:26→21:21)
[2022-07-23] MEDS: POTASSIUM CHLORIDE 20 MEQ TABLET 40 MEQ PO (13:26)
[2022-07-23] MEDS: ALTEPLASE 2 MG VIAL (CATHFLO) IV PUSH (15:49)
--- NOTE | 2022-07-23 17:11 | PM.IMPN ---
Progress Note: A&P Assessment and Plan (1) Pneumonia: Qualifiers: Pneumonia type: due to unspecified organism Code(s): J18.9 - Pneumonia, unspecified organism Status: Acute Assessment and Plan: The patient has several antibiotic allergies therefore the patient was placed on azithromycin and vancomycin. Sputum and blood cultures are pending Tailor antibiotics to cultures and sensitivities Continue with her home oxygen at 3 L per nasal cannula Continue with nebulizer treatments 07/23/2022 interval history: patient with pneumonia patient stats pain b/l ribs continue but not as short of breath, did offer lidoderm patches, patient refused it, nasal swabs is growing MRSA blood culture no growth so far, patient is being treated with levofloxacin and vancomycin will continue iv abx, repeat chest x-ray in the morning, will monitor to monitor and further recommendation to follow (2) Rib fractures: Code(s): S22.49XA - Multiple fractures of ribs, unspecified side, initial encounter for closed fracture Status: Acute Assessment and Plan: Continue with analgesics Incentive spirometer (3) Acute on chronic respiratory failure with hypoxia: Code(s): J96.21 - Acute and chronic respiratory failure with hypoxia Status: Acute Assessment and Plan: The patient chronically wears oxygen 3 L at home (4) Steroid-dependent chronic obstructive pulmonary disease: Code(s): J44.9 - Chronic obstructive pulmonary disease, unspecified Status: Acute Assessment and Plan: Continue with patient's home prednisone Continue with nebulizer treatments Continue with Singulair Continue with theophylline (5) GERD (gastroesophageal reflux disease): Code(s): K21.9 - Gastro-esophageal reflux disease without esophagitis Status: Acute Assessment and Plan: Continue with omeprazole (6) Anxiety: Code(s): F41.9 - Anxiety disorder, unspecified Status: Acute Assessment and Plan: Continue with Valium home dose (7) Hyperlipidemia: Code(s): E78.5 - Hyperlipidemia, unspecified Status: Acute Assessment and Plan: Continue with pravastatin (8) Hypertension: Qualifiers: Hypertension type: essential hypertension Qualified Code(s): I10 - Essential (primary) hypertension Code(s): I10 - Essential (primary) hypertension Status: Acute Assessment and Plan: Continue with Coreg Continue with Aldactone (9) Type 2 diabetes mellitus: Qualifiers: Diabetes mellitus termite exterminator insulin use: without termite exterminator use Diabetes mellitus complication status: without complication Qualified Code(s): E11.9 - Type 2 diabetes mellitus without complications Code(s): E11.9 - Type 2 diabetes mellitus without complications Status: Acute Assessment and Plan: Accu-Cheks AC and HS with sliding scale insulin and hypoglycemic protocol Holding metformin Subjective Date/time seen: 07/23/22 17:11 The patient has several antibiotic allergies therefore the patient was placed on azithromycin and vancomycin. Sputum and blood cultures are pending Tailor antibiotics to cultures and sensitivities Continue with her home oxygen at 3 L per nasal cannula Continue with nebulizer treatments 07/23/2022 interval history: patient with pneumonia patient stats pain b/l ribs continue but not as short of breath, did offer lidoderm patches, patient refused it, nasal swabs is growing MRSA blood culture no growth so far, patient is being treated with levofloxacin and vancomycin will continue iv abx, repeat chest x-ray in the morning, will monitor to monitor and further recommendation to follow Review of Systems Review of Systems: All systems reviewed & are unremarkable except as noted in HPI and below Exam Narrative: Patient is comfortable, NAD HEENT: eyes are clear and none icteric LUNGS: normal respiratory effort
[2022-07-23 17:19] LABS: Glucose Point of Care 226 mg/dl (65-105)
[2022-07-23] MEDS: INSULIN ASPART (*BKC) 100 UNITS/ML SUB-Q (18:07)
[2022-07-23 18:57] LABS: Vancomycin Trough 13.1 ug/mL (10.0-20.0)
[2022-07-23 20:11] LABS: Glucose Point of Care 168 mg/dl (65-105)
[2022-07-23] MEDS: PRAVASTATIN SODIUM 20 MG TABLET 40 MG PO (21:19)
[2022-07-23] MEDS: ASPIRIN 81 MG CHEWABLE TABLET PO (21:20)
[2022-07-23] MEDS: MONTELUKAST SODIUM 10 MG TABLET PO (21:20)
[2022-07-23] MEDS: BACLOFEN 10 MG TABLET PO (21:20)
[2022-07-24] VITALS (20 sets, daily range): BP systolic 89–118; BP diastolic 40–59; PULSE 65–99; RESP 16–100; TEMP 35.9–37; O2SAT 89–100
[2022-07-24] MEDS: ALBUTEROL SULFATE NEB 2.5 MG/3 ML INH INHALATION ×4 (02:02→21:10)
[2022-07-24] MEDS: HYDROcodone/acetaminophen (*CRX) 10-325 MG TABLET 1 TAB PO ×4 (03:03→22:58)
[2022-07-24 04:49] LABS: Hematocrit 31.3 % (37.0-47.0); Hemoglobin 9.4 g/dL (12.0-15.0); Mean Corpuscular Hemoglobin 24.9 pg (26-34); Mean Platelet Volume 10.7 fl (7.4-10.4); Platelet Count Result 190 k/mm3 (150-375); Red Blood Count 3.77 M/mm3 (4.2-5.4); Red Cell Distribution Width 14.1 % (11.5-14.5); White Blood Count 5.3 K/mm3 (4.5-10.0)
[2022-07-24 05:09] LABS: Anion Gap 2 mmol/L (8-16); Blood Urea Nitrogen 7 mg/dL (7-17); Carbon Dioxide 29 mmol/L (22-30); Chloride 100 mmol/L (98-107); Estimated CRCL calculation 75 ml/min; Estimated Glomerular Filt Rate > 60; Glucose 185 mg/dL (65-110); Magnesium 1.9 mg/dL (1.6-2.3); Potassium 3.6 mmol/L (3.4-5.0); Sodium 131 mmol/L (137-145)
[2022-07-24] MEDS: CENTRAL LINE FLUSH 10 ML IV PUSH ×3 (05:36→20:38)
[2022-07-24] MEDS: FLUTICASONE/SALMETEROL 115-21 MCG INHALER 1 PUFF 2 PUFF INHALATION ×2 (07:00→21:10)
[2022-07-24 08:25] LABS: Glucose Point of Care 116 mg/dl (65-105)
[2022-07-24] MEDS: carvediloL 3.125 MG TABLET PO ×2 (10:35→20:35)
[2022-07-24] MEDS: FERROUS SULFATE 324 MG TABLET PO (10:36)
[2022-07-24] MEDS: FUROSEMIDE 20 MG TABLET PO (10:38)
[2022-07-24] MEDS: MIRTAZAPINE 15 MG TABLET PO (10:40)
[2022-07-24] MEDS: PANTOPRAZOLE 40 MG TABLET PO ×2 (10:41→16:54)
[2022-07-24] MEDS: MUPIROCIN 2% OINT 22 GM TUBE 1 APPLIC EACH NARE ×2 (10:41→20:37)
[2022-07-24] MEDS: predniSONE 10 MG TABLET PO (10:42)
[2022-07-24] MEDS: SACUBITRIL/VALSARTAN 24-26 MG TABLET 1 TAB PO ×2 (10:43→20:35)
[2022-07-24] MEDS: SUCRALFATE 1 GM TABLET PO (10:44)
[2022-07-24] MEDS: SPIRONOLACTONE 12.5 MG TABLET PO (10:44)
[2022-07-24] MEDS: THEOPHYLLINE 300 MG ER 12 HR TABLET PO (10:44)
[2022-07-24 11:36] LABS: Glucose Point of Care 184 mg/dl (65-105)
--- NOTE | 2022-07-24 16:51 | PM.IMPN ---
Progress Note: A&P Assessment and Plan (1) Pneumonia: Qualifiers: Pneumonia type: due to unspecified organism Code(s): J18.9 - Pneumonia, unspecified organism Status: Acute Assessment and Plan: The patient has several antibiotic allergies therefore the patient was placed on azithromycin and vancomycin. Sputum and blood cultures are pending Tailor antibiotics to cultures and sensitivities Continue with her home oxygen at 3 L per nasal cannula Continue with nebulizer treatments 07/24/2022 interval history: patient with pneumonia patient stats pain b/l ribs continue but not as short of breath, did offer lidoderm patches, patient refused it, nasal swabs is growing MRSA blood culture no growth so far, patient is being treated with levofloxacin and vancomycin will continue iv abx, repeat chest x-ray today showed persistent emphysema and there are no infiltrate,, will have PT OT evaluate the, patient will benefit going to SNF for rehab, will monitor to monitor and further recommendation to follow (2) Rib fractures: Code(s): S22.49XA - Multiple fractures of ribs, unspecified side, initial encounter for closed fracture Status: Acute Assessment and Plan: Continue with analgesics Incentive spirometer (3) Acute on chronic respiratory failure with hypoxia: Code(s): J96.21 - Acute and chronic respiratory failure with hypoxia Status: Acute Assessment and Plan: The patient chronically wears oxygen 3 L at home (4) Steroid-dependent chronic obstructive pulmonary disease: Code(s): J44.9 - Chronic obstructive pulmonary disease, unspecified Status: Acute Assessment and Plan: Continue with patient's home prednisone Continue with nebulizer treatments Continue with Singulair Continue with theophylline (5) GERD (gastroesophageal reflux disease): Code(s): K21.9 - Gastro-esophageal reflux disease without esophagitis Status: Acute Assessment and Plan: Continue with omeprazole (6) Anxiety: Code(s): F41.9 - Anxiety disorder, unspecified Status: Acute Assessment and Plan: Continue with Valium home dose (7) Hyperlipidemia: Code(s): E78.5 - Hyperlipidemia, unspecified Status: Acute Assessment and Plan: Continue with pravastatin (8) Hypertension: Qualifiers: Hypertension type: essential hypertension Qualified Code(s): I10 - Essential (primary) hypertension Code(s): I10 - Essential (primary) hypertension Status: Acute Assessment and Plan: Continue with Coreg Continue with Aldactone (9) Type 2 diabetes mellitus: Qualifiers: Diabetes mellitus complication status: without complication 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 mellitus 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 marine oil terminal insulin use: without prison use Qualified Code(s): E11.9 - Type 2 diabetes mellitus without complications Code(s): E11.9 - Type 2 diabetes mellitus without complications Status: Acute Assessment and Plan: Accu-Cheks AC and HS with sliding scale insulin and hypoglycemic protocol Holding metformin Subjective Date/time seen: 07/24/22 16:51 07/24/2022 interval history: patient with pneumonia patient stats pain b/l ribs continue but not as short of breath, did offer lidoderm patches, patient refused it, nasal swabs is growing MRSA blood culture no growth so far, patient is being treated with levofloxacin and vancomycin will continue iv abx, repeat chest x-ray today showed persistent emphysema and there are no infiltrate,, will have PT OT evaluate the, patient will benefit going to SNF for rehab, will monitor to monitor and further recommendation to follow Review of Systems Review of Systems: All systems reviewed & are unremarkable except as noted in HPI and below Exam Narrative: Patient is comfortable, NAD HEENT: eyes are clear and none icteric LUNGS: normal respiratory effort HEART: RR S1S2 ABD: BS+, Soft and nonte
[2022-07-24 17:04] LABS: Glucose Point of Care 191 mg/dl (65-105)
[2022-07-24] MEDS: ASPIRIN 81 MG CHEWABLE TABLET PO (20:35)
[2022-07-24] MEDS: BACLOFEN 10 MG TABLET PO (20:36)
[2022-07-24] MEDS: MONTELUKAST SODIUM 10 MG TABLET PO (20:37)
[2022-07-24] MEDS: PRAVASTATIN SODIUM 20 MG TABLET 40 MG PO (20:37)
[2022-07-25] VITALS (19 sets, daily range): BP systolic 106–126; BP diastolic 40–62; PULSE 60–97; RESP 16–21; TEMP 36–36.6; O2SAT 98–100
[2022-07-25] MEDS: ALBUTEROL SULFATE NEB 2.5 MG/3 ML INH INHALATION ×4 (01:57→19:46)
[2022-07-25] MEDS: HYDROcodone/acetaminophen (*CRX) 10-325 MG TABLET 1 TAB PO ×3 (05:15→18:50)
[2022-07-25] MEDS: CENTRAL LINE FLUSH 10 ML IV PUSH ×3 (05:16→21:46)
[2022-07-25 07:28] LABS: Hematocrit 34.1 % (37.0-47.0); Mean Corpuscular HGB Conc 29.3 g/dl (32-36); Mean Corpuscular Hemoglobin 24.3 pg (26-34); Mean Corpuscular Volume 82.8 fl (80-100); Mean Platelet Volume 10.7 fl (7.4-10.4); Platelet Count Result 183 k/mm3 (150-375); Red Blood Count 4.12 M/mm3 (4.2-5.4); White Blood Count 5.8 K/mm3 (4.5-10.0)
[2022-07-25 07:51] LABS: Vancomycin Trough 24.2 ug/mL (10.0-20.0)
[2022-07-25 08:35] LABS: Glucose Point of Care 110 mg/dl (65-105)
[2022-07-25] MEDS: FUROSEMIDE 20 MG TABLET PO (08:56)
[2022-07-25] MEDS: SUCRALFATE 1 GM TABLET PO (08:56)
[2022-07-25] MEDS: MIRTAZAPINE 15 MG TABLET PO (08:56)
[2022-07-25] MEDS: SPIRONOLACTONE 12.5 MG TABLET PO (08:56)
[2022-07-25] MEDS: PANTOPRAZOLE 40 MG TABLET PO ×2 (08:56→17:24)
[2022-07-25] MEDS: FERROUS SULFATE 324 MG TABLET PO (08:56)
[2022-07-25] MEDS: THEOPHYLLINE 300 MG ER 12 HR TABLET PO (08:56)
[2022-07-25] MEDS: predniSONE 10 MG TABLET PO (08:56)
[2022-07-25] MEDS: MUPIROCIN 2% OINT 22 GM TUBE 1 APPLIC EACH NARE ×2 (08:56→21:42)
[2022-07-25] MEDS: SACUBITRIL/VALSARTAN 24-26 MG TABLET 1 TAB PO ×2 (08:56→21:42)
[2022-07-25] MEDS: FLUTICASONE/SALMETEROL 115-21 MCG INHALER 1 PUFF 2 PUFF INHALATION ×2 (08:58→19:53)
[2022-07-25] MEDS: carvediloL 3.125 MG TABLET PO ×2 (09:00→21:41)
[2022-07-25 11:29] LABS: Anion Gap 2 mmol/L (8-16); Blood Urea Nitrogen 6 mg/dL (7-17); Calcium 8.4 mg/dL (8.4-10.2); Carbon Dioxide 31 mmol/L (22-30); Chloride 103 mmol/L (98-107); Estimated CRCL calculation 88 ml/min; Estimated Glomerular Filt Rate > 60; Glucose 117 mg/dL (65-110); Potassium 3.6 mmol/L (3.4-5.0); Sodium 136 mmol/L (137-145)
[2022-07-25 12:32] LABS: Glucose Point of Care 237 mg/dl (65-105)
[2022-07-25] MEDS: INSULIN ASPART (*BKC) 100 UNITS/ML SUB-Q (12:48)
--- NOTE | 2022-07-25 15:17 | PM.IMPN ---
Progress Note: A&P Assessment and Plan (1) Pneumonia: Qualifiers: Pneumonia type: due to unspecified organism Code(s): J18.9 - Pneumonia, unspecified organism Status: Acute Assessment and Plan: The patient has several antibiotic allergies therefore the patient was placed on azithromycin and vancomycin. Sputum and blood cultures are pending Tailor antibiotics to cultures and sensitivities Continue with her home oxygen at 3 L per nasal cannula Continue with nebulizer treatments 07/25/2022 interval history: patient with pneumonia patient stats pain b/l ribs continue but not as short of breath, did offer lidoderm patches, patient refused it, nasal swabs is growing MRSA blood culture no growth so far, patient is being treated with levofloxacin and vancomycin will continue iv abx, repeat chest x-ray on 07/24 showed persistent emphysema and there are no infiltrate,, will have PT OT evaluate the, patient will benefit going to SNF for rehab, will monitor to monitor and further recommendation to follow (2) Rib fractures: Code(s): S22.49XA - Multiple fractures of ribs, unspecified side, initial encounter for closed fracture Status: Acute Assessment and Plan: Continue with analgesics Incentive spirometer (3) Acute on chronic respiratory failure with hypoxia: Code(s): J96.21 - Acute and chronic respiratory failure with hypoxia Status: Acute Assessment and Plan: The patient chronically wears oxygen 3 L at home (4) Steroid-dependent chronic obstructive pulmonary disease: Code(s): J44.9 - Chronic obstructive pulmonary disease, unspecified Status: Acute Assessment and Plan: Continue with patient's home prednisone Continue with nebulizer treatments Continue with Singulair Continue with theophylline (5) GERD (gastroesophageal reflux disease): Code(s): K21.9 - Gastro-esophageal reflux disease without esophagitis Status: Acute Assessment and Plan: Continue with omeprazole (6) Anxiety: Code(s): F41.9 - Anxiety disorder, unspecified Status: Acute Assessment and Plan: Continue with Valium home dose (7) Hyperlipidemia: Code(s): E78.5 - Hyperlipidemia, unspecified Status: Acute Assessment and Plan: Continue with pravastatin (8) Hypertension: Qualifiers: Hypertension type: essential hypertension Qualified Code(s): I10 - Essential (primary) hypertension Code(s): I10 - Essential (primary) hypertension Status: Acute Assessment and Plan: Continue with Coreg Continue with Aldactone (9) Type 2 diabetes mellitus: Qualifiers: Diabetes mellitus complication status: without complication Diabetes mellitus fpc insulin use: without fpc use Qualified Code(s): E11.9 - Type 2 diabetes mellitus without complications Code(s): E11.9 - Type 2 diabetes mellitus without complications Status: Acute Assessment and Plan: Accu-Cheks AC and HS with sliding scale insulin and hypoglycemic protocol Holding metformin Subjective Date/time seen: 07/25/22 15:17 The patient has several antibiotic allergies therefore the patient was placed on azithromycin and vancomycin. Sputum and blood cultures are pending Tailor antibiotics to cultures and sensitivities Continue with her home oxygen at 3 L per nasal cannula Continue with nebulizer treatments 07/25/2022 interval history: patient with pneumonia patient stats pain b/l ribs continue but not as short of breath, did offer lidoderm patches, patient refused it, nasal swabs is growing MRSA blood culture no growth so far, patient is being treated with levofloxacin and vancomycin will continue iv abx, repeat chest x-ray on 07/24 showed persistent emphysema and there are no infiltrate,, will have PT OT evaluate the, patient will benefit going to SNF for rehab, will monitor to monitor and further recommendatio
[2022-07-25 17:15] LABS: Glucose Point of Care 179 mg/dl (65-105)
[2022-07-25] MEDS: MONTELUKAST SODIUM 10 MG TABLET PO (21:41)
[2022-07-25] MEDS: PRAVASTATIN SODIUM 20 MG TABLET 40 MG PO (21:42)
[2022-07-25] MEDS: BACLOFEN 10 MG TABLET PO (21:42)
[2022-07-25] MEDS: ASPIRIN 81 MG CHEWABLE TABLET PO (21:42)
[2022-07-26] VITALS (7 sets, daily range): BP systolic 98; BP diastolic 53; PULSE 61–87; RESP 16–18; TEMP 36.4; O2SAT 100
[2022-07-26 00:37] LABS: Glucose Point of Care 148 mg/dl (65-105)
[2022-07-26] MEDS: HYDROcodone/acetaminophen (*CRX) 10-325 MG TABLET 1 TAB PO ×2 (00:58→07:20)
[2022-07-26] MEDS: ALBUTEROL SULFATE NEB 2.5 MG/3 ML INH INHALATION ×2 (01:21→08:15)
[2022-07-26 05:57] LABS: Hematocrit 31.5 % (37.0-47.0); Hemoglobin 9.4 g/dL (12.0-15.0); Mean Corpuscular HGB Conc 29.8 g/dl (32-36); Mean Corpuscular Hemoglobin 24.7 pg (26-34); Mean Corpuscular Volume 82.7 fl (80-100); Mean Platelet Volume 11.1 fl (7.4-10.4); Platelet Count Result 185 k/mm3 (150-375); Red Blood Count 3.81 M/mm3 (4.2-5.4); White Blood Count 5.7 K/mm3 (4.5-10.0)
[2022-07-26 06:06] LABS: Anion Gap 2 mmol/L (8-16); Blood Urea Nitrogen 10 mg/dL (7-17); Carbon Dioxide 30 mmol/L (22-30); Chloride 104 mmol/L (98-107); Estimated CRCL calculation 87 ml/min; Estimated Glomerular Filt Rate > 60; Glucose 117 mg/dL (65-110); Potassium 3.9 mmol/L (3.4-5.0); Sodium 136 mmol/L (137-145)
[2022-07-26] MEDS: CENTRAL LINE FLUSH 10 ML IV PUSH (07:20)
[2022-07-26] MEDS: FLUTICASONE/SALMETEROL 115-21 MCG INHALER 1 PUFF 2 PUFF INHALATION (08:16)
[2022-07-26] MEDS: PANTOPRAZOLE 40 MG TABLET PO (08:36)
[2022-07-26] MEDS: SPIRONOLACTONE 12.5 MG TABLET PO (08:36)
[2022-07-26] MEDS: FERROUS SULFATE 324 MG TABLET PO (08:36)
[2022-07-26] MEDS: predniSONE 10 MG TABLET PO (08:36)
[2022-07-26] MEDS: MIRTAZAPINE 15 MG TABLET PO (08:36)
[2022-07-26] MEDS: FUROSEMIDE 20 MG TABLET PO (08:36)
[2022-07-26] MEDS: THEOPHYLLINE 300 MG ER 12 HR TABLET PO (08:36)
[2022-07-26] MEDS: SACUBITRIL/VALSARTAN 24-26 MG TABLET 1 TAB PO (08:36)
[2022-07-26] MEDS: carvediloL 3.125 MG TABLET PO (08:36)
[2022-07-26] MEDS: SUCRALFATE 1 GM TABLET PO (08:36)
[2022-07-26] MEDS: MUPIROCIN 2% OINT 22 GM TUBE 1 APPLIC EACH NARE (08:40)
[2022-07-26] MEDS: SALINE 0.65% NAS SOLN 44 ML BTL 1 SPRAY NASAL (08:41)
[2022-07-26 08:47] LABS: Glucose Point of Care 126 mg/dl (65-105)
--- NOTE | 2022-07-26 09:29 | PM.DS ---
DS: Admitting Diagnosis Discharge Date 07/26/2022 Admitting Diagnosis Shortness of breath DS: Discharge Diagnosis Discharge Diagnosis (1) Pneumonia: Qualifiers: Pneumonia type: due to unspecified organism Code(s): J18.9 - Pneumonia, unspecified organism Status: Acute Assessment and Plan: The patient has several antibiotic allergies therefore the patient was placed on azithromycin and vancomycin. Sputum and blood cultures are pending Tailor antibiotics to cultures and sensitivities Continue with her home oxygen at 3 L per nasal cannula Continue with nebulizer treatments 07/25/2022 interval history: patient with pneumonia patient stats pain b/l ribs continue but not as short of breath, did offer lidoderm patches, patient refused it, nasal swabs is growing MRSA blood culture no growth so far, patient is being treated with levofloxacin and vancomycin will continue iv abx, repeat chest x-ray on 07/24 showed persistent emphysema and there are no infiltrate,, will have PT OT evaluate the, patient will benefit going to SNF for rehab, will monitor to monitor and further recommendation to follow (2) Rib fractures: Code(s): S22.49XA - Multiple fractures of ribs, unspecified side, initial encounter for closed fracture Status: Acute Assessment and Plan: Continue with analgesics Incentive spirometer (3) Acute on chronic respiratory failure with hypoxia: Code(s): J96.21 - Acute and chronic respiratory failure with hypoxia Status: Acute Assessment and Plan: The patient chronically wears oxygen 3 L at home (4) Steroid-dependent chronic obstructive pulmonary disease: Code(s): J44.9 - Chronic obstructive pulmonary disease, unspecified Status: Acute Assessment and Plan: Continue with patient's home prednisone Continue with nebulizer treatments Continue with Singulair Continue with theophylline (5) GERD (gastroesophageal reflux disease): Code(s): K21.9 - Gastro-esophageal reflux disease without esophagitis Status: Acute Assessment and Plan: Continue with omeprazole (6) Anxiety: Code(s): F41.9 - Anxiety disorder, unspecified Status: Acute Assessment and Plan: Continue with Valium home dose (7) Hyperlipidemia: Code(s): E78.5 - Hyperlipidemia, unspecified Status: Acute Assessment and Plan: Continue with pravastatin (8) Hypertension: Qualifiers: Hypertension type: essential hypertension Qualified Code(s): I10 - Essential (primary) hypertension Code(s): I10 - Essential (primary) hypertension Status: Acute Assessment and Plan: Continue with Coreg Continue with Aldactone (9) Type 2 diabetes mellitus: Qualifiers: Diabetes mellitus terminal block assembler insulin use: without [facility] use Diabetes mellitus complication status: without complication Qualified Code(s): E11.9 - Type 2 diabetes mellitus without complications Code(s): E11.9 - Type 2 diabetes mellitus without complications Status: Acute Assessment and Plan: Accu-Cheks AC and HS with sliding scale insulin and hypoglycemic protocol Holding metformin DS: Summary Hospital Course Reason for hospitalization: Shortness of breath Narrative: This is a 67-year-old female patient who has a history of COPD and is chronically on oxygen at 3 L per nasal cannula.? The patient has had multiple falls due to her oxygen tubing.? The patient has a hematoma to her right side of her face and right lower and left lower extremities.? The patient has been having multiple falls.? The patient reported that she has been having pain to the right side of her chest for approximately 4 weeks since she had a ground level fall resulting in 6 broken ribs on the right side.? The patient stated she still continues to have discomfort and today when she woke up she had stabbing back pain.? As per the patient she stated she martin
--- NOTE | 2022-07-26 10:40 | PCPTNOTE ---
Patient has discharge orders, nursing reports patient will be leaving in the next hour.
[2022-07-26 12:22] LABS: Glucose Point of Care 197 mg/dl (65-105)
== END 2022-07-26 12:37 | disposition home or self-care (01) | DRG 193 ==
LOC: ANHED 13:17 → ANHIMU 14:33 → ANH3MED 07-24 22:23
PROVIDERS: Nurse Practitioner; Admitting Provider Chiropractor; Emergency Provider Emergency Medicine; PCP Physician Assistant; Visit Provider Family Medicine
DX: J18.9 Pneumonia, unspecified organism (principal); J96.21 Acute and chronic respiratory failure with hypoxia; S22.41XA Multiple fractures of ribs, right side, initial encounter for closed fracture; J44.9 Chronic obstructive pulmonary disease, unspecified; S80.12XA Contusion of left lower leg, initial encounter; S80.11XA Contusion of right lower leg, initial encounter; S00.83XA Contusion of other part of head, initial encounter; W18.39XA Other fall on same level, initial encounter; E11.9 Type 2 diabetes mellitus without complications; F41.9 Anxiety disorder, unspecified; E78.5 Hyperlipidemia, unspecified; Z20.822 Contact with and (suspected) exposure to COVID-19; I10 Essential (primary) hypertension; K21.9 Gastro-esophageal reflux disease without esophagitis; M81.0 Age-related osteoporosis without current pathological fracture; G25.2 Other specified forms of tremor; M19.90 Unspecified osteoarthritis, unspecified site; Z99.81 Dependence on supplemental oxygen; Z79.52 Long term (current) use of systemic steroids; Z90.49 Acquired absence of other specified parts of digestive tract; I25.2 Old myocardial infarction; Z90.710 Acquired absence of both cervix and uterus; Z90.721 Acquired absence of ovaries, unilateral; Z87.891 Personal history of nicotine dependence; Z79.84 Long term (current) use of oral hypoglycemic drugs; Z79.82 Long term (current) use of aspirin; R29.6 Repeated falls; Z22.322 Carrier or suspected carrier of Methicillin resistant Staphylococcus aureus
CPT/HCPCS: 36415; 36569; 71045; 71275; 80048; 80053; 80202; 82948; 83036; 83605; 83735; 84443; 84484; 85025; 85027; 85610; 85730; 87040; 87081; 87637; 93005; 94640; 96365; 97165; 99285; A9270; C1751; J0131; J0456; J1170; J1815; J1956; J2997; J3370; J7512; Q9967

== ENCOUNTER 2022-12-25 18:09 | Emergency (ER) | payer MEDICARE, MEDICAID, SELFPAY ==
[2022-12-25] VITALS (8 sets, daily range): BP systolic 107–123; BP diastolic 62–86; PULSE 80–97; RESP 16–30; TEMP 36.7; O2SAT 92–99
--- NOTE | ~2022-12-25 | XR_ITS ---
EXAMINATION: XR chest 2V Exam Date/Time: 12/25/2022 21:43 CDT HISTORY: recent PNA, chronic O2 use Comparison: 07/14/2022, 06/15/2021; CTPA 07/20/2022. RESULT: Lines, tubes, and devices: None. Lungs and pleura: Biapical pleural scarring. Emphysematous change. Streaky subsegmental right basila r opacities. Mild right costophrenic angle blunting. Cardiomediastinal silhouette: Stable. Other: No acute osseous or upper abdominal finding. IMPRESSION: Right basilar atelectasis/consolidation. Small right pleural effusion. Reviewed, dictated and finalized at location K.
[2022-12-25 19:16] LABS: Glucose Point of Care 155 mg/dl (65-105)
[2022-12-25 19:18] LABS: Basophils Percent Auto 0.3 % (0.2-1.2); Eosinophils Absolute Auto 0.3 K/mm3 (0-0.3); Eosinophils Percent Auto 2.8 % (0-4.4); Hematocrit 37.6 % (37.0-47.0); Immature Granulocyte Absolute 0.16 K/mm3 (0.00-0.031); Immature Granulocyte Percent A 1.3 % (0-0.5); Immature Platelet Fraction Pct 5.6 % (0.9-11.2); Lymphocytes Percent Auto 5.8 % (18.3-44.2); Mean Corpuscular HGB Conc 29.3 g/dl (32-36); Mean Corpuscular Hemoglobin 24.4 pg (26-34); Mean Corpuscular Volume 83.6 fl (80-100); Mean Platelet Volume 11.3 fl (7.4-10.4); Monocytes Absolute Auto 0.5 K/mm3 (0.1-0.6); Monocytes Percent Auto 4.5 % (2.6-8.5); Neutrophils Absolute Auto 10.3 K/mm3 (1.3-6.7); Neutrophils Percent Auto 85.3 % (45.5-73.1); Platelet Count Result 266 k/mm3 (150-375); Red Cell Distribution Width 14.5 % (11.5-14.5); White Blood Count 12.1 K/mm3 (4.5-10.0)
[2022-12-25 19:28] LABS: Alanine Aminotransferase 17 U/L (6-35); Albumin Level 4.2 g/dL (3.5-5.1); Alkaline Phosphatase 39 U/L (38-126); Anion Gap 4 mmol/L (8-16); Aspartate Amino Transferase 26 U/L (14-36); Bilirubin,Total 0.7 mg/dL (0.2-1.3); Blood Urea Nitrogen 19 mg/dL (7-17); Calcium 9.5 mg/dL (8.4-10.2); Carbon Dioxide 34 mmol/L (22-30); Chloride 95 mmol/L (98-107); Estimated CRCL calculation 94 ml/min; Estimated Glomerular Filt Rate > 60; Glucose 158 mg/dL (65-110); Magnesium 1.9 mg/dL (1.6-2.3); Phosphorus 3.9 mg/dL (2.5-4.5); Potassium 4.8 mmol/L (3.4-5.0); Sodium 133 mmol/L (137-145)
[2022-12-25 19:31] LABS: Hypochromasia 1+ (NORMAL); Ovalocytes 1+ (NORMAL); Platelet Estimate Adequate (Adequate); Schistocytes None Seen (NORMAL)
[2022-12-25 19:41] LABS: Beta-Hydroxybutyrate/Acetoacetate 0.43 mmol/L (0.02-0.27)
--- NOTE | 2022-12-25 21:32 | ED.RECABL ---
HPI - Recheck/Abnormal Lab/Rx General Chief Complaint: Recheck/Abnormal Lab/Rx Stated Complaint: ELEVATED BLOOD SUGAR Time Seen by Provider: 12/25/22 18:53 Source: patient and old records reviewed Mode of arrival: ambulatory Limitations: no limitations History of Present Illness HPI narrative: Patient is a 67-year-old female, with past medical history of diabetes, chronic hypoxic respiratory failure on 3 L home O2, COPD, who presents to the ED with report of elevated blood sugars. Patient reports she was recently admitted to [facility] for COPD exacerbation and bilateral pneumonia. She was released from the hospital on Thursday. She reports she received insulin while inpatient there and has since resumed her metformin since being discharged. She states since being discharged her sugars have been elevated, up to low 300s today. She has had some polyuria and polydipsia. Patient is on chronic steroid therapy. She states she did not receive additional steroids while recently hospitalized. Patient states she was referred here by her primary care doctor to rule out DKA. Patient denies ever being in DKA previously. She denies any worsening shortness of breath, cough, fevers, abdominal pain, nausea, vomiting, chest pain. Related Data Home Medications Medication Instructions Recorded Confirmed alendronate 70 mg tablet 70 mg PO WEEKLY 04/08/21 07/20/22 aspirin 81 mg tablet 81 mg PO HS 04/08/21 07/20/22 baclofen 10 mg tablet 10 mg PO HS 04/08/21 07/20/22 diazepam 2 mg tablet 2 mg PO HS PRN Anxiety 04/08/21 07/20/22 fluticasone 250 mcg-salmeterol 50 1 inh inhalation BID 04/08/21 07/20/22 mcg/dose blistr powdr for inhalation (Advair Diskus) hydrocodone 10 mg-acetaminophen 1 tablet PO Q6H PRN Pain 04/08/21 07/20/22 325 mg tablet metformin 500 mg tablet 500 mg PO BID 04/08/21 07/20/22 montelukast 10 mg tablet 10 mg PO HS 04/08/21 07/20/22 omeprazole 20 mg capsule,delayed 20 mg PO BID 04/08/21 07/20/22 release pravastatin 40 mg tablet 40 mg PO HS 04/08/21 07/20/22 prednisone 10 mg tablet 10 mg PO DAILY 04/08/21 07/20/22 sucralfate 1 gram tablet 1 g PO DAILY 04/08/21 07/20/22 theophylline 300 mg 300 mg PO DAILY 04/08/21 07/20/22 tablet,extended release,12 hr tiotropium bromide 18 mcg capsule 18 cap inhalation DAILY 04/08/21 07/20/22 with inhalation device (Spiriva with HandiHaler) albuterol sulfate 90 mcg/actuation 2 puff inhalation Q4H PRN 07/20/22 07/20/22 aerosol inhaler (Ventolin HFA) Shortness Of Breath ferrous sulfate 325 mg (65 mg 325 mg PO DAILY 07/20/22 07/20/22 iron) tablet,delayed release mirtazapine 15 mg tablet 15 mg PO DAILY 07/20/22 07/20/22 ondansetron 4 mg disintegrating 4 mg PO TID PRN Nausea And Vomiting 07/20/22 07/20/22 tablet spironolactone 25 mg tablet 12.5 mg PO QAM 07/20/22 07/20/22 Allergies Allergy/AdvReac Type Severity Reaction Status Date / Time cephalexin Allergy Mild Hives Verified 07/20/22 09:57 levofloxacin Allergy Mild FEET Verified 07/20/22 09:57 SWELLING Sulfa (Sulfonamide Allergy Unknown Hives Verified 07/20/22 09:57 Antibiotics) Review of Systems Review of Systems: CONSTITUTIONAL: Denies fever, chills, or sweats. CARDIOVASCULAR: Denies chest pain. RESPIRATORY: Denies cough or dyspnea. GASTROINTESTINAL: Denies abdominal pain, nausea, vomiting, or diarrhea. GENITOURINARY: See HPI. SKIN: Denies rash or itching. MUSCULOSKELETAL: Denies back pain, joint pain, or myalgia. NEUROLOGIC: Denies headache, numbness, or weakness. All systems reviewed & are unremarkable except as noted in HPI and below PMFSH Past Medical History Medical History Anxiety Chronic back pain Chronic respiratory failure with hypoxia, on home oxygen therapy E. coli urinary tract infection (03/2021) Multi-drug resistant, not ESBL. Gastric ulcer Gastroesophageal reflux disease History of MRSA infection Hyperlipidemia
[2022-12-25 22:34] LABS: Fractional Inspired Oxygen 21 %; HCO3 VBG 32.3 mEq/l (24.0-30.0); PCO2 VBG 54.9 mmHg (42.0-48.0); PO2 VBG 46.3 mmHg (35.0-45.0); pH VBG 7.388 (7.300-7.400)
[2022-12-25 22:34] LABS: Appearance Urine Clear (Clear); Bacteria Urine None Seen /hpf; Bilirubin Urine Negative (Negative); Color Urine Yellow (Yellow); Glucose Urine UA Trace mg/dL (Negative); Ketones Urine 1+ mg/dL (Negative); Leukocyte Esterase Ur Negative LEU/UL (Negative); Need Manual Microscopic Reviewed; Nitrate Urine Negative (Negative); Non Pathogenic Casts 0-2; Protein Urine 1+ mg/dL (Negative); Specific Grav Ur 1.017 (1.001-1.035); Squamous Epithelial Cell Urine None seen /hpf (Few); Urobilinogen Urine 0.2 mg/dL (<2.0); WBC Urine 0-5 /hpf
[2022-12-25 22:35] LABS: Add Urine Microscopic? YES
--- NOTE | 2022-12-25 23:19 | PC.NURSE ---
pt care given to FAHAD Stanley. all questions answered.
[2022-12-25 23:49] LABS: Glucose Point of Care 96 mg/dl (65-105)
== END 2022-12-25 23:55 | disposition home or self-care (01) ==
PROVIDERS: Emergency Provider Physician Assistant; PCP Physician Assistant
DX: E11.65 Type 2 diabetes mellitus with hyperglycemia (principal); J96.11 Chronic respiratory failure with hypoxia; J18.9 Pneumonia, unspecified organism; J44.9 Chronic obstructive pulmonary disease, unspecified; E78.5 Hyperlipidemia, unspecified; I10 Essential (primary) hypertension; Z99.81 Dependence on supplemental oxygen; Z87.891 Personal history of nicotine dependence
CPT/HCPCS: 36415; 71046; 80053; 81001; 82010; 82803; 82948; 83735; 84100; 85025; 85055; 99283

== ENCOUNTER 2023-03-16 10:28 | Inpatient (IN) | payer MEDICARE, MEDICAID, SELFPAY ==
[2023-03-16] VITALS (10 sets, daily range): BP systolic 110–123; BP diastolic 51–58; PULSE 80–102; RESP 16–21; TEMP 36.6–36.7; O2SAT 90–100
--- NOTE | ~2023-03-16 | XR_ITS ---
EXAMINATION: XR chest 2V DATE: 03/16/2023 11:02 INDICATION: Cough and difficulty breathing TECHNIQUE: frontal and lateral views of the chest were obtained. COMPARISON: Chest radiograph dated 12/25/[address] dated 07/20/2022 FINDINGS: Moderate biapical pleural-parenchymal scarring. Hyperexpansion of the lungs with flattening of the di aphragm consistent with emphysema better appreciated on prior CT. Mild increased interstitial pattern in the bilateral lower lung zones consistent with mild pulmonary edema. No pleural effusion or pneum othorax. The cardiomediastinal silhouette is normal. Bilateral old rib fractures. IMPRESSION: 1. Emphysema. 2. Mild pulmonary edema in the lower lung zones. Reviewed, dictated and finalized at location A. 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
--- NOTE | ~2023-03-16 | XR_ITS ---
Portable chest x-ray Comparison: 03/16/2023 Clinical History: COPD Findings: Probable right apical scarring. Lungs are otherwise clear, without focal consolidation or p leural effusion. COPD pattern present. Cardiomediastinal silhouette is stable. Bones and soft tissue s are unremarkable. Impression: COPD and probable right apical scarring. Reviewed, dictated and finalized at location . GRINDER Impression: COPD and probable right apical scarring.
--- NOTE | 2023-03-16 10:31 | ECG_ITS ---
Measurements Intervals [place] Rate: 94 P: -24 AL: 150 QRS: 104 QRSD: 78 T: 93 QT: 321 QTc: 403 Interpretive Statements SINUS RHYTHM ATRIAL AND VENTRICULAR PREMATURE COMPLEXES CANNOT RULE OUT SEPTAL INFARCT, AGE INDETERMINATE BORDERLINE T WAVE ABNORMALITY- HIGH LATERAL LEADS BASELINE ARTIFACT- I, II, III, AVR, AVL, AVF, V1-V6 ABNORMAL ECG COMPARED TO ECG 07/20/2022 09:48:50 NO SIGNIFICANT CHANGES Electronically Signed On 03-16-2023 12:02:14 SOUS CHEF by Jere Lee D.O.
[2023-03-16 11:05] LABS: Basophils Absolute Auto 0.1 K/mm3 (0.0-0.1); Basophils Percent Auto 0.7 % (0.2-1.2); Eosinophils Percent Auto 0.1 % (0-4.4); Hematocrit 39.9 % (37.0-47.0); Hemoglobin 11.4 g/dL (12.0-15.0); Immature Granulocyte Absolute 0.22 K/mm3 (0.00-0.031); Immature Granulocyte Percent A 2.4 % (0-0.5); Lymphocytes Absolute Auto 0.87 K/mm3 (0.9-3.2); Lymphocytes Percent Auto 9.3 % (18.3-44.2); Mean Corpuscular HGB Conc 28.6 g/dl (32-36); Mean Corpuscular Hemoglobin 24.6 pg (26-34); Mean Corpuscular Volume 86.2 fl (80-100); Mean Platelet Volume 10.4 fl (7.4-10.4); Monocytes Absolute Auto 0.4 K/mm3 (0.1-0.6); Monocytes Percent Auto 4.3 % (2.6-8.5); Neutrophils Absolute Auto 7.8 K/mm3 (1.3-6.7); Neutrophils Percent Auto 83.2 % (45.5-73.1); Platelet Count Result 188 k/mm3 (150-375); Red Blood Count 4.63 M/mm3 (4.2-5.4); Red Cell Distribution Width 15.8 % (11.5-14.5); White Blood Count 9.4 K/mm3 (4.5-10.0)
[2023-03-16 11:15] LABS: Alanine Aminotransferase 23 U/L (6-35); Albumin Level 3.9 g/dL (3.5-5.1); Alkaline Phosphatase 44 U/L (38-126); Anion Gap 8 mmol/L (8-16); Aspartate Amino Transferase 26 U/L (14-36); Bilirubin,Total 0.5 mg/dL (0.2-1.3); Blood Urea Nitrogen 18 mg/dL (7-17); Calcium 8.8 mg/dL (8.4-10.2); Carbon Dioxide 28 mmol/L (22-30); Chloride 96 mmol/L (98-107); Estimated CRCL calculation 70 ml/min; Estimated Glomerular Filt Rate > 60; Glucose 240 mg/dL (65-110); Potassium 3.9 mmol/L (3.4-5.0); Sodium 132 mmol/L (137-145)
[2023-03-16] MEDS: ALBUTEROL SULFATE NEB 2.5 MG/3 ML INH INHALATION ×2 (11:24→21:24)
[2023-03-16] MEDS: IPRATROPIUM BR 0.02% INH SOLN 0.5 MG/2.5 ML VIAL INHALATION ×2 (11:24→21:24)
[2023-03-16 11:35] LABS: NT Pro B Type Natriuretic Pept 21 pg/mL (19.9-100)
[2023-03-16 12:05] LABS: Influenza A QL RT-PCR Negative (Negative); Influenza B QL RT-PCR Negative (Negative); SARS-CoV-2 RNA PCR Negative (Negative)
--- NOTE | 2023-03-16 12:11 | ED.SOB ---
HPI - SOB/Dyspnea General Chief Complaint: Shortness of Breath/Dyspnea Stated Complaint: sob Time Seen by Provider: 03/16/23 10:39 History of Present Illness HPI Narrative: Patient is a 67-year-old female who presents ER with shortness of breath. Worsening today. Wears 3 L chronically and has had to turn it up to 5 to 6 L. Patient with new fever today. She has increased wheezing. No chest pain or chest pressure. No known sick contacts. Related Data Home Medications Medication Instructions Recorded Confirmed alendronate 70 mg tablet 70 mg PO WEEKLY 04/08/21 03/16/23 aspirin 81 mg tablet 81 mg PO DAILY 04/08/21 03/16/23 fluticasone 250 mcg-salmeterol 50 1 inh inhalation BID 04/08/21 03/16/23 mcg/dose blistr powdr for inhalation (Advair Diskus) metformin 500 mg tablet 500 mg PO BID 04/08/21 03/16/23 montelukast 10 mg tablet 10 mg PO HS 04/08/21 03/16/23 tiotropium bromide 18 mcg capsule 18 cap inhalation DAILY 04/08/21 03/16/23 with inhalation device (Spiriva with HandiHaler) albuterol sulfate 90 mcg/actuation 2 puff inhalation Q4H PRN 07/20/22 03/16/23 aerosol inhaler (Ventolin HFA) Shortness Of Breath ferrous sulfate 325 mg (65 mg 325 mg PO DAILY 07/20/22 03/16/23 iron) tablet,delayed release mirtazapine 15 mg tablet 30 mg PO HS 07/20/22 03/16/23 albuterol sulfate 1.25 mg/3 mL 1.25 mg inhalation QID 03/16/23 03/16/23 solution for nebulization diltiazem HCl 240 mg 240 mg PO HS 03/16/23 03/16/23 capsule,extended release 24 hr, controlled naloxone 4 mg/actuation nasal spray intranasal 03/16/23 oxycodone-acetaminophen 10 mg-325 1 tablet PO Q4H 03/16/23 03/16/23 mg tablet tobramycin 300 mg/5 mL in 0.225 % See Rx Instructions .Route .COMPLEX 03/16/23 03/16/23 sodium chloride for nebulization Allergies Allergy/AdvReac Type Severity Reaction Status Date / Time cephalexin Allergy Mild Hives Verified 07/20/22 09:57 levofloxacin Allergy Mild FEET Verified 07/20/22 09:57 SWELLING Sulfa (Sulfonamide Allergy Unknown Hives Verified 07/20/22 09:57 Antibiotics) Review of Systems Review of Systems: All systems reviewed & are unremarkable except as noted in HPI and below Constitutional: Constitutional: Denies chills, Reports fatigue and Reports fever(s) ENT: Reports system reviewed and no additional complaints, except as documented Cardiovascular: Cardiovascular: Reports no additional cardiovascular complaints Respiratory: Respiratory: Reports cough, Reports dyspnea and Denies wheezing Gastrointestinal: Gastrointestinal: Reports no additional gastrointestinal complaints [facility] Past Medical History Medical History (Updated 03/16/23 @ 19:25 by Mc Buenrostro MD) Anxiety Chronic back pain Chronic respiratory failure with hypoxia, on home oxygen therapy E. coli urinary tract infection (03/2021) Multi-drug resistant, not ESBL. Gastric ulcer Gastroesophageal reflux disease History of MRSA infection Hyperlipidemia Hypertension Osteoarthritis Osteoporosis Steroid-dependent chronic obstructive pulmonary disease Type 2 diabetes mellitus Surgical History Surgical History H/O tubal ligation History of appendectomy History of arthroscopy of right knee History of hysterectomy (1985) Total abdominal hysterectomy with unilateral salpingo-oophorectomy for benign reasons. History of lung biopsy In the late . She reports she had a lung biopsy which resulted in collapsed lung , what sounds like a pneumothorax for which she had chest tube. History of orthopedic surgery knee Family History Family History Father Acute myocardial infarction Family history of cardiovascular disease Hypertension Sibling Acute myocardial infarction Diabetes mellitus Family history of cardiovascular disease Breast cancer Mother Cerebrovascular accident Hypertension Socia
[2023-03-16] MEDS: LACTATED RINGERS 1,000 ML 125 ML IV CONT ×2 (13:37→21:34)
[2023-03-16] MEDS: methylPREDNISolone SOD SUCC 125 MG VIAL IV PUSH (13:37)
[2023-03-16] MEDS: VANCOMYCIN 1,250 MG/NS 250 ML 1,250 MG/250 ML BAG 250 MG IVPB (13:38)
[2023-03-16] MEDS: ONDANSETRON INJ 4 MG/2 ML VIAL IV PUSH (13:43)
[2023-03-16] MEDS: MORPHINE SULFATE (*CRX) 4 MG/ML INJ IV PUSH (13:43)
--- NOTE | 2023-03-16 14:15 | ADMGEN ---
This patient, Amber Teran, was admitted to -. Patient/family oriented to hospital policies and general routines including ID bracelet, bed and alarms, visiting hours, pain management, procedures, bathroom and other care routines, personal items, smoking policy, room service/diet, and visiting hours. Information on how to activate the Rapid Response Team has been discussed. Patient/Family are encouraged to report perceived risks to care and to ask questions if they do not understand what they are told or what they should do.
[2023-03-16 16:45] LABS: Glucose Point of Care 244 mg/dl (65-105)
--- NOTE | 2023-03-16 16:53 | PM.IMHP ---
H&P: HPI History of Present Illness Date/Time: 03/16/23 18:15 Chief Complaint: Shortness of breath. Narrative: This is a 67-year-old female with chronic respiratory failure on home oxygen, steroid dependent chronic obstructive pulmonary disease, heart failure with reduced ejection fraction of 17% on echo in June 2021 with findings concerning for reverse takotsubo cardiomyopathy, type 2 diabetes mellitus, hypertension, and hyperlipidemia presented to the emergency department for evaluation of shortness of breath. The patient provides the following history. At baseline she does get winded with activities however is able to do light cooking and cleaning. She also watches her grandchildren frequently. Over the past week or so however she has had increasing dyspnea on lesser and lesser exertion and is now to the point where she is short of breath when even walking a few feet. She has a cough productive of yellow sputum and she has had a temperature up to 102? F. her throat is a bit sore but not significantly so. Appetite has been okay however she reports that it is difficult to eat as she is so short of breath. She has significant wheezing for which she has been using her inhalers and nebulizers without a whole lot of benefit. She also reports having lower extremity edema couple of weeks ago for which she doubled up on her Lasix. That has since resolved and she is back on her usual Lasix dose. Her grand kids frequently have cold symptoms. She denies recent travel. No chest or pleuritic pain. She denies vomiting and diarrhea. No calf pain or tenderness. In the ED: SpO2 was 88% on her usual 3 L nasal cannula. Labs were significant for a WBC count of 9.4, sodium 132, glucose 240, proBNP 21. She was negative for influenza and COVID. Chest x-ray showed emphysema and mild pulmonary edema in the lower lung zones. EKG did not show any acute changes from previous tracings. She received a DuoNeb and Solu-Medrol and she is being admitted in this setting for COPD exacerbation. Review of Systems Review of Systems: Twelve systems were reviewed and are negative except for as per HPI. [facility] Past Medical History Medical History (Updated 03/17/23 @ 00:15 by Alix Blake PA-C) Anxiety Chronic back pain Chronic respiratory failure with hypoxia, on home oxygen therapy E. coli urinary tract infection (03/2021) Multi-drug resistant, not ESBL. Gastric ulcer Gastroesophageal reflux disease Heart failure with reduced ejection fraction History of MRSA infection Hyperlipidemia Hypertension Osteoarthritis Osteoporosis Steroid-dependent chronic obstructive pulmonary disease Type 2 diabetes mellitus Surgical History Surgical History H/O tubal ligation History of appendectomy History of arthroscopy of right knee History of hysterectomy (1985) Total abdominal hysterectomy with unilateral salpingo-oophorectomy for benign reasons. History of lung biopsy In the late . She reports she had a lung biopsy which resulted in collapsed lung , what sounds like a pneumothorax for which she had chest tube. History of orthopedic surgery knee Family History Family History Father Acute myocardial infarction Family history of cardiovascular disease Hypertension Sibling Acute myocardial infarction Diabetes mellitus Family history of cardiovascular disease Breast cancer Mother Cerebrovascular accident Hypertension Social History Social History Social History: Surrogate decision maker: Nolan Teran, son. Code status: Full code. Smoking packs per day: 1 Smoking cigarettes per day: 20.0 Years smoked: 25 Smoking pack-years: 25.00 Smoking status: Former smoker Alcohol intake: never Substance use: never Lack of Transportation: No Lack of Food: Never True Cu
[2023-03-16] MEDS: metFORMIN HCL 500 MG TABLET PO (17:25)
[2023-03-16] MEDS: oxyCODONE/ACETAMINOPHEN (*CRX) 10-325 MG TABLET 1 TAB PO ×2 (17:25→21:34)
[2023-03-16 18:35] LABS: MRSA (PCR) NOT DETECTED (NOT DETECTE)
[2023-03-16] MEDS: FLUTICASONE/SALMETEROL 115-21 MCG INHALER 1 PUFF 2 PUFF INHALATION (21:26)
[2023-03-16] MEDS: MIRTAZAPINE 15 MG TABLET 30 MG PO (21:33)
[2023-03-16] MEDS: MONTELUKAST SODIUM 10 MG TABLET PO (21:34)
[2023-03-16] MEDS: SACUBITRIL/VALSARTAN 24-26 MG TABLET 1 TAB PO (21:34)
[2023-03-16 22:02] LABS: Glucose Point of Care 216 mg/dl (65-105)
[2023-03-17] VITALS (15 sets, daily range): BP systolic 117–119; BP diastolic 57–62; PULSE 80–100; RESP 13–20; TEMP 36.3–36.6; O2SAT 95–100; BMI 17.6
--- NOTE | 2023-03-17 | ECHO_ITS ---
Patient Info Name: Amber Teran Age: 67 years : 1955 Gender: Female Ht: 67 in Wt: 112 lbs BSA: 1.54 m2 HR: 97 bpm BP: 119 / 62 mmHg Heart Rhythm: Sinus Rhythm Technical Quality: Good Exam Date: 03/17/2023 1:52 PM Exam Location: Echo Lab Patient Status: Outpatient Admit Date: 03/16/2023 Staff Ordering Physician: Sameera Patterson DO Custodial Worker: Talita Cheng RDCS Attending Provider: Sameera Patterson DO Referring Physician: Yesenia VERA; Exam Type: CA echo doppler color flow Study Info Indications - SOB Complete two-dimensional, color flow and Doppler transthoracic echocardiogram is performed. Summary 1. Complete two-dimensional, color flow and Doppler transthoracic echocardiogram is performed. 2. Left ventricular chamber dimension is normal. 3. Left ventricular systolic function is hyperdynamic, estimated at >70%. 4. The left ventricular diastolic function is grade I diastolic dysfunction. 5. Right ventricular systolic function is normal. 6. There is trace mitral valve regurgitation. 7. There is trace tricuspid valve regurgitation. Left Ventricle Left ventricular chamber dimension is normal. Left ventricular systolic function is hyperdynamic, estimated at >70%. There is no increased left ventricular wall thickness. The left ventricular diastolic function is grade I diastolic dysfunction. Right Ventricle Right ventricular chamber dimension is normal. Right ventricular systolic function is normal. Left Atria Left atrial chamber dimension is normal. Right Atria Right atrial chamber dimension is normal. Atrial Septum Intact interatrial septum visualized by color flow imaging. Aortic Valve The aortic valve is not well visualized. There is no aortic valve regurgitation. There is mild aortic valve calcification. Pulmonic Valve The pulmonic valve is not well visualized. Mitral Valve There is trace mitral valve regurgitation. Tricuspid Valve There is trace tricuspid valve regurgitation. Pericardium/Pleural There is no pericardial effusion. Inferior Vena Cava Normal inferior vena cava with >50% collapse upon inspiration consistent with normal right atrial pressure, 3 mmHg. Aorta The aortic root size at the sinus of Valsalva is normal. Left Ventricular Outflow Tract Name Value Normal LVOT 2D LVOT Diameter 1.7 cm LVOT Doppler LVOT Peak Gradient 3 mmHg LVOT Mean Gradient 2 mmHg LVOT VTI 21 cm LVOT VTI/AV VTI Ratio 0.6 LVOT Stroke Volume 46 ml LVOT CO 3.2 l/min LVOT CI 2.1 l/min/m2 Pulmonic Valve Name Value Normal RVOT Doppler RVOT Peak Gradient 3 mmHg PV Doppler PV Peak Gradient
[2023-03-17] MEDS: AZITHROMYCIN 250 MG TABLET 500 MG PO (01:16)
[2023-03-17] MEDS: oxyCODONE/ACETAMINOPHEN (*CRX) 10-325 MG TABLET 1 TAB PO ×5 (01:16→20:18)
[2023-03-17] MEDS: IPRATROPIUM BR 0.02% INH SOLN 0.5 MG/2.5 ML VIAL INHALATION ×4 (01:45→21:20)
[2023-03-17] MEDS: ALBUTEROL SULFATE NEB 2.5 MG/3 ML INH INHALATION ×4 (01:45→21:20)
[2023-03-17] MEDS: methylPREDNISolone SOD SUCC 40 MG VIAL IV PUSH ×3 (05:42→17:40)
[2023-03-17] MEDS: LACTATED RINGERS 1,000 ML 125 ML IV CONT ×2 (07:01→15:09)
[2023-03-17 07:13] LABS: Hemoglobin 10.1 g/dL (12.0-15.0); Mean Corpuscular HGB Conc 27.3 g/dl (32-36); Mean Corpuscular Hemoglobin 24.5 pg (26-34); Mean Corpuscular Volume 89.6 fl (80-100); Mean Platelet Volume 10.8 fl (7.4-10.4); Platelet Count Result 166 k/mm3 (150-375); Red Blood Count 4.13 M/mm3 (4.2-5.4); Red Cell Distribution Width 15.4 % (11.5-14.5); White Blood Count 8.7 K/mm3 (4.5-10.0)
[2023-03-17 07:26] LABS: Anion Gap 4 mmol/L (8-16); Blood Urea Nitrogen 14 mg/dL (7-17); Calcium 8.5 mg/dL (8.4-10.2); Carbon Dioxide 29 mmol/L (22-30); Chloride 99 mmol/L (98-107); Estimated CRCL calculation 117 ml/min; Estimated Glomerular Filt Rate > 60; Glucose 179 mg/dL (65-110); Potassium 4.4 mmol/L (3.4-5.0); Sodium 132 mmol/L (137-145)
[2023-03-17] MEDS: FLUTICASONE/SALMETEROL 115-21 MCG INHALER 1 PUFF 2 PUFF INHALATION ×2 (08:22→21:37)
[2023-03-17 08:38] LABS: Glucose Point of Care 169 mg/dl (65-105)
[2023-03-17] MEDS: AZITHROMYCIN 250 MG TABLET PO (11:09)
[2023-03-17] MEDS: SACUBITRIL/VALSARTAN 24-26 MG TABLET 1 TAB PO ×2 (11:09→20:18)
[2023-03-17] MEDS: FUROSEMIDE 20 MG TABLET PO (11:09)
[2023-03-17] MEDS: FERROUS SULFATE 325 MG TABLET DR PO (11:10)
[2023-03-17] MEDS: ENOXAPARIN 40 MG/0.4 ML SYRINGE SUB-Q (11:10)
[2023-03-17] MEDS: guaiFENesin 12 HR 600 MG TABCR PO ×2 (11:10→20:18)
[2023-03-17] MEDS: metFORMIN HCL 500 MG TABLET PO ×2 (11:10→17:39)
[2023-03-17] MEDS: ASPIRIN 81 MG CHEWABLE TABLET PO (11:10)
[2023-03-17] MEDS: INSULIN ASPART (*BKC) 100 UNITS/ML SUB-Q ×2 (11:44→17:39)
[2023-03-17 11:46] LABS: Glucose Point of Care 207 mg/dl (65-105)
--- NOTE | 2023-03-17 12:34 | PM.IMPN ---
Progress Note: A&P Assessment and Plan (1) COPD exacerbation: Code(s): J44.1 - Chronic obstructive pulmonary disease with (acute) exacerbation Status: Acute Assessment and Plan: Continue steroids, nebulizer treatment Started on doxycycline due to Levaquin/cephalosporin allergies 03/17 (2) Acute and chronic respiratory failure with hypoxia: Code(s): J96.21 - Acute and chronic respiratory failure with hypoxia Status: Acute Assessment and Plan: As above, wean oxygen as able (3) Type 2 diabetes mellitus: Qualifiers: Diabetes mellitus complication status: without complication Diabetes mellitus terminal makeup operator insulin use: without chcf use Qualified Code(s): E11.9 - Type 2 diabetes mellitus without complications Code(s): E11.9 - Type 2 diabetes mellitus without complications Status: Acute Assessment and Plan: Blood glucose reviewed 03/17 (4) Heart failure with reduced ejection fraction: Code(s): I50.20 - Unspecified systolic (congestive) heart failure Status: Acute Assessment and Plan: Appears euvolemic at this time, continue home meds Repeat echo ordered and pending, last EF was 17% in June 2022 Plan DVT prophylaxis with Lovenox GI prophylaxis with PPI Code status full code Subjective Date/time seen: 03/17/23 12:34 Interval history: 67-year-old female with chronic respiratory failure on home oxygen, steroid dependent chronic obstructive pulmonary disease, heart failure with reduced ejection fraction of 17% on echo in June 2021 with findings concerning for reverse takotsubo cardiomyopathy, type 2 diabetes mellitus, hypertension, and hyperlipidemia here with shortness of breath and is currently being treated for COPD exacerbation and empirically for possible pneumonia. No overnight events noted. No chest pain. No nausea, vomiting or diarrhea. No fevers or chills. SOB improved, but still requiring oxygen at rest. Review of Systems Review of Systems: 12 point review of systems was assessed and was negative except as noted in the HPI Exam Narrative: General: No acute distress, alert and oriented per baseline HEENT: Atraumatic, normocephalic, mucous membranes moist CV: Regular rate and rhythm, S1, S2 Lungs: Diminished throughout, scattered expiratory wheezes noted Abdomen: Soft, nontender, nondistended Extremities: Normal to inspection Skin: No rashes noted, no lesions or wounds seen Psych: Euthymic, normal affect Objective Data Vital Signs Vital Signs: Vital Signs - 24 hr 03/16/23 13:35 11/06/23 14:30 03/16/23 14:15 Temperature 98.1 F Pulse Rate 102 H 93 Respiratory Rate 21 H 20 Blood Pressure 123/58 L Pulse Oximetry 94 91 93 Oxygen Delivery Nasal Cannula Oxygen Flow Rate 5 03/16/23 21:25 03/16/23 22:00 03/16/23 21:40 Temperature 98.0 F Pulse Rate 90 80 89 Respiratory Rate 20 18 20 Blood Pressure 121/57 L Pulse Oximetry Oxygen Delivery Oxygen Flow Rate 03/17/23 01:18 03/17/23 01:45 03/17/23 02:19 Temperature Pulse Rate 88 87 Respiratory Rate 20 20 Blood Pressure Pulse Oximetry 99 Oxygen Delivery Nasal Cannula Oxygen Flow Rate 4 03/16/23 20:00 03/17/23 06:00 03/17/23 08:23 Temperature 97.9 F Pulse Rate 99 Respiratory Rate 18 Blood Pressure 119/62 Pulse Oximetry 100 99 97 Oxygen Delivery Nasal Cannula Nasal Cannula Oxygen Flow Rate 5 3 03/17/23 08:23 03/17/23 08:37 Temperature Pulse Rate 90 97 Respiratory Rate 20 20 Blood Pressure Pulse Oximetry Oxygen Delivery Oxygen Flow Rate Intake/Output Intake/Output: Intake & Output 03/15/23 03/15/23 03/16/23 03/17/23 00:59 23:59 23:59 23:59 Intake Total 1118 1320 Balance 1118 1320 Meds/Results Medications: Active Medications Generic Name Dose Route Start Last Admin Trade Name Freq PRN Reason Stop Dose Admin Acetamino
[2023-03-17] MEDS: DOXYCYCLINE HYCLATE 100 MG TABLET PO ×2 (15:09→20:18)
[2023-03-17 16:52] LABS: Glucose Point of Care 213 mg/dl (65-105)
[2023-03-17] MEDS: MIRTAZAPINE 15 MG TABLET 30 MG PO (20:18)
[2023-03-17] MEDS: MONTELUKAST SODIUM 10 MG TABLET PO (20:18)
[2023-03-17] MEDS: ONDANSETRON INJ 4 MG/2 ML VIAL IV PUSH (20:24)
[2023-03-17 20:39] LABS: Glucose Point of Care 172 mg/dl (65-105)
[2023-03-18] VITALS (13 sets, daily range): BP systolic 110–140; BP diastolic 59–70; PULSE 78–109; RESP 14–24; TEMP 36.2–36.9; O2SAT 93–100
[2023-03-18] MEDS: oxyCODONE/ACETAMINOPHEN (*CRX) 10-325 MG TABLET 1 TAB PO ×6 (00:33→20:53)
[2023-03-18] MEDS: methylPREDNISolone SOD SUCC 40 MG VIAL IV PUSH ×4 (00:33→17:13)
[2023-03-18] MEDS: ALBUTEROL SULFATE NEB 2.5 MG/3 ML INH INHALATION ×4 (02:02→21:24)
[2023-03-18] MEDS: IPRATROPIUM BR 0.02% INH SOLN 0.5 MG/2.5 ML VIAL INHALATION ×3 (02:03→13:11)
[2023-03-18 08:07] LABS: Glucose Point of Care 193 mg/dl (65-105)
[2023-03-18] MEDS: FLUTICASONE/SALMETEROL 115-21 MCG INHALER 1 PUFF 2 PUFF INHALATION (08:24)
[2023-03-18] MEDS: ENOXAPARIN 40 MG/0.4 ML SYRINGE SUB-Q (09:18)
[2023-03-18] MEDS: FERROUS SULFATE 325 MG TABLET DR PO (09:18)
[2023-03-18] MEDS: metFORMIN HCL 500 MG TABLET PO ×2 (09:18→17:13)
[2023-03-18] MEDS: FUROSEMIDE 20 MG TABLET PO (09:18)
[2023-03-18] MEDS: ASPIRIN 81 MG CHEWABLE TABLET PO (09:18)
[2023-03-18] MEDS: PANTOPRAZOLE 40 MG TABLET PO (09:19)
[2023-03-18] MEDS: SACUBITRIL/VALSARTAN 24-26 MG TABLET 1 TAB PO ×2 (09:19→20:53)
[2023-03-18] MEDS: DOXYCYCLINE HYCLATE 100 MG TABLET PO ×2 (09:19→20:53)
[2023-03-18] MEDS: guaiFENesin 12 HR 600 MG TABCR PO ×2 (09:19→20:53)
[2023-03-18 11:38] LABS: Glucose Point of Care 257 mg/dl (65-105)
--- NOTE | 2023-03-18 12:04 | PM.IMPN ---
Progress Note: A&P Assessment and Plan (1) COPD exacerbation: Code(s): J44.1 - Chronic obstructive pulmonary disease with (acute) exacerbation Status: Acute Assessment and Plan: Patient still feels very SOB. She is on her 3L O2 chrnically. Suspect she is unable to mobilize secretions. CPT ordered. Continue steroids, nebulizer treatment and doxycycline Pulmonary consult Repeat CXR. Add pulmozyme. (2) Acute and chronic respiratory failure with hypoxia: Code(s): J96.21 - Acute and chronic respiratory failure with hypoxia Status: Acute Assessment and Plan: As above. Have been able to wean her to her 3L but still not thriving. As above (3) Type 2 diabetes mellitus: Qualifiers: Diabetes mellitus complication status: without complication Diabetes mellitus fci insulin use: without regional intermodal truck driver use Qualified Code(s): E11.9 - Type 2 diabetes mellitus without complications Code(s): E11.9 - Type 2 diabetes mellitus without complications Status: Acute Assessment and Plan: The patient's blood glucose was reviewed on 03/18 Glucose remains elevated at times felt related to steroids Continue AccuCheks covering with sliding scale. Hypoglycemia protocol available as needed. Continue to monitor (4) Heart failure with reduced ejection fraction: Code(s): I50.20 - Unspecified systolic (congestive) heart failure Status: Acute Assessment and Plan: Patient has a hx of systolic CHF with EF 17%. Repeat Echo here showing EF 70% and Grade I diastolic dysfunction. Appears euvolemic at this time, continue home meds with Entresto, Toprol and Lasix Add Empagliflozin. (5) Protein calorie malnutrition: Code(s): E46 - Unspecified protein-calorie malnutrition Status: Acute Assessment and Plan: Patient with moderate protein calorie malnutrition related to reduced appetite with inadequate energy intake as evidenced by pt report, significant weight loss of -13% x 6 months, and NFPE findings. Supplements ordered Plan DVT prophylaxis with Lovenox GI prophylaxis with PPI Code status full code Subjective Date/time seen: 03/18/23 12:04 Interval history: 67-year-old female with chronic respiratory failure on home oxygen, steroid dependent chronic obstructive pulmonary disease, heart failure with reduced ejection fraction of 17% on echo in June 2021 with findings concerning for reverse takotsubo cardiomyopathy, type 2 diabetes mellitus, hypertension, and hyperlipidemia here with shortness of breath and is currently being treated for COPD exacerbation and empirically for possible pneumonia. Assuming care. Chart reviewed. Having increasing SOB with even minimal exertion. Cough is nonproductive but feels she has phlem that needs to be expectorated. No CP. No n/v. Sees pulmonary Dr Alonzo in [place]. She is normally on 3L O2 at home. Had vest therapy at home but could not toelrate. No longer smokes. Exam Narrative: AF 97.2 110/59 99 20 93% 4L Gen - frail, elderly female sitting at the side of the bed who appears tired but NARD. Chest - coarse expiratory rhonchi. CV - tachycardic, regular. Abd - Soft, NT/ND, Positive BS Ext - No pedal edema Psych - Nml mood and affect Skin - Warm and dry Objective Data Vital Signs Vital Signs: Vital Signs - 24 hr 03/17/23 15:20 03/17/23 15:34 03/17/23 14:00 Temperature 97.5 F L Pulse Rate 92 96 99 Respiratory Rate 20 20 20 Blood Pressure 117/57 L Pulse Oximetry 99 Oxygen Delivery Oxygen Flow Rate 03/17/23 19:35 03/17/23 21:35 03/17/23 21:38 Temperature 97.4 F L Pulse Rate 100 Respiratory Rate 13 Blood Pressure 118/62 Pulse Oximetry 95 100 96 Oxygen Delivery Nasal Cannula Nasal Cannula Oxygen Flow Rate 4 4 03/17/23 21:20 03/17/23 21:39 03/18/23 02:03 Temperature Pulse Rate 80 83 78 Respiratory Rate 20 20 20 Blood Pres
[2023-03-18] MEDS: INSULIN ASPART (*BKC) 100 UNITS/ML SUB-Q ×2 (12:07→21:05)
--- NOTE | 2023-03-18 12:48 | P.CDI_ITS ---
CDI Query Clarification Request BMI 17.6 Nutritional Diagnostic Statement Moderate protein calorie malnutrition related to reduced appetite with inadequate energy intake as evidenced by pt report, significant weight loss of - 13% x 6 months, and NFPE findings. Please refer to the comprehensive nutrition assessment for further information. Please clarify severity of protein calorie malnutrition if known: * Mild * Moderate * Severe * Other/Unspecified
[2023-03-18] MEDS: DORNASE ALFA INH SOLN 1 MG/ML 2.5 ML AMP 2.5 MG INHALATION ×2 (13:11→21:24)
[2023-03-18 17:02] LABS: Glucose Point of Care 172 mg/dl (65-105)
--- NOTE | 2023-03-18 18:53 | PM.CNPUL ---
Assessment and Plan Assessment and plan (1) COPD exacerbation: Code(s): J44.1 - Chronic obstructive pulmonary disease with (acute) exacerbation Status: Acute Assessment and Plan: She has longstanding COPD, steroid dependent, well managed at home, last exacerbation 6 months ago. She does not have pneumonia; this exacerbation was in part due to decompensated systolic CHF, better with diuresis. She is on prednisone 10 mg a day, a substantial dose for COPD. We will wean steroids, now on methylprednisolone 40 mg IV Q 6 hours continue inhaler fluticasone/salmeterol 115/21 one puff BID Umeclidinium 62.5 mcg 1 puff a day She is on nebulized albuterol and ipratropium q.6 hours; can stop the ipratropium since she is on the umeclidinium, both are anticholinergics (2) Acute and chronic respiratory failure with hypoxia: Code(s): J96.21 - Acute and chronic respiratory failure with hypoxia Status: Acute Assessment and Plan: She has been on oxygen at home 3 L a minute which is the same she uses at home. At time she needs vape both arm. Overall oxygenation is improving. Wean oxygen as tolerated to maintain saturation above 90% at rest and with exertion. Plan She also has crusting in her nose with dried blood, I added nasal saline. History of Present Illness History of Present Illness Consult date: 03/18/23 Requesting physician: Smith Vigil MD Chief complaint: COPD exacerbation Narrative: Patient was seen Mar 18 at 20:20 pm. NEW: Amber Teran is a 67-year-old female with COPD, chronic respiratory failure on home oxygen, diabetes, hypertension, and hyperlipidemia followed by jed Lee in [place]. She has heart failure with reduced ejection fraction of 17% on echo in June 2021. She was admitted with increased shortness of breath, felt bad on Sat and sun, Thursday am was not able to breathe. She uses prednisone 10 mg every day, has being steroid dependent 10 years. Last exacerbation of COPD was 6 months ago. She uses O2 3 L around the clock at home. Here, had O2 increased to 4 L/min. She has a hard time expectorating sputum. She had a fever of 102 then 101, fevers only for 1 day. she had no GI symptoms at home, no diarrhea. She has a nebulizer at home, uses 2-3 times a day. Had COVID 1-2 years ago, was quite sick Never has been on a ventilator Lives at home, boyfriend stays with her She worked at [employer] in [place] for 5 years, became disabled 15 years ago Has small amount of asthma She can perform activities at home, bakes cupcakes, can do other home related tasks She has had a 25 pound wt loss in last 2 months, same appetite, occ difficulty swallowing. Vapotherm in the room, 25 L/min, 32%; however she is on 3 L/min; at times, the nasal cannula is not sufficient. DATA * (-) influenza A, B, SARS-CoV-2 * wbc 8.7, H/H 10.7/37, plt 166k, * nasal swab negative MRSA *03/16 CXR - Emphysema. Mild pulmonary edema in the lower lung zones. Review of Systems Review of Systems: All systems reviewed & are unremarkable except as noted in HPI and below PMFSH Past Medical History Medical History (Updated 03/18/23 @ 19:17 by Smith Vigil MD) Anxiety Chronic back pain Chronic respiratory failure with hypoxia, on home oxygen therapy E. coli urinary tract infection (03/2021) Multi-drug resistant, not ESBL. Gastric ulcer Gastroesophageal reflux disease Heart failure with reduced ejection fraction History of MRSA infection Hyperlipidemia Hypertension Osteoarthritis Osteoporosis Steroid-dependent chronic obstructive pulmonary disease Type 2 diabetes mellitus Surgical History Surgical History H/O tubal ligation History of appendectomy History of arthroscopy of right knee History of hysterectomy (1985) To
[2023-03-18] MEDS: MONTELUKAST SODIUM 10 MG TABLET PO (20:53)
[2023-03-18] MEDS: MIRTAZAPINE 15 MG TABLET 30 MG PO (20:53)
[2023-03-18] MEDS: SODIUM CHLORIDE NASAL GEL 14.1 GM 1 APPLIC NASAL (22:27)
[2023-03-18 22:52] LABS: Glucose Point of Care 267 mg/dl (65-105)
[2023-03-19] VITALS (14 sets, daily range): BP systolic 112–123; BP diastolic 67–68; PULSE 92–107; RESP 16–22; TEMP 36–36.8; O2SAT 94–100
[2023-03-19] MEDS: methylPREDNISolone SOD SUCC 40 MG VIAL IV PUSH ×5 (00:57→23:58)
[2023-03-19] MEDS: oxyCODONE/ACETAMINOPHEN (*CRX) 10-325 MG TABLET 1 TAB PO ×6 (01:00→20:49)
--- NOTE | 2023-03-19 01:05 | PC.NURSE ---
Pt found on 4L O2 NC with SpO2 99% at rest. Pt states she does not know why respiratory keeps putting her on high flow therapy at 25L, and states she would rather wear 4L NC. This RN was going to wean pt's O2 down to home dose of 3L, but pt states she is more comfortable remaining on 4L O2 NC right now.
[2023-03-19] MEDS: ALBUTEROL SULFATE NEB 2.5 MG/3 ML INH INHALATION ×4 (02:48→19:24)
[2023-03-19] MEDS: IPRATROPIUM BR 0.02% INH SOLN 0.5 MG/2.5 ML VIAL INHALATION ×4 (02:48→19:24)
[2023-03-19] MEDS: ACETAMINOPHEN 325 MG TABLET 650 MG PO (04:43)
[2023-03-19 06:18] LABS: Albumin Level 3.3 g/dL (3.5-5.1); Anion Gap 6 mmol/L (8-16); Blood Urea Nitrogen 16 mg/dL (7-17); Calcium 8.4 mg/dL (8.4-10.2); Carbon Dioxide 28 mmol/L (22-30); Chloride 100 mmol/L (98-107); Estimated CRCL calculation 117 ml/min; Estimated Glomerular Filt Rate > 60; Glucose 232 mg/dL (65-110); Magnesium 2.3 mg/dL (1.6-2.3); Phosphorus 2.8 mg/dL (2.5-4.5); Potassium 3.7 mmol/L (3.4-5.0); Sodium 134 mmol/L (137-145)
[2023-03-19] MEDS: DORNASE ALFA INH SOLN 1 MG/ML 2.5 ML AMP 2.5 MG INHALATION ×2 (07:11→19:24)
[2023-03-19] MEDS: FLUTICASONE/SALMETEROL 115-21 MCG INHALER 1 PUFF 2 PUFF INHALATION ×2 (07:28→19:24)
[2023-03-19 08:01] LABS: Glucose Point of Care 269 mg/dl (65-105)
[2023-03-19] MEDS: ASPIRIN 81 MG CHEWABLE TABLET PO (09:01)
[2023-03-19] MEDS: SACUBITRIL/VALSARTAN 24-26 MG TABLET 1 TAB PO ×2 (09:02→20:49)
[2023-03-19] MEDS: guaiFENesin 12 HR 600 MG TABCR PO ×2 (09:02→20:49)
[2023-03-19] MEDS: PANTOPRAZOLE 40 MG TABLET PO (09:02)
[2023-03-19] MEDS: FERROUS SULFATE 325 MG TABLET DR PO (09:02)
[2023-03-19] MEDS: DOXYCYCLINE HYCLATE 100 MG TABLET PO ×2 (09:03→20:49)
[2023-03-19] MEDS: metFORMIN HCL 500 MG TABLET PO ×2 (09:03→17:27)
[2023-03-19] MEDS: EMPAGLIFLOZIN 10 MG TABLET PO (09:03)
[2023-03-19] MEDS: FUROSEMIDE 20 MG TABLET PO (09:03)
[2023-03-19] MEDS: ENOXAPARIN 40 MG/0.4 ML SYRINGE SUB-Q (09:03)
[2023-03-19] MEDS: INSULIN ASPART (*BKC) 100 UNITS/ML SUB-Q ×3 (09:03→22:00)
[2023-03-19 12:14] LABS: Glucose Point of Care 205 mg/dl (65-105)
[2023-03-19] MEDS: ONDANSETRON INJ 4 MG/2 ML VIAL IV PUSH (13:24)
--- NOTE | 2023-03-19 15:14 | PM.IMPN ---
Progress Note: A&P Assessment and Plan (1) COPD exacerbation: Code(s): J44.1 - Chronic obstructive pulmonary disease with (acute) exacerbation Status: Acute Assessment and Plan: Patient still feels very SOB and not back to baseline. She is on 3L O2 chronically. Suspect she is unable to mobilize secretions. CPT ordered. Pulmozyme ordered. CXR showing COPD and Rt apical scarring Continue steroids, nebulizer treatment and doxycycline Pulmonary consulted and appreciate their input. Follow (2) Acute and chronic respiratory failure with hypoxia: Code(s): J96.21 - Acute and chronic respiratory failure with hypoxia Status: Acute Assessment and Plan: As above. Have been able to wean her to her 3L but still not feeling back to herself As above (3) Type 2 diabetes mellitus: Qualifiers: Diabetes mellitus complication status: without complication Diabetes mellitus director long term care insulin use: without director long term care use Qualified Code(s): E11.9 - Type 2 diabetes mellitus without complications Code(s): E11.9 - Type 2 diabetes mellitus without complications Status: Acute Assessment and Plan: The patient's blood glucose was reviewed on 03/19 Glucose remains elevated at times felt related to steroids. Empagliflozin added. Continue AccuCheks covering with sliding scale. Hypoglycemia protocol available as needed. Add lantus while on steroids. Continue to monitor (4) Heart failure with reduced ejection fraction: Code(s): I50.20 - Unspecified systolic (congestive) heart failure Status: Acute Assessment and Plan: Patient has a hx of systolic CHF with EF 17%. Repeat Echo here showing EF 70% and Grade I diastolic dysfunction. Appears euvolemic at this time, continue home meds with Entresto, Toprol and Lasix Empagliflozin added. (5) Protein calorie malnutrition: Code(s): E46 - Unspecified protein-calorie malnutrition Status: Acute Assessment and Plan: Patient with moderate protein calorie malnutrition related to reduced appetite with inadequate energy intake as evidenced by pt report, significant weight loss of -13% x 6 months, and NFPE findings. Supplements ordered Plan DVT prophylaxis with Lovenox GI prophylaxis with PPI Code status full code Subjective Date/time seen: 03/19/23 15:14 Interval history: 67-year-old female with chronic respiratory failure on home oxygen, steroid dependent chronic obstructive pulmonary disease, heart failure with reduced ejection fraction of 17% on echo in June 2021 with findings concerning for reverse takotsubo cardiomyopathy, type 2 diabetes mellitus, hypertension, and hyperlipidemia here with shortness of breath and is currently being treated for COPD exacerbation and empirically for possible pneumonia. No change in her symptoms today. She denies CP. Cough is occasionally productive. Her shortness of breath is worse when she is recumbent. Exam Narrative: AF 98.3 120/68 101 20 98% 3L Gen - thin, frail, elderly female sitting at the side of the bed in NARD Chest - coarse expiratory rhonchi posteriorly. mild conversational dyspnea. CV - RRR S1/S2 Abd - Soft, NT/ND, Positive BS Ext - No pedal edema Psych - Nml mood and affect Skin - Warm and dry Objective Data Vital Signs Vital Signs: Vital Signs - 24 hr 03/18/23 21:24 03/18/23 21:38 03/18/23 22:00 Temperature 97.6 F Pulse Rate 96 98 98 Respiratory Rate 20 20 18 Blood Pressure 131/68 Pulse Oximetry 100 Oxygen Delivery Oxygen Flow Rate Fraction of Inspired Oxygen 03/18/23 20:00 03/19/23 02:48 03/19/23 02:59 Temperature Pulse Rate 99 92 94 Respiratory Rate 20 20 Blood Pressure Pulse Oximetry 99 Oxygen Delivery Nasal Cannula Oxygen Flow Rate 4 Fraction of Inspired Oxygen 03/19/23 07:08 03/19/23 07:08 03/19/23 06:00 Temperature 98.3 F Pulse Rate 95 94 Res
--- NOTE | 2023-03-19 15:31 | PM.PNPUL ---
Progress Note: A&P Assessment and Plan (1) COPD exacerbation: Code(s): J44.1 - Chronic obstructive pulmonary disease with (acute) exacerbation Status: Acute Assessment and Plan: She has longstanding COPD, steroid dependent, well managed at home, last exacerbation 6 months ago. She does not have pneumonia; this exacerbation was in part due to decompensated systolic CHF, better with diuresis. She is on prednisone 10 mg a day, a substantial dose for COPD.She cannot have steroids weaned at this time due to persistent symptoms and wheezing. Methylprednisolone 40 mg IV Q 6 hours Continue inhaler fluticasone/salmeterol 115/21 one puff BID Umeclidinium 62.5 mcg 1 puff a day She is on nebulized albuterol and ipratropium q.6 hour. (2) Acute and chronic respiratory failure with hypoxia: Code(s): J96.21 - Acute and chronic respiratory failure with hypoxia Status: Acute Assessment and Plan: She has been on oxygen at home 3 L a minute which is the same she uses at home. At time she has needed Vapotherm, now using nasal cannula alone. Overall oxygenation is stable. She can stay at this flow which is her baseline. Plan She is not able to have steroids weaned yet, remains on a significant dose, methylprednisolone 40 IV Q 6; she says she has stayed in [facility] as long as 30 days for COPD exacerbation. Subjective Date/time seen: 03/19/23 15:31 Interval history: Hospital follow-up: Mar Jeffry is a 67-year-old female with COPD, chronic respiratory failure on home oxygen, diabetes, hypertension, and hyperlipidemia followed by jed Lee in [place].She is still wheezing today, and she has moist crackles, not as much wheezing. She remains on same O2, had loose stools, eating is stable. Mar 18- new consult: She has heart failure with reduced ejection fraction of 17% on echo in June 2021. She was admitted with increased shortness of breath, felt bad on Sat and sun, Thursday am was not able to breathe. She uses prednisone 10 mg every day, has being steroid dependent 10 years. Last exacerbation of COPD was 6 months ago. She uses O2 3 L around the clock at home. Here, had O2 increased to 4 L/min. She has a hard time expectorating sputum. She had a fever of 102 then 101, fevers only for 1 day. she had no GI symptoms at home, no diarrhea. She has a nebulizer at home, uses 2-3 times a day. Had COVID 1-2 years ago, was quite sick Never has been on a ventilator Lives at home, boyfriend stays with her She worked at [employer] in the [place] for 5 years, became disabled 15 years ago Has small amount of asthma She can perform activities at home, bakes cupcakes, can do other home related tasks She has had a 25 pound wt loss in last 2 months, same appetite, occ difficulty swallowing. Vapotherm in the room, 25 L/min, 32%; however she is on 3 L/min; at times, the nasal cannula is not sufficient. DATA * (-) influenza A, B, SARS-CoV-2 * wbc 8.7, H/H 10.7/37, plt 166k, * nasal swab negative MRSA *03/16 CXR -?Emphysema.? Mild pulmonary edema in the lower lung zones. Review of Systems Review of Systems: All systems reviewed & are unremarkable except as noted in HPI and below Exam Narrative: GEN: Alert, oriented, nasal cannula, not in distress. HEENT: pupils are equal, EOMI, symmetrical face; oral membranes moist, Mallampati II airway, NECK: Trachea is midline CHEST: Equal air entry, prolonged expiration, wheezes, moist crackles, non productive cough CV: Regular S1S2 no m/g/r ABD : (+) bowel sounds Extremities : no clubbing, cyanosis, or edema; she has ecchymoses over forearms, thin skin PSYCH: normal thought and speech Objective Data Vital Signs Vital Signs: Vital Signs - 24 hr 03/18/23 21:24 03/18/23 21:38 03/18/23 22:00 Temperature 36.4 C Pulse Rate 96 98 98 Re
[2023-03-19 17:01] LABS: Glucose Point of Care 183 mg/dl (65-105)
[2023-03-19] MEDS: MIRTAZAPINE 15 MG TABLET 30 MG PO (20:49)
[2023-03-19] MEDS: MONTELUKAST SODIUM 10 MG TABLET PO (20:49)
[2023-03-19] MEDS: SODIUM CHLORIDE NASAL GEL 14.1 GM 1 APPLIC NASAL (20:51)
[2023-03-19 21:51] LABS: Glucose Point of Care 280 mg/dl (65-105)
[2023-03-19] MEDS: INSULIN GLARGINE (*BKC) 100 UNITS/ML 8 UNITS SUB-Q (22:00)
[2023-03-20] VITALS (13 sets, daily range): BP systolic 130–142; BP diastolic 70–74; PULSE 84–105; RESP 13–20; TEMP 36.7–36.9; O2SAT 95–100
[2023-03-20] MEDS: ALBUTEROL SULFATE NEB 2.5 MG/3 ML INH INHALATION ×4 (02:50→19:27)
[2023-03-20] MEDS: IPRATROPIUM BR 0.02% INH SOLN 0.5 MG/2.5 ML VIAL INHALATION ×3 (02:50→13:06)
[2023-03-20] MEDS: oxyCODONE/ACETAMINOPHEN (*CRX) 10-325 MG TABLET 1 TAB PO ×6 (04:28→21:01)
[2023-03-20] MEDS: methylPREDNISolone SOD SUCC 40 MG VIAL IV PUSH ×3 (05:31→18:04)
[2023-03-20] MEDS: FLUTICASONE/SALMETEROL 115-21 MCG INHALER 1 PUFF 2 PUFF INHALATION ×2 (07:15→19:28)
[2023-03-20] MEDS: UMECLIDINIUM BROMIDE 62.5 MCG ELLIPTA 1 PUFF INHALATION (07:15)
[2023-03-20] MEDS: DORNASE ALFA INH SOLN 1 MG/ML 2.5 ML AMP 2.5 MG INHALATION ×2 (07:15→19:28)
[2023-03-20 07:55] LABS: Glucose Point of Care 189 mg/dl (65-105)
[2023-03-20] MEDS: SACUBITRIL/VALSARTAN 24-26 MG TABLET 1 TAB PO ×2 (09:16→21:01)
[2023-03-20] MEDS: FUROSEMIDE 20 MG TABLET PO (09:16)
[2023-03-20] MEDS: DOXYCYCLINE HYCLATE 100 MG TABLET PO ×2 (09:16→21:01)
[2023-03-20] MEDS: ENOXAPARIN 40 MG/0.4 ML SYRINGE SUB-Q (09:16)
[2023-03-20] MEDS: guaiFENesin 12 HR 600 MG TABCR PO ×2 (09:16→21:01)
[2023-03-20] MEDS: PANTOPRAZOLE 40 MG TABLET PO (09:16)
[2023-03-20] MEDS: metFORMIN HCL 500 MG TABLET PO ×2 (09:16→16:42)
[2023-03-20] MEDS: EMPAGLIFLOZIN 10 MG TABLET PO (09:16)
[2023-03-20] MEDS: FERROUS SULFATE 325 MG TABLET DR PO (09:16)
[2023-03-20] MEDS: ASPIRIN 81 MG CHEWABLE TABLET PO (09:16)
[2023-03-20 11:52] LABS: Glucose Point of Care 220 mg/dl (65-105)
[2023-03-20] MEDS: INSULIN ASPART (*BKC) 100 UNITS/ML SUB-Q ×2 (12:58→21:04)
--- NOTE | 2023-03-20 15:33 | PM.PNPUL ---
Progress Note: A&P Assessment and Plan (1) COPD exacerbation: Code(s): J44.1 - Chronic obstructive pulmonary disease with (acute) exacerbation Status: Acute Assessment and Plan: She has longstanding COPD, steroid dependent, well managed at home, last exacerbation 6 months ago. She does not have pneumonia; this exacerbation was in part due to decompensated systolic CHF, although her Mar 17 echo shows recovery with FVEF now 70%. She does not have edema, is on Lasix 20 mg po daily. Her weight is up slightly from admission. She is on prednisone 10 mg a day, a substantial dose for COPD.She cannot have steroids weaned at this time due to persistent symptoms and wheezing. Methylprednisolone 40 mg IV Q 6 hours Continue inhaler fluticasone/salmeterol 115/21 one puff BID, umeclidinium 62.5 mcg 1 puff a day, nebulized albuterol. (2) Acute and chronic respiratory failure with hypoxia: Code(s): J96.21 - Acute and chronic respiratory failure with hypoxia Status: Acute Assessment and Plan: She has been on oxygen at home 3 L a minute which is the same she uses at home. At time she has needed Vapotherm, now using nasal cannula alone. Overall oxygenation is stable. She can stay at this flow which is her baseline. Her saturiaotn is 98% of 3 L/min, may drop with exertion. She may benefit from home O2 study before discharge. Plan She is not able to have steroids weaned yet, remains on a significant dose, methylprednisolone 40 IV Q 6; she says she has stayed in hospital as long as 30 days for COPD exacerbation. Her cardiac function is improved. She is on doxycycline, COPD bronchodilator regimen, her persistent symptoms. Her last chest CT was July 2022. I do not think that she has a PE, does not need a CTA for PE evaluation but might need it to look for lung disease that does not shows up on CXR. Viral testing is negative, influenza A,B SARS-CoV-2. She is on doxycycline for COPD exacerbation. Subjective Date/time seen: 03/20/23 15:33 Interval history: Hospital follow-up: Mar 20 Amber Teran is a 67-year-old female with COPD, chronic respiratory failure on home oxygen, diabetes, hypertension, and hyperlipidemia followed by Dr Stephens puljame in [place]. She is sitting up in bed, Dewey is at the bedside. She is still short of breath, minimal sputum, continues to wheeze. Remains on 3 L/min. She is on doxycycline day 3. Mar 19 She is still wheezing today, and she has moist crackles, not as much wheezing. She remains on same O2, had loose stools, eating is stable. Mar 18- new consult: She has heart failure with reduced ejection fraction of 17% on echo in June 2021. She was admitted with increased shortness of breath, felt bad on Sat and sun, Thursday am was not able to breathe. She uses prednisone 10 mg every day, has being steroid dependent 10 years. Last exacerbation of COPD was 6 months ago. She uses O2 3 L around the clock at home. Here, had O2 increased to 4 L/min. She has a hard time expectorating sputum. She had a fever of 102 then 101, fevers only for 1 day. she had no GI symptoms at home, no diarrhea. She has a nebulizer at home, uses 2-3 times a day. Had COVID 1-2 years ago, was quite sick Never has been on a ventilator Lives at home, boyfriend stays with her She worked at [employer] in the [place] for 5 years, became disabled 15 years ago Has small amount of asthma She can perform activities at home, bakes cupcakes, can do other home related tasks She has had a 25 pound wt loss in last 2 months, same appetite, occ difficulty swallowing. Vapotherm in the room, 25 L/min, 32%; however she is on 3 L/min; at times, the nasal cannula is not sufficient. DATA * (-) influenza A, B, SARS-CoV-2 * wbc 8.7, H/H 10.7/37, plt 166k, * nasal swab negative MRSA *03/16 CXR -?Emphysema.? Mild pulmonary edema in
--- NOTE | 2023-03-20 15:46 | PM.IMPN ---
Progress Note: A&P Assessment and Plan (1) COPD exacerbation: Code(s): J44.1 - Chronic obstructive pulmonary disease with (acute) exacerbation Status: Acute Assessment and Plan: Patient still feels very SOB and not back to baseline. She is on 3L O2 chronically. Suspect she is unable to mobilize secretions. CPT ordered. Pulmozyme ordered. CXR showing COPD and Rt apical scarring Continue steroids, nebulizer treatment and doxycycline Pulmonary consulted and appreciate their input. Follow (2) Acute and chronic respiratory failure with hypoxia: Code(s): J96.21 - Acute and chronic respiratory failure with hypoxia Status: Acute Assessment and Plan: As above. Have been able to wean her to her 3L but still not feeling back to herself As above (3) Type 2 diabetes mellitus: Qualifiers: Diabetes mellitus complication status: without complication Diabetes mellitus extermination inspector insulin use: without extermination inspector use Qualified Code(s): E11.9 - Type 2 diabetes mellitus without complications Code(s): E11.9 - Type 2 diabetes mellitus without complications Status: Acute Assessment and Plan: A1c 7.3 in July. The patient's blood glucose was reviewed on 03/20 Glucose remains elevated at times felt related to steroids. Empagliflozin and lantus added. Continue AccuCheks covering with sliding scale. Hypoglycemia protocol available as needed. Advance lantus while on steroids. Continue to monitor (4) Heart failure with reduced ejection fraction: Code(s): I50.20 - Unspecified systolic (congestive) heart failure Status: Acute Assessment and Plan: Patient has a hx of systolic CHF with EF 17%. Repeat Echo here showing EF 70% and Grade I diastolic dysfunction. Appears euvolemic at this time, continue home meds with Entresto, Toprol and Lasix Empagliflozin added. (5) Protein calorie malnutrition: Code(s): E46 - Unspecified protein-calorie malnutrition Status: Acute Assessment and Plan: Patient with moderate protein calorie malnutrition related to reduced appetite with inadequate energy intake as evidenced by pt report, significant weight loss of -13% x 6 months, and NFPE findings. Supplements ordered Plan DVT prophylaxis with Lovenox GI prophylaxis with PPI Code status full code Subjective Date/time seen: 03/20/23 15:46 Interval history: 67-year-old female with chronic respiratory failure on home oxygen, steroid dependent chronic obstructive pulmonary disease, heart failure with reduced ejection fraction of 17% on echo in June 2021 with findings concerning for reverse takotsubo cardiomyopathy, type 2 diabetes mellitus, hypertension, and hyperlipidemia here with shortness of breath and is currently being treated for COPD exacerbation and empirically for possible pneumonia. Still CHUNG but better but not back to baseline. No CP. COugh productive of yellowish sputum Exam Narrative: AF 98.4 142/74 103 20 98% 3L Gen - thin, frail, elderly female sitting at the side of the bed in NARD Chest - coarse expiratory rhonchi but improved air exchange and no coughing with deep breaths CV - RRR S1/S2 Abd - Soft, NT/ND, Positive BS Ext - No pedal edema Psych - Nml mood and affect Skin - Warm and dry Objective Data Vital Signs Vital Signs: Vital Signs - 24 hr 03/19/23 19:25 03/19/23 19:28 03/19/23 22:00 Temperature 96.8 F L Pulse Rate 102 H 107 H Respiratory Rate 20 18 Blood Pressure 112/67 Pulse Oximetry 94 100 Oxygen Delivery Nasal Cannula Oxygen Flow Rate 3 Fraction of Inspired Oxygen 32 03/19/23 19:32 03/20/23 02:52 03/19/23 20:00 Temperature Pulse Rate 100 85 Respiratory Rate 20 20 Blood Pressure Pulse Oximetry 99 Oxygen Delivery Nasal Cannula Oxygen Flow Rate 3 Fraction of Inspired Oxygen 03/20/23 02:58 03/20/23 06:00 03/20/23 07:15 Temperature 98.0 F
[2023-03-20 16:40] LABS: Glucose Point of Care 134 mg/dl (65-105)
[2023-03-20] MEDS: ONDANSETRON INJ 4 MG/2 ML VIAL IV PUSH (18:08)
[2023-03-20 20:41] LABS: Glucose Point of Care 202 mg/dl (65-105)
[2023-03-20] MEDS: MIRTAZAPINE 15 MG TABLET 30 MG PO (21:01)
[2023-03-20] MEDS: MONTELUKAST SODIUM 10 MG TABLET PO (21:01)
[2023-03-20] MEDS: INSULIN GLARGINE (*BKC) 100 UNITS/ML 12 UNITS SUB-Q (21:02)
[2023-03-21] VITALS (14 sets, daily range): BP systolic 123–137; BP diastolic 68–76; PULSE 77–98; RESP 13–22; TEMP 36.6–37.1; O2SAT 95–100
[2023-03-21] MEDS: methylPREDNISolone SOD SUCC 40 MG VIAL IV PUSH ×4 (01:04→17:13)
[2023-03-21] MEDS: oxyCODONE/ACETAMINOPHEN (*CRX) 10-325 MG TABLET 1 TAB PO ×6 (01:04→20:35)
[2023-03-21] MEDS: ALBUTEROL SULFATE NEB 2.5 MG/3 ML INH INHALATION ×6 (02:11→23:43)
[2023-03-21] MEDS: DORNASE ALFA INH SOLN 1 MG/ML 2.5 ML AMP 2.5 MG INHALATION ×2 (06:29→19:39)
[2023-03-21] MEDS: FLUTICASONE/SALMETEROL 115-21 MCG INHALER 1 PUFF 2 PUFF INHALATION (06:31)
[2023-03-21] MEDS: UMECLIDINIUM BROMIDE 62.5 MCG ELLIPTA 1 PUFF INHALATION (06:32)
[2023-03-21 07:19] LABS: Basophils Percent Auto 0.2 % (0.2-1.2); Hemoglobin 10.5 g/dL (12.0-15.0); Immature Granulocyte Absolute 0.09 K/mm3 (0.00-0.031); Immature Granulocyte Percent A 1.5 % (0-0.5); Lymphocytes Absolute Auto 0.44 K/mm3 (0.9-3.2); Lymphocytes Percent Auto 7.2 % (18.3-44.2); Mean Corpuscular HGB Conc 28.4 g/dl (32-36); Mean Corpuscular Hemoglobin 24.5 pg (26-34); Mean Corpuscular Volume 86.2 fl (80-100); Mean Platelet Volume 10.6 fl (7.4-10.4); Monocytes Absolute Auto 0.2 K/mm3 (0.1-0.6); Monocytes Percent Auto 3.4 % (2.6-8.5); Neutrophils Absolute Auto 5.4 K/mm3 (1.3-6.7); Neutrophils Percent Auto 87.7 % (45.5-73.1); Platelet Count Result 201 k/mm3 (150-375); Red Blood Count 4.29 M/mm3 (4.2-5.4); Red Cell Distribution Width 14.7 % (11.5-14.5); White Blood Count 6.1 K/mm3 (4.5-10.0)
[2023-03-21 07:36] LABS: Albumin Level 3.4 g/dL (3.5-5.1); Anion Gap 7 mmol/L (8-16); Blood Urea Nitrogen 20 mg/dL (7-17); Calcium 8.4 mg/dL (8.4-10.2); Carbon Dioxide 35 mmol/L (22-30); Chloride 97 mmol/L (98-107); Estimated CRCL calculation 90 ml/min; Estimated Glomerular Filt Rate > 60; Glucose 125 mg/dL (65-110); Magnesium 2.1 mg/dL (1.6-2.3); Phosphorus 3.3 mg/dL (2.5-4.5); Potassium 4.1 mmol/L (3.4-5.0); Sodium 139 mmol/L (137-145)
[2023-03-21 08:35] LABS: Glucose Point of Care 135 mg/dl (65-105)
[2023-03-21] MEDS: ASPIRIN 81 MG CHEWABLE TABLET PO (09:42)
[2023-03-21] MEDS: SACUBITRIL/VALSARTAN 24-26 MG TABLET 1 TAB PO ×2 (09:42→20:29)
[2023-03-21] MEDS: ENOXAPARIN 40 MG/0.4 ML SYRINGE SUB-Q (09:42)
[2023-03-21] MEDS: guaiFENesin 12 HR 600 MG TABCR PO (09:42)
[2023-03-21] MEDS: EMPAGLIFLOZIN 10 MG TABLET PO (09:42)
[2023-03-21] MEDS: metFORMIN HCL 500 MG TABLET PO ×2 (09:42→17:13)
[2023-03-21] MEDS: PANTOPRAZOLE 40 MG TABLET PO (09:42)
[2023-03-21] MEDS: DOXYCYCLINE HYCLATE 100 MG TABLET PO ×2 (09:42→20:29)
[2023-03-21] MEDS: FUROSEMIDE 20 MG TABLET PO (09:42)
[2023-03-21] MEDS: FERROUS SULFATE 325 MG TABLET DR PO (09:42)
--- NOTE | 2023-03-21 11:49 | PM.PNPUL ---
Progress Note: A&P Assessment and Plan (1) COPD exacerbation: Code(s): J44.1 - Chronic obstructive pulmonary disease with (acute) exacerbation Status: Acute Assessment and Plan: History of COPD for 10 years on 3 L nasal cannula at rest, with activity and with sleep at home, her CT angiogram of the chest shows apical predominant mild to moderate centrilobular emphysema.? I have no PFTs but the patient tells me her pulmonary doctor, Dr. Stephens, has told her her lung function is at 27% predicted.? She had an ABG on 06/13/2021 7.40/43/222 on 40% FiO2. Last exacerbation 6 months ago. 03/16/2023: Admitted for COPD exacerbation. BNP was 21. Influenza and COVID RT PCR studies negative 03/20: She is on prednisone 10 mg a day, a substantial dose for COPD.She cannot have steroids weaned at this time due to persistent symptoms and wheezing. Methylprednisolone 40 mg IV Q 6 hours Continue inhaler fluticasone/salmeterol 115/21 one puff BID, umeclidinium 62.5 mcg 1 puff a day, nebulized albuterol. Plan: She is not able to have steroids weaned yet, remains on a significant dose, methylprednisolone 40 IV Q 6; she says she has stayed in hospital as long as 30 days for COPD exacerbation. Her cardiac function is improved. She is on doxycycline, COPD bronchodilator regimen, her persistent symptoms. Her last chest CT was July 2022. I do not think that she has a PE, does not need a CTA for PE evaluation but might need it to look for lung disease that does not shows up on CXR.? Viral testing is negative, influenza A,B SARS-CoV-2. She is on doxycycline for COPD exacerbation. 03/21: patient tells me she slept on and off overnight. Overall she feels no better than when she was admitted. She continues to have bilateral expiratory wheezes. When I enter the room she was on 4 L nasal cannula and her saturations were 99%. I decreased her to 3 L nasal cannula and after 7 minutes her saturations were 99% but she said she was having trouble breathing and requested to tumor and back to 4 L which I did. Her white she is afebrile. White blood cell count is 6.1, creatinine is 0.4. She has bilateral wheezes on exam. Last hospitalization at [place] was for 7-10 days. Plan: I will change the patient to all nebulized medications with albuterol 2.5 q4, ipratropium 0.5 mg q.4 and budesonide 500 mcg b.i.d.. I will discontinue her Advair as this regimen will provide maximum dose beta agonist, muscarinic antagonist and inhaled corticosteroid. I will continue her montelukast 10 mg q.day. She is having trouble expectorating phlegm and I will continue dornase 2.5 mg b.i.d., I will increase her guaifenesin from 600 mg p.o. q.12 hours to 1200 mg p.o. q.12 hours. Continue Cornet expiratory flutter valve. She is anxious and states she cannot tolerate a decrease in her FiO2 from 4 L to 3 L despite her saturation remaining stable on 3 L nasal cannula. The patient remained received vancomycin on 03/16, azithromycin on 03/17 and has been on doxycycline since 03/17/2023. Today is day 5 antibiotics and will continue. Will follow with you. Subjective Date/time seen: 03/21/23 11:49 Interval history: Hospital follow-up: Mar 20?Amber Teran is a 67-year-old female with COPD, chronic respiratory failure on home oxygen, diabetes, hypertension, and hyperlipidemia followed by jed Lee in [place]. She is sitting up in bed, Dewey is at the bedside. She is still short of breath, minimal sputum, continues to wheeze. Remains on 3 L/min. She is on doxycycline day 3. Mar 19 She is still wheezing today, and she has moist crackles, not as much wheezing. She remains on same O2, had loose stools, eating is stable.? Mar 18- new consult: She has heart failure with reduced ejection fraction of 17% on echo in June 2021. She was admitted with increased shortness of breath, felt bad on Sat and sun, Thursday am was not able to breathe. She uses prednisone 10 mg every day, has being steroi
[2023-03-21 11:50] LABS: Glucose Point of Care 196 mg/dl (65-105)
[2023-03-21] MEDS: IPRATROPIUM BR 0.02% INH SOLN 0.5 MG/2.5 ML VIAL INHALATION ×4 (12:09→23:43)
--- NOTE | 2023-03-21 15:02 | PM.IMPN ---
Progress Note: A&P Assessment and Plan (1) COPD exacerbation: Code(s): J44.1 - Chronic obstructive pulmonary disease with (acute) exacerbation Status: Acute Assessment and Plan: Patient still feels SOB and not back to baseline. She is on 3L O2 chronically. CPT ordered. Pulmozyme ordered. Suspect she is now able to mobilize secretions. CXR showing COPD and Rt apical scarring Continue steroids, nebulizer treatment and doxycycline. Neb frequency increased Pulmonary consulted and appreciate their input. Follow (2) Acute and chronic respiratory failure with hypoxia: Code(s): J96.21 - Acute and chronic respiratory failure with hypoxia Status: Acute Assessment and Plan: As above. She has been weaned to her 3L but still not feeling back to herself As above (3) Type 2 diabetes mellitus: Qualifiers: Diabetes mellitus skilled nursing insulin use: without skilled nursing use Diabetes mellitus complication status: without complication Qualified Code(s): E11.9 - Type 2 diabetes mellitus without complications Code(s): E11.9 - Type 2 diabetes mellitus without complications Status: Acute Assessment and Plan: A1c 7.3 in July. The patient's blood glucose was reviewed on 03/21 Glucose remains elevated at times felt related to steroids. Empagliflozin and lantus added. Glucose better this morning. Continue AccuCheks covering with sliding scale. Hypoglycemia protocol available as needed. Continue to monitor (4) Heart failure with reduced ejection fraction: Code(s): I50.20 - Unspecified systolic (congestive) heart failure Status: Acute Assessment and Plan: Patient has a hx of systolic CHF with EF 17%. Repeat Echo here showing EF 70% and Grade I diastolic dysfunction. Appears euvolemic at this time, continue home meds with Entresto, Toprol and Lasix Empagliflozin added. (5) Protein calorie malnutrition: Code(s): E46 - Unspecified protein-calorie malnutrition Status: Acute Assessment and Plan: Patient with moderate protein calorie malnutrition related to reduced appetite with inadequate energy intake as evidenced by pt report, significant weight loss of -13% x 6 months, and NFPE findings. Supplements ordered Plan DVT prophylaxis with Lovenox GI prophylaxis with PPI Code status full code Subjective Date/time seen: 03/21/23 15:02 Interval history: 67-year-old female with chronic respiratory failure on home oxygen, steroid dependent COPD, CHF with reduced EF of 17% on echo in June 2021 with findings concerning for reverse takotsubo cardiomyopathy, DM, HTN, and HLD here with shortness of breath and is currently being treated for COPD exacerbation and empirically for possible pneumonia. She still feels 'rough' but her SOB is better. She has persistent cough productive of yellow sputum. No CP. No Abd pain. Walking in the room. Exam Narrative: AF 97.9 123/68 87 20 96% 3L Gen - thin, frail, elderly female in NARD Chest - coarse expiratory rhonchi diffusely CV - RRR S1/S2 Abd - Soft, NT/ND, Positive BS Ext - No pedal edema Psych - Nml mood and affect Skin - Warm and dry Objective Data Vital Signs Vital Signs: Vital Signs - 24 hr 03/20/23 19:29 03/20/23 19:34 03/20/23 19:37 Temperature Pulse Rate 99 98 105 H Respiratory Rate 20 20 20 Blood Pressure Pulse Oximetry 98 Oxygen Delivery Nasal Cannula Oxygen Flow Rate 4 03/20/23 21:27 03/21/23 02:11 03/21/23 02:18 Temperature 98.4 F Pulse Rate 103 H 89 90 Respiratory Rate 13 20 20 Blood Pressure 132/70 Pulse Oximetry 95 Oxygen Delivery Oxygen Flow Rate 03/21/23 06:00 03/21/23 06:30 03/21/23 09:42 Temperature 97.9 F Pulse Rate 77 90 Respiratory Rate 14 20 Blood Pressure 123/68 Pulse Oximetry 96 96 Oxygen Delivery Nasal Cannula Oxygen Flow Rate 3 03/21/23 12:09 Temperature Pulse Rate 87 Re
[2023-03-21 17:06] LABS: Glucose Point of Care 122 mg/dl (65-105)
[2023-03-21 20:22] LABS: Glucose Point of Care 196 mg/dl (65-105)
[2023-03-21] MEDS: guaiFENesin 12 HR 600 MG TABCR 1200 MG PO (20:29)
[2023-03-21] MEDS: MIRTAZAPINE 15 MG TABLET 30 MG PO (20:29)
[2023-03-21] MEDS: MONTELUKAST SODIUM 10 MG TABLET PO (20:29)
[2023-03-21] MEDS: INSULIN GLARGINE (*BKC) 100 UNITS/ML 12 UNITS SUB-Q (20:30)
[2023-03-22] VITALS (10 sets, daily range): BP systolic 95–146; BP diastolic 59–82; PULSE 81–104; RESP 14–24; TEMP 36.4–37.1; O2SAT 96–100
[2023-03-22] MEDS: oxyCODONE/ACETAMINOPHEN (*CRX) 10-325 MG TABLET 1 TAB PO ×6 (00:56→20:54)
[2023-03-22] MEDS: methylPREDNISolone SOD SUCC 40 MG VIAL IV PUSH ×2 (00:56→05:03)
[2023-03-22 07:42] LABS: Glucose Point of Care 95 mg/dl (65-105)
[2023-03-22] MEDS: ALBUTEROL SULFATE NEB 2.5 MG/3 ML INH INHALATION (08:01)
[2023-03-22] MEDS: IPRATROPIUM BR 0.02% INH SOLN 0.5 MG/2.5 ML VIAL INHALATION ×2 (08:01→15:27)
[2023-03-22] MEDS: DORNASE ALFA INH SOLN 1 MG/ML 2.5 ML AMP 2.5 MG INHALATION (08:01)
--- NOTE | 2023-03-22 08:34 | PM.PNPUL ---
Progress Note: A&P Assessment and Plan (1) COPD exacerbation: Code(s): J44.1 - Chronic obstructive pulmonary disease with (acute) exacerbation Status: Acute Assessment and Plan: History of COPD for 10 years on 3 L nasal cannula at rest, with activity and with sleep at home, her CT angiogram of the chest shows apical predominant mild to moderate centrilobular emphysema.? I have no PFTs but the patient tells me her pulmonary doctor, Dr. Stephens, has told her her lung function is at 27% predicted.? She had an ABG on 06/13/2021 7.40/43/222 on 40% FiO2. Last exacerbation 6 months ago. 03/16/2023: Admitted for COPD exacerbation. BNP was 21. Influenza and COVID RT PCR studies negative 03/20: She is on prednisone 10 mg a day, a substantial dose for COPD.She cannot have steroids weaned at this time due to persistent symptoms and wheezing. Methylprednisolone 40 mg IV Q 6 hours Continue inhaler fluticasone/salmeterol 115/21 one puff BID, umeclidinium 62.5 mcg 1 puff a day, nebulized albuterol. Plan: She is not able to have steroids weaned yet, remains on a significant dose, methylprednisolone 40 IV Q 6; she says she has stayed in hospital as long as 30 days for COPD exacerbation. Her cardiac function is improved. She is on doxycycline, COPD bronchodilator regimen, her persistent symptoms. Her last chest CT was July 2022. I do not think that she has a PE, does not need a CTA for PE evaluation but might need it to look for lung disease that does not shows up on CXR.? Viral testing is negative, influenza A,B SARS-CoV-2. She is on doxycycline for COPD exacerbation. 03/21: patient tells me she slept on and off overnight. Overall she feels no better than when she was admitted. She continues to have bilateral expiratory wheezes. When I enter the room she was on 4 L nasal cannula and her saturations were 99%. I decreased her to 3 L nasal cannula and after 7 minutes her saturations were 99% but she said she was having trouble breathing and requested to tumor and back to 4 L which I did. Her white she is afebrile. White blood cell count is 6.1, creatinine is 0.4. She has bilateral wheezes on exam. Last hospitalization at [facility] was for 7-10 days. Plan: I will change the patient to all nebulized medications with albuterol 2.5 q4, ipratropium 0.5 mg q.4. I will discontinue her Advair as this regimen will provide maximum dose beta agonist, muscarinic antagonist and inhaled corticosteroid. I will continue her montelukast 10 mg q.day. She is having trouble expectorating phlegm and I will continue dornase 2.5 mg b.i.d., I will increase her guaifenesin from 600 mg p.o. q.12 hours to 1200 mg p.o. q.12 hours. Continue Cornet expiratory flutter valve. She is anxious and states she cannot tolerate a decrease in her FiO2 from 4 L to 3 L despite her saturation remaining stable on 3 L nasal cannula. The patient remained received vancomycin on 03/16, azithromycin on 03/17 and has been on doxycycline since 03/17/2023. Today is day 5 antibiotics and will continue. 03/22 overall patient tells me she feels the same with minimal improvement. She is expectorating more mucus, is yellow and thinner. She has shortness of breath at rest and dyspnea on exertion. Currently she is on 4 L nasal cannula saturations 97%. Patient complains that after increasing her nebulizers from Q 4 to q.6 hours she is more jittery. Plan: I will change her albuterol to levalbuterol 1.25 q.6 hours, change ipratropium to 0.5 mg nebs q.6 hours, I will decrease her Solu-Medrol from 40 Q 6 to 20q6. Phlegm is thinner on guaifenesin 1200 mg q.12 hours and I will continue this. I will discontinue dornase as she has had a total of 4 days. Continue montelukast. Continue doxycycline, today is day 6 of antibiotics. She will attempt to walk later today. Will follow with you. Subjective Date/time seen: 03/22/23 08:34 Interval history: Hospital follow-up: Mar 20?Amber Teran is a 67-year-old
[2023-03-22] MEDS: ENOXAPARIN 40 MG/0.4 ML SYRINGE SUB-Q (08:48)
[2023-03-22] MEDS: SACUBITRIL/VALSARTAN 24-26 MG TABLET 1 TAB PO ×2 (08:49→20:53)
[2023-03-22] MEDS: metFORMIN HCL 500 MG TABLET PO ×2 (08:49→17:08)
[2023-03-22] MEDS: EMPAGLIFLOZIN 10 MG TABLET PO (08:49)
[2023-03-22] MEDS: PANTOPRAZOLE 40 MG TABLET PO (08:49)
[2023-03-22] MEDS: FUROSEMIDE 20 MG TABLET PO (08:49)
[2023-03-22] MEDS: FERROUS SULFATE 325 MG TABLET DR PO (08:49)
[2023-03-22] MEDS: ASPIRIN 81 MG CHEWABLE TABLET PO (08:49)
[2023-03-22] MEDS: guaiFENesin 12 HR 600 MG TABCR 1200 MG PO ×2 (08:49→20:55)
[2023-03-22] MEDS: DOXYCYCLINE HYCLATE 100 MG TABLET PO ×2 (08:49→20:54)
--- NOTE | 2023-03-22 11:02 | PM.IMPN ---
Progress Note: A&P Assessment and Plan (1) COPD exacerbation: Code(s): J44.1 - Chronic obstructive pulmonary disease with (acute) exacerbation Status: Acute Assessment and Plan: Patient still feels SOB and not back to baseline. She is on 3L O2 chronically but now up to 3.5L. CXR showing COPD and Rt apical scarring. No ABG CPT ordered. Pulmozyme was ordered and has done about 4 days; Pulmozyme stopped. She is now able to mobilize secretions. Continue steroids, nebulizer treatment and doxycycline. Neb frequency decreased again Pulmonary following and appreciate their input. Follow (2) Acute and chronic respiratory failure with hypoxia: Code(s): J96.21 - Acute and chronic respiratory failure with hypoxia Status: Acute Assessment and Plan: She was weaned to her 3L but now back up slightly to 3.5L. Still not feeling back to herself Wean O2 as tolerated As above. 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 The patient's blood glucose was reviewed on 03/22 Glucose remains elevated at times felt related to steroids. Empagliflozin and lantus added. Glucose better controlled now Continue AccuCheks covering with sliding scale. Hypoglycemia protocol available as needed. Continue to monitor (4) Heart failure with reduced ejection fraction: Code(s): I50.20 - Unspecified systolic (congestive) heart failure Status: Acute Assessment and Plan: Patient has a hx of systolic CHF with EF 17%. Repeat Echo here showing EF 70% and Grade I diastolic dysfunction. Appears euvolemic at this time, continue home meds with Entresto, Toprol and Lasix Empagliflozin added. (5) Protein calorie malnutrition: Code(s): E46 - Unspecified protein-calorie malnutrition Status: Acute Assessment and Plan: Patient with moderate protein calorie malnutrition related to reduced appetite with inadequate energy intake as evidenced by pt report, significant weight loss of -13% x 6 months, and NFPE findings. Supplements ordered Plan DVT prophylaxis with Lovenox GI prophylaxis with PPI Code status full code Subjective Date/time seen: 03/22/23 11:02 Interval history: 67-year-old female with chronic respiratory failure on home oxygen, steroid dependent COPD, CHF with reduced EF of 17% on echo in June 2021 with findings concerning for reverse takotsubo cardiomyopathy, DM, HTN, and HLD here with shortness of breath and is currently being treated for COPD exacerbation and empirically for possible pneumonia. Not feeling much better. The more frequent nebs are making her jittery. Feels SOB at rest but still able to be up walking in the room. Cough improved and productive of yellow sputum Exam Narrative: AF 98.8 146/82 104 22 98% 3.5L Gen - thin, frail, elderly female in NARD sitting at side of bed Chest - coarse expiratory rhonchi diffusely; prolonged expiratory phase CV - RRR S1/S2 Abd - Soft, NT/ND, Positive BS Ext - No pedal edema Psych - Nml mood and affect Skin - Warm and dry Objective Data Vital Signs Vital Signs: Vital Signs - 24 hr 03/21/23 12:09 03/21/23 14:00 03/21/23 16:16 Temperature 97.9 F Pulse Rate 87 88 86 Respiratory Rate 20 20 20 Blood Pressure 137/76 Pulse Oximetry 95 Oxygen Delivery Oxygen Flow Rate 03/21/23 16:23 03/21/23 19:41 03/21/23 19:48 Temperature Pulse Rate 98 90 89 Respiratory Rate 20 22 H 20 Blood Pressure Pulse Oximetry 98 Oxygen Delivery Nasal Cannula Oxygen Flow Rate 4 03/21/23 21:51 03/21/23 23:45 03/21/23 23:56 Temperature 98.7 F
[2023-03-22 11:42] LABS: Glucose Point of Care 132 mg/dl (65-105)
[2023-03-22] MEDS: methylPREDNISolone SOD SUCC 40 MG VIAL 20 MG IV PUSH ×2 (13:14→17:08)
[2023-03-22] MEDS: LEVALBUTEROL NEB 1.25 MG/3 ML INHALATION (15:27)
[2023-03-22 16:31] LABS: Glucose Point of Care 69 mg/dl (65-105)
--- NOTE | 2023-03-22 19:51 | PC.NURSE ---
Pt is A&O4 female who participates and contributes in plan of care. Pt chief complaint is shortness of breath. Pt reports having chronic back pain that is treated with Q4h Percocet. Pt family at bedside. Pt blood sugar dropped to 69 today and was treated with juice and crackers. Pt blood sugar came up to 134, all doses of novolog held today. Report was given to bulldozer mechanic nurse, pt monitored and will continue to be monitored for any changes in status.
[2023-03-22 20:50] LABS: Glucose Point of Care 134 mg/dl (65-105)
[2023-03-22] MEDS: MONTELUKAST SODIUM 10 MG TABLET PO (20:54)
[2023-03-22] MEDS: MIRTAZAPINE 15 MG TABLET 30 MG PO (20:55)
[2023-03-22] MEDS: INSULIN GLARGINE (*BKC) 100 UNITS/ML 12 UNITS SUB-Q (20:58)
[2023-03-22 21:17] LABS: Glucose Point of Care 199 mg/dl (65-105)
[2023-03-23] VITALS (16 sets, daily range): BP systolic 127–156; BP diastolic 69–89; PULSE 95–132; RESP 14–24; TEMP 36.4–37.3; O2SAT 93–100
[2023-03-23] MEDS: oxyCODONE/ACETAMINOPHEN (*CRX) 10-325 MG TABLET 1 TAB PO ×6 (01:28→20:18)
[2023-03-23] MEDS: methylPREDNISolone SOD SUCC 40 MG VIAL 20 MG IV PUSH ×4 (01:28→17:57)
[2023-03-23 04:52] LABS: Alveolar/Arterial O2 Gradient 72.7 mmHg; Base Excess ABG 10.3 mEq/l (+/-2.0); Fractional Inspired Oxygen 32 %; HCO3 ABG 37.7 mEq/l (22.0-26.0); Oxygen Content ABG 15.6 %vol (16.0-22.0); Oxygen Saturation ABG 94.9 % (95.0-100.0); Oxyhemoglobin 93.6 % THb (90.0-100.0); PO2 ABG 78.2 mmHg (80.0-100.0); PO2 FiO2 Ratio Arterial Blood 2.44 %; Total Hemoglobin 11.8 g/dL (12.0-18.0); pH ABG 7.375 (7.350-7.450)
[2023-03-23 04:54] LABS: Device NASAL CANNULA; Modified Allen's Test Pass; Site Drawn RIGHT RADIAL
[2023-03-23] MEDS: LEVALBUTEROL NEB 1.25 MG/3 ML INHALATION ×2 (05:00→19:47)
[2023-03-23] MEDS: IPRATROPIUM BR 0.02% INH SOLN 0.5 MG/2.5 ML VIAL INHALATION ×2 (05:00→19:47)
[2023-03-23 06:24] LABS: Hematocrit 41.3 % (37.0-47.0); Hemoglobin 11.5 g/dL (12.0-15.0); Mean Corpuscular HGB Conc 27.8 g/dl (32-36); Mean Corpuscular Hemoglobin 24.4 pg (26-34); Mean Corpuscular Volume 87.5 fl (80-100); Mean Platelet Volume 10.6 fl (7.4-10.4); Platelet Count Result 244 k/mm3 (150-375); Red Blood Count 4.72 M/mm3 (4.2-5.4); Red Cell Distribution Width 14.9 % (11.5-14.5); White Blood Count 16.7 K/mm3 (4.5-10.0)
[2023-03-23 07:13] LABS: Anion Gap 8 mmol/L (8-16); Blood Urea Nitrogen 17 mg/dL (7-17); Calcium 9.2 mg/dL (8.4-10.2); Carbon Dioxide 33 mmol/L (22-30); Chloride 100 mmol/L (98-107); Estimated CRCL calculation 111 ml/min; Estimated Glomerular Filt Rate > 60; Glucose 84 mg/dL (65-110); Potassium 3.9 mmol/L (3.4-5.0); Sodium 141 mmol/L (137-145)
[2023-03-23 07:54] LABS: Glucose Point of Care 100 mg/dl (65-105)
--- NOTE | 2023-03-23 08:23 | ECG_ITS ---
Measurements Intervals [place] Rate: 132 P: 89 TX: 150 QRS: 95 QRSD: 77 T: 64 QT: 293 QTc: 435 Interpretive Statements SINUS TACHYCARDIA RIGHT AXIS DEVIATION BORDERLINE ST ABNORMALITY- INF/LAT LEADS BASELINE ARTIFACT- I, II, AVR, V1, V5-V6 ABNORMAL ECG COMPARED TO ECG 03/16/2023 10:42:19 SINUS TACHYCARDIA NOW PRESENT Electronically Signed On 03-23-2023 8:48:38 FIRE MANAGEMENT SPECIALIST by Jere Lee D.O.
[2023-03-23] MEDS: metFORMIN HCL 500 MG TABLET PO ×2 (08:40→16:44)
[2023-03-23] MEDS: ASPIRIN 81 MG CHEWABLE TABLET PO (08:40)
[2023-03-23] MEDS: SACUBITRIL/VALSARTAN 24-26 MG TABLET 1 TAB PO ×2 (08:40→20:18)
[2023-03-23] MEDS: DOXYCYCLINE HYCLATE 100 MG TABLET PO (08:40)
[2023-03-23] MEDS: FUROSEMIDE 20 MG TABLET PO (08:40)
[2023-03-23] MEDS: FERROUS SULFATE 325 MG TABLET DR PO (08:40)
[2023-03-23] MEDS: PANTOPRAZOLE 40 MG TABLET PO (08:40)
[2023-03-23] MEDS: guaiFENesin 12 HR 600 MG TABCR 1200 MG PO ×2 (08:40→20:18)
[2023-03-23] MEDS: ENOXAPARIN 40 MG/0.4 ML SYRINGE SUB-Q (08:41)
[2023-03-23] MEDS: EMPAGLIFLOZIN 10 MG TABLET PO (08:41)
--- NOTE | 2023-03-23 11:12 | PCNFU ---
Nutrition Follow-Up Complete: Moderate protein calorie malnutrition related to reduced appetite with inadequate energy intake as evidenced by pt report, significant weight loss of -13% x 6 months, and NFPE findings. Goal:PO intake 75% of meals and supplements Pt is meeting goal, continue with current goal. Pt current nutrition is Heart healthy, Glucerna shakes BID. Nutrition recommendation: increase Glucerna shakes to TID Last recorded weight is 48.3 kg. Bowel Motility: +BM 03/21 Labs Reviewed: Hct:11.5, Cr:0.3, Glu:199 Meds Noted: lovenox, lasix, novolog, solumedrol Skin: WNL Additional Notes: Pt continues on a heart healthy diet. Intake is 50-75%, pt states she is drinking the Glucerna shakes. Will increase to TID. Monitor intake, wt, labs. Follow up in 5 days.
[2023-03-23 12:13] LABS: Glucose Point of Care 198 mg/dl (65-105)
--- NOTE | 2023-03-23 14:40 | PM.IMPN ---
Progress Note: A&P Assessment and Plan (1) COPD exacerbation: Code(s): J44.1 - Chronic obstructive pulmonary disease with (acute) exacerbation Status: Acute Assessment and Plan: Patient still feels SOB and not back to baseline. She is on 3L O2 chronically but now up to 4L CXR showing COPD and Rt apical scarring. No ABG CPT ordered. Pulmozyme was ordered and has done about 4 days; Pulmozyme stopped. She is now able to mobilize secretions. Now having more SOB. EKG showing sinus tachycarida. Nebulizer treatments held. Panic attack? Lorazepam once. Steroids being weaned. End Doxy after 7 days. Pulmonary following and appreciate their input. Follow (2) Acute and chronic respiratory failure with hypoxia: Code(s): J96.21 - Acute and chronic respiratory failure with hypoxia Status: Acute Assessment and Plan: She was weaned to her 3L but now back up slightly to 4L Feeling worse today Wean O2 as tolerated As above. 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 The patient's blood glucose was reviewed on 03/23 Glucose remains elevated at times felt related to steroids. Empagliflozin and lantus added. Glucose better controlled now Continue AccuCheks covering with sliding scale. Hypoglycemia protocol available as needed. Continue to monitor (4) Heart failure with reduced ejection fraction: Code(s): I50.20 - Unspecified systolic (congestive) heart failure Status: Acute Assessment and Plan: Patient has a hx of systolic CHF with EF 17%. Repeat Echo here showing EF 70% and Grade I diastolic dysfunction. Appears euvolemic at this time, continue home meds with Entresto, Toprol and Lasix Empagliflozin added. (5) Protein calorie malnutrition: Code(s): E46 - Unspecified protein-calorie malnutrition Status: Acute Assessment and Plan: Patient with moderate protein calorie malnutrition related to reduced appetite with inadequate energy intake as evidenced by pt report, significant weight loss of -13% x 6 months, and NFPE findings. Supplements ordered Plan DVT prophylaxis with Lovenox GI prophylaxis with PPI Code status full code Subjective Date/time seen: 03/23/23 0900 Interval history: 67-year-old female with chronic respiratory failure on home oxygen, steroid dependent COPD, CHF with reduced EF of 17% on echo in June 2021 with findings concerning for reverse takotsubo cardiomyopathy, DM, HTN, and HLD here with shortness of breath and is currently being treated for COPD exacerbation and empirically for possible pneumonia. Feels much worse today. Noted to have elevated heart rate. She did not recieve a neb treatment prior to the change i her symptoms. This happens at home sometimes. Exam Narrative: AF 99.2 127/69 122 20 97% 4L Gen - thin, frail, elderly female in NARD sitting at side of bed who is tachypneic Chest - coarse expiratory rhonchi diffusely; prolonged expiratory phase CV - RRR S1/S2 Abd - Soft, NT/ND, Positive BS Ext - No pedal edema Psych - Nml mood and affect Skin - Warm and dry Objective Data Vital Signs Vital Signs: Vital Signs - 24 hr 03/22/23 15:27 03/22/23 15:47 03/22/23 19:27 Temperature Pulse Rate 99 93 Respiratory Rate 24 H 22 H Blood Pressure Pulse Oximetry 98 Oxygen Delivery Nasal Cannula Oxygen Flow Rate 4 Fraction of Inspired Oxygen 03/22/23 21:34 03/22/23 20:00 03/23/23 05:00 Temperature 98.6 F Pulse Rate 104 H 98 Respiratory Rate 14 22 H Blood Pressure 142/68 H Pulse Oximetry 100 100 Oxygen Delivery Nasal C
[2023-03-23] MEDS: LORazepam (*CRX) 0.5 MG TABLET PO (16:44)
[2023-03-23 17:01] LABS: Glucose Point of Care 181 mg/dl (65-105)
[2023-03-23] MEDS: ONDANSETRON INJ 4 MG/2 ML VIAL IV PUSH (17:57)
[2023-03-23] MEDS: MIRTAZAPINE 15 MG TABLET 30 MG PO (20:18)
[2023-03-23] MEDS: MONTELUKAST SODIUM 10 MG TABLET PO (20:18)
[2023-03-23] MEDS: INSULIN GLARGINE (*BKC) 100 UNITS/ML 12 UNITS SUB-Q (21:03)
[2023-03-23 21:38] LABS: Glucose Point of Care 175 mg/dl (65-105)
[2023-03-24] VITALS (9 sets, daily range): BP systolic 135–139; BP diastolic 67–78; PULSE 107–137; RESP 20–24; TEMP 36.5–36.6; O2SAT 92–98
[2023-03-24] MEDS: oxyCODONE/ACETAMINOPHEN (*CRX) 10-325 MG TABLET 1 TAB PO ×4 (00:48→12:55)
[2023-03-24] MEDS: methylPREDNISolone SOD SUCC 40 MG VIAL 20 MG IV PUSH ×2 (00:48→05:44)
[2023-03-24] MEDS: IPRATROPIUM BR 0.02% INH SOLN 0.5 MG/2.5 ML VIAL INHALATION ×3 (03:00→12:25)
[2023-03-24] MEDS: LEVALBUTEROL NEB 1.25 MG/3 ML INHALATION ×3 (03:00→12:25)
[2023-03-24 08:25] LABS: Glucose Point of Care 113 mg/dl (65-105)
[2023-03-24] MEDS: ASPIRIN 81 MG CHEWABLE TABLET PO (09:09)
[2023-03-24] MEDS: EMPAGLIFLOZIN 10 MG TABLET PO (09:09)
[2023-03-24] MEDS: metFORMIN HCL 500 MG TABLET PO (09:09)
[2023-03-24] MEDS: ENOXAPARIN 40 MG/0.4 ML SYRINGE SUB-Q (09:09)
[2023-03-24] MEDS: guaiFENesin 12 HR 600 MG TABCR 1200 MG PO (09:09)
[2023-03-24] MEDS: SACUBITRIL/VALSARTAN 24-26 MG TABLET 1 TAB PO (09:09)
[2023-03-24] MEDS: PANTOPRAZOLE 40 MG TABLET PO (09:09)
[2023-03-24] MEDS: FUROSEMIDE 20 MG TABLET PO (09:09)
[2023-03-24] MEDS: FERROUS SULFATE 325 MG TABLET DR PO (09:09)
[2023-03-24] MEDS: ONDANSETRON INJ 4 MG/2 ML VIAL IV PUSH (10:14)
--- NOTE | 2023-03-24 10:21 | PM.PNPUL ---
Progress Note: A&P Assessment and Plan (1) COPD exacerbation: Code(s): J44.1 - Chronic obstructive pulmonary disease with (acute) exacerbation Status: Acute Assessment and Plan: History of COPD for 10 years on 3 L nasal cannula at rest, with activity and with sleep at home, her CT angiogram of the chest shows apical predominant mild to moderate centrilobular emphysema.? I have no PFTs but the patient tells me her pulmonary doctor, Dr. Stephens, has told her her lung function is at 27% predicted.? She had an ABG on 06/13/2021 7.40/43/222 on 40% FiO2. Last exacerbation 6 months ago. 03/16/2023: Admitted for COPD exacerbation. BNP was 21. Influenza and COVID RT PCR studies negative 03/20: She is on prednisone 10 mg a day, a substantial dose for COPD.She cannot have steroids weaned at this time due to persistent symptoms and wheezing. Methylprednisolone 40 mg IV Q 6 hours Continue inhaler fluticasone/salmeterol 115/21 one puff BID, umeclidinium 62.5 mcg 1 puff a day, nebulized albuterol. Plan: She is not able to have steroids weaned yet, remains on a significant dose, methylprednisolone 40 IV Q 6; she says she has stayed in hospital as long as 30 days for COPD exacerbation. Her cardiac function is improved. She is on doxycycline, COPD bronchodilator regimen, her persistent symptoms. Her last chest CT was July 2022. I do not think that she has a PE, does not need a CTA for PE evaluation but might need it to look for lung disease that does not shows up on CXR.? Viral testing is negative, influenza A,B SARS-CoV-2. She is on doxycycline for COPD exacerbation. 03/21: patient tells me she slept on and off overnight. Overall she feels no better than when she was admitted. She continues to have bilateral expiratory wheezes. When I enter the room she was on 4 L nasal cannula and her saturations were 99%. I decreased her to 3 L nasal cannula and after 7 minutes her saturations were 99% but she said she was having trouble breathing and requested to tumor and back to 4 L which I did. Her white she is afebrile. White blood cell count is 6.1, creatinine is 0.4. She has bilateral wheezes on exam. Last hospitalization at [facility] was for 7-10 days. Plan: I will change the patient to all nebulized medications with albuterol 2.5 q4, ipratropium 0.5 mg q.4. I will discontinue her Advair as this regimen will provide maximum dose beta agonist, muscarinic antagonist and inhaled corticosteroid. I will continue her montelukast 10 mg q.day. She is having trouble expectorating phlegm and I will continue dornase 2.5 mg b.i.d., I will increase her guaifenesin from 600 mg p.o. q.12 hours to 1200 mg p.o. q.12 hours. Continue Cornet expiratory flutter valve. She is anxious and states she cannot tolerate a decrease in her FiO2 from 4 L to 3 L despite her saturation remaining stable on 3 L nasal cannula. The patient remained received vancomycin on 03/16, azithromycin on 03/17 and has been on doxycycline since 03/17/2023. Today is day 5 antibiotics and will continue. 03/22 overall patient tells me she feels the same with minimal improvement. She is expectorating more mucus, is yellow and thinner. She has shortness of breath at rest and dyspnea on exertion. Currently she is on 4 L nasal cannula saturations 97%. Patient complains that after increasing her nebulizers from Q 4 to q.6 hours she is more jittery. Plan: I will change her albuterol to levalbuterol 1.25 q.6 hours, change ipratropium to 0.5 mg nebs q.6 hours, I will decrease her Solu-Medrol from 40 Q 6 to 20q6. Phlegm is thinner on guaifenesin 1200 mg q.12 hours and I will continue this. I will discontinue dornase as she has had a total of 4 days. Continue montelukast. Continue doxycycline, today is day 6 of antibiotics. She will attempt to walk later today. 03/23: Patient told me she did get some sleep last night and this is an improvement. When I entered the room she was on 4 L nasal cannula with satura
[2023-03-24] MEDS: ROFLUMILAST 250 MCG TABLET PO (11:29)
--- NOTE | 2023-03-24 11:46 | PM.IMPN ---
Progress Note: A&P Assessment and Plan (1) COPD exacerbation: Code(s): J44.1 - Chronic obstructive pulmonary disease with (acute) exacerbation Status: Acute Assessment and Plan: Patient still feels SOB and not back to baseline. She is on 3L O2 chronically but now up to 4L CPT ordered. Pulmozyme was ordered and completed 4 days Completed 7 days of Doxycycline She is now able to mobilize secretions. Now having more SOB. EKG showing sinus tachycardia Nebulizer treatments held. Panic attack? Lorazepam once. Steroids being weaned. Plan to repeat CXR and check sputum cx. Daliresp to be added Pulmonary following and appreciate their input. She is already on palliative care. Spoke with her about hospice and she would like to consider this. Follow (2) Acute and chronic respiratory failure with hypoxia: Code(s): J96.21 - Acute and chronic respiratory failure with hypoxia Status: Acute Assessment and Plan: She was weaned to her 3L but now back up slightly to 4L Feeling worse today Wean O2 as tolerated As above. (3) Type 2 diabetes mellitus: Qualifiers: Diabetes mellitus [facility] insulin use: without long term care pharmacist use Diabetes mellitus complication status: without complication Qualified Code(s): E11.9 - Type 2 diabetes mellitus without complications Code(s): E11.9 - Type 2 diabetes mellitus without complications Status: Acute Assessment and Plan: A1c 7.3 in July. The patient's blood glucose was reviewed on 03/24 Glucose remains elevated at times felt related to steroids. Empagliflozin and lantus added. Glucose better controlled now Continue AccuCheks covering with sliding scale. Hypoglycemia protocol available as needed. Cut Lantus back. Continue to monitor (4) Heart failure with reduced ejection fraction: Code(s): I50.20 - Unspecified systolic (congestive) heart failure Status: Acute Assessment and Plan: Patient has a hx of systolic CHF with EF 17%. Repeat Echo here showing EF 70% and Grade I diastolic dysfunction. Appears euvolemic at this time. Continue home meds with Entresto, Toprol and Lasix Empagliflozin added. BNP ordered (5) Protein calorie malnutrition: Code(s): E46 - Unspecified protein-calorie malnutrition Status: Acute Assessment and Plan: Patient with moderate protein calorie malnutrition related to reduced appetite with inadequate energy intake as evidenced by pt report, significant weight loss of -13% x 6 months, and NFPE findings. Supplements ordered Plan DVT prophylaxis with Lovenox GI prophylaxis with PPI Code status full code Subjective Date/time seen: 03/24/23 11:46 Interval history: 67-year-old female with chronic respiratory failure on home oxygen, CHF, DM, HTN, and HLD here for COPD exacerbation Still feels bad today. Slept off/on. No CP but had 'a little' left sided chest pain yesterday. Cough more productive of yellow sputum. She was on palliative care prior to admission. Lorazepam made her feel lightheaded. Exam Narrative: AF 97.9 135/67 114 20 96% 4L Gen - thin, frail, elderly female in NARD but with conversational dyspnea Chest - coarse expiratory rhonchi diffusely; prolonged expiratory phase CV - tachycardic, regular. Tele showing sinus tachycardia with HR around 105 overnight but higher when active Abd - Soft, NT/ND, Positive BS Ext - No pedal edema Psych - Nml mood and affect Skin - Warm and dry Objective Data Vital Signs Vital Signs: Vital Signs - 24 hr 03/23/23 12:55 03/23/23 12:00 03/23/23 13:51 Temperature Pulse Rate 123 H Respiratory Rate Blood Pressure Pulse Oximetry 95 97 Oxygen Delivery High Flow Therapy with Na Nasal Cannula Oxygen Flow Rate 30 4 Fraction of Inspired Oxygen 36 36 03/23/23 14:00 03/23/23 16:00 03/23/23 19:48 Temperature 99.2 F Pulse Rate 122 H 111 H 106 H Respiratory Rate 20 22 H
[2023-03-24 12:22] LABS: Glucose Point of Care 208 mg/dl (65-105)
[2023-03-24] MEDS: MORPHINE SULFATE (*CRX) 2 MG/ML INJ IV PUSH (14:00)
[2023-03-24] MEDS: MORPHINE SULFATE INJ (*CRX) 50 MG in SODIUM CHLORIDE 0.9% IV 95 ML IV CONT (15:05)
--- NOTE | 2023-03-24 15:44 | PM.DS ---
DS: Admitting Diagnosis Discharge Date 03/24/23 Admitting Diagnosis shortness of breath DS: Discharge Diagnosis Discharge Diagnosis (1) COPD exacerbation: Code(s): J44.1 - Chronic obstructive pulmonary disease with (acute) exacerbation Status: Acute (2) Acute and chronic respiratory failure with hypoxia: Code(s): J96.21 - Acute and chronic respiratory failure with hypoxia Status: Acute (3) Type 2 diabetes mellitus: Qualifiers: Diabetes mellitus [facility] insulin use: without [facility] use Diabetes mellitus complication status: without complication Qualified Code(s): E11.9 - Type 2 diabetes mellitus without complications Code(s): E11.9 - Type 2 diabetes mellitus without complications Status: Acute (4) Heart failure with reduced ejection fraction: Code(s): I50.20 - Unspecified systolic (congestive) heart failure Status: Acute (5) Protein calorie malnutrition: Code(s): E46 - Unspecified protein-calorie malnutrition Status: Acute DS: Summary Hospital Course Reason for hospitalization: 67-year-old female with chronic respiratory failure on home oxygen, CHF, DM, HTN, and HLD? here for COPD exacerbation. Please see H&P for details. Hospital Course: (1) COPD exacerbation: Patient presents with SOB and continued to feel SOB and not back to baseline. She is on 3L O2 chronically but now up to 4L. CPT ordered. Pulmozyme was ordered and she completed 4 days. Completed 7 days of Doxycycline. She was able to mobilize secretions. Now having more SOB. EKG showing sinus tachycardia. Pulmonary followed and appreciate their input. She is already on palliative care. Spoke with her about hospice and she wanted to proceed with hospice care. Her respiratory condition worsened and she was moved to comfort measures and then to hospice care. (2) Acute and chronic respiratory failure with hypoxia: She was weaned to her 3L but now back up slightly to 4L. Treated for COPD exacerbation. (3) Type 2 diabetes mellitus: A1c 7.3 in July. The patient's blood glucose was elevated at times felt related to steroids. Empagliflozin and lantus added. Glucose became better controlled. She was monitored by AccuCheks covering with sliding scale.? Hypoglycemia protocol was available as needed.? (4) Heart failure with reduced ejection fraction; Patient has a hx of systolic CHF with EF 17%. Repeat Echo here showing EF 70% and Grade I diastolic dysfunction. She was clinically euvolemic. We continued home meds with Entresto, Toprol and Lasix. Empagliflozin added. (5) Protein calorie malnutrition: Patient with moderate protein calorie malnutrition related to reduced appetite with inadequate energy intake as evidenced by pt report, significant weight loss of -13% x 6 months, and NFPE findings. Supplements ordered Patient struggling to breath on the day of transfer. Patient was asking for comfort measures and Morphine. She is agreeable for a morphine drip and understands this is end-of-life care. Family in the room (4-5 people) and all are in agreement with this plan. All were agreeable for morphine drip. The patient's palliative care company was notified. They were okay with changing code status to DNR. She was moved to private room and started on Morphine drip. She became more comfortable. She was transferred to hospice care on 03/24/23. Status at Discharge Cognitive/behavioral status at discharge: critical Time Spent with Patient Time attestation: Total time spent providing and/or coordinating discharge services: 45 minutes Time spent: Greater than 30 minutes Exam Narrative: AF 97.9 135/67 114 20 96% 4L Gen - thin, frail, elderly female in NARD but with conversational dyspnea Chest - coarse expiratory rhonchi diffusely; prolonged expiratory phase CV - tachycardic, regular. Tele showing sinus tachycardia with HR around 105 overnight but higher when active Abd - Soft, NT/ND, Po
[2023-03-24] MEDS: LORazepam INJ (*CRX) 2 MG/ML VIAL 1 MG IV PUSH (16:25)
[2023-03-24 16:33] LABS: Glucose Point of Care 83 mg/dl (65-105)
[2023-03-25 12:08] LABS: Glucose Point of Care 130 mg/dl (65-105)
== END 2023-03-24 16:30 | disposition hospice, inpatient (51) | DRG 190 ==
LOC: ANHED 11:03 → ANH3MEDSUR 14:20
PROVIDERS: Physician Assistant; Admitting Provider Student in an Organized Health Care Education/Training Program; Emergency Provider Emergency Medicine; PCP Physician Assistant; Visit Provider Internal Medicine
DX: J43.9 Emphysema, unspecified (principal); J96.21 Acute and chronic respiratory failure with hypoxia; I50.22 Chronic systolic (congestive) heart failure; E44.0 Moderate protein-calorie malnutrition; Z68.1 Body mass index [BMI] 19.9 or less, adult; J06.9 Acute upper respiratory infection, unspecified; E78.5 Hyperlipidemia, unspecified; E11.65 Type 2 diabetes mellitus with hyperglycemia; F41.9 Anxiety disorder, unspecified; G89.29 Other chronic pain; I11.0 Hypertensive heart disease with heart failure; K21.9 Gastro-esophageal reflux disease without esophagitis; M19.90 Unspecified osteoarthritis, unspecified site; M54.9 Dorsalgia, unspecified; Z66 Do not resuscitate; Z86.16 Personal history of COVID-19; Z90.49 Acquired absence of other specified parts of digestive tract; Z90.710 Acquired absence of both cervix and uterus; Z87.891 Personal history of nicotine dependence; Z86.14 Personal history of Methicillin resistant Staphylococcus aureus infection; Z79.82 Long term (current) use of aspirin; Z20.822 Contact with and (suspected) exposure to COVID-19; Z99.81 Dependence on supplemental oxygen; Z79.84 Long term (current) use of oral hypoglycemic drugs
CPT/HCPCS: 36415; 36600; 71045; 71046; 80048; 80053; 80069; 82805; 82948; 83735; 83880; 85025; 85027; 87040; 87636; 87641; 93005; 93306; 94640; 94667; 94668; 96361; 96372; 96374; 96375; 96376; 97161; 99285; A9270; G0378; J1650; J1815; J2060; J2270; J2405; J2920; J2930; J3370; J7120

== ENCOUNTER 2023-03-24 16:31 | HOS | payer OTHER, MEDICARE, MEDICAID, SELFPAY ==
[2023-03-24 16:46] VITALS: BMI 16.5
--- NOTE | 2023-03-24 17:34 | PM.IMHP ---
H&P: [facility] History of Present Illness Date/Time: 03/24/23 17:34 Chief Complaint: Shortness of breath. Narrative: Taken from original H&P 03/16/2023: This is a 67-year-old female with chronic respiratory failure on home oxygen, steroid dependent chronic obstructive pulmonary disease, heart failure with reduced ejection fraction of 17% on echo in June 2021 with findings concerning for reverse takotsubo cardiomyopathy (follow up echo this admission EF 70% with diastolic dysfunction), type 2 diabetes mellitus, hypertension, and hyperlipidemia presented to the emergency department for evaluation of shortness of breath. The patient provides the following history. At baseline she does get winded with activities however is able to do light cooking and cleaning. She also watches her grandchildren frequently. Over the past week or so however she has had increasing dyspnea on lesser and lesser exertion and is now to the point where she is short of breath when even walking a few feet. She has a cough productive of yellow sputum and she has had a temperature up to 102? F. her throat is a bit sore but not significantly so. Appetite has been okay however she reports that it is difficult to eat as she is so short of breath. She has significant wheezing for which she has been using her inhalers and nebulizers without a whole lot of benefit. She also reports having lower extremity edema couple of weeks ago for which she doubled up on her Lasix. In the ED: SpO2 was 88% on her usual 3 L nasal cannula. Labs were significant for a WBC count of 9.4, sodium 132, glucose 240, proBNP 21. She was negative for influenza and COVID. Chest x-ray showed emphysema and mild pulmonary edema in the lower lung zones. EKG did not show any acute changes from previous tracings. She received a DuoNeb and Solu-Medrol and she was admitted in this setting for COPD exacerbation. Despite treatmentwith solumedrol and antibiotics, her symptoms worsened. She was started on IV morphine every 2 h which has been only slightly helpful for her symptoms, so she was started on a morphine drip and hospice was consulted, she and her family agreed. She is on 6L of oxygen now. Is SOB at rest, appetite is poor and eating is difficult because of SOB. Review of Systems Constitutional: Constitutional: Reports weight loss (lost 25 lbs over the past few months.) Cardiovascular: Cardiovascular: Reports no additional cardiovascular complaints and Reports leg edema (had BLE edema before admission, increased her lasix and that resolved. ) Respiratory: Respiratory: Reports as per HPI, Reports change in phlegm color, Reports cough, Reports dyspnea (This has worsened over the past several days in spite of steroids and abx), Reports dyspnea on exertion and Reports wheezing Musculoskeletal: Musculoskeletal: Reports back pain (chronic low back pain, worse from hospital bed.) Integumentary/Breasts: Skin/Breast: Reports system reviewed and no additional complaints, except as docu Neurologic: Reports system reviewed and no additional complaints, except as documented [facility] Past Medical History Medical History (Updated 03/24/23 @ 18:13 by Ann Anton DO) Anxiety Chronic back pain Chronic respiratory failure with hypoxia, on home oxygen therapy E. coli urinary tract infection (03/2021) Multi-drug resistant, not ESBL. Gastric ulcer Gastroesophageal reflux disease Heart failure with reduced ejection fraction History of MRSA infection Hyperlipidemia Hypertension Osteoarthritis Osteoporosis Steroid-dependent chronic obstructive pulmonary disease Type 2 diabetes mellitus Surgical History Surgical History H/O tubal ligation History of appendectomy History of arthroscopy of right knee History of hysterectomy (1985) Total abdominal hysterectomy with unilateral salpingo-oophorectomy for benign reasons. History of lung biopsy In the late . She reports s
[2023-03-24 18:34] VITALS: BP 145/78; PULSE 134
--- NOTE | 2023-03-24 18:56 | PC.NURSE ---
Morphine infusing 2mg/hr or 4mls/hr verified by Gwen VÁSQUEZ, started/scanned on prior chart with previous V number before patient admitted on hospice. Patient resting comfortably.
[2023-03-24 20:30] VITALS: O2SAT 92
[2023-03-24] MEDS: MORPHINE SULFATE (*CRX) 2 MG/ML INJ IV PUSH (20:30)
[2023-03-24] MEDS: ACETAMINOPHEN 325 MG TABLET 650 MG PO (23:25)
[2023-03-24] MEDS: LORazepam INJ (*CRX) 2 MG/ML VIAL 0.5 MG IV PUSH (23:26)
[2023-03-24] MEDS: MORPHINE SULFATE (*CRX) 2 MG/ML INJ 4 MG IV PUSH (23:27)
[2023-03-25] MEDS: ALBUTEROL SULFATE NEB 2.5 MG/0.5 ML INH INHALATION (00:08)
[2023-03-25] MEDS: IPRATROPIUM BR 0.02% INH SOLN 0.5 MG/2.5 ML VIAL INHALATION (00:08)
[2023-03-25] MEDS: MORPHINE SULFATE INJ (*CRX) 50 MG in SODIUM CHLORIDE 0.9% IV 95 ML 6 MG IV CONT (08:57)
--- NOTE | 2023-03-25 12:02 | WPDPN ---
Progress Note: A&P Assessment and Plan (1) Hospice care: Code(s): Z51.5 - Encounter for palliative care Status: Acute Assessment and Plan: Pt has developed multiple signs of imminent in last 12 hours, now with coma, inability to take po, cool extremities, diminished urine output, hypotension. Discussed at length with family at bedside. Advised family to remain close, as oconnor changes may predict further oconnor decline. (2) Acute and chronic respiratory failure with hypoxia: Code(s): J96.21 - Acute and chronic respiratory failure with hypoxia Status: Acute Assessment and Plan: Though tachypneic, pt showing no signs of struggle. Maintaining current O2 support. notes pt tolerates CPAP poorly. (3) Acute systolic CHF (congestive heart failure): Code(s): I50.21 - Acute systolic (congestive) heart failure Status: Acute Assessment and Plan: Minimized fluid inputs presently. (4) Chronic back pain: Qualifiers: Back pain laterality: unspecified Back pain location: low back pain Sciatica presence: unspecified whether sciatica present Qualified Code(s): M54.5 - Low back pain; G89.29 - Other chronic pain Code(s): M54.9 - Dorsalgia, unspecified; G89.29 - Other chronic pain Status: Acute Assessment and Plan: prn Morphine available as bolus, continuous infusion ongoing. Baseline chronic opioid use, ~60 OME/day, definitely not opioid naive. Plan As detailed above. Initial hospice eval was hopeful for transition to home, though has now shown dramatic decline. Advised family will need to follow closely. Reassured family that distress and pain appear well-treated presently. Time Spent With Patient Time with patient: Greater than 35 minutes Subjective Date/time seen: 03/25/23 12:02 Interval history: , sister and bro-in-law, and granddaughter all at bedside. Had difficult evening despite IV Morphine 2 mg/hr, due to sob, back pain, generalized pain. relates that baseline opioid use has been 120 Percocet per month for generalized pain, often consuming all before end of month. Received additional IV push Morphine 2 mg and Ativan 2 mg, and morphine infusion increased to 3 mg/hr. Has been sleeping and non-responsive since about 2 am, per family. Would not rouse for am dose of Prednisone. Review of Systems Review of Systems: as above, pt nonresponsive ROS unobtainable: Yes unobtainable due to medical condition and unobtainable due to mental status Exam Narrative: hospice staff vitals: 68/44 127 40 98.2 Const: General: no acute distress Other: Does not rouse to voice or tactile stimulation. Eyes: General: appearance normal, both eyes and all related structures Sclera: sclerae normal Pupils: Equal, round and reactive pupils present Other: pupils bilat 3 mm Neck: Neck: supple and no JVD Lymphatic: lymphadenopathy not noted Resp: Auscultation: no crackles, no rales and diminished lung sounds Other: tachypneic, distant breath sds, fine insp and exp rhonchi bilat. Prominent abd motion with respirations, lying semireclined. Cardio: Rate: tachycardic Rhythm: regular rhythm Heart sounds: no gallops and no rubs Other: distant GI: Inspection: non-distended GI Palp: Yes Soft to palpation, No Tenderness to palpation present (GI) and No Guarding due to palpation present (GI) Auscultation: normal bowel sounds Urinary Catheter: Urinary Catheter: patent and draining and urine clear Skin: Other: Cyanosis L>R hand, L hand cool. Scant mottling feet present, toes cool bilaterally. Neuro: Other: as above, nonresponsive to voice/tactile stim Extrem: General: no edema and no pedal edema Objective Data Vital Signs Vital Signs: Vital Signs - 24 hr 03/24/23 18:34 03/24/23 20:30 Pulse Rate 134 H Blood Pressure 145/78 H Pulse Oximetry 92 Oxygen Delivery Nasal
--- NOTE | 2023-03-25 15:14 | PC.NURSE ---
[facility] states that patient is a candidate for donation. Abril notified. Patient in the morgue. [facility] will miner pick
--- NOTE | 2023-03-25 19:00 | PM.DDS ---
Discharge Summary Date and Time Date of : 03/25/23 Time of : 13:45 Provider Pronounced By: Gwen Pelayo RN/Dominga Cee RN Probable Cause of Probable Cause of : Chronic Obstructive Pulmonary Disease Summary Hospital Course: Pt was admitted to [facility] 03-16-23 with fever, increased dyspnea, cough productive of yellow sputum. Workup did not find bacterial or viral (influenza, COVID19) pathogen nor convincing CHF decompensation to account for this illness. She received empiric antibiotics, steroid, inhaled medications and other supportive treatments but failed to meaningfully improve. By 03-24-23, she and her family requested comfort care and hospice support as her dyspnea, anxiety and pain were not being relieved. [facility] staff judged that she qualified for General Inpatient Hospice care because her opioid requirement was at a quantity and urgency that necessitated IV administration. She was supported with a titrated continuous morphine infusion starting 03-24-23, along with intermittent IV lorazepam. After prn dose administration and infusion titration, the patient eased into a calm deep sleep in the early hours of 03-25-23. Subsequently patient's systolic bp was noted to be in the 60's and the patient remained comatose, with cool extremities. The patient at the time noted above. Hospital and hospice staff supported multiple family members present at the time of pt's . Additional Data Confirmation of as documented by pronouncing clinician: Pupillary Reflex, Palpable Pulses, Response to Stimuli, Heart Tones and Breath Sounds Name of Provider Notified: Dr. Fisher Time Provider Notified: 14:00 Was code activated?: No Provider Requests Autopsy: No Family Requests Autopsy: No Clinical Cytogenetics Director Notified: Yes Date [facility] Notified of : 03/25/23 Time [facility] Notified of : 14:15 Advance directives: Yes Hospice patient?: Yes
== END 2023-03-25 13:45 | disposition expired | DRG 951 ==
PROVIDERS: Admitting Provider Internal Medicine Adolescent Medicine; PCP Physician Assistant; Visit Provider Internal Medicine Nephrology
DX: Z51.5 Encounter for palliative care (principal); J96.21 Acute and chronic respiratory failure with hypoxia; I50.21 Acute systolic (congestive) heart failure; J44.1 Chronic obstructive pulmonary disease with (acute) exacerbation; G89.29 Other chronic pain; M54.50 Low back pain, unspecified; E11.9 Type 2 diabetes mellitus without complications; E78.5 Hyperlipidemia, unspecified; I11.0 Hypertensive heart disease with heart failure; Z66 Do not resuscitate; Z87.891 Personal history of nicotine dependence
CPT/HCPCS: A9270; J2060; J2270